=== PATIENT | male | born 1960 ===

== ENCOUNTER → 2019-10-09 09:35 | Outpatient (BNVA) | payer BC, SELFPAY | PROVIDERS: Visit Provider Specialist | DX: M19.012 Primary osteoarthritis, left shoulder (principal); M25.512 Pain in left shoulder | CPT/HCPCS: 73030 ==

== ENCOUNTER 2021-05-10 00:32 | Inpatient (IN) | payer BC, SELFPAY ==
[2021-05-10] VITALS (42 sets, daily range): BP systolic 124–179; BP diastolic 40–83; PULSE 66–88; RESP 14–24; TEMP 37.2; O2SAT 95–100; BMI 36.8
--- NOTE | 2021-05-10 00:51 | ED_ITS ---
HPI - Abdominal Pain General: Chief Complaint: ER Hold Stated Complaint: pancreatitis Time Seen by Provider: 05/10/21 00:51 History of Present Illness: HPI narrative: Mr. Quesada is a 61-year-old gentleman with significant past medical history of hypertension, hyperlipidemia, and diabetes who presents emerged department due to abdominal pain. He reports a history of pancreatitis and symptoms have been going on for few days. Symptom onset was gradual and he endorses gradually worsening now severe epigastric pain. He has associated nausea and vomiting. No changes in bowel movement or stool. No other infectious symptoms. He presented to outside hospital was offered admission or transfer to another facility versus trial at home and he elected to try at home however symptoms worsened. Reports chest x-ray and CT imaging at that time. EMS gave the patient 1 mg Dilaudid and 4 mg of Zofran which improved his symptoms. He has had similar episodes in the past. No other abdominal trauma, specific exacerbating, alleviating, or provoking factors id entified. He reports last alcohol consumption to 3 months ago and that previous episodes of pancreatitis were likely secondary to poor glucose control as opposed to alcohol abuse. Review of Systems General: Reports: 10 or more systems reviewed and unremarkable except in HPI and below Narrative: CONSTITUTIONAL: See HPI EYES - denies pain, denies loss of vision EARS - denies ear issues. NOSE - denies congestion or rhinorrhea. THROAT - denies sore throat or difficulty swallowing. CARDIOVASCULAR - denies chest pain and palpitations RESPIRATORY - denies shortness of breath and cough GASTROINTESTINAL -see HPI GENITOURINARY - denies dysuria or urinary frequency MUSCULOSKELETAL- denies deformity or pain SKIN - denies rashes or new changed skin lesions NEUROLOGIC - denies focal weakness or sensory changes HEMATOLOGIC/LYMPHATIC - denies easy bruising or lymphadenopathy. PENDING SALE TO [facility] ED PFSH: Medical History Diabetes type 2, controlled Hyperlipidemia Hypertension Osteoarthritis of left shoulder Social History Smoking and tobacco status: current some day smoker Alcohol intake: current Alcohol intake frequency: holidays/special occasions only Physical Exam Narrative: EXAM NARRATIVE: GENERAL/CONSTITUTIONAL -somewhat ill-appearing. Uncomfortable Eyes - PERRL, no conjunctival injection ENMT - Atraumatic external nose and ears. Moist mucous membranes NECK - supple. trachea midline CARDIOVASCULAR - regular rate and rhythm. Peripheral pulses 2+ and equal RESPIRATORY -clear to auscultation bilaterally. No retractions or accessory muscle use. ABDOMEN/GI -tenderness to palpation in the epigastric region. Nondistended. No tenderness to percussion or evidence of peritonitis MSK - Extremities without obvious deformity or tenderness to palpation SKIN - Warm, Dry NEURO - alert and appropriately oriented. strength and sensation intact. Moves all extremities equally. PSYCH - Appropriate mood and affect Course ED course: - Patient was seen and evaluated by me at bedside - Patient placed on cardiac monitors, IV access obtained - Initial evaluation notable for mildly ill-appearing, uncomfortable due to pain. Moderate marked tenderness in the epigastric region. -Symptom control ordered. - Labs notable for leukocytosis, elevated lipase. -Outside CT reviewed - Upon serial reexamination after treatment the patient was mildly improved - Based on patient history, evaluation, labs, and imaging as interpreted the most likely cause of the patient's condition is pancreatitis - The results of ED evaluation were discussed with the patient including plan for admission due to requirement for level of care not available if discharged to prevent significant worsening/deterioration. The patient failed trial of outpatient therapy. -Hospitalist service contacted and agreed to admit the patient. In discussion with hospitalist triglyceride level requested and came back elevated. After further discussion insulin and D5 containing solution ordered. - Patient was admitted without further deterioration or significant events. Vital Signs: Vital signs: Vital Signs Temperature 99.0 F 05/10/21 20:00 Pulse Rate 69 05/10/21 22:00 Respiratory Rate 22 H 05/10/21 20:35 Blood Pressure 153/71 05/10/21 20:40 Pulse Oximetry 96 05/10/21 20:35 MDM - Abdominal Pain Medical Records: Attestation: I reviewed the patient's medical records. Lab Data: Attestation: I reviewed the patient's lab results. Labs: Lab Results 05/10/21 05/10/21 05/10/21 Range/Units 01:20 01:20 01:20 WBC 15.5 H (4.0-10.0) 10^3/ uL RBC 3.96 L (4.1-5.3) 10^6/u L Hgb 12.2 (11.7-16.6) g/dL Hct 34.9 L (42.0-52.0) % MCV 88.1 (80-94) fl MCH 30.8 (28.0-34.0) pg MCHC 35.0 (30.0-36.0) g/dL RDW 13.3 (12.1-15.1) % Plt Count 173 (130-400) 10^3/c mm MPV 13.7 H (7.4-10.4) fL Neut % (Auto) 80.6 % Lymph % (Auto) 12.0 % Vigo % (Auto) 6.0 % Eos % (Auto) 0.7 % Baso % (Auto) 0.3 % Neut # (Auto) 12.51 H (1.8-7.7) 10^3/u L Lymph # (Auto) 1.9 (0.8-4.8) 10^3/u L Vigo # (Auto) 0.9 (0.2-0.9) 10^3/u L Eos # (Auto) 0.1 (0.0-0.8) 10^3/u L Baso # (Auto) 0.1 (0.0-0.1) 10^3/u L Nucleated RBC % (a uto) 0 % Nucleated RBCs # 0.0 /100WBC Sodium 129 L (136-145) mmol/L Potassium 4.3 (3.5-5.1) mmol/L Chloride 94 L (98-107) mmol/L Carbon Dioxide 22 (22-29) mmol/L Anion Gap 17.3 (5-19) BUN 13 (6-20) mg/dL Creatinine 0.6 L (0.7-1.2) mg/dL GFR Calculation 137.9 H (90-130) mL/min Glucose 278 H (65-115) mg/dL Calculated Osmolal ity 278 L (285-295) mOsm/k g Lactate 0.6 (0.5-2.2) mmol/L Calcium 8.0 L (8.5-10.5) mg/dL Total Bilirubin 0.5 (0.15-1.2) mg/dL AST 5 (0-40) U/L ALT < 5 (0-41) U/L Alkaline Phosphata se 61 (40-130) IU/L Troponin T Baselin e (0-15) ng/L Troponin T 120 Min [place] (0-15) ng/L Delta Troponin T (0-10) ABS# Total Protein 5.9 L (6.6-8.7) g/dL Albumin 3.5 (3.5-5.2) g/dL Globulin 2.4 (1.3-4.6) g/dL Triglycerides (0-150) mg/dL LDL Cholesterol Di rect (0-100) mg/dL Lipase 145 H (13-60) U/L TSH (0.27-4.20) uIU/ mL Urine Color (Yellow) Urine Appearance (CLEAR) Urine pH (5-7) Ur Specific Gravit y (1.005-1.030) Urine Protein (Negative) Urine Glucose (UA) (Normal) Urine Ketones (Negative) Urine Blood (Negative) Urine Nitrate (Negative) Urine Bilirubin (Negative) Urine Urobilinogen (Negative) mg/dL Ur Leukocyte Eli ase (Negative) Urine RBC (0-2) /hpf Urine WBC (0-5) /hpf Ur Squamous Epith Cells (0-5) /hpf Amorphous Sediment /hpf Urine Bacteria (NONE) /hpf Ethyl Alcohol (0-10) mg/dL 05/10/21 05/10/21 05/10/21 Range/Units 01:20 01:20 02:55 WBC (4.0-10.0) 10^3/ uL RBC (4.1-5.3) 10^6/u L Hgb (11.7-16.6) g/dL Hct (42.0-52.0) % MCV (80-94) fl MCH (28.0-34.0) pg MCHC (30.0-36.0) g/dL RDW (12.1-15.1) % Plt Count (130-400) 10^3/c mm MPV (7.4-10.4) fL Neut % (Auto) % Lymph % (Auto) % Vigo % (Auto) % Eos % (Auto) % Baso % (Auto) % Neut # (Auto) (1.8-7.7) 10^3/u L Lymph # (Auto) (0.8-4.8) 10^3/u L Vigo # (Auto) (0.2-0.9) 10^3/u L Eos # (Auto) (0.0-0.8) 10^3/u L Baso # (Auto) (0.0-0.1) 10^3/u L Nucleated RBC % (a uto) % Nucleated RBCs # /100WBC Sodium (136-145) mmol/L Potassium (3.5-5.1) mmol/L Chloride (98-107) mmol/L Carbon Dioxide (22-29) mmol/L Anion Gap (5-19) BUN (6-20) mg/dL Creatinine (0.7-1.2) mg/dL GFR Calculation (90-130) mL/min Glucose (65-115) mg/dL Calculated Osmolal ity (285-295) mOsm/k g Lactate (0.5-2.2) mmol/L Calcium (8.5-10.5) mg/dL Total Bilirubin (0.15-1.2) mg/dL AST (0-40) U/L ALT (0-41) U/L Alkaline Phosphata se (40-130) IU/L Troponin T Baselin e 32 H (0-15) ng/L Troponin T 120 Min [place] (0-15) ng/L Delta Troponin T (0-10) ABS# Total Protein (6.6-8.7) g/dL Albumin (3.5-5.2) g/dL Globulin (1.3-4.6) g/dL Triglycerides (0-150) mg/dL LDL Cholesterol Di rect (0-100) mg/dL Lipase (13-60) U/L TSH 1.43 (0.27-4.20) uIU/ mL Urine Color Yellow (Yellow) Urine Appearance Clear (CLEAR) Urine pH 5 (5-7) Ur Specific Gravit y 1.015 (1.005-1.030) Urine Protein 2+ H (Negative) Urine Glucose (UA) 4+ H (Normal) Urine Ketones 2+ H (Negative) Urine Blood 2+ H (Negative) Urine Nitrate Negative (Negative) Urine Bilirubin Neg (Negative) Urine Urobilinogen Norm (Negative) mg/dL Ur Leukocyte Eli ase Negative (Negative) Urine RBC 5-10 H (0-2) /hpf Urine WBC 0-4 H (0-5) /hpf Ur Squamous Epith Cells 0-4 H (0-5) /hpf Amorphous Sediment 1+ /hpf Urine Bacteria Trace (NONE) /hpf Ethyl Alcohol (0-10) mg/dL 05/10/21 05/10/21 Range/Units 04:30 04:30 WBC (4.0-10.0) 10^3/ uL RBC (4.1-5.3) 10^6/u L Hgb (11.7-16.6) g/dL Hct (42.0-52.0) % MCV (80-94) fl MCH (28.0-34.0) pg MCHC (30.0-36.0) g/dL RDW (12.1-15.1) % Plt Count (130-400) 10^3/c mm MPV (7.4-10.4) fL Neut % (Auto) % Lymph % (Auto) % Vigo % (Auto) % Eos % (Auto) % Baso % (Auto) % Neut # (Auto) (1.8-7.7) 10^3/u L Lymph # (Auto) (0.8-4.8) 10^3/u L Vigo # (Auto) (0.2-0.9) 10^3/u L Eos # (Auto) (0.0-0.8) 10^3/u L Baso # (Auto) (0.0-0.1) 10^3/u L Nucleated RBC % (a uto) % Nucleated RBCs # /100WBC Sodium (136-145) mmol/L Potassium (3.5-5.1) mmol/L Chloride (98-107) mmol/L Carbon Dioxide (22-29) mmol/L Anion Gap (5-19) BUN (6-20) mg/dL Creatinine (0.7-1.2) mg/dL GFR Calculation (90-130) mL/min Glucose (65-115) mg/dL Calculated Osmolal ity (285-295) mOsm/k g Lactate (0.5-2.2) mmol/L Calcium (8.5-10.5) mg/dL Total Bilirubin (0.15-1.2) mg/dL AST (0-40) U/L ALT (0-41) U/L Alkaline Phosphata se (40-130) IU/L Troponin T Baselin e (0-15) ng/L Troponin T 120 Min [place] 29.33 H (0-15) ng/L Delta Troponin T -2.67 L (0-10) ABS# Total Protein (6.6-8.7) g/dL Albumin (3.5-5.2) g/dL Globulin (1.3-4.6) g/dL Triglycerides 2354 H (0-150) mg/dL LDL Cholesterol Di rect 28 (0-100) mg/dL Lipase (13-60) U/L TSH (0.27-4.20) uIU/ mL Urine Color (Yellow) Urine Appearance (CLEAR) Urine pH (5-7) Ur Specific Gravit y (1.005-1.030) Urine Protein (Negative) Urine Glucose (UA) (Normal) Urine Ketones (Negative) Urine Blood (Negative) Urine Nitrate (Negative) Urine Bilirubin (Negative) Urine Urobilinogen (Negative) mg/dL Ur Leukocyte Eli ase (Negative) Urine RBC (0-2) /hpf Urine WBC (0-5) /hpf Ur Squamous Epith Cells (0-5) /hpf Amorphous Sediment /hpf Urine Bacteria (NONE) /hpf Ethyl Alcohol < 10 (0-10) mg/dL Discharge Plan Discharge Patient Disposition: Admitted As Inpatient Admit Provider: Gladis Casas Coding Level of Care Code ED Food Sampler for Carlos Alberto Bangura
[2021-05-10 01:28] LABS: Basophils # 0.1 10^3/uL (0.0-0.1); Basophils % 0.3 %; Eosinophils # 0.1 10^3/uL (0.0-0.8); Eosinophils % 0.7 %; Hematocrit 34.9 % (42.0-52.0); Hemoglobin 12.2 g/dL (11.7-16.6); Lymphocytes # 1.9 10^3/uL (0.8-4.8); Mean Corpuscular Hemoglobin 30.8 pg (28.0-34.0); Mean Corpuscular Volume 88.1 fl (80-94); Mean Platelet Volume 13.7 fL (7.4-10.4); Monocytes # 0.9 10^3/uL (0.2-0.9); Neutrophils # 12.51 10^3/uL (1.8-7.7); Neutrophils % 80.6 %; Nucleated Red Blood Cells % 0 %; Platelet Count 173 10^3/cmm (130-400); Red Blood Count 3.96 10^6/uL (4.1-5.3); Red Cell Distribution Width 13.3 % (12.1-15.1); White Blood Count 15.5 10^3/uL (4.0-10.0)
[2021-05-10 01:47] LABS: Albumin Level 3.5 g/dL (3.5-5.2); Alkaline Phosphatase 61 IU/L (40-130); Blood Urea Nitrogen 13 mg/dL (6-20); Carbon Dioxide 22 mmol/L (22-29); Chloride 94 mmol/L (98-107); Globulin 2.4 g/dL (1.3-4.6); Glomerular Filtration Rate 137.9 mL/min (90-130); Glucose 278 mg/dL (65-115); Lipase 145 U/L (13-60); Osmolality Calculated 278 mOsm/kg (285-295); Sodium 129 mmol/L (136-145); Total Bilirubin 0.5 mg/dL (0.15-1.2); Total Protein 5.9 g/dL (6.6-8.7)
[2021-05-10 01:48] LABS: Troponin(5th) Baseline 32 ng/L (0-15)
[2021-05-10 01:49] LABS: Lactate (Lactic Acid level) 0.6 mmol/L (0.5-2.2)
[2021-05-10 01:59] LABS: Alanine Aminotransferase < 5 U/L (0-41); Aspartate Amino Transferase 5 U/L (0-40)
[2021-05-10 03:14] LABS: Anion Gap 17.3 (5-19); Potassium 4.3 mmol/L (3.5-5.1)
[2021-05-10] MEDS: morphine 4 mg/mL SDV 1 mL IVP (03:58)
[2021-05-10 04:10] LABS: Urine Appearance Clear (CLEAR); Urine Color Yellow (Yellow)
[2021-05-10 04:11] LABS: Add Urine Microscopic? YES; Bilirubin Urine Neg (Negative); Blood Urine 2+ (Negative); Glucose Urine UA 4+ (Normal); Ketones Urine 2+ (Negative); Leukocyte Esterase Urine Negative (Negative); Nitrate Urine Negative (Negative); Protein Urine 2+ (Negative); Specific Gravity, Urine 1.015 (1.005-1.030); Urobilinogen Urine Norm (Negative); pH Urine 5 (5-7)
[2021-05-10 04:16] LABS: Add Urine Culture? No; Amorphous Sediment Urine 1+ /hpf; Bacteria Urine TRACE /hpf; Squamous Epithelial Cell Urine 0-4 /hpf (0-5); WBC Urine 0-4 /hpf (0-5)
[2021-05-10 05:07] LABS: Troponin 5 2HR 29.33 ng/L (0-15)
[2021-05-10 05:25] LABS: Alcohol Level < 10 mg/dL (0-10); Troponin 5 2HR Delta -2.67 ABS# (0-10)
[2021-05-10 05:29] LABS: Triglycerides 2354 mg/dL (0-150)
[2021-05-10 05:59] LABS: LDL Cholesterol Direct 28 mg/dL (0-100)
--- NOTE | 2021-05-10 06:21 | CTR_ITS ---
PROCEDURE INFORMATION: Exam: CT Abdomen With Contrast Exam date and time: 05/10/2021 6:21 AM Age: 61 years old Clinical indication: Abdominal pain; Additional info: Acute pancreatitis TECHNIQUE: Imaging protocol: Computed tomography images of the abdomen with intravenous contrast. Radiation optimization: All CT scans at this facility use at least one of these dose optimization techniques: automated exposure control; mA and/or kV adjustment per patient size (includes targeted exams where dose is matched to clinical indication); or iterative reconstruction. Contrast material: OMNI 300; Contrast volume: 95 ml; Contrast route: INTRAVENOUS (IV); COMPARISON: No relevant prior studies available. RADIATION DOSE METRICS: Total DLP (mGy-cm): 1432.8 FINDINGS: Heart: Normal heart size. Coronary atherosclerotic calcifications seen. No pericardial effusion. Liver: Normal. No mass. Gallbladder and bile ducts: Normal. No calcified stones. No ductal dilation. Pancreas: There is mild haziness of the fat surrounding the pancreatic neck. There is a nonspecific hypodense focus in the pancreatic neck/proximal body measuring 0.7 cm. The pancreas otherwise enhances homogeneously. No pancreatic ductal dilatation seen. No discrete peripancreatic fluid collection seen. Spleen: Normal. No splenomegaly. Adrenals: Normal. No mass. Kidneys and ureters: Symmetric enhancement of the kidneys. There is bilateral subcentimeter foci of decreased attenuation, which are too small to characterize. No hydronephrosis or nephrolithiasis. Stomach and bowel: Visualized stomach and bowel are unremarkable. No obstruction. No mucosal thickening. Intraperitoneal space: Unremarkable. No free air. No significant fluid collection. Lymph nodes: Unremarkable. No enlarged lymph nodes. Vasculature: Moderate diffuse atherosclerotic disease is present. Bones/joints: Degenerative changes of the spine seen. Soft tissues: Unremarkable. CT/CT abdomen w con* [id number] IMPRESSION: 1. Mild inflammatory changes of the pancreas, consistent with history of acute pancreatitis. 2. Subcentimeter focus of decreased attenuation in the pancreatic neck/proximal body. Further evaluation with contrast enhanced abdomen MRI/MRCP is recommended. Radiation Dose CTDIVOL = (mGy): DLP = 1432.8 (mGy-cm)
--- NOTE | 2021-05-10 06:29 | PC.NURSE ---
pt taken to CT
[2021-05-10] MEDS: iohexol 300 mg/mL 100 mL Btl IV (06:44)
--- NOTE | 2021-05-10 06:47 | P.HP_ITS ---
Providers/Chief Complaint Admitting Physician: Gladis Casas MD Chief Complaint: pancreatitis History of Present Illness Maurice Rizo is a 61 year old male with a past medical history of insulin- dependent diabetes mellitus, hyperlipidemia who is presenting today with 4 days of abdominal pain. Patient describes the pain as 10 out of 10 at its maximum, located in the epigastric region, described as a burning sensation starting in the epigastric region, radiating in a bandlike manner bilaterally and up into the left side of his chest. 4 days ago when the symptoms started he visited his local hospital where reportedly a CAT scan of the abdomen was performed and he was diagnosed with acute pancreatitis. He does not know his the results of his other blood work. He was given the option of transferring to [place] for admission versus returning home of which he opted for the latter. Came to the ER today with worsening abdominal pain. He has had nausea but no vomiting. He has had 1-2 episodes of diarrhea. T-max was noted to be 99.9. On arrival at the ER today he is noted to have leukocytosis, lipase at 145, elevated t riglycerides at 2300. He reports a past history of pancreatitis 4 years ago which she says was precipitated by a combination of his cholesterol and diabetes. He has not been using his insulin for the past week as he ran out. He has not only been taking Metformin and glipizide, blood sugar at home has been ranging up to 400. Review of Systems General: Reports: 10 or more systems reviewed and unremarkable except in HPI and below Const: Denies: fever(s), chills or body aches Eyes: Denies: change in vision, blurry vision or photophobia ENMT: Reports: hoarseness; Denies: throat pain, enlarged tonsils, odynophagia or nasal congestion Card: Denies: chest pain, palpitations, irregular heart rhythm, edema, swelling of feet/ankles, lightheadedness, pre-syncope, dyspnea on exertion or orthopnea Resp: Denies: dyspnea, productive cough, non-productive cough, wheezing, stridor, pain on inspiration, change in phlegm color, hemoptysis or chest congestion GI: Reports: abdominal pain and nausea; Denies: vomiting, hematemesis, coffee ground emesis, dysphagia, heartburn, diarrhea, constipation, GI cramping, change in stool character, hematochezia or melena : Denies: flank pain, dysuria, urinary frequency, urinary urgency, urinary hesitancy or hematuria Musc: Denies: neck pain, back pain, extremity pain, joint swelling, joint warmth or deformity Neuro: Denies: headache(s), numbness in extremities, weakness in extremities, sensory changes, difficulty walking, frequent falls, dizziness, vertigo, behavioral changes, Slurred speech present or seizure-like activity Psych: Denies: anxiety, depression, suicidal ideation or homicidal ideation Endo: Denies: polyuria, polydipsia, tired all the time, cold intolerance or hot flashes Tao/Lymph: Denies: easy bruising or easy bleeding Medications/Allergies Home Medications Medication Instructions Recorded Confirmed Last Taken Type aspirin 81 mg tablet,delayed 81 mg PO DAILY 10/09/19 10/09/19 Unknown History release atorvastatin 80 mg tablet 80 mg PO DAILY 10/09/19 10/09/19 Unknown History citalopram 40 mg tablet 40 mg PO DAILY 10/09/19 10/09/19 Unknown History gabapentin 600 mg tablet 600 mg PO DAILY 10/09/19 10/09/19 Unknown History glimepiride 4 mg tablet 4 mg PO BID tab 10/09/19 10/09/19 Unknown History hydrocodone 5 mg-acetaminophen 325 1 tab PO Q6H PRN 10/09/19 10/09/19 Unknown History mg tablet insulin glargine 100 unit/mL 100 unit SUBCUT DAILY 10/09/19 10/09/19 Unknown History subcutaneous solution lisinopril 10 mg tablet 10 mg PO DAILY 10/09/19 10/09/19 Unknown History metformin 500 mg tablet 1,000 mg PO BID tab 10/09/19 10/09/19 Unknown History multivitamin 1 tab PO DAILY 10/09/19 10/09/19 Unknown History tizanidine 4 mg capsule 4 mg PO TID PRN 10/09/19 10/09/19 Unknown History Allergies Allergy/AdvReac Type Severity Reaction Status Date / Time No Known Allergies Allergy Verified 10/09/19 09:57 PFSH Acute PFSH: Medical History Diabetes type 2, controlled Hyperlipidemia Hypertension Osteoarthritis of left shoulder Social History Smoking and tobacco status: current some day smoker Alcohol intake: current Alcohol intake frequency: holidays/special occasions only Vitals/I&O/Wt Last Vital Signs Temp 99.0 F 05/10/21 01:10 Pulse 84 05/10/21 04:00 Resp 19 H 05/10/21 04:00 BP 179/83 05/10/21 04:00 Pulse Ox 98 05/10/21 04:00 Weight last 48 hrs Weight 106.594 kg Physical Exam Narrative: EXAM NARRATIVE: General: Mild distress secondary to pain, dehydration+ HEENT: PERRLA, pupils bilaterally equal and reactive, pallors not present Chest: Normal vesicular breath sounds, no added sounds, equal good air entry bilaterally CVS: S1-S2 regular, no murmurs, no tachycardia, no gallops, no rubs Abdomen: Soft, nontender, no organomegaly, bowel sounds present Neuro: No focal deficits, no facial deformity, AO x3, power 5/5 in all limbs Extremities: No edema clubbing or cyanosis. Data : 05/10/21 01:20 05/10/21 01:20 A&P Assessment and plan (1) Acute pancreatitis: Status: Acute Qualifiers: Pancreatitis type: other Acute pancreatitis complication: unspecified Qualified Code(s): K85.80 - Other acute pancreatitis without necrosis or infection (2) Hyponatremia: Status: Acute (3) Leukocytosis: Status: Acute Qualifiers: Leukocytosis type: unspecified Qualified Code(s): D72.829 - Elevated white blood cell count, unspecified Additional A&P Information Patient presenting today with 4 days of abdominal pain, diagnosed with acute pancreatitis at an outside hospital 4 days ago, lipase today at 145, triglyceride noted to be elevated to 2300, overall clinical picture appears to be consistent with hypertriglyceridemia induced pancreatitis. #Acute pancreatitis N.p.o. except sips and chips for now. As needed morphine and Toradol alternating for pain control. IV fluids normal saline currently running at 150 cc an hour. Cause of pancreatitis appears to be hypertriglyceridemia, patient has not been using his insulin for the past week. Start insulin infusion, patient is on significant doses of insulin at home, will titrate the drip based on his blood sugar levels. Check triglyceride level twice daily. Check CMP twice daily. Target reduction of triglyceride level to around 500, will likely need additional fibrate therapy upon discharge. Continue atorvastatin. If blood glucose level is less than 250, change fluids to D5 normal saline. Keep potassium range between 3.5-5. Obtain CT of the abdomen to evaluate for any interim signs of necrotizing panc reatitis, developing abscess #Leukocytosis: Likely as a result of inflammatory response from pancreatitis. 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
--- NOTE | 2021-05-10 06:59 | PC.NURSE ---
pt back on unit from CT
[2021-05-10] MEDS: dextrose 5%-ns + KCl 40 40 MEQ/1,000 ML BAG 150 MEQ IV ×3 (07:10→21:11)
[2021-05-10 07:13] LABS: Thyroid Stimulating Hormone 1.43 uIU/mL (0.27-4.20)
--- NOTE | 2021-05-10 07:13 | ECG_ITS ---
[facility] Test Date: 2021-05-10 Pat Name: Maurice Rizo Department: Room: Gender: Male Hand Developer: : 1960 Requested By: Luis Alberto Ortiz Order Number: [id number] Rory MD: Yudy Zuluaga M.D. Measurements Intervals [place] Rate: 82 P: 42 WV: 185 QRS: -56 QRSD: 118 T: 28 QT: 360 QTc: 422 Interpretive Statements SINUS RHYTHM LEFT ANTERIOR FASCICULAR BLOCK [QRS AXIS <= -45, QR IN I, RS IN II] No previous ECG available for comparison Electronically Signed On 05-10-2021 19:21:40 CDT by Yudy Zuluaga M.D. [id number] f
[2021-05-10] MEDS: insulin regular-human 250 UNIT in sodium chloride 0.9% 250 ML 7.53 UNIT IV (07:26)
[2021-05-10 07:31] LABS: Glucose Point of Care 311 mg/dL (70-110)
[2021-05-10] MEDS: famotidine 20 mg/2 mL INJ IVP ×2 (07:36→19:50)
[2021-05-10] MEDS: enoxaparin 40 mg/0.4 mL Syringe SUBCUT (07:36)
[2021-05-10 08:35] LABS: Troponin 5 6HR 28.73 ng/L (0-15)
[2021-05-10] MEDS: morphine 4 mg/mL SDV 1 mL 2 MG IVP (08:36)
[2021-05-10 08:37] LABS: Triglycerides 2280 mg/dL (0-150); Troponin 5 6HR Delta -3.27 ng/L (0-12)
[2021-05-10 08:43] LABS: Glucose Point of Care 324 mg/dL (70-110)
[2021-05-10 09:40] LABS: LDL Cholesterol Direct 30 mg/dL (0-100)
[2021-05-10] MEDS: atorvastatin 40 mg Tablet 80 MG PO (09:43)
[2021-05-10] MEDS: aspirin 81 mg EC Tablet PO (09:43)
[2021-05-10] MEDS: gabapentin 300 mg Capsule 600 MG PO (09:43)
[2021-05-10] MEDS: citalopram 20 mg Tablet 40 MG PO (09:44)
[2021-05-10 09:53] LABS: Glucose Point of Care 262 mg/dL (70-110)
--- NOTE | 2021-05-10 10:13 | PC.PHAR ---
pt states he takes care of his own medications-pt brought in med bottles-pt didnt bring in metformin but states he takes nixa [facility] last filled on 02/17/21 30d/s for [id number] take 1000mg bid-pt didnt bring in lipitor but states he takes it [facility] last [facility] 40mg daily on 03/22/21 30d/s[facility] filled lantus solostar on 02/28/21 for 55 units bid pt states he only takes 50 units bid-notes are made in the pharmacy comments
[2021-05-10 11:28] LABS: Glucose Point of Care 230 mg/dL (70-110)
[2021-05-10 12:50] LABS: Glucose Point of Care 139 mg/dL (70-110)
[2021-05-10 13:58] LABS: Glucose Point of Care 92 mg/dL (70-110)
[2021-05-10 14:49] LABS: Glucose Point of Care 82 mg/dL (70-110)
[2021-05-10 15:34] LABS: Glucose Point of Care 82 mg/dL (70-110)
[2021-05-10 16:50] LABS: Glucose Point of Care 70 mg/dL (70-110)
[2021-05-10 17:03] LABS: Albumin Level 3.3 g/dL (3.5-5.2); Alkaline Phosphatase 55 IU/L (40-130); Anion Gap 11.6 (5-19); Blood Urea Nitrogen 10 mg/dL (6-20); Carbon Dioxide 25 mmol/L (22-29); Chloride 100 mmol/L (98-107); Globulin 2.5 g/dL (1.3-4.6); Glomerular Filtration Rate 170.2 mL/min (90-130); Glucose 62 mg/dL (65-115); Osmolality Calculated 273 mOsm/kg (285-295); Potassium 3.6 mmol/L (3.5-5.1); Sodium 133 mmol/L (136-145); Total Bilirubin 0.2 mg/dL (0.15-1.2); Total Protein 5.8 g/dL (6.6-8.7)
[2021-05-10 17:28] LABS: Alanine Aminotransferase < 5 U/L (0-41); Aspartate Amino Transferase 5 U/L (0-40)
[2021-05-10 17:37] LABS: Glucose Point of Care 83 mg/dL (70-110)
--- NOTE | 2021-05-10 17:39 | P.PN_ITS ---
Subjective Subjective: Interval history: Patient was seen in the ER, requested nurse to use 0.2 units per cake's and increase insulin dosage to 15 and titrate up to 20 with D5 check triglyceride level every 12 hours patient is not endorsing worsening abdominal pain resting comfortably we'll keep him on clear liquid for now Vitals/I&O/Wt Last Vital Signs Temp 99.0 F 05/10/21 01:10 Pulse 70 05/10/21 15:29 Resp 16 05/10/21 15:29 BP 129/70 05/10/21 15:29 Pulse Ox 95 05/10/21 15:29 05/10/21 05/10/21 05/10/21 06:59 14:59 22:59 Intake Total 1049.502 / 1049.502 Balance 1049.502 / 1049.502 Weight last 48 hrs Weight 106.594 kg Physical Exam Narrative: EXAM NARRATIVE: Patient was resting comfortably in right lateral position saturating well on room air midepigastric tenderness on deep palpation S1, S2 sinus tachycardia EOMI, PERRLA no neurological deficit none joint swelling or cellulitis Data : 05/10/21 01:20 05/10/21 14:19 A&P Assessment and plan (1) Hyponatremia: Status: Acute (2) Leukocytosis: Status: Acute Qualifiers: Leukocytosis type: unspecified Qualified Code(s): D72.829 - Elevated white blood cell count, unspecified (3) Acute pancreatitis: Status: Acute Qualifiers: Pancreatitis type: other Acute pancreatitis complication: unspecified Qualified Code(s): K85.80 - Other acute pancreatitis without necrosis or infection (4) Hypertriglyceridemia: Status: Acute Additional A&P Information Hypertriglyceridemia induced pancreatitis triglyceride level check every 12 hours insulin to be resumed until triglyceride level less than 500, D5 running with IV insulin IV insulin 0.2 units per kgs optimal dose 20 units clear liquid diet check hemoglobin A1c level check sugar every hour, will add atorvastatin once he is able to tolerate diet trend triglyceride and lipase level full code clear liquid diet DVT prophylaxis Lovenox Attestations Medical Necessity Statement*: Continue management Time Spent in Patient Care: less than 15 minutes Coding Level of Care Code 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
[2021-05-10 18:47] LABS: Glucose Point of Care 76 mg/dL (70-110)
--- NOTE | 2021-05-10 18:51 | PC.NURSE ---
Pt arrived at 1805, transferred to ICU bed and connected to monitor. VSS. AAOx4. makes all needs known. PIV to R ac and LFA. Insulin gtt at 15units and D5NS with 40MEQ K+ infusing per orders. Admission assessment completed. Denies any needs. C/O pain 11/04. Report given to Josette GALLEGOS.
--- NOTE | 2021-05-10 19:03 | PC.NURSE ---
Addendum entered by Juan Oliver RN 05/10/21 19:03: 5/325 Original Note: $27 in wallet, 5 hydrocodone 5/525 in omnicell with all other pt meds.
[2021-05-10 20:00] LABS: Glucose Point of Care 111 mg/dL (70-110)
--- NOTE | 2021-05-10 20:17 | PC.NURSE ---
Titrate Insulin Drip Titrated insulin drip up to 20 mls/hr per Dr. Hunter masters.
[2021-05-10 21:01] LABS: Glucose Point of Care 135 mg/dL (70-110)
[2021-05-10 21:05] LABS: Triglycerides 1546 mg/dL (0-150)
[2021-05-10 21:17] LABS: LDL Cholesterol Direct 38 mg/dL (0-100)
[2021-05-10 22:53] LABS: Glucose Point of Care 56 mg/dL (70-110)
[2021-05-10 23:50] LABS: Glucose Point of Care 94 mg/dL (70-110)
[2021-05-11] VITALS (83 sets, daily range): BP systolic 102–164; BP diastolic 43–98; PULSE 58–82; RESP 12–23; TEMP 36.7–36.9; O2SAT 88–100
[2021-05-11 00:36] LABS: Glucose Point of Care 88 mg/dL (70-110)
[2021-05-11] MEDS: insulin regular-human 250 UNIT in sodium chloride 0.9% 250 ML 20 UNIT IV ×2 (01:45→15:25)
[2021-05-11 01:54] LABS: Glucose Point of Care 71 mg/dL (70-110)
[2021-05-11] MEDS: dextrose 5%-ns + KCl 40 40 MEQ/1,000 ML BAG 150 MEQ IV ×4 (03:50→23:51)
[2021-05-11 04:53] LABS: Glucose Point of Care 61 mg/dL (70-110)
[2021-05-11 04:53] LABS: Glucose Point of Care 65 mg/dL (70-110)
[2021-05-11] MEDS: famotidine 20 mg/2 mL INJ IVP ×2 (05:42→17:46)
[2021-05-11 05:52] LABS: Glucose Point of Care 97 mg/dL (70-110)
--- NOTE | 2021-05-11 06:25 | PC.NURSE ---
Shift Note Frequent safety and comfort rounds continue. Orders and/or nursing care completed as indicated. Patient monitored for response to intervention and treatment(s). Education provided includes insulin drip. Patient verbalized understanding of teaching. Insulin drip infusing at 20 mls/hr and D5 with 40 KCL infusing at 150 mls/hr per Dr. Harrison orders. Patient alert and oriented x4, no wounds or skin issues noted. He remains on room air. Patient had 3 voids and 1 BM. No complaints of pain overnight. Will continue to monitor.
[2021-05-11 07:07] LABS: Glucose Point of Care 100 mg/dL (70-110)
[2021-05-11] MEDS: enoxaparin 40 mg/0.4 mL Syringe SUBCUT (07:55)
[2021-05-11] MEDS: atorvastatin 40 mg Tablet 80 MG PO (07:57)
[2021-05-11] MEDS: aspirin 81 mg EC Tablet PO (07:57)
[2021-05-11] MEDS: citalopram 20 mg Tablet 40 MG PO (07:57)
[2021-05-11] MEDS: gabapentin 300 mg Capsule 600 MG PO (07:57)
[2021-05-11 08:02] LABS: Glucose Point of Care 103 mg/dL (70-110)
[2021-05-11 09:11] LABS: Glucose Point of Care 178 mg/dL (70-110)
[2021-05-11 09:19] LABS: Basophils % 0.2 %; Eosinophils # 0.1 10^3/uL (0.0-0.8); Eosinophils % 1.3 %; Hematocrit 33.4 % (42.0-52.0); Hemoglobin 11.2 g/dL (11.7-16.6); Lymphocytes # 1.8 10^3/uL (0.8-4.8); Lymphocytes % 17.3 %; Mean Corpuscular HGB Conc 33.5 g/dL (30.0-36.0); Mean Corpuscular Hemoglobin 29.6 pg (28.0-34.0); Mean Corpuscular Volume 88.1 fl (80-94); Mean Platelet Volume 13.2 fL (7.4-10.4); Monocytes # 0.6 10^3/uL (0.2-0.9); Monocytes % 5.4 %; Neutrophils # 7.84 10^3/uL (1.8-7.7); Neutrophils % 75.5 %; Nucleated Red Blood Cells % 0 %; Platelet Count 151 10^3/cmm (130-400); Red Blood Count 3.79 10^6/uL (4.1-5.3); Red Cell Distribution Width 13.7 % (12.1-15.1); White Blood Count 10.4 10^3/uL (4.0-10.0)
[2021-05-11 09:44] LABS: Anion Gap 14.9 (5-19); Blood Urea Nitrogen 7 mg/dL (6-20); Calcium 7.7 mg/dL (8.5-10.5); Carbon Dioxide 20 mmol/L (22-29); Chloride 103 mmol/L (98-107); Glomerular Filtration Rate 115.4 mL/min (90-130); Glucose 151 mg/dL (65-115); Lipase 64 U/L (13-60); Osmolality Calculated 279 mOsm/kg (285-295); Potassium 3.9 mmol/L (3.5-5.1); Sodium 134 mmol/L (136-145)
[2021-05-11 09:59] LABS: Estmated Average Glucose 258; Hemoglobin A1C 10.6 % (4.0-6.0)
[2021-05-11 10:05] LABS: Triglycerides 1272 mg/dL (0-150)
[2021-05-11 10:20] LABS: LDL Cholesterol Direct 39 mg/dL (0-100)
[2021-05-11 10:48] LABS: Glucose Point of Care 96 mg/dL (70-110)
[2021-05-11 11:18] LABS: Glucose Point of Care 83 mg/dL (70-110)
[2021-05-11 11:58] LABS: Glucose Point of Care 56 mg/dL (70-110)
[2021-05-11 13:04] LABS: Glucose Point of Care 114 mg/dL (70-110)
--- NOTE | 2021-05-11 13:57 | PM.PN ---
Subjective Subjective: Interval history: Insulin running at 20 units triglycerides coming down gradually, patient asymptomatic, clear liquid diet atorvastatin added patient is requesting PCP set up Couple of low blood sugars noted overnight however this morning blood sugar above 100 on same insulin regimen, D5 running at 150 Vitals/I&O/Wt Last Vital Signs Temp 98.3 F 05/11/21 12:00 Pulse 65 05/11/21 13:40 Resp 15 05/11/21 12:00 BP 161/69 05/11/21 12:00 Pulse Ox 98 05/11/21 12:00 05/10/21 05/11/21 05/11/21 22:59 06:59 14:59 Intake Total 1115.5 / 2165.002 3684.998 / 5850.000 1697.5 / 1697.5 Output Total 500 / 500 Balance 1115.5 / 2165.002 3684.998 / 5850.000 1197.5 / 1197.5 Weight last 48 hrs Weight 106.594 kg Weight 106.594 kg Physical Exam Narrative: EXAM NARRATIVE: Patient lying comfortably in his bed No epigastric tenderness as yesterday Able to tolerate diet No neurological deficit S1, S2 EOMI, PERRLA No audible stridor or wheezing Saturating well on room air Data : 05/11/21 09:10 05/11/21 09:10 A&P Assessment and plan (1) Hypertriglyceridemia: Status: Acute (2) Hyponatremia: Status: Acute (3) Leukocytosis: Status: Acute Qualifiers: Leukocytosis type: unspecified Qualified Code(s): D72.829 - Elevated white blood cell count, unspecified (4) Acute pancreatitis: Status: Acute Qualifiers: Pancreatitis type: other Acute pancreatitis complication: unspecified Qualified Code(s): K85.80 - Other acute pancreatitis without necrosis or infection Additional A&P Information Hypertriglyceridemia induced pancreatitis Triglycerides trending down with insulin Turned off insulin once triglyceride less than 500 I would advance his diet once triglyceride less than 500 as his epigastric pain has subsided lipase trending down Triglyceride 1200 Blood sugar check every hour Hemoglobin A1c 10.6 Hyponatremia related to hyper triglyceridemia Sodium 134 today Leukocytosis likely related to stress response Improving Appreciate dietitians recommendation patient wants outpatient follow-up with dietitian as well Advance diet once triglyceride less than 500 Full code DVT prophylaxis Lovenox Attestations Medical Necessity Statement*: Continue ICU management Time Spent in Patient Care: 16 - 35 minutes Coding Level of Care Code Acute Lagging Machine Operator for Chg Fwd Diagnoses Hypertriglyceridemia E78.1 Hyponatremia E87.1 Leukocytosis D72.829 Leukocytosis type: unspecified Acute pancreatitis K85.80 Pancreatitis type: other Acute pancreatitis complication: unspecified
[2021-05-11 14:19] LABS: Glucose Point of Care 115 mg/dL (70-110)
[2021-05-11 15:10] LABS: Glucose Point of Care 71 mg/dL (70-110)
[2021-05-11 15:18] LABS: Coronavirus Test Green County Not Detected
[2021-05-11 16:15] LABS: Triglycerides 1065 mg/dL (0-150)
[2021-05-11 16:18] LABS: Glucose Point of Care 82 mg/dL (70-110)
[2021-05-11 16:37] LABS: LDL Cholesterol Direct 47 mg/dL (0-100)
[2021-05-11 17:03] LABS: Glucose Point of Care 66 mg/dL (70-110)
[2021-05-11 18:05] LABS: Glucose Point of Care 261 mg/dL (70-110)
[2021-05-11 19:11] LABS: Glucose Point of Care 151 mg/dL (70-110)
[2021-05-11 20:22] LABS: Glucose Point of Care 106 mg/dL (70-110)
[2021-05-11 21:08] LABS: Triglycerides 985 mg/dL (0-150)
[2021-05-11 21:20] LABS: LDL Cholesterol Direct 55 mg/dL (0-100)
[2021-05-11 23:48] LABS: Glucose Point of Care 50 mg/dL (70-110)
--- NOTE | 2021-05-11 23:50 | PC.NURSE ---
blood glucose 50, patient AO, given OJ and peanut butter
[2021-05-12] VITALS (30 sets, daily range): BP systolic 122–189; BP diastolic 51–94; PULSE 54–75; RESP 6–23; TEMP 36.7–37.3; O2SAT 95–100
[2021-05-12 00:03] LABS: Glucose Point of Care 61 mg/dL (70-110)
[2021-05-12 00:44] LABS: Glucose Point of Care 112 mg/dL (70-110)
--- NOTE | 2021-05-12 00:53 | PC.NURSE ---
glucose up to 112 at this time, peripheral IV infiltrated at this time
[2021-05-12 01:52] LABS: Glucose Point of Care 195 mg/dL (70-110)
[2021-05-12 02:51] LABS: Alanine Aminotransferase 7 U/L (0-41); Albumin Level 2.9 g/dL (3.5-5.2); Alkaline Phosphatase 49 IU/L (40-130); Blood Urea Nitrogen 4 mg/dL (6-20); Calcium 7.9 mg/dL (8.5-10.5); Carbon Dioxide 23 mmol/L (22-29); Chloride 100 mmol/L (98-107); Globulin 2.9 g/dL (1.3-4.6); Glomerular Filtration Rate 137.9 mL/min (90-130); Glucose 185 mg/dL (65-115); Osmolality Calculated 276 mOsm/kg (285-295); Sodium 132 mmol/L (136-145); Total Bilirubin 0.2 mg/dL (0.15-1.2); Total Protein 5.8 g/dL (6.6-8.7)
[2021-05-12 02:53] LABS: Aspartate Amino Transferase 14 U/L (0-40); Triglycerides 829 mg/dL (0-150)
[2021-05-12] MEDS: morphine 4 mg/mL SDV 1 mL 2 MG IVP (03:00)
[2021-05-12 03:05] LABS: LDL Cholesterol Direct 65 mg/dL (0-100)
[2021-05-12 03:27] LABS: Glucose Point of Care 248 mg/dL (70-110)
[2021-05-12 04:48] LABS: Glucose Point of Care 210 mg/dL (70-110)
[2021-05-12] MEDS: dextrose 5%-ns + KCl 40 40 MEQ/1,000 ML BAG 150 MEQ IV ×3 (05:34→18:14)
[2021-05-12] MEDS: famotidine 20 mg/2 mL INJ IVP ×2 (05:35→17:45)
[2021-05-12 06:43] LABS: Glucose Point of Care 163 mg/dL (70-110)
[2021-05-12] MEDS: enoxaparin 40 mg/0.4 mL Syringe SUBCUT (06:47)
[2021-05-12 07:05] LABS: Glucose Point of Care 144 mg/dL (70-110)
--- NOTE | 2021-05-12 07:53 | PC.NURSE ---
Shift Note Late entry 05/11/21 1800 Frequent safety and comfort rounds continue. Orders and/or nursing care completed as indicated. Patient monitored for response to intervention and treatment(s). Education provided includes treatment plan, medications and lab results. Pt verbalizes understanding. Denies any needs. Blood sugar checked q1h. Insulin at set rate of 20 units/hr. No s/s of pain or SOB. Will continue to monitor.
[2021-05-12] MEDS: atorvastatin 40 mg Tablet 80 MG PO (08:03)
[2021-05-12] MEDS: aspirin 81 mg EC Tablet PO (08:03)
[2021-05-12] MEDS: gabapentin 300 mg Capsule 600 MG PO (08:03)
[2021-05-12] MEDS: citalopram 20 mg Tablet 40 MG PO (08:03)
[2021-05-12 08:14] LABS: Glucose Point of Care 109 mg/dL (70-110)
[2021-05-12] MEDS: insulin regular-human 250 UNIT in sodium chloride 0.9% 250 ML 20 UNIT IV ×2 (08:39→21:38)
--- NOTE | 2021-05-12 09:07 | PC.CHAP ---
Pastoral Care Encounter/Spiritual Assessment Type of Contact [] Declined diamond sawer visit [] Patient/Family/Request visit [] Outpatient visit [] Follow-up visit [] Physician referral [] Code/Alert [x] Routine visit [] Staff referral [] Actively dying [] Patient sleeping [] Family support [] [] Out of room [] Palliative care [] [] Receiving care in room [] Pre-surgical visit [] Trauma [] Long length of stay [x] ICU visit [] Other: Relational/Emotional Strength [] Patient feels connected with others/family/visitors/staff [] Distress [] Loneliness/isolation [] Abandonment Spirituality of Patient [x] Person of Miriam [] Attends Buddhist of their Miriam [] Believes in Prayer [] Reads Bible or Church materials [] There are Spiritual issues to be addressed Manager Pricing Interventions [x] Prayer [x] Active listening [x] Non-anxious presence [x] Spiritual/emotional support [] Crisis/trauma care [] Spiritual counseling [] Bereavement support [] Provided bereavement packet [] Provided Bible/devotional materials [] Provided toy/stuffed animal, coloring book to patient or family member [] Provided Communion [] Anointing/[place] [] Salvation [x] Completed spiritual assessment [] Other: Impact on Illness or Injury [] Angry [] Fearful [] Anxious [] Often cries [] Exhaustion [] Unable to work [] Unable to attend orthodox [] Unable to walk/stand [] Unable to read [] Unable to drive [] Unable to eat/drink [] Unable to sleep [] Unable to be with family [] Patient intubated [] Other: Summary patient born in [place]. lives here with family and looking forward to getting home soon.... resting well, feeling stronger. Time spent with patient 10 min
[2021-05-12 10:04] LABS: Glucose Point of Care 79 mg/dL (70-110)
[2021-05-12 10:05] LABS: Glucose Point of Care 129 mg/dL (70-110)
[2021-05-12] MEDS: hydroCHLOROthiazide 25 mg Tablet PO (10:10)
[2021-05-12] MEDS: lisinopril 20 mg Tablet PO (10:10)
[2021-05-12] MEDS: amlodipine 5 mg Tablet PO (10:15)
[2021-05-12 11:21] LABS: Glucose Point of Care 50 mg/dL (70-110)
--- NOTE | 2021-05-12 11:38 | PC.NURSE ---
1100 BS 50, 4oz OJ given.
[2021-05-12 12:34] LABS: Triglycerides 976 mg/dL (0-150)
[2021-05-12 12:41] LABS: Glucose Point of Care 56 mg/dL (70-110)
[2021-05-12 12:48] LABS: LDL Cholesterol Direct 76 mg/dL (0-100)
--- NOTE | 2021-05-12 13:06 | PC.NURSE ---
Pt requested wallet to get info from it. Wallet removed from [employer], seal broken. Pt given wallet. done with wallet, money recounted $27. Placed back into bag and sealed. Placed in [employer].
[2021-05-12 13:17] LABS: Glucose Point of Care 103 mg/dL (70-110)
[2021-05-12 14:09] LABS: Glucose Point of Care 98 mg/dL (70-110)
[2021-05-12 15:14] LABS: Glucose Point of Care 84 mg/dL (70-110)
--- NOTE | 2021-05-12 15:49 | P.PN_ITS ---
Subjective Subjective: Interval history: Triglycerides around 900 continue insulin regimen Vitals/I&O/Wt Last Vital Signs Temp 98.0 F 05/12/21 12:00 Pulse 69 05/12/21 13:58 Resp 21 H 05/12/21 12:00 BP 153/64 05/12/21 12:00 Pulse Ox 96 05/12/21 12:00 05/12/21 05/12/21 05/12/21 06:59 14:59 22:59 Intake Total 2252.5 / 7669.0 1387.5 / 1387.5 Output Total 1200 / 3950 800 / 800 Balance 1052.5 / 3719.0 587.5 / 587.5 Weight last 48 hrs Weight 106.594 kg Physical Exam Narrative: EXAM NARRATIVE: Patient sitting comfortably S1, S2 Abdomen soft Hypertensive EOMI, PERRLA No audible stridor or wheezing Data : 05/11/21 09:10 05/12/21 01:49 A&P Assessment and plan (1) Hypertriglyceridemia: Status: Acute (2) Hyponatremia: Status: Acute (3) Acute pancreatitis: Status: Acute Qualifiers: Pancreatitis type: other Acute pancreatitis complication: unspecified Qualified Code(s): K85.80 - Other acute pancreatitis without necrosis or infection Additional A&P Information Triglyceride 900 continue insulin 20 units with every hour glucose check continue D5 drip with insulin planning to discharge him tomorrow Fenofibrate versus atorvastatin Attestations Medical Necessity Statement*: Planning discharge tomorrow Time Spent in Patient Care: less than 15 minutes Coding Level of Care Code Acute Pipelines Manager for [facility] Fwd Diagnoses Hypertriglyceridemia E78.1 Hyponatremia E87.1 Acute pancreatitis K85.80 Pancreatitis type: other Acute pancreatitis complication: unspecified
[2021-05-12 16:06] LABS: Glucose Point of Care 47 mg/dL (70-110)
--- NOTE | 2021-05-12 16:16 | PC.NURSE ---
BS 47, pt given orange juice, crackers and peanut butter
--- NOTE | 2021-05-12 16:57 | PC.NURSE ---
Shift Note Frequent safety and comfort rounds continue. Orders and/or nursing care completed as indicated. Patient monitored for response to intervention and treatment(s). Education provided includes treatment plan, medication regimen, lab results and nutrition. Pt verbalizes understanding. Pt up ambulating in hallways with IV pole and mask on. Denies any pain or SOB, just wants to go home. Will continue to monitor.
[2021-05-12 17:37] LABS: Glucose Point of Care 55 mg/dL (70-110)
[2021-05-12 18:09] LABS: Glucose Point of Care 103 mg/dL (70-110)
[2021-05-12] MEDS: hyDRALAzine 20 mg/mL INJ 1 mL 10 MG IVP (18:14)
[2021-05-12 18:46] LABS: Triglycerides 786 mg/dL (0-150)
[2021-05-12 19:28] LABS: Glucose Point of Care 132 mg/dL (70-110)
[2021-05-12 19:34] LABS: LDL Cholesterol Direct 66 mg/dL (0-100)
[2021-05-12 20:51] LABS: Glucose Point of Care 72 mg/dL (70-110)
[2021-05-12 23:49] LABS: Glucose Point of Care 75 mg/dL (70-110)
[2021-05-12 23:49] LABS: Glucose Point of Care 96 mg/dL (70-110)
[2021-05-13] VITALS (7 sets, daily range): BP systolic 144–165; BP diastolic 64–81; PULSE 58–96; RESP 16; TEMP 36.7; O2SAT 96–100
[2021-05-13] MEDS: dextrose 5%-ns + KCl 40 40 MEQ/1,000 ML BAG 150 MEQ IV ×2 (00:14→06:41)
[2021-05-13 00:20] LABS: Glucose Point of Care 65 mg/dL (70-110)
[2021-05-13 01:51] LABS: Glucose Point of Care 61 mg/dL (70-110)
[2021-05-13 03:17] LABS: Glucose Point of Care 92 mg/dL (70-110)
[2021-05-13 04:37] LABS: Triglycerides 905 mg/dL (0-150)
[2021-05-13 04:48] LABS: LDL Cholesterol Direct 74 mg/dL (0-100)
[2021-05-13 05:23] LABS: Glucose Point of Care 87 mg/dL (70-110)
[2021-05-13] MEDS: amlodipine 5 mg Tablet PO (05:42)
[2021-05-13] MEDS: famotidine 20 mg/2 mL INJ IVP (05:43)
[2021-05-13 06:34] LABS: Glucose Point of Care 65 mg/dL (70-110)
[2021-05-13] MEDS: enoxaparin 40 mg/0.4 mL Syringe SUBCUT (06:41)
[2021-05-13 08:10] LABS: Glucose Point of Care 52 mg/dL (70-110)
[2021-05-13] MEDS: aspirin 81 mg EC Tablet PO (08:22)
[2021-05-13] MEDS: citalopram 20 mg Tablet 40 MG PO (08:22)
[2021-05-13] MEDS: atorvastatin 40 mg Tablet 80 MG PO (08:22)
[2021-05-13] MEDS: hydroCHLOROthiazide 25 mg Tablet PO (08:22)
[2021-05-13] MEDS: gabapentin 300 mg Capsule 600 MG PO (08:22)
[2021-05-13] MEDS: lisinopril 20 mg Tablet PO (08:22)
[2021-05-13 10:13] LABS: Glucose Point of Care 192 mg/dL (70-110)
--- NOTE | 2021-05-13 10:56 | PM.DCS ---
Discharge Providers Date of Admission: 05/10/21 18:00 Date of Discharge: May 13, 2021 Attending Provider at Admission: Gladis Casas MD Attending Provider at Discharge: Miguel A Harrison MD Diagnoses at Discharge Discharge Diagnosis (1) Hypertriglyceridemia: Status: Acute (2) Hyponatremia: Status: Acute (3) Acute pancreatitis: Status: Acute Qualifiers: Pancreatitis type: other Acute pancreatitis complication: unspecified Qualified Code(s): K85.80 - Other acute pancreatitis without necrosis or infection Reason for Visit Reason for Visit: pancreatitis Hospital Course Hospital Course 05/10 patient was admitted for management of hypertriglyceridemia induced pancreatitis. He was started on insulin which was titrated according to his weight 0.2 units/kg grams. Insulin was running at 20 units which was keeping his blood sugar between 70-90, D5 was running at 125 mL/h along IV insulin and blood sugar was being checked every hour with triglyceride level check every 12. His triglycerides gradually improved and plateaued at 900 I am reluctant to go up on his insulin above 20 units with concerns of hypoglycemia he is already on D5 125 mL/h. Patient is eager to go home today and willing to follow-up with Dr. Dorado set up appointment with PCP He was instructed to take insulin along atorvastatin, use fat and sugar restricted diet, weight loss will definitely help along with aerobic exercises, avoidance of concentrated sugars and strict glycemic control is the best way to prevent recurrent pancreatitis due to insulin resistance Hemoglobin A1c 10.6 He will be discharged on atorvastatin 80 mg and insulin, he might benefit from GLP-1 analog, in case of any side effects from atorvastatin would recommend gemfibrozil twice a day regimen Increase his Lantus to 50 units bid, Physical Exam Narrative: EXAM NARRATIVE: Patient sitting comfortably S1, S2 Abdomen soft Hypertensive EOMI, PERRLA No audible stridor or wheezing Discharge Data Data Completed and Pending: Completed Studies During Hospitalization Category Date Time Status CT abdomen w con* [id number] Urgent Cat Scan 05/10/21 06:21 Completed Labs from last 24 hours 05/13/21 05/13/21 05/13/21 10:11 07:57 06:25 POC Glucose 192 H 52 L 65 L Triglycerides LDL Cholesterol Di rect 05/13/21 05/13/21 05/13/21 05:19 03:24 03:14 POC Glucose 87 92 Triglycerides 905 H LDL Cholesterol Di rect 74 05/13/21 05/13/21 05/12/21 01:48 00:18 23:46 POC Glucose 61 L 65 L 75 Triglycerides LDL Cholesterol Di rect 05/12/21 05/12/21 05/12/21 22:40 20:48 19:24 POC Glucose 96 72 132 H Triglycerides LDL Cholesterol Di rect 05/12/21 05/12/21 05/12/21 18:07 18:00 17:08 POC Glucose 103 55 L Triglycerides 786 H LDL Cholesterol Di rect 66 05/12/21 05/12/21 05/12/21 16:02 15:03 14:05 POC Glucose 47 L 84 98 Triglycerides LDL Cholesterol Di rect 05/12/21 05/12/21 05/12/21 13:14 12:28 11:11 POC Glucose 103 56 L 50 L Triglycerides LDL Cholesterol Di rect 05/12/21 11:04 POC Glucose Triglycerides 976 H LDL Cholesterol Di rect 76 Vitals: Last Vital Signs Temp 98.0 F 05/13/21 08:00 Pulse 66 05/13/21 08:00 Resp 16 05/13/21 08:00 BP 156/65 05/13/21 08:00 Pulse Ox 100 05/13/21 08:00 Discharge Plan Discharge Patient Disposition: Home Condition: Stable Prescriptions: New atorvastatin 40 mg Tablet 80 mg PO DAILY 60 Days Qty: 60 RF: 3 Continued glimepiride 4 mg tablet 4 mg PO BID RF: 0 multivitamin Tablet 1 tab PO DAILY RF: 0 aspirin [Adult Low Dose Aspirin] 81 mg tablet,delayed release (DR/EC) 81 mg PO QAM RF: 0 citalopram 40 mg tablet 40 mg PO QAM RF: 0 hydrocodone-acetaminophen 5-325 mg Tablet 1 tab PO Q6H PRN (Reason: Pain) RF: 0 Zofran 4 mg Tablet 4 mg PO Q6H PRN (Reason: Nausea And Vomiting) RF: 0 amlodipine 5 mg Tablet 5 mg PO QAM RF: 0 gabapentin 300 mg Capsule 300 mg PO BEDTIME RF: 0 lisinopril-hydrochlorothiazide 20-25 mg Tablet 1 tab PO QAM RF: 0 Gas Relief (simethicone) 125 mg Tablet,Chewable 125 mg PO PRN RF: 0 Dulcolax (bisacodyl) 5 mg Tablet,Delayed Release (Dr/Ec) 5 mg PO PRN RF: 0 Pain Relief PM 25-500 mg Tablet 2 tab PO BEDTIME RF: 0 metformin 500 mg Tablet Extended Release 24 Hr 1,000 mg PO BID RF: 0 Changed Lantus Solostar U-100 Insulin 100 unit/mL (3 mL) Insulin Pen 55 unit SUBCUT BID 60 Days Qty: 2 RF: 0 Discontinued atorvastatin 40 mg Tablet 40 mg PO DAILY RF: 0 Discharge Orders: Discharge Order (Routine); Ordered 05/13/21 Ordered By: Miguel A Harrison Other Ambulatory Orders: Triglycerides (Routine) Timeframe: 3 Days Facility: [facility] - Location: Lab - Main Lab Ordered By: Miguel A Harrison Referrals: Yoli Dorado MD [Physician] - 4-7 days (Triglyceridemia induced pancreatitis) Anna Blackwood MD [Physician] - (Please make new patient appointment) Discharge Diet: As Directed Discharge Activity: Increase activity as tolerated Patient Instructions: Opioid Safety Activity Restrictions/Additional Instructions: Please take insulin along atorvastatin, please use fat and sugar restricted diet weight loss will definitely help along with aerobic exercises avoidance of concentrated sugars and strict glycemic control is the best way to prevent recurrent pancreatitis Discharge Attestations Time Spent in Discharge Care*: less than 30 min Quality Metrics Clinical Quality Measures During this hospital stay, did patient experience: None Coding Level of Care Code Acute Chg [facility] note Diagnoses Hypertriglyceridemia E78.1 Hyponatremia E87.1 Acute pancreatitis K85.80 Pancreatitis type: other Acute pancreatitis complication: unspecified
--- NOTE | 2021-05-14 09:44 | PC.SOCIAL ---
discharge follow up call made. patient reports he is feeling good. patient is aware of change with atorvastatin and with lantus. patient is concerned with diet and how to manage. will set patient up to have an appointment with director of staff development. patient reports he is out of lantus and can't afford the medication until the end of the month. spoke with Dr. Harrison, verbal ok to call in lantus and give two refills. personal lines underwriter called lantus into [facility] pharmacy and they will bill patient for lantus. spoke with patients and let them know about the lantus. patient is aware of follow up appointments and that he needs lab work done prior to visit with pcp.
--- NOTE | 2021-05-14 10:14 | PC.SOCIAL ---
spoke with business team leader, at this time there isn't an outpatient order for outpatient diabetic teaching. business team leader told policy writer to place an order for inpatient consult and then put in the notes that this would be outpatient setting. these orders were placed and policy writer called patient with details.
--- NOTE | 2021-05-14 16:28 | PC.RESP ---
SMOKING CESSATION INFORMATION SENT TO PATIENT.
== END 2021-05-13 12:54 | disposition home or self-care (01) | DRG 439 ==
LOC: ER 04:45 → ICU 18:13
PROVIDERS: Admitting Provider Student in an Organized Health Care Education/Training Program; Emergency Provider Emergency Medicine; Visit Provider Internal Medicine
DX: K85.80 Other acute pancreatitis without necrosis or infection (principal); E87.1 Hypo-osmolality and hyponatremia; E11.9 Type 2 diabetes mellitus without complications; E78.5 Hyperlipidemia, unspecified; I10 Essential (primary) hypertension; M19.012 Primary osteoarthritis, left shoulder; F17.200 Nicotine dependence, unspecified, uncomplicated; D72.829 Elevated white blood cell count, unspecified; E78.1 Pure hyperglyceridemia; Z79.4 Long term (current) use of insulin; Z79.82 Long term (current) use of aspirin; Z20.822 Contact with and (suspected) exposure to COVID-19; Z82.49 Family history of ischemic heart disease and other diseases of the circulatory system
CPT/HCPCS: 36415; 36416; 74160; 80048; 80053; 80307; 81001; 82962; 83036; 83605; 83690; 83721; 84443; 84478; 84484; 85025; 87635; 93005; 96365; 96367; 96372; 96375; 99291; 99292; J0360; J1650; J1815; J2270; J3490; J7050; Q9967

== ENCOUNTER → 2021-05-17 08:04 | Outpatient (BNVA) | payer BC, SELFPAY | PROVIDERS: Visit Provider Internal Medicine | DX: E78.1 Pure hyperglyceridemia (principal) | CPT/HCPCS: 83721; 84478 ==

== ENCOUNTER → 2021-07-20 16:16 | Outpatient (BNVA) | payer BC, SELFPAY | PROVIDERS: Visit Provider Nurse Practitioner Family | DX: R10.9 Unspecified abdominal pain; K85.90 Acute pancreatitis without necrosis or infection, unspecified; R11.0 Nausea; E11.9 Type 2 diabetes mellitus without complications | CPT/HCPCS: 80053; 82150; 83036; 83690 ==

== ENCOUNTER → 2021-08-17 13:23 | Outpatient (BNVA) | payer BC, SELFPAY | PROVIDERS: Visit Provider Nurse Practitioner Family | DX: E78.1 Pure hyperglyceridemia (principal); I10 Essential (primary) hypertension; E11.65 Type 2 diabetes mellitus with hyperglycemia; E78.5 Hyperlipidemia, unspecified; R11.0 Nausea; K85.90 Acute pancreatitis without necrosis or infection, unspecified; R10.9 Unspecified abdominal pain | CPT/HCPCS: 80053; 80061; 82150; 83036; 83690 ==

== ENCOUNTER → 2021-09-24 09:15 | Outpatient (BNVA) | payer BC, SELFPAY | PROVIDERS: Visit Provider Internal Medicine | DX: E11.65 Type 2 diabetes mellitus with hyperglycemia (principal); E78.5 Hyperlipidemia, unspecified | CPT/HCPCS: 80048 ==

== ENCOUNTER → 2021-11-15 11:42 | Outpatient (BNVA) | payer BC, SELFPAY | PROVIDERS: Visit Provider Internal Medicine | DX: E11.9 Type 2 diabetes mellitus without complications (principal); E78.5 Hyperlipidemia, unspecified | CPT/HCPCS: 80053; 80061; 83036 ==

== ENCOUNTER → 2022-02-14 09:40 | Outpatient (BNVA) | payer BC, SELFPAY | PROVIDERS: PCP Nurse Practitioner Family; Visit Provider Internal Medicine | DX: E11.65 Type 2 diabetes mellitus with hyperglycemia (principal); E78.5 Hyperlipidemia, unspecified; E78.1 Pure hyperglyceridemia | CPT/HCPCS: 80048; 80061; 83036; 84439; 84443 ==

== ENCOUNTER → 2022-04-04 10:20 | Outpatient (BNVA) | payer BC, SELFPAY | PROVIDERS: PCP Nurse Practitioner Family; Visit Provider Specialist | DX: M19.012 Primary osteoarthritis, left shoulder (principal); M25.512 Pain in left shoulder; G89.29 Other chronic pain | CPT/HCPCS: 73030 ==

== ENCOUNTER 2022-05-09 17:52 | Outpatient (CLI) | payer BC, SELFPAY ==
--- NOTE | 2022-05-09 18:13 | XRR_ITS ---
PROCEDURE INFORMATION: Exam: XR Right Wrist Exam date and time: 05/09/2022 6:16 PM Age: 62 years old Clinical indication: Pain; Wrist; Bilateral; Additional info: Carpal tunnel, carpal tunnel views TECHNIQUE: Imaging protocol: Radiologic exam of the Right wrist. Views: 3 or more views. COMPARISON: No relevant prior studies available. FINDINGS: Bones/joints: Lateral calcifications are noted involving the carpal proximal row. This could be calcification of a tendon or ligament. This could also be calcification of the ulna artery. No fracture, dislocation or subluxation. Soft tissues: Normal. XR/XR wrist RT min 3V* [id number] IMPRESSION: Calcification laterally likely vascular.
--- NOTE | 2022-05-09 18:13 | XRR_ITS ---
PROCEDURE INFORMATION: Exam: XR Left Wrist Exam date and time: 05/09/2022 6:16 PM Age: 62 years old Clinical indication: Pain; Wrist; Bilateral; Additional info: Carpal tunnel, carpal tunnel views TECHNIQUE: Imaging protocol: Radiologic exam of the Left wrist. Views: 3 or more views. COMPARISON: No relevant prior studies available. FINDINGS: Bones/joints: There is calcifications laterally at the level of the scaphoid possibly calcification of 1 of the flexor tendons. No fracture, dislocation or subluxation. Soft tissues: See Bones/joints finding. XR/XR wrist LT min 3V* [id number] IMPRESSION: Questionable calcific tendinitis versus calcification of the tendon sheath laterally. Consider nonemergent MRI if clinically indicated for further evaluation.
--- NOTE | 2022-05-09 18:14 | XR_ITS ---
WS: [id number] XR lumbar spine f/e only [id number] REASON FOR EXAM: POSTLAMINECTOMY SYNDROME FINDINGS: Lateral flexion and extension views only. No significant focal vertebral body abnormality. Mild to moderate narrowing of the intervertebral disc spaces L1-L5 with a more significant narrowing of the L5-S1 disc space. Anterior osteophytes L1-S1. No significant listhesis is seen in flexion or extension. XR/XR lumbar spine f/e only [id number] IMPRESSION: Multilevel degenerative spondylosis with no significant vertebral body movement in flexion or extension.
[2022-05-09 20:09] LABS: Estmated Average Glucose 192; Hemoglobin A1C 8.3 % (4.0-6.0)
[2022-05-09 20:39] LABS: Chol HDL Ratio 3.25 mg/dL (1.0-5.00); Cholesterol 104 mg/dL (0-200); HDL Cholesterol 32 mg/dL (60-100); LDL Cholesterol Calculated 43 mg/dL (50-129); LDL HDL Ratio 1.34 RATIO (0.00-3.22); Testosterone Total 242.2 ng/dL (193-740); Triglycerides 143 mg/dL (0-150)
== END 2022-05-09 17:53 | disposition home or self-care (01) ==
LOC: LAB 17:55
PROVIDERS: Absent Provider Internal Medicine; PCP Family Medicine; Visit Provider Nurse Practitioner
DX: E11.65 Type 2 diabetes mellitus with hyperglycemia (principal); E11.9 Type 2 diabetes mellitus without complications; E78.1 Pure hyperglyceridemia; E78.5 Hyperlipidemia, unspecified; G56.03 Carpal tunnel syndrome, bilateral upper limbs; M96.1 Postlaminectomy syndrome, not elsewhere classified
CPT/HCPCS: 72120; 73110; 80061; 83036; 84403

== ENCOUNTER 2022-05-23 06:38 | Outpatient (CLI) | payer BC, SELFPAY ==
--- NOTE | 2022-05-23 07:15 | MR_ITS ---
WS: [id number] MRI LEFT SHOULDER NONCONTRAST TECHNIQUE: Sagittal T2, coronal T1, T2 and proton density imaging. Axial gradient PDE imaging. CLINICAL INFORMATION: Shoulder pain COMPARISON: None. FINDINGS: Moderate degenerative arthritis at the AC joint. Mild downsloping of the acromion. Moderate edema at the AC joint with a small amount of subacromial/subdeltoid fluid. Tendinopathy with small intrasubsta nce tear involving the distal supraspinatus. Normal infraspinatus. Normal teres minor. Normal subsca pularis. Normal biceps tendon in the bicipital groove. Normal intra-articular biceps tendon. Degenerative fra diann of the glenoid labrum. Normal biceps labral anchor. MR/MR shoulder LT wo con* [id number] IMPRESSION: 1. Moderate degenerative arthritis at the AC joint with edema at the AC joint. Subacromial/subdeltoid fluid. Mild downsloping acromion with impingement on th e distal supraspinatus. 2. Supraspinatus tendinopathy. Small intrasubstance tear distal supraspinatus. 3. Rotator cuff is otherwise normal. 4. Normal biceps tendon in the bicipital groove. Normal intra-articular biceps tendon. 5. No other acute findings.
== END 2022-05-23 06:39 | disposition home or self-care (01) ==
LOC: RAD 06:39
PROVIDERS: PCP Family Medicine; Visit Provider Specialist
DX: M19.012 Primary osteoarthritis, left shoulder (principal); M75.102 Unspecified rotator cuff tear or rupture of left shoulder, not specified as traumatic
CPT/HCPCS: 73221

== ENCOUNTER 2022-06-07 17:47 | Emergency (ER) | payer BC, SELFPAY ==
[2022-06-07 18:00] VITALS: BP 129/51; PULSE 82; RESP 16; TEMP 37.1; O2SAT 97; BMI 39.1
--- NOTE | 2022-06-07 19:28 | W.ED.ABDPA2 ---
HPI - Abdominal Pain General: Chief Complaint: Abdominal Pain Stated Complaint: ABDOMINAL PAIN Time Seen by Provider: 06/07/22 19:26 History of Present Illness: 62-year-old male patient comes in with right upper quadrant abdominal pain with nausea. Patient has a history of diabetes type 2, pancreatitis, hyperlipidemia, hypertension, BPH, and hypertriglyceridemia. Patient appears in mild to moderate pain. Patient reports no vomiting. Patient denies any pain radiating to the back or neck or shoulders. Associated Symptoms: Reports nausea; Denies dysuria and fever(s) Review of Systems Const: Denies: fever(s) Card: Denies: chest pain Resp: Denies: dyspnea GI: Reports: abdominal pain and nausea : Denies: flank pain, difficulty urinating or dysuria Musc: Denies: neck pain or back pain PFSH ED PFSH: Medical History Diabetes type 2, controlled Hyperlipidemia Hypertension Osteoarthritis of left shoulder Surgical History History of back surgery History of removal of cyst No significant past surgical history Family History Other Hypertension Social History Smoking and tobacco status: current every day smoker cigars Cigars smoked per week: 7 Years smoked cigars: 12 Cigar details: smokes 1 per day Second hand smoke exposure: No Alcohol intake: current Alcohol intake frequency: holidays/special occasions only Caregiver/support person: Yes Lives independently: Yes Household members: significant other Current occupational status: employed History of recent travel: No Current gender identity: Male Special lanre needs: No Physical Exam Const: COMMON NORMALS: alert HENMT: COMMON NORMALS: normocephalic HEAD & SCALP: normocephalic Neck/C-Spine: COMMON NORMALS: full ROM Resp: COMMON NORMALS: normal respiratory effort and clear to auscultation bilaterally AUSCULTATION: clear to auscultation bilaterally Cardio: COMMON NORMALS: regular rate and regular rhythm RATE: regular rate RHYTHM: regular rhythm GI: COMMON NORMALS: Soft to palpation AUSCULTATION: Yes normoactive bowel sounds PALPATION: Yes Soft to palpation and Yes Tenderness to palpation present (GI) Details: RUQ Extremity: COMMON NORMALS: full ROM Neuro: SENSORIUM/ORIENTATION: Yes alert Skin: COMMON NORMALS: turgor normal GENERAL SKIN EXAM: turgor normal Course Vital Signs: Vital signs: Vital Signs Temperature 98.7 F 06/07/22 18:00 Pulse Rate 78 06/07/22 22:11 Respiratory Rate 16 06/07/22 22:11 Blood Pressure 124/60 06/07/22 22:11 Pulse Oximetry 98 06/07/22 22:11 Oxygen Delivery Me thod 06/07/22 22:11 MDM - Abdominal Pain Medical Decision Making Patient comes in tonight with complaints of right upper quadrant abdominal pain. Patient appears no acute distress. Respirations are even lungs are clear to auscultation. Abdomen soft with some right upper quadrant abdominal pain. Differential diagnosis includes cholecystitis, constipation, pancreatitis, GERD, appendicitis. Laboratory values noted a white blood cell count 12,000, creatinine was 1.3 but stable, patient was mildly anemic with a hemoglobin 10.1. Muscle labs are stable with previous other results. CT of the abdomen and pelvis indicated constipation but no signs of an acute inflammatory process. Reviewed exam with patient with recommendations for treatment of constipation with MiraLAX and fluids. Patient was recommended to follow-up with primary care for further instruction. Patient was treated for pain in the ER with morphine with good result. Patient was also given 500 mL of fluids due to nausea and concern for dehydration. Lab Data : 06/07/22 19:40 06/07/22 19:40 Labs/Radiology: Radiology Impressions Abdomen/Pelvis CT 06/07/22 19:41 IMPRESSION: 1. Negative for acute inflammatory process in the abdomen or pelvis. 2. Bibasilar atelectasis. 3. Coronary artery atherosclerotic calcifications. 4. Right kidney cyst, negative for follow-up advised. 5. Perinephric edema bilaterally likely reflecting chronic renal insufficiency. 6. Constipation. COMMENTS: Consistent with the [employer]'s Incidental Findings Committee white paper (J Am Carissa Radiol 2018): Any incidental renal lesion less than 1 cm or classified as too small to characterize, or any incidental cystic renal lesion characterized as simple-appearing, is likely benign. No follow-up imaging is recommended for these lesions per consensus recommendations based on imaging criteria. Laboratory Results WBC 12.1 10^3/uL (4.0-10.0) H 06/07/22 19:40 RBC 3.39 10^6/uL (4.1-5.3) L 06/07/22 19:40 Hgb 10.1 g/dL (11.7-16.6) L 06/07/22 19:40 Hct 30.7 % (42.0-52.0) L 06/07/22 19:40 MCV 90.6 fl (80-94) 06/07/22 19:40 MCH 29.8 pg (28.0-34.0) 06/07/22 19:40 MCHC 32.9 g/dL (30.0-36.0) 06/07/22 19:40 RDW 13.4 % (12.1-15.1) 06/07/22 19:40 Plt Count 243 10^3/cmm (130-400) 06/07/22 19:40 MPV 11.8 fL (7.4-10.4) H 06/07/22 19:40 Neut % (Auto) 74.1 % 06/07/22 19:40 Lymph % (Auto) 18.4 % 06/07/22 19:40 [place] % (Auto) 7.0 % 06/07/22 19:40 Eos % (Auto) 0.2 % 06/07/22 19:40 Baso % (Auto) 0.1 % 06/07/22 19:40 Neut # (Auto) 8.93 10^3/uL (1.8-7.7) H 06/07/22 19:40 Lymph # (Auto) 2.2 10^3/uL (0.8-4.8) 06/07/22 19:40 [place] # (Auto) 0.8 10^3/uL (0.2-0.9) 06/07/22 19:40 Eos # (Auto) 0.0 10^3/uL (0.0-0.8) 06/07/22 19:40 Baso # (Auto) 0.0 10^3/uL (0.0-0.1) 06/07/22 19:40 Nucleated RBC % (auto) 0 % 06/07/22 19:40 Nucleated RBCs # 0.0 /100WBC 06/07/22 19:40 Sodium 136 mmol/L (136-145) 06/07/22 19:40 Potassium 4.3 mmol/L (3.5-5.1) 06/07/22 19:40 Chloride 104 mmol/L (98-107) 06/07/22 19:40 Carbon Dioxide 23 mmol/L (22-29) 06/07/22 19:40 Anion Gap 13.3 (5-19) 06/07/22 19:40 BUN 29 mg/dL (8-23) H 06/07/22 19:40 Creatinine 1.3 mg/dL (0.7-1.2) H 06/07/22 19:40 GFR Calculation 56.3 mL/min (90-130) L 06/07/22 19:40 Glucose 198 mg/dL (65-115) H 06/07/22 19:40 Calculated Osmolality 293 mOsm/kg (285-295) 06/07/22 19:40 Calcium 9.2 mg/dL (8.5-10.5) 06/07/22 19:40 Total Bilirubin 0.2 mg/dL (0.15-1.2) 06/07/22 19:40 AST 16 U/L (0-40) 06/07/22 19:40 ALT 14 U/L (0-41) 06/07/22 19:40 Alkaline Phosphatase 31 U/L (40-130) L 06/07/22 19:40 Total Protein 6.5 g/dL (6.6-8.7) L 06/07/22 19:40 Albumin 3.7 g/dL (3.5-5.2) 06/07/22 19:40 Globulin 2.8 g/dL (1.3-4.6) 06/07/22 19:40 Lipase 27 U/L (13-60) 06/07/22 19:40 Urine Color Yellow (Yellow) 06/07/22 19:41 Urine Appearance Clear (CLEAR) 06/07/22 19:41 Urine pH 5 (5-7) 06/07/22 19:41 Ur Specific [place] 1.015 (1.005-1.030) 06/07/22 19:41 Urine Protein Neg (Negative) 06/07/22 19:41 Urine Glucose (UA) Trace (Normal) H 06/07/22 19:41 Urine Ketones Negative (Negative) 06/07/22 19:41 Urine Blood Neg (Negative) 06/07/22 19:41 Urine Nitrate Negative (Negative) 06/07/22 19:41 Urine Bilirubin Neg (Negative) 06/07/22 19:41 Urine Urobilinogen Norm mg/dL (Negative) 06/07/22 19:41 Ur Leukocyte Esterase Negative (Negative) 06/07/22 19:41 Discharge Plan Discharge Patient Disposition: Home Clinical Impression: Abdominal pain Qualifiers: Abdominal location: right upper quadrant Qualified Code(s): R10.11 - Right upper quadrant pain Constipation Qualifiers: Constipation type: unspecified constipation type Qualified Code(s): K59.00 - Constipation, unspecified Condition: Stable Prescriptions: New Miralax 17 gram/dose powder 17 g PO BID Qty: 238 0RF No Action multivitamin Tablet 1 tab PO DAILY aspirin [Adult Low Dose Aspirin] 81 mg tablet,delayed release (DR/EC) 81 mg PO QAM doxepin 10 mg capsule 10 mg PO .HS Qty: 30 0RF (DME) Dexcom G6 [employer] Underwriter Misc See Rx Instructions .Route Qty: 1 0RF Rx Instructions: Check BS 4-6 times a day. (DME) Dexcom G6 Sensor Device See Rx Instructions .Route Qty: 3 3RF Rx Instructions: Change every 10 days. (DME) Dexcom G6 Transmitter Device See Rx Instructions .Route Qty: 1 3RF Rx Instructions: Change every 90 days. ketorolac 10 mg tablet 10 mg PO QID PRN (Reason: pain) 5 Days Qty: 20 0RF triamcinolone acetonide 0.5 % ointment 1 applic topical TID Qty: 15 1RF terbinafine HCl 250 mg tablet 250 mg PO DAILY Qty: 60 0RF gabapentin 100 mg capsule 100 mg PO TID 90 Days Qty: 270 0RF diclofenac sodium 1 % gel 2 g topical QID Qty: 100 0RF Rx Instructions: apply to single elbow, Lantus Solostar U-100 Insulin 100 unit/mL (3 mL) insulin pen 80 unit SUBCUT BID Qty: 45 0RF Rx Instructions: 340 b metformin 500 mg tablet extended release 24 hr 1,000 mg PO BID 90 Days Qty: 240 1RF glimepiride 4 mg tablet 4 mg PO BID 90 Days Qty: 180 0RF amlodipine 5 mg tablet 5 mg PO QAM Qty: 90 0RF tamsulosin [Flomax] 0.4 mg capsule 0.4 mg PO DAILY 90 Days Qty: 90 0RF lisinopril-hydrochlorothiazide 20-25 mg tablet 1 tab PO QAM 90 Days Qty: 90 1RF citalopram 40 mg tablet 40 mg PO QAM 90 Days Qty: 90 1RF atorvastatin 40 mg tablet 80 mg PO DAILY Qty: 60 2RF fenofibrate micronized 134 mg capsule 134 mg PO DAILY Qty: 90 0RF Rx Instructions: Take on capsule by mouth daily. Discharge Orders: Discharge ED (Routine); Ordered 06/07/22 Ordered By: Shon William Referrals: Anna Blackwood MD [Primary Care Provider] - Discharge Diet: Usual diet Discharge Activity: Increase activity as tolerated Patient Instructions: Abdominal Pain (ED) Activity Restrictions/Additional Instructions: Use MiraLAX for constipation. Make sure to drink plenty of water with medication. Follow-up with primary care in 1 week for recheck. Return to ER for high fever greater than 100.4, blood in vomit or stool, or new concerns. Coding Level of Care Code ED Programmer [employer] for Chg Fwd Exam Comprehensive
--- NOTE | 2022-06-07 19:41 | CTR_ITS ---
PROCEDURE INFORMATION: Exam: CT Abdomen And Pelvis With Contrast Exam date and time: 06/07/2022 10:01 PM Age: 62 years old Clinical indication: Abdominal tenderness and other: RT sided pain; Abdominal pain; Localized; Right upper quadrant (ruq); Additional info: Right upper quad abd pain, nausea, HX of pancreatitis TECHNIQUE: Imaging protocol: Computed tomography of the abdomen and pelvis with contrast. Radiation optimization: All CT scans at this facility use at least one of these dose optimization techniques: automated exposure control; mA and/or kV adjustment per patient size (includes targeted exams where dose is matched to clinical indication); or iterative reconstruction. Contrast material: OMNIPAQUE 350; Contrast volume: 95 ml; Contrast route: INTRA-ARTICULAR (ARTHROGRAM); COMPARISON: CT abdomen w con* [id number] 05/10/2021 6:30 AM RADIATION DOSE METRICS: Total DLP (mGy-cm): 1125.73 FINDINGS: Lungs: Bibasilar atelectasis. Heart: Coronary artery atherosclerotic calcifications. Liver: Normal. No mass. Gallbladder and bile ducts: Normal. No calcified stones. No ductal dilation. Pancreas: Normal. No ductal dilation. Spleen: Normal. No splenomegaly. Adrenal glands: Normal. No mass. Kidneys and ureters: Right kidney cyst, negative for follow-up advised. Perinephric edema bilaterally likely reflecting chronic renal insufficiency. Stomach and bowel: Constipation. Appendix: No evidence of appendicitis. Intraperitoneal space: Unremarkable. No free air. No significant fluid collection. Vasculature: Unremarkable. No abdominal aortic aneurysm. Lymph nodes: Unremarkable. No enlarged lymph nodes. Urinary bladder: Unremarkable as visualized. Reproductive: Unremarkable as visualized. Bones/joints: Unremarkable. No acute fracture. Soft tissues: Unremarkable. CT/CT abdomen pelvis w con* [id number] IMPRESSION: 1. Negative for acute inflammatory process in the abdomen or pelvis. 2. Bibasilar atelectasis. 3. Coronary artery atherosclerotic calcifications. 4. Right kidney cyst, negative for follow-up advised. 5. Perinephric edema bilaterally likely reflecting chronic renal insufficiency. 6. Constipation. COMMENTS: Consistent with the [employer]'s Incidental Findings Committee white paper (J Am Carissa Radiol 2018): Any incidental renal lesion less than 1 cm or classified as too small to characterize, or any incidental cystic renal lesion characterized as simple-appearing, is likely benign. No follow-up imaging is recommended for these lesions per consensus recommendations based on imaging criteria.
[2022-06-07 19:43] VITALS: RESP 18; O2SAT 98
[2022-06-07] MEDS: morphine 4 mg/mL SDV 1 mL IVP ×2 (19:43→21:58)
[2022-06-07] MEDS: ondansetron 2 mg/ML SDV 2 mL 4 MG IVP (19:44)
[2022-06-07] MEDS: sodium chloride 0.9% 500 ML 999 ML IV (19:44)
[2022-06-07 19:47] LABS: Basophils % 0.1 %; Eosinophils % 0.2 %; Hematocrit 30.7 % (42.0-52.0); Hemoglobin 10.1 g/dL (11.7-16.6); Lymphocytes # 2.2 10^3/uL (0.8-4.8); Lymphocytes % 18.4 %; Mean Corpuscular HGB Conc 32.9 g/dL (30.0-36.0); Mean Corpuscular Hemoglobin 29.8 pg (28.0-34.0); Mean Corpuscular Volume 90.6 fl (80-94); Mean Platelet Volume 11.8 fL (7.4-10.4); Monocytes # 0.8 10^3/uL (0.2-0.9); Neutrophils # 8.93 10^3/uL (1.8-7.7); Neutrophils % 74.1 %; Nucleated Red Blood Cells % 0 %; Platelet Count 243 10^3/cmm (130-400); Red Blood Count 3.39 10^6/uL (4.1-5.3); Red Cell Distribution Width 13.4 % (12.1-15.1); White Blood Count 12.1 10^3/uL (4.0-10.0)
[2022-06-07 19:49] LABS: Add Urine Microscopic? NO; Charge for UA Resulting for Rev
[2022-06-07 19:53] LABS: Bilirubin Urine Neg (Negative); Blood Urine Neg (Negative); Glucose Urine UA Trace (Normal); Ketones Urine Negative (Negative); Leukocyte Esterase Urine Negative (Negative); Nitrate Urine Negative (Negative); Protein Urine Neg (Negative); Specific Gravity, Urine 1.015 (1.005-1.030); Urine Appearance Clear (CLEAR); Urine Color Yellow (Yellow); Urobilinogen Urine Norm (Negative); pH Urine 5 (5-7)
[2022-06-07 20:11] LABS: Alanine Aminotransferase 14 U/L (0-41); Albumin Level 3.7 g/dL (3.5-5.2); Alkaline Phosphatase 31 U/L (40-130); Anion Gap 13.3 (5-19); Aspartate Amino Transferase 16 U/L (0-40); Blood Urea Nitrogen 29 mg/dL (8-23); Calcium 9.2 mg/dL (8.5-10.5); Carbon Dioxide 23 mmol/L (22-29); Chloride 104 mmol/L (98-107); Globulin 2.8 g/dL (1.3-4.6); Glomerular Filtration Rate 56.3 mL/min (90-130); Glucose 198 mg/dL (65-115); Lipase 27 U/L (13-60); Osmolality Calculated 293 mOsm/kg (285-295); Potassium 4.3 mmol/L (3.5-5.1); Sodium 136 mmol/L (136-145); Total Bilirubin 0.2 mg/dL (0.15-1.2); Total Protein 6.5 g/dL (6.6-8.7)
[2022-06-07 21:58] VITALS: RESP 18; O2SAT 98
[2022-06-07] MEDS: iohexol 350 mg/mL 100 mL Btl IV (22:05)
[2022-06-07 22:11] VITALS: BP 124/60; PULSE 78; RESP 16; O2SAT 98
[2022-06-07 23:15] VITALS: BP 122/60; PULSE 76; RESP 16; O2SAT 98
== END 2022-06-07 23:19 | disposition home or self-care (01) ==
PROVIDERS: Emergency Provider Nurse Practitioner Family; PCP Family Medicine
DX: K59.00 Constipation, unspecified (principal); Z79.84 Long term (current) use of oral hypoglycemic drugs; Z79.82 Long term (current) use of aspirin; Z79.4 Long term (current) use of insulin; E11.9 Type 2 diabetes mellitus without complications; E78.5 Hyperlipidemia, unspecified; I10 Essential (primary) hypertension; F17.210 Nicotine dependence, cigarettes, uncomplicated
CPT/HCPCS: 74177; 80053; 81003; 83690; 85025; 96361; 96374; 96375; 96376; 99285; J2270; J2405; J7040; Q9967

== ENCOUNTER 2022-06-13 06:00 | Outpatient (RCR) | payer BC, SELFPAY | END 2022-06-27 23:59 | disposition home or self-care (01) | LOC: TPT 06:00 | PROVIDERS: PCP Family Medicine; Visit Provider Specialist | DX: M75.02 Adhesive capsulitis of left shoulder (principal) | CPT/HCPCS: 97110; 97140; 97162 ==

== ENCOUNTER 2022-06-28 06:00 | Outpatient (RCR) | payer BC, SELFPAY | END 2022-07-25 23:59 | disposition home or self-care (01) | LOC: TPT 06:00 | PROVIDERS: PCP Family Medicine; Visit Provider Specialist | DX: M75.02 Adhesive capsulitis of left shoulder (principal) | CPT/HCPCS: 97110; 97140 ==

== ENCOUNTER 2022-08-02 16:06 | Outpatient (CLI) | payer BC, SELFPAY ==
--- NOTE | 2022-08-02 16:09 | US_ITS ---
WS: [id number] TESTICULAR ULTRASOUND HISTORY: History of vasectomy. Palpable area LEFT testicle for 10 years. COMPARISON: None available. TECHNIQUE: Real-time and color Doppler imaging or utilized to perform a testicular ultrasound. Right testicle: 3.9 cm x 2.6 cm x 1.7 cm. Normal size and echogenicity. No mass or torsion. Normal color Doppler is present throughout. Systolic and diastolic velocities are both present. No significant hydrocele. Right epididymis: Normal size epididymis. There are small epididymal head cyst/spermatoceles present. Prominent pampiniform plexus/varicocele. Left testicle: 2.9 cm x 2.4 cm x 1.8 cm. Normal sized testicle. There is a complex solid mass with minimal increased peripheral vascularity al eric the superior testicle. This mass is deforming the testicle and I suspect this is extratesticular and may be within the wall of the scrotum. This mass is predominantly solid with a few scattered cyst ic areas. Mass measures 2.1 x 1.6 x 2.8 cm. Due to its size there is compression of the adjacent soft tissues including the superior pole of the testicle and also the epididymis posteriorly. Normal color Doppler is present throughout. Systolic and diastolic velocities are both present. Small hydrocele. Left epididymis: Normal epididymis with no increased vascularity. US/US scrotum [id number] IMPRESSION: 1. Solid mass appears centered within the LEFT scrotal wall measuring 2.1 x 1. 6 x 2.8 cm with mild peripheral increased vascularity. Due to the size of this mass there is abutment and displacement of the superior LEFT testicle and also the epididymis. Cannot completely separate this mass from the superior pole of the LEFT testicle but due to the posterior displacement believe this is extrate sticular. This may be an infected sebaceous cyst, granular cell tumor or inclus ion cyst. Due to the solid component and increasing size removal should be cons idered to exclude malignancy. Consider evaluation by urology. 2. Bilateral varicoceles. 3. Small LEFT hydrocele.
== END 2022-08-02 16:07 | disposition home or self-care (01) ==
PROVIDERS: Visit Provider Nurse Practitioner Family
DX: N50.89 Other specified disorders of the male genital organs (principal); N50.82 Scrotal pain; I86.1 Scrotal varices; N43.3 Hydrocele, unspecified
CPT/HCPCS: 76870

== ENCOUNTER → 2022-08-24 11:40 | Outpatient (BNVA) | payer BC, SELFPAY | PROVIDERS: Visit Provider Urology | DX: N50.89 Other specified disorders of the male genital organs (principal) | CPT/HCPCS: 81003 ==

== ENCOUNTER 2022-08-28 06:00 | Outpatient (RCR) | payer BC, SELFPAY | END 2022-09-27 23:59 | disposition home or self-care (01) | LOC: TPT 06:00 | PROVIDERS: Visit Provider Family Medicine | DX: M54.50 Low back pain, unspecified (principal) | CPT/HCPCS: 97110; 97162 ==

== ENCOUNTER 2022-09-28 06:00 | Outpatient (RCR) | payer BC, SELFPAY | END 2022-10-25 23:59 | disposition home or self-care (01) | LOC: TPT 06:00 | PROVIDERS: PCP Family Medicine; Visit Provider Family Medicine | DX: M54.50 Low back pain, unspecified (principal) | CPT/HCPCS: 97110 ==

== ENCOUNTER 2022-10-26 06:00 | Outpatient (RCR) | payer BC, SELFPAY | END 2022-11-25 23:59 | disposition home or self-care (01) | LOC: TPT 06:00 | PROVIDERS: PCP Family Medicine; Visit Provider Family Medicine | DX: M54.50 Low back pain, unspecified (principal) | CPT/HCPCS: 97110 ==

== ENCOUNTER 2023-01-22 19:50 | Emergency (ER) | payer BC, SELFPAY ==
[2023-01-22 19:59] VITALS: BP 130/62; PULSE 82; RESP 14; TEMP 37.5; O2SAT 97; BMI 35.2
--- NOTE | 2023-01-22 20:13 | CTR_ITS ---
PROCEDURE INFORMATION: Exam: CT Abdomen And Pelvis With Contrast Exam date and time: 01/22/2023 9:38 PM Age: 62 years old Clinical indication: Abdominal pain; Localized; Right lower quadrant (rlq); Patient HX: Creat 1.4; Additional info: Rlq pain TECHNIQUE: Imaging protocol: Computed tomography of the abdomen and pelvis with contrast. Radiation optimization: All CT scans at this facility use at least one of these dose optimization techniques: automated exposure control; mA and/or kV adjustment per patient size (includes targeted exams where dose is matched to clinical indication); or iterative reconstruction. Contrast material: OMNI 350; Contrast volume: 75 ml; Contrast route: INTRAVENOUS (IV); REPORTING DATA: Count of CT and Cardiac NM exams in prior 12 months: This patient has received [address] and 0 known cardiac nuclear medicine studies in the 12 months prior to the current study. COMPARISON: CT abdomen pelvis w con* [id number] 06/07/2022 10:01 PM RADIATION DOSE METRICS: Total DLP (mGy-cm): 1055.76 FINDINGS: Lungs: Emphysematous changes. Coronary arteries: Coronary artery atherosclerotic calcifications. Liver: Hepatic steatosis. Gallbladder and bile ducts: Normal. No calcified stones. No ductal dilation. Pancreas: Normal. No ductal dilation. Spleen: Normal. No splenomegaly. Adrenal glands: Normal. No mass. Kidneys and ureters: Right kidney cyst, negative for follow up. Perinephric edema bilaterally likely reflecting renal insufficiency. Stomach and bowel: Prominent fluid in the small bowel without dilation suggestive of an enteritis. Appendix: No evidence of appendicitis. Intraperitoneal space: Unremarkable. No free air. No significant fluid collection. Vasculature: Unremarkable. No abdominal aortic aneurysm. Lymph nodes: Unremarkable. No enlarged lymph nodes. Urinary bladder: Prostate gland enlarged indenting the base of the urinary bladder. Reproductive: See Urinary bladder finding. Bones/joints: Unremarkable. No acute fracture. Soft tissues: Unremarkable. CT/CT abdomen pelvis w con* [id number] IMPRESSION: 1. Prominent fluid in the small bowel without dilation suggestive of an enteritis. 2. Emphysematous changes. 3. Coronary artery atherosclerotic calcifications. 4. Hepatic steatosis. 5. Right kidney cyst, negative for follow up. 6. Perinephric edema bilaterally likely reflecting renal insufficiency. 7. Prostate gland enlarged indenting the base of the urinary bladder. COMMENTS: Consistent with the [employer]'s Incidental Findings Committee white paper (J Am Carissa Radiol 2018): Any incidental renal lesion less than 1 cm or classified as too small to characterize, or any incidental cystic renal lesion characterized as simple-appearing, is likely benign. No follow-up imaging is recommended for these lesions per consensus recommendations based on imaging criteria.
[2023-01-22 20:25] LABS: Basophils # 0.1 10^3/uL (0.0-0.1); Basophils % 0.4 %; Eosinophils # 0.2 10^3/uL (0.0-0.8); Eosinophils % 1.6 %; Hematocrit 35.1 % (42.0-52.0); Hemoglobin 11.1 g/dL (11.7-16.6); Lymphocytes # 1.9 10^3/uL (0.8-4.8); Lymphocytes % 14.1 %; Mean Corpuscular HGB Conc 31.6 g/dL (30.0-36.0); Mean Corpuscular Hemoglobin 28.8 pg (28.0-34.0); Mean Corpuscular Volume 91.2 fl (80-94); Mean Platelet Volume 12.3 fL (7.4-10.4); Monocytes % 7.3 %; Neutrophils # 10.31 10^3/uL (1.8-7.7); Neutrophils % 76.4 %; Nucleated Red Blood Cells % 0 %; Platelet Count 212 10^3/cmm (130-400); Red Blood Count 3.85 10^6/uL (4.1-5.3); Red Cell Distribution Width 14.3 % (12.1-15.1); White Blood Count 13.5 10^3/uL (4.0-10.0)
--- NOTE | 2023-01-22 20:26 | W.ED.COVID ---
HPI - COVID General: Chief Complaint: COVID symptoms Stated Complaint: Cold\ABD Pain\Behind Left Knee Sore Time Seen by Provider: 01/22/23 20:11 Source: patient Mode of arrival: ambulatory Limitations: no limitations History of Present Illness: 62-year-old male states that he is not felt well throughout the day states he had a sore throat cough he had body aches and chills. He states has been around his son who has been sick as well. States that he has been having right lower quadrant abdominal pain to which is sharp pain rates the pain a 6 out of 10 has had some slight diarrhea. No vomiting. COVID 19 common symptoms: positive chills, non-productive cough and body aches; negative fever(s), dyspnea, headache(s), throat pain, nausea, vomiting or diarrhea COVID 19 other sytmptoms: negative chest pain COVID Results: SARS-CoV-2 Antigen (Rapid) negative (Negative) 01/22/23 20:18 Nasal/Oral Coronavirus 2019 PCR Not detected 05/10/21 07:58 Review of Systems Const: Reports: chills and body aches; Denies: fever(s) or change in appetite ENMT: Denies: throat pain or dental pain Card: Denies: chest pain Resp: Reports: non-productive cough; Denies: dyspnea GI: Reports: abdominal pain; Denies: nausea, vomiting or diarrhea : Denies: dysuria Musc: Denies: neck pain or back pain Skin/Breast: Denies: rash Neuro: Denies: headache(s) PFS ED PFSH: Medical History Diabetes type 2, controlled Hyperlipidemia Hypertension Osteoarthritis of left shoulder Surgical History History of back surgery History of esophagogastroduodenoscopy (EGD) History of removal of cyst Hx of colonoscopy with polypectomy 3 yrs ago No significant past surgical history Family History Other Hypertension Social History Smoking and tobacco status: current every day smoker cigars Cigars smoked per week: 7 Years smoked cigars: 12 Cigar details: smokes 1 per day Second hand smoke exposure: No Smoking risk assessment/counseling performed?: No Alcohol intake: current Alcohol intake frequency: holidays/special occasions only Desire information about alcohol rehabilitation?: No Counseling given: No Substance/Drug Use: unknown Desire information about substance/drug rehabilitation?: No Counseling given: No Adopted: No Caregiver/support person: No Lives independently: Yes Household members: significant other Housing: House Marital status: Life Partner Current occupational status: employed Do you think of yourself as: Straight/Heterosexual Current gender identity: Male Special lanre needs: No Physical Exam Const: COMMON NORMALS: no acute distress and patient oriented x3 HENMT: COMMON NORMALS: normocephalic and atraumatic HEAD & SCALP: normocephalic and atraumatic Eye: COMMON NORMALS: conjunctivae normal CONJUNCTIVA: Yes conjunctivae normal Neck/C-Spine: COMMON NORMALS: full ROM, supple and no meningeal signs Chest: COMMONS NORMALS: normal inspection of the chest and normal palpation of entire chest wall Resp: COMMON NORMALS: normal respiratory effort, No retractions, No use of accessory muscles and clear to auscultation bilaterally AUSCULTATION: clear to auscultation bilaterally Cardio: COMMON NORMALS: regular rate, regular rhythm and No murmurs present (Cardio) RATE: regular rate RHYTHM: regular rhythm GI: COMMON NORMALS: Normal to inspection, nondistended, normoactive bowel sounds present, Soft to palpation and no masses PALPATION: Yes Soft to palpation and Yes Tenderness to palpation present (GI) Details: RLQ Extremity: COMMON NORMALS: normal to inspection and full ROM Neuro: COMMON NORMALS: patient oriented x3, moves all extremities and no focal motor deficits MENINGEAL SIGNS: Yes no meningeal signs Psych: COMMON NORMALS: mental status grossly normal, Normal thought process present and cooperative THOUGHT PROCESS: Normal thought process present Skin: COMMON NORMALS: no rashes or lesions noted and no wounds GENERAL SKIN EXAM: no rashes or lesions noted Course Vital Signs: Vital signs: Vital Signs Temperature 99.5 F 01/22/23 19:59 Pulse Rate 82 01/22/23 19:59 Respiratory Rate 14 01/22/23 20:28 Blood Pressure 130/62 01/22/23 19:59 Pulse Oximetry 98 01/22/23 21:06 Oxygen Delivery Me thod Room Air 01/22/23 21:06 [facility] - COVID Medical Decision Making Patient presents here with viral-like symptoms along with abdominal pain CT showed no acute findings urinalysis was normal does have some signs of renal insufficiency he is to follow-up with his PCP we will place him on pain meds and nausea medicine he is return if worsening he understands agrees to plan. Medical Records I reviewed the patient's medical records. Lab Data I reviewed the patient's lab results. 01/22/23 20:18 01/22/23 20:18 Radiology Impressions Abdomen/Pelvis CT 01/22/23 20:13 IMPRESSION: 1. Prominent fluid in the small bowel without dilation suggestive of an enteritis. 2. Emphysematous changes. 3. Coronary artery atherosclerotic calcifications. 4. Hepatic steatosis. 5. Right kidney cyst, negative for follow up. 6. Perinephric edema bilaterally likely reflecting renal insufficiency. 7. Prostate gland enlarged indenting the base of the urinary bladder. COMMENTS: Consistent with the [employer]'s Incidental Findings Committee white paper (J Am Carissa Radiol 2018): Any incidental renal lesion less than 1 cm or classified as too small to characterize, or any incidental cystic renal lesion characterized as simple-appearing, is likely benign. No follow-up imaging is recommended for these lesions per consensus recommendations based on imaging criteria. Laboratory Results WBC 13.5 10^3/uL (4.0-10.0) H 01/22/23 20:18 RBC 3.85 10^6/uL (4.1-5.3) L 01/22/23 20:18 Hgb 11.1 g/dL (11.7-16.6) L 01/22/23 20:18 Hct 35.1 % (42.0-52.0) L 01/22/23 20:18 MCV 91.2 fl (80-94) 01/22/23 20:18 MCH 28.8 pg (28.0-34.0) 01/22/23 20:18 MCHC 31.6 g/dL (30.0-36.0) 01/22/23 20:18 RDW 14.3 % (12.1-15.1) 01/22/23 20:18 Plt Count 212 10^3/cmm (130-400) 01/22/23 20:18 MPV 12.3 fL (7.4-10.4) H 01/22/23 20:18 Neut % (Auto) 76.4 % 01/22/23 20:18 Lymph % (Auto) 14.1 % 01/22/23 20:18 [place] % (Auto) 7.3 % 01/22/23 20:18 Eos % (Auto) 1.6 % 01/22/23 20:18 Baso % (Auto) 0.4 % 01/22/23 20:18 Neut # (Auto) 10.31 10^3/uL (1.8-7.7) H 01/22/23 20:18 Lymph # (Auto) 1.9 10^3/uL (0.8-4.8) 01/22/23 20:18 [place] # (Auto) 1.0 10^3/uL (0.2-0.9) H 01/22/23 20:18 Eos # (Auto) 0.2 10^3/uL (0.0-0.8) 01/22/23 20:18 Baso # (Auto) 0.1 10^3/uL (0.0-0.1) 01/22/23 20:18 Nucleated RBC % (auto) 0 % 01/22/23 20:18 Nucleated RBCs # 0.0 /100WBC 01/22/23 20:18 Sodium 131 mmol/L (136-145) L 01/22/23 20:18 Potassium 4.6 mmol/L (3.5-5.1) 01/22/23 20:18 Chloride 102 mmol/L (98-107) 01/22/23 20:18 Carbon Dioxide 19 mmol/L (22-29) L 01/22/23 20:18 Anion Gap 14.6 (5-19) 01/22/23 20:18 BUN 37 mg/dL (8-23) H 01/22/23 20:18 Creatinine 1.4 mg/dL (0.7-1.2) H 01/22/23 20:18 GFR Calculation 51.7 mL/min (90-130) L 01/22/23 20:18 Glucose 152 mg/dL (65-115) H 01/22/23 20:18 Calculated Osmolality 284 mOsm/kg (285-295) L 01/22/23 20:18 Calcium 8.7 mg/dL (8.5-10.5) 01/22/23 20:18 Total Bilirubin 0.2 mg/dL (0.15-1.2) 01/22/23 20:18 AST 16 U/L (0-40) 01/22/23 20:18 ALT 14 U/L (0-41) 01/22/23 20:18 Alkaline Phosphatase 28 U/L (40-130) L 01/22/23 20:18 Total Protein 6.7 g/dL (6.6-8.7) 01/22/23 20:18 Albumin 3.7 g/dL (3.5-5.2) 01/22/23 20:18 Globulin 3.0 g/dL (1.3-4.6) 01/22/23 20:18 Lipase 32 U/L (13-60) 01/22/23 20:18 Urine Color Colorless (Yellow) 01/22/23 20:18 Urine Appearance Clear (CLEAR) 01/22/23 20:18 Urine pH 6 (5-7) 01/22/23 20:18 Ur Specific [place] 1.005 (1.005-1.030) 01/22/23 20:18 Urine Protein Neg (Negative) 01/22/23 20:18 Urine Glucose (UA) 4+ (Normal) H 01/22/23 20:18 Urine Ketones Negative (Negative) 01/22/23 20:18 Urine Blood Neg (Negative) 01/22/23 20:18 Urine Nitrate Negative (Negative) 01/22/23 20:18 Urine Bilirubin Neg (Negative) 01/22/23 20:18 Urine Urobilinogen Norm mg/dL (Negative) 01/22/23 20:18 Ur Leukocyte Esterase Negative (Negative) 01/22/23 20:18 SARS-CoV-2 Ag (Rapid) negative (Negative) 01/22/23 20:18 Group A Strep Rapid Negative (Negative) 01/22/23 20:18 SARS-CoV-2 Antigen (Rapid) negative (Negative) 01/22/23 20:18 Nasal/Oral Coronavirus 2019 PCR Not detected 05/10/21 07:58 Discharge Plan Discharge Patient Disposition: Home Clinical Impression: Upper respiratory infection, Abdominal pain Condition: Stable Prescriptions: New ondansetron 4 mg tablet,disintegrating 4 mg PO Q6H PRN (Reason: nausea and vomiting) Qty: 14 0RF hydrocodone-acetaminophen 5-325 mg tablet 1 tab PO Q6H PRN (Reason: pain) Qty: 14 0RF No Action multivitamin Tablet 1 tab PO DAILY aspirin [Adult Low Dose Aspirin] 81 mg tablet,delayed release (DR/EC) 81 mg PO QAM terbinafine HCl 250 mg tablet 250 mg PO DAILY Qty: 60 0RF triamcinolone acetonide 0.1 % cream 1 applic topical BID Qty: 30 2RF pregabalin 75 mg capsule 75 mg PO TID Qty: 90 0RF lisinopril-hydrochlorothiazide 20-25 mg tablet 1 tab PO QAM 90 Days Qty: 90 1RF fenofibrate micronized 134 mg capsule 134 mg PO DAILY Qty: 90 0RF Rx Instructions: Take on capsule by mouth daily. metformin 500 mg tablet extended release 24 hr 1,000 mg PO BID 90 Days Qty: 240 1RF Lantus Solostar U-100 Insulin 100 unit/mL (3 mL) insulin pen 80 unit SUBCUT BID Qty: 45 0RF Rx Instructions: 340 b atorvastatin 40 mg tablet 80 mg PO DAILY Qty: 60 3RF tamsulosin 0.4 mg capsule See Rx Instructions .ROUTE .COMPLEX Qty: 30 3RF Dose Instruction: TAKE ONE CAPSULE BY MOUTH DAILY Rx Instructions: TAKE ONE CAPSULE BY MOUTH DAILY Farxiga 10 mg tablet See Rx Instructions .ROUTE .COMPLEX Qty: 30 0RF Dose Instruction: TAKE ONE TABLET BY MOUTH DAILY Rx Instructions: TAKE ONE TABLET BY MOUTH DAILY citalopram 40 mg tablet See Rx Instructions .ROUTE .COMPLEX Qty: 90 1RF Dose Instruction: TAKE ONE TABLET BY MOUTH EVERY MORNING Rx Instructions: TAKE ONE TABLET BY MOUTH EVERY MORNING Discharge Orders: Discharge ED (Routine); Ordered 01/22/23 Ordered By: Paco Ryan Referrals: Anna Blackwood MD [Primary Care Provider] - Discharge Diet: Advance as tolerated Discharge Activity: Resume usual activity Patient Instructions: Upper Respiratory Infection (ED), Abdominal Pain (ED) Coding Level of Care Code ED Solder Deposit Operator for Carlos Alberto Bangura
[2023-01-22 20:28] VITALS: RESP 14
[2023-01-22] MEDS: morphine 4 mg/mL SDV 1 mL IVP (20:28)
[2023-01-22] MEDS: ondansetron 2 mg/ML SDV 2 mL 4 MG IVP (20:28)
[2023-01-22] MEDS: sodium chloride 0.9% 1,000 ML 999 ML IV (20:29)
[2023-01-22 20:34] LABS: Rapid Strep A Test Negative (Negative)
[2023-01-22 20:42] LABS: SARS Covid-2 Antigen negative (Negative)
[2023-01-22 20:48] LABS: Alanine Aminotransferase 14 U/L (0-41); Albumin Level 3.7 g/dL (3.5-5.2); Alkaline Phosphatase 28 U/L (40-130); Anion Gap 14.6 (5-19); Aspartate Amino Transferase 16 U/L (0-40); Blood Urea Nitrogen 37 mg/dL (8-23); Calcium 8.7 mg/dL (8.5-10.5); Carbon Dioxide 19 mmol/L (22-29); Chloride 102 mmol/L (98-107); Glomerular Filtration Rate 51.7 mL/min (90-130); Glucose 152 mg/dL (65-115); Lipase 32 U/L (13-60); Osmolality Calculated 284 mOsm/kg (285-295); Potassium 4.6 mmol/L (3.5-5.1); Sodium 131 mmol/L (136-145); Total Bilirubin 0.2 mg/dL (0.15-1.2); Total Protein 6.7 g/dL (6.6-8.7)
[2023-01-22 21:06] VITALS: O2SAT 98
[2023-01-22 21:17] LABS: Add Urine Microscopic? NO; Charge for UA Resulting for Rev
[2023-01-22 21:30] LABS: Bilirubin Urine Neg (Negative); Blood Urine Neg (Negative); Glucose Urine UA 4+ (Normal); Ketones Urine Negative (Negative); Leukocyte Esterase Urine Negative (Negative); Nitrate Urine Negative (Negative); Protein Urine Neg (Negative); Specific Gravity, Urine 1.005 (1.005-1.030); Urine Appearance Clear (CLEAR); Urine Color Colorless (Yellow); Urobilinogen Urine Norm (Negative); pH Urine 6 (5-7)
[2023-01-22] MEDS: iohexol 350 mg/mL 500 mL Btl (per mL) IV (21:49)
[2023-01-22] MEDS: HYDROcodone-acetaminophen 7.5-325 mg Tablet 1 TAB PO (22:33)
[2023-01-22 22:36] VITALS: BP 133/64; PULSE 73; RESP 18; O2SAT 97
== END 2023-01-22 22:37 | disposition home or self-care (01) ==
PROVIDERS: Emergency Provider Emergency Medicine; PCP Family Medicine
DX: J06.9 Acute upper respiratory infection, unspecified (principal); R10.9 Unspecified abdominal pain
CPT/HCPCS: 74177; 80053; 81003; 83690; 85025; 87081; 87426; 87880; 96361; 96374; 96375; 99285; J2270; J2405; J7030; Q9967

== ENCOUNTER 2023-01-26 14:17 | Outpatient (RCR) | payer BC, SELFPAY | END 2023-02-24 23:59 | disposition home or self-care (01) | LOC: TPT 14:17 | PROVIDERS: PCP Family Medicine; Visit Provider Family Medicine | DX: M54.50 Low back pain, unspecified (principal) | CPT/HCPCS: 97110 ==

== ENCOUNTER → 2023-02-07 12:43 | Outpatient (BNVA) | payer BC, SELFPAY | PROVIDERS: PCP Family Medicine; Visit Provider Family Medicine | DX: E78.5 Hyperlipidemia, unspecified (principal); I10 Essential (primary) hypertension; G89.29 Other chronic pain; M54.9 Dorsalgia, unspecified | CPT/HCPCS: 80053; 80061; 83036; 84443 ==

== ENCOUNTER 2023-02-13 06:21 | Day surgery (SDC) | payer BC, SELFPAY ==
[2023-02-10 10:44] VITALS: BMI 35.2
[2023-02-13] VITALS (10 sets, daily range): BP systolic 133–148; BP diastolic 55–75; PULSE 72–80; RESP 12–18; TEMP 36.1–36.4; O2SAT 95–100
[2023-02-13 06:49] LABS: Glucose Point of Care 253 mg/dL (70-110)
[2023-02-13] MEDS: sodium chloride 0.9% 1,000 ML 30 ML IV (06:50)
--- NOTE | 2023-02-13 07:06 | W.PM.OPSUD ---
Surgery/Procedure H&P Update DATE OF PROCEDURE: February 13, 2023 DATE H&P PERFORMED: 01/17/23 H&P UPDATE INFORMATION: I have reviewed H&P completed within last 30 days, I have examined patient prior to procedure and No changes to prior documentation PLANNED PROCEDURE: Operation Date: 02/13/23 08:10 Proposed Procedures p 80809 excision subcutaneous mass left breast, R22.9(Left) - Abdoul Rose DO
[2023-02-13] MEDS: ceFAZolin 2,000 MG in sodium chloride 0.9% (plus) 50 ML 100 MG IV (07:40)
[2023-02-13] MEDS: lidocaine-epi 2% 20 mL INJ 8 ML INJECTION (08:24)
--- NOTE | 2023-02-13 08:28 | P.ANESASSM_ITS ---
Pre-Anesthetic Assessment Height/Weight: Height 1.7 m Weight 102.058 kg Temp Pulse Resp BP Pulse Ox O2 Del Method 97.6 F 72 16 139/75 96 Room Air 02/13/23 06:44 02/13/23 06:44 02/13/23 06:44 02/13/23 06:44 02/13/23 06:44 02/13/23 06:44 Operation Date: 02/13/23 08:10 Proposed Procedures p 31978 excision subcutaneous mass left breast, R22.9(Left) - Abdoul Rose DO Familial anesthetic complications: none Was Beta Ben taken within 24 hours: N/A Was Clonidine taken within 24 hours: N/A Last intake: Intake Last Liquid Date 02/12/23 Last Liquid Time 23:45 Last Solid Date 02/12/23 Last Solid Time 18:30 Social No alcohol and No tobacco Exam alert, oriented x 3, clear to auscultation bilaterally and regular rate & rhythm Airway Submandibular: within normal limits Cervical ROM: within normal limits Mallampati: Class II Dentition: chipped CV/HEM Hypertension Metabolic Diabetes Mellitus, Hyperlipidemia and Morbid Obesity Musc/el Lower Back Pain and Osteoarthritis/DJD Neuropsych Anxiety, Depression and Neuropathy Anesthetic Plan ASA status: 3 Anesthesia: Choice Medications/Allergies Home Medications Medication Instructions Recorded Confirmed Last Taken Type aspirin 81 mg tablet,delayed 81 mg PO QAM 10/09/19 02/13/23 02/12/23 History release (Adult Low Dose Aspirin) multivitamin 1 tab PO DAILY 10/09/19 02/13/23 02/12/23 History terbinafine HCl 250 mg tablet 250 mg PO DAILY #60 tabs 04/15/22 02/13/23 02/12/23 Rx fenofibrate micronized 134 mg 134 mg PO DAILY #90 caps 04/25/22 02/13/23 02/12/23 Rx capsule triamcinolone acetonide 0.1 % 1 applic topical BID #30 grams 11/10/22 02/13/23 Unknown Rx topical cream hydrocodone 5 mg-acetaminophen 325 1 tab PO Q6H PRN pain #14 tabs 01/22/23 02/13/23 Unknown Rx mg tablet ondansetron 4 mg disintegrating 4 mg PO Q6H PRN nausea and 01/22/23 02/13/23 Unknown Rx tablet vomiting #14 tabs atorvastatin 40 mg tablet 80 mg PO DAILY #30 tabs 02/01/23 02/13/23 02/12/23 Rx insulin glargine 100 unit/mL (3 80 unit (0.8 mL) SUBCUT BID 0 days 02/07/23 02/13/23 02/12/23 Rx mL) subcutaneous pen (Lantus #45 device Solostar U-100 Insulin) lisinopril 20 1 tab PO QAM 90 days #90 tabs 02/07/23 02/13/23 02/12/23 Rx mg-hydrochlorothiazide 25 mg tablet pregabalin 100 mg capsule 100 mg PO TID #90 caps 02/07/23 02/13/23 02/12/23 Rx citalopram 40 mg tablet 40 mg PO DAILY 02/10/23 02/13/23 02/12/23 History dapagliflozin 10 mg tablet 10 mg PO DAILY 02/10/23 02/13/23 02/12/23 History ([facility]) metformin 500 mg tablet,extended 500 mg PO DAILY 02/10/23 02/13/23 02/12/23 History release 24 hr tamsulosin 0.4 mg capsule 0.4 mg PO DAILY 02/10/23 02/13/23 02/12/23 History Allergies Allergy/AdvReac Type Severity Reaction Status Date / Time No Known Allergies Allergy Verified 02/13/23 06:29 Current Medications Generic Name Dose Route Start Last Admin Trade Name Freq PRN Reason Stop Dose Admin Sodium Chloride 1,000 mls @ 30 mls/hr 02/13/23 06:30 02/13/23 06:50 Sodium Chloride 0.9% IV 02/14/23 06:29 30 mls/hr .Q24H KALEB Administration PFSH Anesthesia Medical History Diabetes type 2, controlled Hyperlipidemia Hypertension Osteoarthritis of left shoulder Surgical History History of back surgery History of esophagogastroduodenoscopy (EGD) History of removal of cyst Hx of colonoscopy with polypectomy 3 yrs ago No significant past surgical history Family History Other Hypertension Social History (Reviewed 02/01/23 @ 14:06 by EDYTA Neely Smoking and tobacco status: current every day smoker cigars Cigars smoked per week: 7 Years smoked cigars: 12 Cigar details: smokes 1 per day Second hand smoke exposure: No Smoking risk assessment/counseling performed?: No Alcohol intake: current Alcohol intake frequency: holidays/special occasions only Desire information about alcohol rehabilitation?: No Counseling given: No Substance/Drug Use: unknown Desire information about substance/drug rehabilitation?: No Counseling given: No Adopted: No Caregiver/support person: No Lives independently: Yes Household members: significant other Housing: House Marital status: Life Partner Current occupational status: employed Do you think of yourself as: Straight/Heterosexual Current gender identity: Male Special lanre needs: No Data Anesthesia Cardiac Studies: No Data to Display
--- NOTE | 2023-02-13 08:39 | PM.OP ---
Operative Report Date of procedure: February 13, 2023 Pre-op diagnosis: Subcutaneous mass left breast Post-op diagnosis: same Procedure done: Left breast lumpectomy Implants: None Specimens removed/disposition: Left breast lumpectomy Surgeon: Dr. Abdoul Rose DO Anesthesia: General Estimated blood loss (mL): 5 Complications: None apparent Brief History: This is a very pleasant 62-year-old gentleman who presents to my office with a mass under his left areola. It would drain white purulence at times. Excision was indicated. The risk and benefits were explained and documented. Procedure: The left breast was inspected prepped and draped in usual sterile fashion. General endotracheal intubation was achieved by the department of anesthesia. A timeout was performed. All present were in agreement. 2% lidocaine with epinephrine was used to anesthetize the skin around the left nipple. A 15 blade scalpel was then used to make a circumareolar incision on the medial and superior aspects of the areola. Dissection was carried down with electrocautery to a cystic mass. This was intimately associated with the areola and went deep into the breast. The mass was removed entirely. Bleeding was controlled with electrocautery. Dermis was approximated with 3-0 Vicryl in a subcuticular interrupted fashion. Skin was closed with 4-0 Monocryl in a running subcuticular fashion. Skin was washed and dried. Dermabond was applied. Patient tolerated the procedure well.
[2023-02-13] MEDS: HYDROcodone-acetaminophen 10-325 mg Tablet 1 TAB PO (09:50)
--- NOTE | 2023-02-13 14:33 | ANE.PACU2 ---
Inpatient post-anesthesia follow up: Airway intact: Yes Vital signs: Temperature 97.4 F Pulse Rate 76 Respiratory Rate 18 Blood Pressure 142/64 Pulse Oximetry 99 Oxygen Delivery Me thod Room Air Oxygen Flow Rate 6 Fraction of Inspir ed Oxygen Hydration adequate: Yes Nausea and vomiting: No Pain level: 2 Mental status: Baseline
== END 2023-02-13 09:30 | disposition home or self-care (01) ==
PROVIDERS: PCP Family Medicine; Visit Provider Surgery
PROC: (CPT 19120; principal; 2023-02-13 08:10)
DX: N60.22 Fibroadenosis of left breast (principal); E11.40 Type 2 diabetes mellitus with diabetic neuropathy, unspecified; I10 Essential (primary) hypertension; E78.5 Hyperlipidemia, unspecified; E66.01 Morbid (severe) obesity due to excess calories; Z68.35 Body mass index [BMI] 35.0-35.9, adult; F17.290 Nicotine dependence, other tobacco product, uncomplicated; Z79.4 Long term (current) use of insulin; Z79.84 Long term (current) use of oral hypoglycemic drugs; Z79.82 Long term (current) use of aspirin
CPT/HCPCS: 19120; 36416; 82962; 88307; J0690; J2704; J3010; J7030

== ENCOUNTER 2023-02-25 06:00 | Outpatient (RCR) | payer BC, SELFPAY | END 2023-03-27 23:59 | disposition home or self-care (01) | LOC: TPT 06:00 | PROVIDERS: PCP Family Medicine; Visit Provider Family Medicine | DX: M54.50 Low back pain, unspecified (principal) | CPT/HCPCS: 97110 ==

== ENCOUNTER 2023-03-28 06:00 | Outpatient (RCR) | payer BC, SELFPAY | END 2023-03-30 23:59 | disposition home or self-care (01) | LOC: TPT 06:00 | PROVIDERS: PCP Family Medicine; Visit Provider Family Medicine | DX: M54.50 Low back pain, unspecified (principal) | CPT/HCPCS: 97110 ==

== ENCOUNTER 2023-04-24 11:34 | Outpatient (CLI) | payer BC, SELFPAY | END 2023-04-24 11:35 | disposition home or self-care (01) | LOC: LAB 11:36 | PROVIDERS: PCP Family Medicine; Visit Provider Surgery | DX: L72.0 Epidermal cyst (principal); R22.9 Localized swelling, mass and lump, unspecified | CPT/HCPCS: 88307 ==

== ENCOUNTER 2023-05-03 15:37 | Emergency (ER) | payer BC, SELFPAY ==
[2023-05-03 15:58] VITALS: BP 130/64; PULSE 74; RESP 15; TEMP 36.9; O2SAT 97
--- NOTE | 2023-05-03 16:12 | ED_ITS ---
HPI - Back Pain/Injury General: Chief Complaint: Back Pain/Injury Stated Complaint: right leg pain Time Seen by Provider: 05/03/23 15:57 PFSH ED PFSH: Medical History Diabetes type 2, controlled Hyperlipidemia Hypertension Osteoarthritis of left shoulder Surgical History History of back surgery History of esophagogastroduodenoscopy (EGD) History of lumpectomy of left breast 02/13/23 subcutaneous mass left breast and lumpectomy- Dr. Rose History of removal of cyst Hx of colonoscopy with polypectomy 3 yrs ago No significant past surgical history Family History Other Hypertension Social History Smoking and tobacco status: current every day smoker cigars Cigars smoked per week: 7 Years smoked cigars: 12 Cigar details: smokes 1 per day Second hand smoke exposure: No Smoking risk assessment/counseling performed?: No Alcohol intake: current Alcohol intake frequency: holidays/special occasions only Desire information about alcohol rehabilitation?: No Counseling given: No Substance/Drug Use: unknown Desire information about substance/drug rehabilitation?: No Counseling given: No Adopted: No Caregiver/support person: No Lives independently: Yes Household members: significant other Housing: House Marital status: Life Partner Current occupational status: employed Do you think of yourself as: Straight/Heterosexual Current gender identity: Male Special lanre needs: No Course Vital Signs: Vital signs: Vital Signs Temperature 98.5 F 05/03/23 15:58 Pulse Rate 74 05/03/23 15:58 Respiratory Rate 15 05/03/23 15:58 Blood Pressure 130/64 05/03/23 15:58 Pulse Oximetry 97 05/03/23 15:58 Oxygen Delivery Me thod Room Air 05/03/23 15:58 Discharge Plan Discharge Condition: Stable Prescriptions: No Action multivitamin Tablet 1 tab PO DAILY aspirin [Adult Low Dose Aspirin] 81 mg tablet,delayed release (DR/EC) 81 mg PO QAM terbinafine HCl 250 mg tablet 250 mg PO DAILY Qty: 60 0RF pregabalin 100 mg capsule 100 mg PO TID Qty: 90 2RF lisinopril 20 mg tablet 20 mg PO DAILY Qty: 30 2RF Lantus Solostar U-100 Insulin 100 unit/mL (3 mL) insulin pen 40 unit SUBCUT BID Qty: 45 0RF Rx Instructions: 340 b methylprednisolone [Medrol (Kaveh)] 4 mg tablets,dose pack See Rx Instructions PO PER PKG DIR Qty: 21 0RF Rx Instructions: PO PER PKG DIR fenofibrate micronized 134 mg capsule 134 mg PO DAILY Qty: 90 0RF Rx Instructions: Take on capsule by mouth daily. triamcinolone acetonide 0.1 % cream See Rx Instructions .ROUTE .COMPLEX Qty: 30 2RF Dose Instruction: APPLY TO THE AFFECTED AREA(S) TOPICALLY TWICE DAILY Rx Instructions: APPLY TO THE AFFECTED AREA(S) TOPICALLY TWICE DAILY Farxiga 10 mg tablet See Rx Instructions .ROUTE .COMPLEX Qty: 30 2RF Dose Instruction: TAKE ONE TABLET BY MOUTH DAILY Rx Instructions: TAKE ONE TABLET BY MOUTH DAILY metformin 500 mg tablet extended release 24 hr See Rx Instructions .ROUTE .COMPLEX Qty: 240 0RF Dose Instruction: TAKE TWO TABLETS BY MOUTH TWICE DAILY Rx Instructions: TAKE TWO TABLETS BY MOUTH TWICE DAILY hydrocodone-acetaminophen 10-325 mg tablet 1 tab PO Q8H PRN (Reason: pain) 7 Days Qty: 20 0RF atorvastatin 80 mg tablet See Rx Instructions .ROUTE .COMPLEX Qty: 30 2RF Dose Instruction: TAKE ONE TABLET BY MOUTH DAILY Rx Instructions: TAKE ONE TABLET BY MOUTH DAILY tamsulosin 0.4 mg capsule See Rx Instructions .ROUTE .COMPLEX Qty: 30 2RF Dose Instruction: TAKE ONE CAPSULE BY MOUTH DAILY Rx Instructions: TAKE ONE CAPSULE BY MOUTH DAILY citalopram 40 mg tablet 40 mg PO DAILY Rx Instructions: TAKE ONE TABLET BY MOUTH EVERY MORNING Colace 100 mg capsule 100 mg PO BID Qty: 14 0RF ondansetron 4 mg tablet,disintegrating 4 mg PO Q6H PRN (Reason: nausea and vomiting) Qty: 14 0RF Referrals: Anna Blackwood MD [Primary Care Provider] - Coding Level of Care Code ED Save All Operator for Carlos Alberto Bangura
--- NOTE | 2023-05-03 16:33 | USR_ITS ---
PROCEDURE INFORMATION: Exam: US Duplex Right Lower Extremity Arteries Or Arterial Bypass Grafts Exam date and time: 05/03/2023 4:50 PM Age: 63 years old Clinical indication: Other: Pulselessness/pain; Additional info: Pain, cannot palpate pulses TECHNIQUE: Imaging protocol: Right Real-time duplex scan of the arteries or arterial bypass grafts of the right lower extremity with 2-D millan scale, color Doppler flow and spectral waveform analysis. Images documented and saved. COMPARISON: US scrotum [id number] 08/02/2022 4:22 PM FINDINGS: Right common femoral artery: No occlusion or significant stenosis. Normal waveform. No pseudoaneurysm in the inguinal region. Right superficial femoral artery: No occlusion or significant stenosis. Normal waveform. Right popliteal artery: No occlusion or significant stenosis. Normal waveform. Right calf/foot arteries: No occlusion or significant stenosis in the visualized arteries. Normal waveforms. Dorsalis pedis artery is patent. Soft tissues: No hematoma or collection. Other findings: Right ankle-brachial index is 0.67. US/[place] [id number] IMPRESSION: No evidence of hemodynamically significant arterial stenosis or arterial occlusion in the right lower extremity.
--- NOTE | 2023-05-03 16:34 | ED_ITS ---
Documented by User: ELIAS Luna 05/08/23 07:10 HPI - Extremity Problem General: Chief complaint: Back Pain/Injury Stated complaint: right leg pain Time Seen by Provider: 05/03/23 15:57 Source: patient and family Mode of arrival: ambulatory Limitations: no limitations History of Present Illness: Patient is a very nice 63-year-old male who presents to ED today with a c omplaint of right lower extremity discomfort. He states pain seemingly originates from the right side of his back and radiates down into his buttocks, right thigh, and knee. Patient states that walking seems to greatly exacerbate his discomfort and that symptoms are much alleviated with rest. He states he has not noticed any swelling, color, or temperature changes to the lower extremity. He has not noticed any calf pain. No known history of peripheral vascular disease. No history of DVT. Patient states he has seen his primary care provider for this and was placed on steroids with no relief. He states symptoms have been present since November and seem to progressively be worsening. MD Complaint: extremity pain Onset (ago): month(s) Pain Consistency: intermittent Location: right and lower extremity Quality: aching and sharp Radiation: none Relieving factors: rest Exacerbating factors: walking Associated symptoms: Reports no associated symptoms; Deny chest pain, fever(s) or rash Review of Systems Const: Denies: fever(s), chills, body aches, fatigue or malaise Card: Denies: chest pain Resp: Denies: dyspnea GI: Denies: abdominal pain, nausea, vomiting or diarrhea : Denies: flank pain, difficulty urinating, dysuria, urinary frequency, urinary urgency or urinary hesitancy Musc: Reports: back pain, extremity pain and muscle cramps; Denies: neck pain, extremity swelling, joint pain, joint swelling, joint redness, joint warmth or limited range of motion Skin/Breast: Denies: rash Neuro: Denies: headache(s), numbness in extremities, weakness in extremities or sensory changes [facility] ED PFSH: Medical History Diabetes type 2, controlled Hyperlipidemia Hypertension Osteoarthritis of left shoulder Surgical History History of back surgery History of esophagogastroduodenoscopy (EGD) History of lumpectomy of left breast 02/13/23 subcutaneous mass left breast and lumpectomy- Dr. Rose History of removal of cyst Hx of colonoscopy with polypectomy 3 yrs ago No significant past surgical history Family History Other Hypertension Social History Smoking and tobacco status: current every day smoker cigars Cigars smoked per week: 7 Years smoked cigars: 12 Cigar details: smokes 1 per day Second hand smoke exposure: No Smoking risk assessment/counseling performed?: No Alcohol intake: current Alcohol intake frequency: holidays/special occasions only Desire information about alcohol rehabilitation?: No Counseling given: No Substance/Drug Use: unknown Desire information about substance/drug rehabilitation?: No Counseling given: No Adopted: No Caregiver/support person: No Lives independently: Yes Household members: significant other Housing: House Marital status: Life Partner Current occupational status: employed Do you think of yourself as: Straight/Heterosexual Current gender identity: Male Special lanre needs: No Physical Exam Const: COMMON NORMALS: no acute distress, patient oriented x3, no limitations, alert and well nourished GENERAL APPEARANCE: cooperative NUTRITIONAL APPEARANCE: overweight ORIENTATION/CONSCIOUSNESS: Yes awake, Yes oriented to person, Yes oriented to place and Yes oriented to time Resp: COMMON NORMALS: normal respiratory effort and clear to auscultation bilaterally AUSCULTATION: clear to auscultation bilaterally Cardio: COMMON NORMALS: regular rate and regular rhythm RATE: regular rate RHYTHM: regular rhythm GI: COMMON NORMALS: Normal to inspection, nondistended, normoactive bowel sounds present, Soft to palpation, non-tender, No hepatosplenomegaly present and no masses PALPATION: Yes Soft to palpation and Yes No hepatosplenomegaly present Back/Pelvis: COMMON NORMALS: thoracic and lumbar spine normal to inspection, no thoracic nor lumbar tenderness and thoraco-lumbar ROM normal LUMBAR SPINE/LOWER BACK: No lumbar spinal tenderness and Yes straight leg raise negative bilaterally PELVIS: No sciatic notch tenderness SACROILIAC JOINTS: Yes SI joints normal SACRUM: no tenderness COCCYX: no tenderness Extremity: COMMON NORMALS: normal to inspection and full ROM; negative for no joint enlargement, negative for no calf tenderness and negative for no pedal edema NARRATIVE EXTREMITY EXAM: cannot palpate DP/PT pulses on R LE; can find them easily on left; extremity is not cool to the touch GENERAL: Yes normal exam except as noted Neuro: COMMON NORMALS: patient oriented x3, moves all extremities, no focal motor deficits and no sensory deficits noted SENSORIUM/ORIENTATION: Yes alert, Yes oriented to person, Yes oriented to place and Yes oriented to time MOTOR EXAM: 5/5 motor strength present throughout Course ED course: Care transferred to Genna Haas PA-C at shift change. I was not able to palpate DP/PT pulses on the right lower extremity and also could not find them with doppler. I will start evaluation with an arterial US at this time. If arterial occulsion noted he most likely will require CTA/transfer. If negative then we can proceed with any further evaluation indicated. ES Vital Signs: Vital signs: Vital Signs Temperature 98.5 F 05/03/23 15:58 Pulse Rate 70 05/03/23 18:00 Respiratory Rate 15 05/03/23 15:58 Blood Pressure 138/56 05/03/23 18:00 Pulse Oximetry 98 05/03/23 18:00 Oxygen Delivery Me thod Room Air 05/03/23 18:00 MDM - Extremity (Nontraumatic) Lab Data Radiology Impressions Duplex Scan Lower Extremity Artery 05/03/23 16:33 IMPRESSION: No evidence of hemodynamically significant arterial stenosis or arterial occlusion in the right lower extremity. Lumbar Spine CT 05/03/23 18:06 IMPRESSION: 1. Degenerative lumbar spine changes are noted. 2. No acute abnormality of the lumbar spine demonstrated. Thoracic Spine CT 05/03/23 18:06 IMPRESSION: 1. Mild degenerative thoracic spine changes are noted. 2. No acute abnormality of the thoracic spine demonstrated. Discharge Plan Discharge Patient Disposition: Home Clinical Impression: Lumbar radiculopathy, Back pain, Leg pain, right Condition: Stable Prescriptions: New dexamethasone 1.5 mg (21 tabs) tablets,dose pack See Rx Instructions .ROUTE .COMPLEX Qty: 21 0RF Rx Instructions: orally per package directions tizanidine 4 mg tablet 4 mg PO Q8H PRN (Reason: muscle spasticity) Qty: 21 0RF No Action multivitamin Tablet 1 tab PO DAILY aspirin [Adult Low Dose Aspirin] 81 mg tablet,delayed release (DR/EC) 81 mg PO QAM terbinafine HCl 250 mg tablet 250 mg PO DAILY Qty: 60 0RF pregabalin 100 mg capsule 100 mg PO TID Qty: 90 2RF lisinopril 20 mg tablet 20 mg PO DAILY Qty: 30 2RF Lantus Solostar U-100 Insulin 100 unit/mL (3 mL) insulin pen 40 unit SUBCUT BID Qty: 45 0RF Rx Instructions: 340 b fenofibrate micronized 134 mg capsule 134 mg PO DAILY Qty: 90 0RF Rx Instructions: Take on capsule by mouth daily. triamcinolone acetonide 0.1 % cream See Rx Instructions .ROUTE .COMPLEX Qty: 30 2RF Dose Instruction: APPLY TO THE AFFECTED AREA(S) TOPICALLY TWICE DAILY Rx Instructions: APPLY TO THE AFFECTED AREA(S) TOPICALLY TWICE DAILY Farxiga 10 mg tablet See Rx Instructions .ROUTE .COMPLEX Qty: 30 2RF Dose Instruction: TAKE ONE TABLET BY MOUTH DAILY Rx Instructions: TAKE ONE TABLET BY MOUTH DAILY metformin 500 mg tablet extended release 24 hr See Rx Instructions .ROUTE .COMPLEX Qty: 240 0RF Dose Instruction: TAKE TWO TABLETS BY MOUTH TWICE DAILY Rx Instructions: TAKE TWO TABLETS BY MOUTH TWICE DAILY hydrocodone-acetaminophen 10-325 mg tablet 1 tab PO Q8H PRN (Reason: pain) 7 Days Qty: 20 0RF atorvastatin 80 mg tablet See Rx Instructions .ROUTE .COMPLEX Qty: 30 2RF Dose Instruction: TAKE ONE TABLET BY MOUTH DAILY Rx Instructions: TAKE ONE TABLET BY MOUTH DAILY tamsulosin 0.4 mg capsule See Rx Instructions .ROUTE .COMPLEX Qty: 30 2RF Dose Instruction: TAKE ONE CAPSULE BY MOUTH DAILY Rx Instructions: TAKE ONE CAPSULE BY MOUTH DAILY citalopram 40 mg tablet 40 mg PO DAILY Rx Instructions: TAKE ONE TABLET BY MOUTH EVERY MORNING Colace 100 mg capsule 100 mg PO BID Qty: 14 0RF ondansetron 4 mg tablet,disintegrating 4 mg PO Q6H PRN (Reason: nausea and vomiting) Qty: 14 0RF Discharge Orders: Discharge ED (Routine); Ordered 05/03/23 Ordered By: Genna Haas Referrals: Anna Blackwood MD [Primary Care Provider] - Discharge Diet: Usual diet Discharge Activity: Limit activity as instructed Patient Instructions: Osteoarthritis (ED), Lumbar Radiculopathy (ED) Activity Restrictions/Additional Instructions: Ultrasound of your leg revealed no signs of any arterial occlusion but, there is some calcification developing on the coles of your arteries. Pulses were found and patency of the artery was found all the way down to the foot. After discussion, we did CT your back which revealed significant osteoarthritic and degenerative changes throughout the levels of your spine with noticeable worsening in the low back region. I do believe it is making radiculopathy worse than you have had to deal with in the past. I was able to view your aorta which also is starting to stenosis or calcified along the coles but, is still quite patent and shows no signs of any significant enlargement concerning for an active or pending rupture aneurysm. I have placed a referral to orthopedics/spine for follow-up on these findings. And I encourage you to keep the appoint with your primary care doctor in 48 hours to discuss if the medication provided is helping you with your discomfort. If for any reason you lose control of bowel or bladder function, have inability to feel the lower extremities or, develop paleness or lower extremity that is cool to touch need to be seen in the ER. Dr [facility] [address] [place] [address],?[place]?[id number] Main:?[phone] Fax:?[phone] Sign Out Sign Out Data: Patient Sign Out occurred on 05/03/23 at 17:08. Patient's care was discussed, and care was transferred from to ELIAS Enamorado. Coding Level of Care Code ED Imaging Aide for Chg Fwd Documented by User: ELIAS Enamorado 05/03/23 21:18 HPI - Extremity Problem General: Chief complaint: Back Pain/Injury Stated complaint: right leg pain Time Seen by Provider: 05/03/23 15:57 PFSH ED PFSH: Medical History Diabetes type 2, controlled Hyperlipidemia Hypertension Osteoarthritis of left shoulder Surgical History History of back surgery History of esophagogastroduodenoscopy (EGD) History of lumpectomy of left breast 02/13/23 subcutaneous mass left breast and lumpectomy- Dr. Rose History of removal of cyst Hx of colonoscopy with polypectomy 3 yrs ago No significant past surgical history Family History Other Hypertension Social History Smoking and tobacco status: current every day smoker cigars Cigars smoked per week: 7 Years smoked cigars: 12 Cigar details: smokes 1 per day Second hand smoke exposure: No Smoking risk assessment/counseling performed?: No Alcohol intake: current Alcohol intake frequency: holidays/special occasions only Desire information about alcohol rehabilitation?: No Counseling given: No Substance/Drug Use: unknown Desire information about substance/drug rehabilitation?: No Counseling given: No Adopted: No Caregiver/support person: No Lives independently: Yes Household members: significant other Housing: House Marital status: Life Partner Current occupational status: employed Do you think of yourself as: Straight/Heterosexual Current gender identity: Male Special lanre needs: No Course Vital Signs: Vital signs: Vital Signs Temperature 98.5 F 05/03/23 15:58 Pulse Rate 70 05/03/23 18:00 Respiratory Rate 15 05/03/23 15:58 Blood Pressure 138/56 05/03/23 18:00 Pulse Oximetry 98 05/03/23 18:00 Oxygen Delivery Me thod Room Air 05/03/23 18:00 MDM - Extremity (Nontraumatic) Medical Decision Making Genna Haas PA-C: Transfer of care from Xin Benson PA-C at 1700. Patient has ultrasound ordered of the right lower extremity. At this time, waiting for ultrasound results. Ultrasound result indicate no signs of arterial occlusion. Blood flow detected the length of the right lower extremity. Patient did have some hardening of the arterial coles. After discussing these results, it was indicated that they had discussed CT of the back. I ordered CT thoracic and lumbar given the region of the patient's pain. CT shows noted degenerative spinal changes in both the thoracic and lumbar regions without any acute abnormality noted. Patient has quite a bit of osteophyte formation and, of note, has findings of hardening of the aorta. I did discuss this with patient and significant other. Significant other was extremely concerned about an aortic aneurysm but, explained to her I did not see anything obvious on the CT at this time. They have an upcoming appointment primary care in 48 hours and encouraged him to continue discussing vascular concerns should they have any. Otherwise, I did refer them on to orthopedic/spine to discuss continued degenerative changes in the patient's back which I do believe is causing worsening of his radicular pain. Patient was given some medication to help with this pain as he is somewhat hesitant about taking medications. He has [place] at home per his report. Patient may wish to take the muscle relaxer just before bed. Encouraged him to try and take it easy. 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 Went over strict return precautions for neurological changes. Patient verbalized understanding and agreement to treatment plan. Differential Diagnosis Unlikely gout, cellulitis, lower extremity edema or deep vein thrombosis of lower extremity (Likely lumbar radicular pain, lumbar osteoarthritis, thoracic osteoarthritis, DDD) Lab Data Radiology Impressions Duplex Scan Lower Extremity Artery 05/03/23 16:33 IMPRESSION: No evidence of hemodynamically significant arterial stenosis or arterial occlusion in the right lower extremity. Lumbar Spine CT 05/03/23 18:06 IMPRESSION: 1. Degenerative lumbar spine changes are noted. 2. No acute abnormality of the lumbar spine demonstrated. Thoracic Spine CT 05/03/23 18:06 IMPRESSION: 1. Mild degenerative thoracic spine changes are noted. 2. No acute abnormality of the thoracic spine demonstrated. Discharge Plan Discharge Patient Disposition: Home Clinical Impression: Lumbar radiculopathy, Back pain, Leg pain, right Condition: Stable Prescriptions: New dexamethasone 1.5 mg (21 tabs) tablets,dose pack See Rx Instructions .ROUTE .COMPLEX Qty: 21 0RF Rx Instructions: orally per package directions tizanidine 4 mg tablet 4 mg PO Q8H PRN (Reason: muscle spasticity) Qty: 21 0RF No Action multivitamin Tablet 1 tab PO DAILY aspirin [Adult Low Dose Aspirin] 81 mg tablet,delayed release (DR/EC) 81 mg PO QAM terbinafine HCl 250 mg tablet 250 mg PO DAILY Qty: 60 0RF pregabalin 100 mg capsule 100 mg PO TID Qty: 90 2RF lisinopril 20 mg tablet 20 mg PO DAILY Qty: 30 2RF Lantus Solostar U-100 Insulin 100 unit/mL (3 mL) insulin pen 40 unit SUBCUT BID Qty: 45 0RF Rx Instructions: 340 b fenofibrate micronized 134 mg capsule 134 mg PO DAILY Qty: 90 0RF Rx Instructions: Take on capsule by mouth daily. triamcinolone acetonide 0.1 % cream See Rx Instructions .ROUTE .COMPLEX Qty: 30 2RF Dose Instruction: APPLY TO THE AFFECTED AREA(S) TOPICALLY TWICE DAILY Rx Instructions: APPLY TO THE AFFECTED AREA(S) TOPICALLY TWICE DAILY Farxiga 10 mg tablet See Rx Instructions .ROUTE .COMPLEX Qty: 30 2RF Dose Instruction: TAKE ONE TABLET BY MOUTH DAILY Rx Instructions: TAKE ONE TABLET BY MOUTH DAILY metformin 500 mg tablet extended release 24 hr See Rx Instructions .ROUTE .COMPLEX Qty: 240 0RF Dose Instruction: TAKE TWO TABLETS BY MOUTH TWICE DAILY Rx Instructions: TAKE TWO TABLETS BY MOUTH TWICE DAILY hydrocodone-acetaminophen 10-325 mg tablet 1 tab PO Q8H PRN (Reason: pain) 7 Days Qty: 20 0RF atorvastatin 80 mg tablet See Rx Instructions .ROUTE .COMPLEX Qty: 30 2RF Dose Instruction: TAKE ONE TABLET BY MOUTH DAILY Rx Instructions: TAKE ONE TABLET BY MOUTH DAILY tamsulosin 0.4 mg capsule See Rx Instructions .ROUTE .COMPLEX Qty: 30 2RF Dose Instruction: TAKE ONE CAPSULE BY MOUTH DAILY Rx Instructions: TAKE ONE CAPSULE BY MOUTH DAILY citalopram 40 mg tablet 40 mg PO DAILY Rx Instructions: TAKE ONE TABLET BY MOUTH EVERY MORNING Colace 100 mg capsule 100 mg PO BID Qty: 14 0RF ondansetron 4 mg tablet,disintegrating 4 mg PO Q6H PRN (Reason: nausea and vomiting) Qty: 14 0RF Discharge Orders: Discharge ED (Routine); Ordered 05/03/23 Ordered By: Genna Haas Referrals: Anna Blackwood MD [Primary Care Provider] - Discharge Diet: Usual diet Discharge Activity: Limit activity as instructed Patient Instructions: Osteoarthritis (ED), Lumbar Radiculopathy (ED) Activity Restrictions/Additional Instructions: Ultrasound of your leg revealed no signs of any arterial occlusion but, there is some calcification developing on the coles of your arteries. Pulses were found and patency of the artery was found all the way down to the foot. After discussion, we did CT your back which revealed significant osteoarthritic and degenerative changes throughout the levels of your spine with noticeable worsening in the low back region. I do believe it is making radiculopathy worse than you have had to deal with in the past. I was able to view your aorta which also is starting to stenosis or calcified along the coles but, is still quite patent and shows no signs of any significant enlargement concerning for an active or pending rupture aneurysm. I have placed a referral to orthopedics/spine for follow-up on these findings. And I encourage you to keep the appoint with your primary care doctor in 48 hours to discuss if the medication provided is helping you with your discomfort. If for any reason you lose control of bowel or bladder function, have inability to feel the lower extremities or, develop paleness or lower extremity that is cool to touch need to be seen in the ER. Dr Sheffield [facility] [address] [place] [address],?[place]?[id number] Main:?[phone] Fax:?[phone] Sign Out Sign Out Data: Patient Sign Out occurred on 05/03/23 at 17:08. Patient's care was discussed, and care was transferred from to ELIAS Enamorado. Coding Level of Care Code ED Imaging Aide for Carlos Alberto Bangura
[2023-05-03 18:00] VITALS: BP 138/56; PULSE 70; O2SAT 98
--- NOTE | 2023-05-03 18:06 | CTR_ITS ---
PROCEDURE INFORMATION: Exam: CT Thoracic Spine Without Contrast Exam date and time: 05/03/2023 6:43 PM Age: 63 years old Clinical indication: Pain in thoracic spine; With radiculopathy; Right; Prior surgery; Surgery date: 6+ months; Surgery type: PT unclear on surgery but states it was 10 years ago; Additional info: Back pain, HX surgery, new pains down back into R leg. US wnl TECHNIQUE: Imaging protocol: Computed tomography of the thoracic spine without contrast. Radiation optimization: All CT scans at this facility use at least one of these dose optimization techniques: automated exposure control; mA and/or kV adjustment per patient size (includes targeted exams where dose is matched to clinical indication); or iterative reconstruction. REPORTING DATA: Count of CT and Cardiac NM exams in prior 12 months: This patient has received 2 known CTs and 0 known cardiac nuclear medicine studies in the 12 months prior to the current study. COMPARISON: CT lumbar spine wo con* [id number] 05/03/2023 6:41 PM RADIATION DOSE METRICS: Total DLP (mGy-cm): 1420 FINDINGS: Bones/joints: Vertebral body heights are preserved. No compression fractures are noted. Vertebral alignment is physiologic. Coarse anterior enthesophytes are noted throughout the thoracic spine. Intervertebral disc space heights are relatively well preserved throughout the thoracic spine. No large disc protrusions are demonstrated. No spinal canal stenosis is noted. Soft tissues: The paraspinous soft tissues are unremarkable. CT/CT thoracic spin wo con* [id number] IMPRESSION: 1. Mild degenerative thoracic spine changes are noted. 2. No acute abnormality of the thoracic spine demonstrated.
--- NOTE | 2023-05-03 18:06 | CTR_ITS ---
PROCEDURE INFORMATION: Exam: CT Lumbar Spine Without Contrast Exam date and time: 05/03/2023 6:41 PM Age: 63 years old Clinical indication: Low back pain; Prior surgery; Surgery date: 6+ months; Surgery type: PT unclear about surgery but it was 10 years ago; Additional info: Pain, HX of surgery, new pains radiating to R leg. US wnl TECHNIQUE: Imaging protocol: Computed tomography of the lumbar spine without contrast. Radiation optimization: All CT scans at this facility use at least one of these dose optimization techniques: automated exposure control; mA and/or kV adjustment per patient size (includes targeted exams where dose is matched to clinical indication); or iterative reconstruction. REPORTING DATA: Count of CT and Cardiac NM exams in prior 12 months: This patient has received 2 known CTs and 0 known cardiac nuclear medicine studies in the 12 months prior to the current study. COMPARISON: CR XR lumbar spine f/e only [id number] 05/09/2022 6:16 PM RADIATION DOSE METRICS: Total DLP (mGy-cm): 985 FINDINGS: Bones/joints: Vertebral body heights are preserved. No compression fractures are noted. Vertebral alignment is physiologic. Degenerative disc narrowing and vacuum disc phenomenon at L5-S1. Intervertebral discs are otherwise normal in height. No large disc protrusions are demonstrated. No severe spinal canal stenosis is noted. Soft tissues: The paraspinous soft tissues are unremarkable. CT/CT lumbar spine wo con* [id number] IMPRESSION: 1. Degenerative lumbar spine changes are noted. 2. No acute abnormality of the lumbar spine demonstrated.
--- NOTE | 2023-05-04 08:10 | DCPLANNER ---
Addendum entered by Crystal Tao 05/04/23 10:50: Patient has a follow up appointment scheduled for April at 8:00 with Adam Novak at ortho. Original Note: telemarketing manager had message to schedule a follow up appointment for patient with ortho. telemarketing manager sent patients information to the front office staff at ortho. Patients information will be printed and reviewed. Clinic will call patient with appointment information.
== END 2023-05-03 20:07 | disposition home or self-care (01) ==
PROVIDERS: Emergency Provider Physician Assistant; PCP Family Medicine
DX: M54.16 Radiculopathy, lumbar region (principal); M79.604 Pain in right leg; Z79.82 Long term (current) use of aspirin; Z79.4 Long term (current) use of insulin; Z79.84 Long term (current) use of oral hypoglycemic drugs; E11.9 Type 2 diabetes mellitus without complications; E78.5 Hyperlipidemia, unspecified; I10 Essential (primary) hypertension; F17.210 Nicotine dependence, cigarettes, uncomplicated
CPT/HCPCS: 72128; 72131; 93926; 99284

== ENCOUNTER 2023-05-05 11:30 | Outpatient (CLI) | payer BC, SELFPAY ==
--- NOTE | 2023-05-05 11:37 | XR_ITS ---
WS: [id number] Right hip, AP and frog-leg views, 05/05/2023 Clinical Data: M25.551 - Pain in right hip Comparison: None. Findings: No fractures or dislocations are seen. The right hip shows no narrowing, erosion, sclerosis or loss o f normal spherical shape of the femoral head. There is a right acetabular lip. The soft tissues are n ot remarkable. The adjacent pelvis is normal. There are vascular calcifications. Impression: Mild osteoarthritis of the right hip Tonnis classification: grade 1: sclerosis of femoral head and acetabulum or slight joint space narrow ing or slight lipping at joint margins
== END 2023-05-05 11:31 | disposition home or self-care (01) ==
PROVIDERS: PCP Family Medicine; Visit Provider Family Medicine
DX: M16.11 Unilateral primary osteoarthritis, right hip (principal)
CPT/HCPCS: 73502

== ENCOUNTER → 2023-05-11 08:06 | Outpatient (BNVA) | payer BC, SELFPAY | PROVIDERS: PCP Family Medicine; Referring Provider Physician Assistant; Visit Provider Physician Assistant | DX: M47.816 Spondylosis without myelopathy or radiculopathy, lumbar region (principal); M51.37 Other intervertebral disc degeneration, lumbosacral region | CPT/HCPCS: 72110 ==

== ENCOUNTER 2023-06-01 07:58 | Outpatient (CLI) | payer BC, SELFPAY ==
--- NOTE | 2023-06-01 | MR_ITS ---
WS: [id number] MRI LUMBAR SPINE NONCONTRAST HISTORY: lumbar pain COMPARISON: None available. TECHNIQUE: Sagittal and axial multisequence imaging is submitted. Mild cervical spine stenosis. There does appear to be a disc or osteophyte at C6-7 encroaching upon t he ventral thecal sac. Straightening of the normal lumbar lordosis. Mild disc narrowing and desiccation. Conus terminates normally at L1-2 disc level. L1-L2: Mild facet arthritis. L2-L3: Mild bilateral facet arthritis. No stenosis. L3-L4: Mild annular disc bulging with moderate ligamentum flavum and facet arthritis. LEFT foraminal disc protrusion. Small amount of fluid in the facet joints. Disc encroachment upon the central canal and subarticular recesses. Mild central and bilateral subarticular recess encroachment. Mild encroach ment upon the traversing L4 nerve roots L4-L5: Diffuse annular disc bulging with moderate ligamentum flavum and facet arthritis. Disc contact s and narrows the subarticular recesses and the traversing L5 nerve roots. Moderate central, bilatera l subarticular recess and LEFT foraminal stenosis. Mild RIGHT foraminal stenosis. L5-S1: Mild annular disc bulging with ligamentum flavum and facet arthritis. Facet joint arthritis en croaches upon the subarticular recesses and the foramina. There is increased soft tissue in the RIGHT foramen. There is probably a disc protrusion present. There is contact by the disc on the RIGHT L5 a nd S1 nerve roots. Moderate bilateral foraminal stenosis. Paravertebral soft tissues are normal. IMPRESSION: 1. L4-5: Moderate central, bilateral subarticular recess and LEFT foraminal stenosis. Mild RIGHT fora rosa stenosis. Stenosis from a combination of disc, facet and ligamentum flavum disease. 2. L5-S1: Moderate bilateral foraminal stenosis. Slightly greater stenosis and contact on the RIGHT L 5 and S1 nerve roots. 3. L3-4: Mild central and bilateral subarticular recess stenosis. LEFT foraminal disc protrusion is c ontributing to the nerve root encroachment.
--- NOTE | 2023-06-01 08:02 | MM_ITS ---
WS: [id number] BILATERAL 3D TOMOSYNTHESIS DIGITAL DIAGNOSTIC MAMMOGRAPHY WITH CAD CLINICAL INFORMATION: LT BR LUMP HISTORY: Male breast. LEFT breast lumps with prior incision and drainage. Now recurrent drainage. COMPARISON: None available TECHNIQUE: Bilateral CC, MLO, and ML views. FINDINGS: Scattered fibroglandular densities bilaterally. Palpable marker overlying the LEFT areola at the 6 o' clock position. Dense increased parenchymal tissue in the retroareolar soft tissues asymmetric compar ed to the RIGHT. Associated skin and nipple thickening. Slight nipple retraction. Ultrasound is pendi ng. RIGHT breast appears unremarkable. ULTRASOUND BREAST LEFT TECHNIQUE: Ultrasound left breast focused area of concern. CLINICAL INFORMATION: LT BR LUMP FINDINGS: Ultrasound LEFT breast at the 6 o'clock position area of concern. Hypoechoic collection in the area o f concern and drainage suspicious for abscess measuring approximately 2.6 x 1.8 cm. This extends to t he areola. Some of this may represent scar tissue from prior procedures. Recommend breast surgery con sultation for drainage/resection and biopsy. Recommend follow-up to resolution. Malignancy not entire ly excluded considering recurrence and skin thickening. IMPRESSION: Recommend breast surgery consultation in further evaluation. MM/[place] [id number] BI-RADS: 4-Suspicious Finding-Biopsy Should Be Considered FOLLOW UP: Surgical Biopsy Recommended
== END 2023-06-01 07:59 | disposition home or self-care (01) ==
PROVIDERS: PCP Family Medicine; Visit Provider Surgery
DX: N63.25 Unspecified lump in the left breast, overlapping quadrants (principal); M48.07 Spinal stenosis, lumbosacral region; M47.817 Spondylosis without myelopathy or radiculopathy, lumbosacral region
CPT/HCPCS: 72148; 76642; 77062; G0279

== ENCOUNTER 2023-06-20 05:41 | Day surgery (SDC) | payer BC, SELFPAY ==
[2023-06-20] VITALS (10 sets, daily range): BP systolic 119–141; BP diastolic 47–63; PULSE 78–84; RESP 12–18; TEMP 36.3–36.5; O2SAT 94–98; BMI 35.2
--- NOTE | 2023-06-20 06:30 | W.PM.OPSUD ---
Surgery/Procedure H&P Update DATE OF PROCEDURE: June 20, 2023 DATE H&P PERFORMED: 06/14/23 H&P UPDATE INFORMATION: I have reviewed H&P completed within last 30 days, I have examined patient prior to procedure and No changes to prior documentation PLANNED PROCEDURE: Operation Date: 06/20/23 07:00 [place] [id number] left breast lumpectomyno bx or needle insertion of radiological correlation L72.3(Left) - Abdoul Rose DO
[2023-06-20 06:33] LABS: Glucose Point of Care 188 mg/dL (70-110)
[2023-06-20] MEDS: ceFAZolin 2,000 MG in sodium chloride 0.9% (plus) 50 ML 100 MG IV (06:55)
[2023-06-20 07:20] LABS: Blood Urea Nitrogen 23 mg/dL (8-23); Calcium 9.5 mg/dL (8.5-10.5); Carbon Dioxide 24 mmol/L (22-29); Chloride 103 mmol/L (98-107); Glomerular Filtration Rate 61.6 mL/min (90-130); Glucose 200 mg/dL (65-115); Osmolality Calculated 293 mOsm/kg (285-295); Sodium 137 mmol/L (136-145)
[2023-06-20] MEDS: lidocaine-epi 2% 20 mL INJ INJECTION (07:20)
--- NOTE | 2023-06-20 07:36 | PM.OP ---
Operative Report Date of procedure: June 20, 2023 Pre-op diagnosis: Left breast mass Post-op diagnosis: same Procedure done: Left stump ectomy Implants: Surgicel Specimens removed/disposition: Left breast lumpectomy-Short stitch kimbrough superior, long lateral, double anterior Surgeon: Abdoul Rose DO Anesthesia: General Estimated blood loss (mL): 5 Complications: None apparent Brief History: This very pleasant 63-year-old gentleman who presented to my office originally with a palpable breast mass and bloody and white nipple discharge. A recent mammogram showed a retroareolar mass. Left breast Lumpectomy was indicated. The risk benefits were explained and documented. Procedure: Patient was wheeled in operative room placed on the OR table in supine position. The left breast was inspected prepped and draped in usual sterile fashion. A timeout was performed. All present were in agreement. General tracheal intubation was achieved by department anesthesia. 2% lidocaine with epinephrine was used to anesthetize the skin around the left areola. The previous incision was then opened with a 15 blade scalpel along the circumference of the areola on the medial side. Electrocautery was used to dissect down through the fascia and carve out a lumpectomy specimen. Dissection was carried down to the pectoralis major muscle. A lumpectomy specimen was removed. A short stitch kimbrough superior. A long stitch marked lateral, and a double stitch marked anterior. Specimen was passed off for permanents. Hemostasis was controlled with electrocautery and a piece of Surgicel. Dermis was closed with 3-0 Vicryl in a subcuticular interrupted fashion. Skin was closed with 4-0 Monocryl. Skin was closed and dried. Dermabond was applied. Patient tolerated procedure well.
--- NOTE | 2023-06-20 07:37 | ANES.PREANE2 ---
Pre-Anesthetic Assessment Height/Weight: Height 1.7 m Weight 102.058 kg Temp Pulse Resp BP Pulse Ox O2 Del Method 97.5 F L 78 18 133/63 98 Room Air 06/20/23 06:07 06/20/23 06:07 06/20/23 06:07 06/20/23 06:07 06/20/23 06:07 06/20/23 06:08 Operation Date: 06/20/23 07:00 [place] p [id number] left breast lumpectomyno bx or needle insertion of radiological correlation L72.3(Left) - Abdoul Rose DO Familial anesthetic complications: none Was Beta Ben taken within 24 hours: N/A Was Clonidine taken within 24 hours: N/A Last intake: Intake Last Liquid Date 06/19/23 Last Liquid Time 21:00 Last Solid Date 06/19/23 Last Solid Time 21:00 Social No alcohol and No tobacco Exam alert, oriented x 3, clear to auscultation bilaterally and regular rate & rhythm Airway Submandibular: within normal limits Cervical ROM: within normal limits Mallampati: Class II Dentition: chipped CV/HEM Hypertension Metabolic Diabetes Mellitus, Hyperlipidemia and Morbid Obesity [facility] [place] Lower Back Pain and Osteoarthritis/DJD Neuropsych Neuropathy Anesthetic Plan ASA status: 3 Anesthesia: Choice Medications/Allergies Home Medications Medication Instructions Recorded Confirmed Last Taken Type aspirin 81 mg tablet,delayed 81 mg PO QAM 10/09/19 06/19/23 06/19/23 History release (Adult Low Dose Aspirin) multivitamin 1 tab PO DAILY 10/09/19 06/19/23 06/19/23 History terbinafine HCl 250 mg tablet 250 mg PO DAILY #60 tabs 04/15/22 06/19/23 06/19/23 Rx fenofibrate micronized 134 mg 134 mg PO DAILY #90 caps 04/25/22 06/19/23 06/19/23 Rx capsule ondansetron 4 mg disintegrating 4 mg PO Q6H PRN nausea and 01/22/23 06/19/23 06/19/23 Rx tablet vomiting #14 tabs pregabalin 100 mg capsule 100 mg PO TID #90 caps 02/07/23 06/19/23 06/19/23 Rx citalopram 40 mg tablet 40 mg PO DAILY 02/10/23 06/19/23 06/19/23 History docusate sodium 100 mg capsule 100 mg PO BID #14 caps 02/13/23 06/19/23 06/19/23 Rx (Colace) insulin glargine 100 unit/mL (3 40 unit (0.4 mL) SUBCUT BID 0 days 02/17/23 06/19/23 06/19/23 Rx mL) subcutaneous pen (Lantus #45 device Solostar U-100 Insulin) triamcinolone acetonide 0.1 % See Rx Instructions .Route 04/03/23 06/19/23 06/19/23 Rx topical cream .COMPLEX #30 grams tizanidine 4 mg tablet 4 mg PO Q8H PRN muscle spasticity 05/03/23 06/19/23 06/19/23 Rx #21 tabs ketotifen fumarate 0.025 % (0.035 1 drp ophthalmic (eye) BID PRN 06/02/23 06/19/23 06/19/23 Rx %) eye drops (Zaditor) allergy symptoms #5 mL tramadol 50 mg tablet 50 mg PO Q8H PRN pain #60 tabs 06/02/23 06/19/23 06/19/23 Rx lisinopril 20 mg tablet 20 mg PO DAILY #30 tabs 06/08/23 06/19/23 06/19/23 Rx atorvastatin 80 mg tablet 80 mg PO DAILY 06/19/23 06/19/23 06/19/23 History dapagliflozin propanediol 10 mg 10 mg PO DAILY 06/19/23 06/19/23 06/19/23 History tablet (Farxiga) metformin 500 mg tablet,extended 500 mg PO DAILY 06/19/23 06/19/23 06/19/23 History release 24 hr tamsulosin 0.4 mg capsule 0.4 mg PO DAILY 06/19/23 06/19/23 06/19/23 History Allergies Allergy/AdvReac Type Severity Reaction Status Date / Time No Known Allergies Allergy Verified 06/14/23 13:23 PENDING SALE TO [facility] Anesthesia Medical History Diabetes type 2, controlled Hyperlipidemia Hypertension Osteoarthritis of left shoulder Surgical History History of back surgery History of esophagogastroduodenoscopy (EGD) History of lumpectomy of left breast 02/13/23 subcutaneous mass left breast and lumpectomy- Dr. Rose History of removal of cyst Hx of colonoscopy with polypectomy 3 yrs ago No significant past surgical history Family History Other Hypertension Social History Smoking and tobacco/nicotine status: current every day tobacco/nicotine user cigars Cigars smoked per week: 7 Years smoked cigars: 12 Cigar details: smokes 1 per day Second hand smoke exposure: No Alcohol intake: current Alcohol intake frequency: holidays/special occasions only Substance/Drug Use: unknown Adopted: No Caregiver/support person: No Lives independently: Yes Household members: significant other Housing: House Marital status: Life Partner Current occupational status: employed Do you think of yourself as: Straight/Heterosexual Current gender identity: Male Special lanre needs: No Data Anesthesia 06/20/23 06:30 BMP 06/20/23 06:30 Sodium 137 Potassium 4.0 Chloride 103 Carbon Dioxide 24 BUN 23 Creatinine 1.2 Glucose 200 H Calcium 9.5 Cardiac Studies: No Data to Display
[2023-06-20] MEDS: sodium chloride 0.9% 1,000 ML 100 ML IV (08:42)
[2023-06-20] MEDS: HYDROcodone-acetaminophen 10-325 mg Tablet 1 TAB PO (08:52)
--- NOTE | 2023-06-20 13:38 | ANE.PACU2 ---
Inpatient post-anesthesia follow up: Airway intact: Yes Vital signs: Temperature 97.5 F Pulse Rate 80 Respiratory Rate 17 Blood Pressure 137/60 Pulse Oximetry 96 Oxygen Delivery Me thod Room Air Oxygen Flow Rate Fraction of Inspir ed Oxygen Hydration adequate: Yes Nausea and vomiting: No Pain level: 2 Mental status: Baseline
== END 2023-06-20 09:10 | disposition home or self-care (01) ==
PROVIDERS: PCP Family Medicine; Visit Provider Surgery
PROC: (CPT 19120; principal; 2023-06-20 07:00)
DX: N63.42 Unspecified lump in left breast, subareolar (principal); I10 Essential (primary) hypertension; E78.5 Hyperlipidemia, unspecified; E66.01 Morbid (severe) obesity due to excess calories; Z68.35 Body mass index [BMI] 35.0-35.9, adult; E11.40 Type 2 diabetes mellitus with diabetic neuropathy, unspecified; Z79.82 Long term (current) use of aspirin; Z79.4 Long term (current) use of insulin; M19.012 Primary osteoarthritis, left shoulder; F17.290 Nicotine dependence, other tobacco product, uncomplicated
CPT/HCPCS: 19301; 36415; 36416; 80048; 82962; 88307; J0690; J1100; J2405; J2704; J3010; J3490; J7030

== ENCOUNTER 2023-06-25 10:47 | Emergency (ER) | payer BC, SELFPAY ==
[2023-06-25 10:59] VITALS: BP 174/79; PULSE 67; RESP 17; TEMP 36.8; O2SAT 98; BMI 35.2
--- NOTE | 2023-06-25 11:40 | ED_ITS ---
HPI - Wound/Laceration General: Chief Complaint: Wound/Laceration Stated Complaint: previous laceration coming unglued Time Seen by Provider: 06/25/23 11:40 History of Present Illness: 63-year-old male presents emergency department with statements that he had a lump removed from his left breast on 06/20/2023. He states that the surgical adhesive that the physician used came off of the incision site. He states he feels like the incision has been draining some fluid and he wanted the area where the incision occurred to be evaluated for infection. He denies fevers chills or night sweats, numbness or tingling. There does not appear to be any obvious drainage at present. Review of Systems General: Reports: 10 or more systems reviewed and unremarkable except in HPI and below Skin/Breast: Reports: surgical incision (Left breast) PFS ED PFSH: Medical History Diabetes type 2, controlled Hyperlipidemia Hypertension Osteoarthritis of left shoulder Surgical History History of back surgery History of esophagogastroduodenoscopy (EGD) History of lumpectomy of left breast 02/13/23 subcutaneous mass left breast and lumpectomy- Dr. Rose History of removal of cyst Hx of colonoscopy with polypectomy 3 yrs ago No significant past surgical history Family History Other Hypertension Social History Smoking and tobacco/nicotine status: current every day tobacco/nicotine user cigars Cigars smoked per week: 7 Years smoked cigars: 12 Cigar details: smokes 1 per day Second hand smoke exposure: No Alcohol intake: current Alcohol intake frequency: holidays/special occasions only Substance/Drug Use: unknown Adopted: No Caregiver/support person: No Lives independently: Yes Household members: significant other Housing: House Marital status: Life Partner Current occupational status: employed Do you think of yourself as: Straight/Heterosexual Current gender identity: Male Special lanre needs: No Physical Exam Narrative: EXAM NARRATIVE: The patient appeared well nourished and normally developed. Vital signs as documented. Head exam is unremarkable. No scleral icterus or corneal arcus noted. Neck is without jugular venous distension, thyromegaly, or carotid bruits. Carotid upstrokes are brisk bilaterally. Lungs are clear to auscultation and percussion. Cardiac exam reveals the PMI to be normally sized and situated. Rhythm is regular. First and second heart sounds normal. No murmurs, rubs or gallops. Abdominal exam reveals normal bowel sounds, no masses, no organomegaly and no aortic enlargement. Extremities are non-edematous. There is a well approximated postsurgical scar to the left breast around the areola. There is no obvious drainage, erythema or signs of infection at present. Course Vital Signs: Vital signs: Vital Signs Temperature 98.3 F 06/25/23 10:59 Pulse Rate 67 06/25/23 10:59 Respiratory Rate 17 06/25/23 10:59 Blood Pressure 174/79 06/25/23 10:59 Pulse Oximetry 98 06/25/23 10:59 Oxygen Delivery Me thod Room Air 06/25/23 10:59 MDM - Wound/Laceration Medical Decision Making Physical exam completed and documented, I do not see any obvious abnormalities noted. I will advised the patient to follow-up with his primary care provider or general surgeon as previously scheduled. Medical Records I reviewed the patient's medical records. No radiology studies performed this visit Discharge Plan Discharge Patient Disposition: Home Clinical Impression: Post-operative complication Condition: Stable Prescriptions: No Action multivitamin Tablet 1 tab PO DAILY aspirin [Adult Low Dose Aspirin] 81 mg tablet,delayed release (DR/EC) 81 mg PO QAM terbinafine HCl 250 mg tablet 250 mg PO DAILY Qty: 60 0RF pregabalin 100 mg capsule 100 mg PO TID Qty: 90 2RF lidocaine (PF) 10 mg/mL (1 %) solution 10 mg SUBCUT ONCE Qty: 1 0RF tramadol 50 mg tablet 50 mg PO Q8H PRN (Reason: pain) Qty: 60 0RF ketotifen fumarate [Zaditor] 0.025 % (0.035 %) drops 1 drp ophthalmic (eye) BID PRN (Reason: allergy symptoms) Qty: 5 0RF Rx Instructions: administer at least 8 hours apart fenofibrate micronized 134 mg capsule 134 mg PO DAILY Qty: 90 0RF Rx Instructions: Take on capsule by mouth daily. triamcinolone acetonide 0.1 % cream See Rx Instructions .ROUTE .COMPLEX Qty: 30 2RF Dose Instruction: APPLY TO THE AFFECTED AREA(S) TOPICALLY TWICE DAILY Rx Instructions: APPLY TO THE AFFECTED AREA(S) TOPICALLY TWICE DAILY lisinopril 20 mg tablet 20 mg PO DAILY Qty: 30 2RF Lantus Solostar U-100 Insulin 100 unit/mL (3 mL) insulin pen See Rx Instructions .ROUTE .COMPLEX Qty: 45 1RF Dose Instruction: INJECT 80 UNITS SUBCUTANEOUSLY TWICE DAILY Rx Instructions: INJECT 80 UNITS SUBCUTANEOUSLY TWICE DAILY metformin 500 mg tablet extended release 24 hr See Rx Instructions .ROUTE .COMPLEX Qty: 240 1RF Dose Instruction: TAKE TWO TABLETS BY MOUTH TWICE DAILY Rx Instructions: TAKE TWO TABLETS BY MOUTH TWICE DAILY citalopram 40 mg tablet 40 mg PO DAILY Rx Instructions: TAKE ONE TABLET BY MOUTH EVERY MORNING docusate sodium [Colace] 100 mg capsule 100 mg PO BID Qty: 14 0RF ondansetron 4 mg tablet,disintegrating 4 mg PO Q6H PRN (Reason: nausea and vomiting) Qty: 14 0RF tizanidine 4 mg tablet 4 mg PO Q8H PRN (Reason: muscle spasticity) Qty: 21 0RF atorvastatin 80 mg tablet 80 mg PO DAILY Rx Instructions: TAKE ONE TABLET BY MOUTH DAILY Farxiga 10 mg tablet 10 mg PO DAILY Rx Instructions: TAKE ONE TABLET BY MOUTH DAILY tamsulosin 0.4 mg capsule 0.4 mg PO DAILY Rx Instructions: TAKE ONE CAPSULE BY MOUTH DAILY hydrocodone-acetaminophen 10-325 mg tablet 1 tab PO Q6H PRN (Reason: pain) Qty: 20 0RF Rx Instructions: May take half of a tab at a time Colace 100 mg capsule 100 mg PO BID Qty: 14 0RF Discharge Orders: Discharge ED (Routine); Ordered 06/25/23 Ordered By: David Tong Referrals: Anna Blackwood MD [Primary Care Provider] - Discharge Diet: Advance as tolerated Discharge Activity: Resume usual activity Coding Level of Care Code ED Cable Installation Technician for Carlos Alberto Bangura
[2023-06-25] MEDS: neomycin-poly-bacitracin oint 28 gm 1 APPLIC TOPICAL (12:00)
== END 2023-06-25 12:07 | disposition home or self-care (01) ==
PROVIDERS: Emergency Provider Internal Medicine; PCP Family Medicine
DX: Z03.89 Encounter for observation for other suspected diseases and conditions ruled out (principal); Z98.890 Other specified postprocedural states; Z79.82 Long term (current) use of aspirin; Z79.4 Long term (current) use of insulin; Z79.84 Long term (current) use of oral hypoglycemic drugs; E11.9 Type 2 diabetes mellitus without complications; E78.5 Hyperlipidemia, unspecified; I10 Essential (primary) hypertension; F17.290 Nicotine dependence, other tobacco product, uncomplicated
CPT/HCPCS: 99281

== ENCOUNTER 2023-08-09 00:56 | Emergency (ER) | payer BC, SELFPAY ==
[2023-08-09] VITALS (7 sets, daily range): BP systolic 100–172; BP diastolic 57–84; PULSE 70–84; RESP 16–18; TEMP 36.7; O2SAT 94–98; BMI 35.2
--- NOTE | 2023-08-09 01:03 | W.ED.ABDPA2 ---
HPI - Abdominal Pain General: Chief Complaint: Abdominal Pain Stated Complaint: ABD PAIN Time Seen by Provider: 08/09/23 01:02 History of Present Illness: 63-year-old male presents emerged part with complaints of epigastric/abdominal pain. He states he has a longstanding history of chronic pancreatitis and tonight had a pancreatitis flareup. He states his pain initially was a 4 out of 10 with associated nausea he did receive antiemetic medication in the EMS transport states he feels much better. He denies numbness or tingling. He states he has not had fevers chills or night sweats. He states he did does have an appointment with his primary care provider for a reevaluation of a postsurgical incision to his left breast area. Associated Symptoms: Reports nausea Review of Systems General: Reports: 10 or more systems reviewed and unremarkable except in HPI and below GI: Reports: abdominal pain and nausea [facility] ED PFSH: Medical History Hypertension Hyperlipidemia Diabetes type 2, controlled Osteoarthritis of left shoulder Surgical History History of lumpectomy of left breast 02/13/23 subcutaneous mass left breast and lumpectomy- Dr. Rose Hx of colonoscopy with polypectomy 3 yrs ago History of esophagogastroduodenoscopy (EGD) History of back surgery History of removal of cyst No significant past surgical history Family History Other Hypertension Social History Smoking and tobacco/nicotine status: current every day tobacco/nicotine user cigars Cigars smoked per week: 7 Years smoked cigars: 12 Cigar details: smokes 1 per day Second hand smoke exposure: No Alcohol intake: current Alcohol intake frequency: holidays/special occasions only Substance/Drug Use: unknown Adopted: No Caregiver/support person: No Lives independently: Yes Household members: significant other Housing: House Marital status: Life Partner Current occupational status: employed Do you think of yourself as: Straight/Heterosexual Current gender identity: Male Special lanre needs: No Physical Exam Narrative: EXAM NARRATIVE: Constitutional: the patient appears well nourished and with normal development. Vital signs reviewed as documented. HENMT: Normocephalic, atraumatic. Extermal ears with normal appearance without drainage. Nose without drainage, normal appearance. Mucus membranes moist. Neck is supple, No jugular venous distension, trachea is midline, no appreciable carotid bruits. No lymphadenopathy. No meningeal signs. Flexion, extension and lateral rotation is without pain. Eyes: Pupils are equal, round, reactive to light and accommodation. No scleral icterus. Extra-ocular movement are intact. Thorax is symmetrical and with equal rise and fall with respirations. Resp: Lungs are clear to auscultation. No wheezes, rales, crackles or ronchi at present. Cardio: Regular rate and rhythm. Positive S1, S2. No appreciable murmurs, rubs or gallops. GI: Abdominal exam reveals normal bowel sounds to all quadrants. No organomegaly. No obvious palpable masses noted. No hepatomegally appreciated. Soft, nontender to palpation. Extremity: Extremities are non-edematous and both femoral and pedal pulses are 2+ and equal bilaterally. Moves all extremities well, sensation in all extremities. Neuro: Alert and oriented x4, person, place, time and situation. Cranial nerves II through XII are grossly intact, there is no focal neurological deficits that I can appreciate at present. Motor strength in the upper and lower extremities are equal and bilateral 5/5. Psych: Cooperative, calm, normal thought process, appropriate judgment. Skin: No lesions, rashes. No gross abnormalities noted. Back: Symmetrical, no obvious deformity, No CVA tenderness Course Vital Signs: Vital signs: Vital Signs Temperature 98.0 F 08/09/23 00:56 Pulse Rate 70 08/09/23 05:14 Respiratory Rate 16 08/09/23 05:14 Blood Pressure 100/75 08/09/23 05:14 Pulse Oximetry 97 08/09/23 05:14 Oxygen Delivery Me thod Room Air 08/09/23 01:24 MDM - Abdominal Pain Medical Decision Making Physical exam completed and documented, I will obtain a CBC, CMP, lipase and provide the patient antinausea medicine as needed. Medical Records I reviewed the patient's medical records. Lab Data 08/09/23 01:00 08/09/23 01:00 Labs/Radiology: Radiology Impressions Abdomen/Pelvis CT 08/09/23 01:48 IMPRESSION: Chronic pancreatitis. Rectal fecal impaction. Granulomatous disease. Laboratory Results WBC 13.37 10^3/uL (3.29-11.43) H 08/09/23 01:00 RBC 4.12 10^6/uL (3.85-5.65) 08/09/23 01:00 Hgb 12.00 g/dL (11.27-16.99) 08/09/23 01:00 Hct 37.2 % (37-53) 08/09/23 01:00 MCV 90.3 fl (82-101) 08/09/23 01:00 MCH 29.1 pg (27-33) 08/09/23 01:00 MCHC 32.3 g/dL (30-55) 08/09/23 01:00 RDW 13.5 % (12.1-15.1) 08/09/23 01:00 Plt Count 237 10^3/cmm (157-399) 08/09/23 01:00 MPV 11.9 fL (7.4-10.4) H 08/09/23 01:00 Neut % (Auto) 71.0 % 08/09/23 01:00 Lymph % (Auto) 16.5 % 08/09/23 01:00 Hyde % (Auto) 9.9 % 08/09/23 01:00 Eos % (Auto) 1.8 % 08/09/23 01:00 Baso % (Auto) 0.5 % 08/09/23 01:00 Neut # (Auto) 9.48 10^3/uL (1.8-7.7) H 08/09/23 01:00 Lymph # (Auto) 2.2 10^3/uL (0.8-4.8) 08/09/23 01:00 Hyde # (Auto) 1.3 10^3/uL (0.2-0.9) H 08/09/23 01:00 Eos # (Auto) 0.2 10^3/uL (0.0-0.8) 08/09/23 01:00 Baso # (Auto) 0.1 10^3/uL (0.0-0.1) 08/09/23 01:00 Nucleated RBC % (auto) 0 % 08/09/23 01:00 Nucleated RBCs # 0.0 /100WBC 08/09/23 01:00 Sodium 137 mmol/L (136-145) 08/09/23 01:00 Potassium 4.4 mmol/L (3.5-5.1) 08/09/23 01:00 Chloride 103 mmol/L (98-107) 08/09/23 01:00 Carbon Dioxide 21 mmol/L (22-29) L 08/09/23 01:00 Anion Gap 17.4 (5-19) 08/09/23 01:00 BUN 29 mg/dL (8-23) H 08/09/23 01:00 Creatinine 1.1 mg/dL (0.7-1.2) 08/09/23 01:00 GFR Calculation 68.1 mL/min (90-130) L 08/09/23 01:00 Glucose 223 mg/dL (65-115) H 08/09/23 01:00 POC Glucose 224 mg/dL (70-110) H 08/09/23 01:13 Calculated Osmolality 297 mOsm/kg (285-295) H 08/09/23 01:00 Calcium 9.2 mg/dL (8.5-10.5) 08/09/23 01:00 Total Bilirubin 0.2 mg/dL (0.15-1.2) 08/09/23 01:00 AST 14 U/L (0-40) 08/09/23 01:00 ALT 13 U/L (0-41) 08/09/23 01:00 Alkaline Phosphatase 50 U/L (40-130) 08/09/23 01:00 Total Protein 7.0 g/dL (6.6-8.7) 08/09/23 01:00 Albumin 4.0 g/dL (3.5-5.2) 08/09/23 01:00 Globulin 3.0 g/dL (1.3-4.6) 08/09/23 01:00 Lipase 205 U/L (13-60) H 08/09/23 01:00 All radiology interpretation(s) finalized by discharge Discharge Plan Discharge Patient Disposition: Home Clinical Impression: Chronic pancreatitis Qualifiers: Pancreatitis type: unspecified pancreatitis type Qualified Code(s): K86.1 - Other chronic pancreatitis Condition: Stable Prescriptions: New ondansetron HCl 4 mg tablet 4 mg PO Q12H 5 Days Qty: 10 0RF No Action multivitamin Tablet 1 tab PO DAILY aspirin [Adult Low Dose Aspirin] 81 mg tablet,delayed release (DR/EC) 81 mg PO QAM terbinafine HCl 250 mg tablet 250 mg PO DAILY Qty: 60 0RF pregabalin 100 mg capsule 100 mg PO TID Qty: 90 2RF lidocaine (PF) 10 mg/mL (1 %) solution 10 mg SUBCUT ONCE Qty: 1 0RF tramadol 50 mg tablet 50 mg PO Q8H PRN (Reason: pain) Qty: 60 0RF ketotifen fumarate [Zaditor] 0.025 % (0.035 %) drops 1 drp ophthalmic (eye) BID PRN (Reason: allergy symptoms) Qty: 5 0RF Rx Instructions: administer at least 8 hours apart amoxicillin-pot clavulanate 875-125 mg tablet 1 tab PO BID Qty: 20 0RF sulfamethoxazole-trimethoprim [Bactrim DS] 800-160 mg tablet 1 tab PO BID 7 Days Qty: 14 0RF fenofibrate micronized 134 mg capsule 134 mg PO DAILY Qty: 90 0RF Rx Instructions: Take on capsule by mouth daily. triamcinolone acetonide 0.1 % cream See Rx Instructions .ROUTE .COMPLEX Qty: 30 2RF Dose Instruction: APPLY TO THE AFFECTED AREA(S) TOPICALLY TWICE DAILY Rx Instructions: APPLY TO THE AFFECTED AREA(S) TOPICALLY TWICE DAILY lisinopril 20 mg tablet 20 mg PO DAILY Qty: 30 2RF Lantus Solostar U-100 Insulin 100 unit/mL (3 mL) insulin pen See Rx Instructions .ROUTE .COMPLEX Qty: 45 1RF Dose Instruction: INJECT 80 UNITS SUBCUTANEOUSLY TWICE DAILY Rx Instructions: INJECT 80 UNITS SUBCUTANEOUSLY TWICE DAILY metformin 500 mg tablet extended release 24 hr See Rx Instructions .ROUTE .COMPLEX Qty: 240 1RF Dose Instruction: TAKE TWO TABLETS BY MOUTH TWICE DAILY Rx Instructions: TAKE TWO TABLETS BY MOUTH TWICE DAILY Farxiga 10 mg tablet 10 mg PO DAILY Qty: 30 2RF Rx Instructions: TAKE ONE TABLET BY MOUTH DAILY citalopram 40 mg tablet 40 mg PO DAILY Rx Instructions: TAKE ONE TABLET BY MOUTH EVERY MORNING ondansetron 4 mg tablet,disintegrating 4 mg PO Q6H PRN (Reason: nausea and vomiting) Qty: 14 0RF tizanidine 4 mg tablet 4 mg PO Q8H PRN (Reason: muscle spasticity) Qty: 21 0RF atorvastatin 80 mg tablet 80 mg PO DAILY Rx Instructions: TAKE ONE TABLET BY MOUTH DAILY tamsulosin 0.4 mg capsule 0.4 mg PO DAILY Rx Instructions: TAKE ONE CAPSULE BY MOUTH DAILY hydrocodone-acetaminophen 10-325 mg tablet 1 tab PO Q6H PRN (Reason: pain) Qty: 20 0RF Rx Instructions: May take half of a tab at a time Colace 100 mg capsule 100 mg PO BID Qty: 14 0RF Discharge Orders: Discharge ED (Routine); Ordered 08/09/23 Ordered By: David Tong Referrals: Anna Blackwood MD [Primary Care Provider] - Discharge Diet: Advance as tolerated Discharge Activity: Resume usual activity Patient Instructions: Opioid Safety, Pain Management Activity Restrictions/Additional Instructions: Activity Restrictions/Additional Instructions: Thank you for choosing [facility] for your healthcare needs today. Please realize that you were seen in the Emergency Department and that we are providing you with an emergency medical screening exam and this may not be a complete and all inclusive of all the testing and or medical work-up that you may need to determine your ailment or severity of your illness. It is very important that you follow-up as instructed with your Primary care provider or Specialist for additional evaluation and to discuss your medical treatment plan. You may return to the Emergency Department should you have concerns or if your condition changes or worsens in any way. Coding Level of Care Code ED Quality And Reliability Engineer for Carlos Alberto Bangura
[2023-08-09 01:10] LABS: Basophils # 0.1 10^3/uL (0.0-0.1); Basophils % 0.5 %; Eosinophils # 0.2 10^3/uL (0.0-0.8); Eosinophils % 1.8 %; Hematocrit 37.2 % (37-53); Lymphocytes # 2.2 10^3/uL (0.8-4.8); Lymphocytes % 16.5 %; Mean Corpuscular HGB Conc 32.3 g/dL (30-55); Mean Corpuscular Hemoglobin 29.1 pg (27-33); Mean Corpuscular Volume 90.3 fl (82-101); Mean Platelet Volume 11.9 fL (7.4-10.4); Monocytes # 1.3 10^3/uL (0.2-0.9); Monocytes % 9.9 %; Neutrophils # 9.48 10^3/uL (1.8-7.7); Nucleated Red Blood Cells % 0 %; Platelet Count 237 10^3/cmm (157-399); Red Blood Count 4.12 10^6/uL (3.85-5.65); Red Cell Distribution Width 13.5 % (12.1-15.1); White Blood Count 13.37 10^3/uL (3.29-11.43)
[2023-08-09 01:16] LABS: Glucose Point of Care 224 mg/dL (70-110)
[2023-08-09 01:26] LABS: Alanine Aminotransferase 13 U/L (0-41); Alkaline Phosphatase 50 U/L (40-130); Anion Gap 17.4 (5-19); Aspartate Amino Transferase 14 U/L (0-40); Blood Urea Nitrogen 29 mg/dL (8-23); Calcium 9.2 mg/dL (8.5-10.5); Carbon Dioxide 21 mmol/L (22-29); Chloride 103 mmol/L (98-107); Glomerular Filtration Rate 68.1 mL/min (90-130); Glucose 223 mg/dL (65-115); Lipase 205 U/L (13-60); Osmolality Calculated 297 mOsm/kg (285-295); Potassium 4.4 mmol/L (3.5-5.1); Sodium 137 mmol/L (136-145); Total Bilirubin 0.2 mg/dL (0.15-1.2)
--- NOTE | 2023-08-09 01:48 | CTR_ITS ---
PROCEDURE INFORMATION: Exam: CT Abdomen And Pelvis With Contrast Exam date and time: 08/09/2023 2:12 AM Age: 63 years old Clinical indication: Abdominal pain; Localized; Patient HX: Upper and ruq pain; Additional info: Epigastric pain rule out pancreatitis TECHNIQUE: Imaging protocol: Computed tomography of the abdomen and pelvis with contrast. Radiation optimization: All CT scans at this facility use at least one of these dose optimization techniques: automated exposure control; mA and/or kV adjustment per patient size (includes targeted exams where dose is matched to clinical indication); or iterative reconstruction. Contrast material: OMNI 350; Contrast volume: 100 ml; Contrast route: INTRAVENOUS (IV); REPORTING DATA: Count of CT and Cardiac NM exams in prior 12 months: This patient has received 3 known CTs and 0 known cardiac nuclear medicine studies in the 12 months prior to the current study. COMPARISON: CT abdomen pelvis w con* [id number] 01/22/2023 9:38 PM RADIATION DOSE METRICS: Total DLP (mGy-cm): 1139.41 FINDINGS: Lungs: A 4 mm calcified subpleural granuloma is noted in the posterior aspect of the left lower lobe. Liver: Normal. No mass. Gallbladder and bile ducts: The gallbladder is relatively contracted. Pancreas: Coarse calcification is noted in the pancreatic neck suggesting prior episodes of pancreatitis. Spleen: Normal. No splenomegaly. Adrenal glands: Normal. No mass. Kidneys and ureters: The kidneys enhance symmetrically and there is no hydronephrosis. There is mild perinephric stranding and fluid. At its upper pole there is an 11 x 7 x 9 mm cyst which no further imaging follow-up is necessary. Left renal hilar calcification is felt to be most likely vascular. Stomach and bowel: There is [id number] stool burden in the colon and a moderate sized rectal stool ball present. Appendix: No evidence of appendicitis. Intraperitoneal space: Unremarkable. No free air. No significant fluid collection. Vasculature: The abdominal aorta is heavily calcified but normal in course and caliber. Lymph nodes: Unremarkable. No enlarged lymph nodes. Urinary bladder: The urinary bladder is contracted. There is a 12 x 14 x 10 mm calcification adjacent to the dome of the urinary bladder. Reproductive: Unremarkable as visualized. Bones/joints: Degenerative changes are noted in the bones. Soft tissues: Unremarkable. CT/CT abdomen pelvis w con* [id number] IMPRESSION: Chronic pancreatitis. Rectal fecal impaction. Granulomatous disease.
[2023-08-09] MEDS: iohexol 350 mg/mL 500 mL Btl (per mL) IV (02:16)
[2023-08-09] MEDS: morphine 4 mg/mL SDV 1 mL 2 MG IVP (05:08)
== END 2023-08-09 05:36 | disposition home or self-care (01) ==
PROVIDERS: Emergency Provider Internal Medicine; PCP Family Medicine
DX: K86.1 Other chronic pancreatitis (principal); K56.41 Fecal impaction; Z79.82 Long term (current) use of aspirin; Z79.84 Long term (current) use of oral hypoglycemic drugs; Z79.4 Long term (current) use of insulin; F17.210 Nicotine dependence, cigarettes, uncomplicated; I10 Essential (primary) hypertension; E78.5 Hyperlipidemia, unspecified; E11.9 Type 2 diabetes mellitus without complications
CPT/HCPCS: 36416; 74177; 80053; 82962; 83690; 85025; 96374; 99285; J2270; Q9967

== ENCOUNTER → 2023-08-31 12:06 | Outpatient (BNVA) | payer BC, SELFPAY | PROVIDERS: PCP Family Medicine; Visit Provider Nurse Practitioner Family | DX: I10 Essential (primary) hypertension (principal); E78.5 Hyperlipidemia, unspecified; E11.65 Type 2 diabetes mellitus with hyperglycemia; E78.1 Pure hyperglyceridemia | CPT/HCPCS: 80053; 80061; 83036; 83721 ==

== ENCOUNTER → 2023-11-16 16:58 | Outpatient (BNVA) | payer BC, SELFPAY | PROVIDERS: PCP Family Medicine; Visit Provider Family Medicine | DX: R53.83 Other fatigue (principal); I10 Essential (primary) hypertension; Z79.899 Other long term (current) drug therapy | CPT/HCPCS: 82607; 83540; 84403; 84443; 85025 ==

== ENCOUNTER 2023-11-21 23:23 | Emergency (ER) | payer BC, SELFPAY ==
[2023-11-21 23:24] VITALS: BP 156/56; PULSE 79; RESP 18; TEMP 36.9; O2SAT 97; BMI 35.2
--- NOTE | 2023-11-21 23:42 | XRR_ITS ---
PROCEDURE INFORMATION: Exam: XR Right Hip Exam date and time: 11/21/2023 11:53 PM Age: 63 years old Clinical indication: Hip pain; Right hip; Additional info: Hip pain, w/ pelvis TECHNIQUE: Imaging protocol: Radiologic exam of the right hip. Views: 1 view hip with pelvis when performed. COMPARISON: CT abdomen pelvis w con* [id number] 08/09/2023 2:12 AM FINDINGS: Bones/joints: No acute fracture. Soft tissues: Unremarkable. Vasculature: Atherosclerotic disease. XR/XR hip RT 2-3V wo/w pel* [id number] IMPRESSION: No acute fracture.
[2023-11-21 23:47] VITALS: BP 121/56; PULSE 77; RESP 16; O2SAT 95
--- NOTE | 2023-11-22 00:42 | ED_ITS ---
Documented by User: ELIAS Smith 11/22/23 00:59 HPI - Extremity Problem General: Chief complaint: Extremity Problem,Nontraumatic Stated complaint: right hip pain Time Seen by Provider: 11/21/23 23:35 Source: patient Mode of arrival: EMS Limitations: no limitations History of Present Illness: Patient is a 63-year-old male presents the emergency department via EMS due to right hip pain onset today. Patient states he was feeding his chickens outside when he notes sudden onset of nontraumatic right hip pain. He denies any prior surgeries or injuries to the hip, and states he continued to walk around on it. He notes laying in bed that he was playing on his phone when the pain suddenly got severely worse, and he was unable to put any weight on it due to the pain. Subsequently EMS was called and patient was given IV Toradol and fentanyl and route. He notes his pain has improved, however he can still feel it and has any pain with range of motion of the right lower extremity at the hip. He does state that he has been diagnosed with some osteoarthritis of the hip. He denies any knee pain or low back pain. No other symptoms to report at this time. He does rate his pain as a 5/10 while sitting in the ED bed, but states it was a 10/10 at its worst. MD Complaint: joint pain (Right hip) Onset (ago): hour(s) Pain Consistency: constant Location: right Radiation: none Associated symptoms: Reports no associated symptoms; Deny chest pain, fever(s) or rash Review of Systems General: Reports: 10 or more systems reviewed and unremarkable except in HPI and below Const: Denies: fever(s), chills or fatigue Eyes: Denies: change in vision ENMT: Denies: throat pain, ear or mastoid pain or nasal discharge Card: Denies: chest pain, palpitations, swelling of feet/ankles or lightheadedness Resp: Denies: dyspnea, productive cough or wheezing GI: Denies: abdominal pain, nausea, vomiting, diarrhea or constipation : Denies: flank pain, difficulty urinating, dysuria or urinary frequency Musc: Reports: joint pain (Right hip); Denies: neck pain or back pain Skin/Breast: Denies: rash Neuro: Denies: headache(s), numbness in extremities or weakness in extremities PFSH ED PFSH: Medical History Hypertension Hyperlipidemia Diabetes type 2, controlled Osteoarthritis of left shoulder Surgical History History of lumpectomy of left breast 02/13/23 subcutaneous mass left breast and lumpectomy- Dr. Rose Hx of colonoscopy with polypectomy 3 yrs ago History of esophagogastroduodenoscopy (EGD) History of back surgery History of removal of cyst No significant past surgical history Family History Other Hypertension Social History Smoking and tobacco/nicotine status: current every day tobacco/nicotine user cigars Cigars smoked per week: 7 Years smoked cigars: 12 Cigar details: smokes 1 per day Second hand smoke exposure: No Alcohol intake: current Alcohol intake frequency: holidays/special occasions only Substance/Drug Use: unknown Adopted: No Caregiver/support person: No Lives independently: Yes Household members: significant other Housing: House Marital status: Life Partner Current occupational status: employed Do you think of yourself as: Straight/Heterosexual Current gender identity: Male Special lanre needs: No Physical Exam Const: COMMON NORMALS: no acute distress, patient oriented x3 and no limitations GENERAL APPEARANCE: cooperative, comfortable and well developed ORIENTATION/CONSCIOUSNESS: Yes awake, Yes oriented to person, Yes oriented to place and Yes oriented to time HENMT: COMMON NORMALS: normocephalic, atraumatic and hearing grossly normal bilaterally HEAD & SCALP: normocephalic and atraumatic Eye: COMMON NORMALS: Equal, round and reactive pupils present, EOMs intact bilaterally and conjunctivae normal CONJUNCTIVA: Yes conjunctivae normal PUPIL: Yes Equal, round and reactive pupils present Neck/C-Spine: COMMON NORMALS: full ROM, supple and no JVD Resp: COMMON NORMALS: normal respiratory effort, No retractions, No use of accessory muscles and clear to auscultation bilaterally AUSCULTATION: clear to auscultation bilaterally Cardio: COMMON NORMALS: no JVD, regular rate, regular rhythm, No clicks present (Cardio), No murmurs present (Cardio) and No rub (Cardio) RATE: regular rate RHYTHM: regular rhythm GI: COMMON NORMALS: Normal to inspection, nondistended, normoactive bowel sounds present, Soft to palpation and non-tender AUSCULTATION: Yes normoactive bowel sounds PALPATION: Yes Soft to palpation RECTAL EXAM: Yes deferred Back/Pelvis: COMMON NORMALS: thoracic and lumbar spine normal to inspection, no thoracic nor lumbar tenderness and thoraco-lumbar ROM normal Extremity: COMMON NORMALS: normal to inspection, full ROM and capillary refill normal RIGHT LOWER EXTREMITY: Yes hip joint Right hip: Yes inspection (Normal to inspection with no bruising or deformity), Yes palpation (Reproducible TTP of lateral and posterolateral hip), Yes ROM (Severely limited due to pain in all peres), Yes neurovascular exam (Intact) and Yes other (Negative logroll) Neuro: COMMON NORMALS: patient oriented x3, moves all extremities, no focal motor deficits and no sensory deficits noted SENSORIUM/ORIENTATION: Yes oriented to person, Yes oriented to place and Yes oriented to time Psych: COMMON NORMALS: mental status grossly normal and Normal thought process present THOUGHT PROCESS: Normal thought process present Skin: COMMON NORMALS: no rashes or lesions noted GENERAL SKIN EXAM: no rashes or lesions noted Course Vital Signs: Vital signs: Vital Signs Temperature 98.5 F 11/21/23 23:24 Pulse Rate 69 11/22/23 00:48 Respiratory Rate 16 11/22/23 00:48 Blood Pressure 138/62 11/22/23 00:48 Pulse Oximetry 97 11/22/23 00:48 Oxygen Delivery Me thod Room Air 11/21/23 23:24 MDM - Extremity (Nontraumatic) Medical Decision Making This patient was seen and evaluated for right hip pain. Incident was nontraumatic. On arrival patient had received 60 mg of IV Toradol as well as fentanyl and reported improvement of his pain. On exam he has some reproducible tenderness palpation at the right lateral hip and did not have much movement due to the pain. X-ray of the right hip did not demonstrate any fractures or dislocations. Recheck of patient stated he was still having some pain, however he was road tested and was able to ambulate without incident. He has prescribed hydrocodone at home which she will take as needed for the pain. Also instructed him on RICE therapy and return precautions were given. Lab Data Radiology Impressions Hip/Pelvis X-Ray 11/21/23 23:42 IMPRESSION: No acute fracture. All radiology interpretation(s) finalized by discharge Discharge Plan Discharge Patient Disposition: Home Clinical Impression: Sprain of right hip Qualifiers: Encounter type: initial encounter Qualified Code(s): S73.101A - Unspecified sprain of right hip, initial encounter Condition: Stable Prescriptions: No Action multivitamin Tablet 1 tab PO DAILY aspirin [Adult Low Dose Aspirin] 81 mg tablet,delayed release (DR/EC) 81 mg PO QAM terbinafine HCl 250 mg tablet 250 mg PO DAILY Qty: 60 0RF pregabalin 100 mg capsule 100 mg PO TID Qty: 90 2RF lidocaine (PF) 10 mg/mL (1 %) solution 10 mg SUBCUT ONCE Qty: 1 0RF tramadol 50 mg tablet 50 mg PO Q8H PRN (Reason: pain) Qty: 60 0RF ketotifen fumarate [Zaditor] 0.025 % (0.035 %) drops 1 drp ophthalmic (eye) BID PRN (Reason: allergy symptoms) Qty: 5 0RF Rx Instructions: administer at least 8 hours apart hydrocodone-acetaminophen 7.5-325 mg tablet 1 tab PO Q8H PRN (Reason: pain) 20 Days Qty: 60 0RF methylprednisolone [Medrol (Kaveh)] 4 mg tablets,dose pack See Rx Instructions PO PER PKG DIR Qty: 21 0RF Rx Instructions: PO PER PKG DIR doxycycline hyclate 100 mg tablet 100 mg PO BID 10 Days Qty: 20 0RF fenofibrate micronized 134 mg capsule 134 mg PO DAILY Qty: 90 0RF Rx Instructions: Take on capsule by mouth daily. triamcinolone acetonide 0.1 % cream See Rx Instructions .ROUTE .COMPLEX Qty: 30 2RF Dose Instruction: APPLY TO THE AFFECTED AREA(S) TOPICALLY TWICE DAILY Rx Instructions: APPLY TO THE AFFECTED AREA(S) TOPICALLY TWICE DAILY Farxiga 10 mg tablet 10 mg PO DAILY Qty: 30 2RF Rx Instructions: TAKE ONE TABLET BY MOUTH DAILY tamsulosin 0.4 mg capsule See Rx Instructions .ROUTE .COMPLEX Qty: 30 2RF Dose Instruction: TAKE ONE CAPSULE BY MOUTH DAILY Rx Instructions: TAKE ONE CAPSULE BY MOUTH DAILY lisinopril 20 mg tablet 20 mg PO DAILY Qty: 30 2RF Lantus Solostar U-100 Insulin 100 unit/mL (3 mL) insulin pen See Rx Instructions .ROUTE .COMPLEX Qty: 45 1RF Dose Instruction: INJECT 80 UNITS SUBCUTANEOUSLY TWICE DAILY Rx Instructions: INJECT 80 UNITS SUBCUTANEOUSLY TWICE DAILY atorvastatin 80 mg tablet See Rx Instructions .ROUTE .COMPLEX Qty: 30 0RF Dose Instruction: TAKE ONE TABLET BY MOUTH DAILY Rx Instructions: TAKE ONE TABLET BY MOUTH DAILY metformin 500 mg tablet extended release 24 hr See Rx Instructions .ROUTE .COMPLEX Qty: 240 1RF Dose Instruction: TAKE TWO TABLETS BY MOUTH TWICE DAILY Rx Instructions: TAKE TWO TABLETS BY MOUTH TWICE DAILY testosterone cypionate [Depo-Testosterone] 200 mg/mL oil 200 mg SUBCUT .every other week Qty: 1 3RF citalopram 40 mg tablet 40 mg PO DAILY Rx Instructions: TAKE ONE TABLET BY MOUTH EVERY MORNING ondansetron 4 mg tablet,disintegrating 4 mg PO Q6H PRN (Reason: nausea and vomiting) Qty: 14 0RF tizanidine 4 mg tablet 4 mg PO Q8H PRN (Reason: muscle spasticity) Qty: 21 0RF Colace 100 mg capsule 100 mg PO BID Qty: 14 0RF Discharge Orders: Discharge ED (Routine); Ordered 11/22/23 Ordered By: Ted Lacy Referrals: Anna Blackwood MD [Primary Care Provider] - Discharge Diet: Usual diet Discharge Activity: Increase activity as tolerated Patient Instructions: Hip Pain (ED) Activity Restrictions/Additional Instructions: Take your prescribed pain medications as needed. Gentle range of motion exercises as tolerated. Ice for added relief. Rest and elevation. Follow-up with your primary care provider. Return with any new or concerning symptoms. Coding Level of Care Code ED Coordinator Cardiopulmonary Services for [facility] Documented by User: Deo Tavarez DO 11/22/23 06:43 HPI - Extremity Problem General: Chief complaint: Extremity Problem,Nontraumatic Stated complaint: right hip pain Time Seen by Provider: 11/21/23 23:35 PFSH ED PFSH: Medical History Hypertension Hyperlipidemia Diabetes type 2, controlled Osteoarthritis of left shoulder Surgical History History of lumpectomy of left breast 02/13/23 subcutaneous mass left breast and lumpectomy- Dr. Rose Hx of colonoscopy with polypectomy 3 yrs ago History of esophagogastroduodenoscopy (EGD) History of back surgery History of removal of cyst No significant past surgical history Family History Other Hypertension Social History Smoking and tobacco/nicotine status: current every day tobacco/nicotine user cigars Cigars smoked per week: 7 Years smoked cigars: 12 Cigar details: smokes 1 per day Second hand smoke exposure: No Alcohol intake: current Alcohol intake frequency: holidays/special occasions only Substance/Drug Use: unknown Adopted: No Caregiver/support person: No Lives independently: Yes Household members: significant other Housing: House Marital status: Life Partner Current occupational status: employed Do you think of yourself as: Straight/Heterosexual Current gender identity: Male Special lanre needs: No Course Vital Signs: Vital signs: Vital Signs Temperature 98.5 F 11/21/23 23:24 Pulse Rate 69 11/22/23 00:48 Respiratory Rate 16 11/22/23 00:48 Blood Pressure 138/62 11/22/23 00:48 Pulse Oximetry 97 11/22/23 00:48 Oxygen Delivery Me thod Room Air 11/21/23 23:24 MDM - Extremity (Nontraumatic) Medical Decision Making This patient was seen and evaluated for right hip pain. Incident was nontrau matic. On arrival patient had received 60 mg of IV Toradol as well as fentanyl and reported improvement of his pain. On exam he has some reproducible tenderness palpation at the right lateral hip and did not have much movement due to the pain. X-ray of the right hip did not demonstrate any fractures or dislocations. Recheck of patient stated he was still having some pain, however he was road tested and was able to ambulate without incident. He has prescribed hydrocodone at home which she will take as needed for the pain. Also instructed him on RICE therapy and return precautions were given. Chart reviewed Lab Data Radiology Impressions Hip/Pelvis X-Ray 11/21/23 23:42 IMPRESSION: No acute fracture. Discharge Plan Discharge Patient Disposition: Home Clinical Impression: Sprain of right hip Qualifiers: Encounter type: initial encounter Qualified Code(s): S73.101A - Unspecified sprain of right hip, initial encounter Condition: Stable Prescriptions: No Action multivitamin Tablet 1 tab PO DAILY aspirin [Adult Low Dose Aspirin] 81 mg tablet,delayed release (DR/EC) 81 mg PO QAM terbinafine HCl 250 mg tablet 250 mg PO DAILY Qty: 60 0RF pregabalin 100 mg capsule 100 mg PO TID Qty: 90 2RF lidocaine (PF) 10 mg/mL (1 %) solution 10 mg SUBCUT ONCE Qty: 1 0RF tramadol 50 mg tablet 50 mg PO Q8H PRN (Reason: pain) Qty: 60 0RF ketotifen fumarate [Zaditor] 0.025 % (0.035 %) drops 1 drp ophthalmic (eye) BID PRN (Reason: allergy symptoms) Qty: 5 0RF Rx Instructions: administer at least 8 hours apart hydrocodone-acetaminophen 7.5-325 mg tablet 1 tab PO Q8H PRN (Reason: pain) 20 Days Qty: 60 0RF methylprednisolone [Medrol (Kaveh)] 4 mg tablets,dose pack See Rx Instructions PO PER PKG DIR Qty: 21 0RF Rx Instructions: PO PER PKG DIR doxycycline hyclate 100 mg tablet 100 mg PO BID 10 Days Qty: 20 0RF fenofibrate micronized 134 mg capsule 134 mg PO DAILY Qty: 90 0RF Rx Instructions: Take on capsule by mouth daily. triamcinolone acetonide 0.1 % cream See Rx Instructions .ROUTE .COMPLEX Qty: 30 2RF Dose Instruction: APPLY TO THE AFFECTED AREA(S) TOPICALLY TWICE DAILY Rx Instructions: APPLY TO THE AFFECTED AREA(S) TOPICALLY TWICE DAILY Farxiga 10 mg tablet 10 mg PO DAILY Qty: 30 2RF Rx Instructions: TAKE ONE TABLET BY MOUTH DAILY tamsulosin 0.4 mg capsule See Rx Instructions .ROUTE .COMPLEX Qty: 30 2RF Dose Instruction: TAKE ONE CAPSULE BY MOUTH DAILY Rx Instructions: TAKE ONE CAPSULE BY MOUTH DAILY lisinopril 20 mg tablet 20 mg PO DAILY Qty: 30 2RF Lantus Solostar U-100 Insulin 100 unit/mL (3 mL) insulin pen See Rx Instructions .ROUTE .COMPLEX Qty: 45 1RF Dose Instruction: INJECT 80 UNITS SUBCUTANEOUSLY TWICE DAILY Rx Instructions: INJECT 80 UNITS SUBCUTANEOUSLY TWICE DAILY atorvastatin 80 mg tablet See Rx Instructions .ROUTE .COMPLEX Qty: 30 0RF Dose Instruction: TAKE ONE TABLET BY MOUTH DAILY Rx Instructions: TAKE ONE TABLET BY MOUTH DAILY metformin 500 mg tablet extended release 24 hr See Rx Instructions .ROUTE .COMPLEX Qty: 240 1RF Dose Instruction: TAKE TWO TABLETS BY MOUTH TWICE DAILY Rx Instructions: TAKE TWO TABLETS BY MOUTH TWICE DAILY testosterone cypionate [Depo-Testosterone] 200 mg/mL oil 200 mg SUBCUT .every other week Qty: 1 3RF citalopram 40 mg tablet 40 mg PO DAILY Rx Instructions: TAKE ONE TABLET BY MOUTH EVERY MORNING ondansetron 4 mg tablet,disintegrating 4 mg PO Q6H PRN (Reason: nausea and vomiting) Qty: 14 0RF tizanidine 4 mg tablet 4 mg PO Q8H PRN (Reason: muscle spasticity) Qty: 21 0RF Colace 100 mg capsule 100 mg PO BID Qty: 14 0RF Discharge Orders: Discharge ED (Routine); Ordered 11/22/23 Ordered By: Ted Lacy Referrals: Anna Blackwood MD [Primary Care Provider] - Discharge Diet: Usual diet Discharge Activity: Increase activity as tolerated Patient Instructions: Hip Pain (ED) Activity Restrictions/Additional Instructions: Take your prescribed pain medications as needed. Gentle range of motion exercises as tolerated. Ice for added relief. Rest and elevation. Follow-up with your primary care provider. Return with any new or concerning symptoms. Coding Level of Care Code ED Coordinator Cardiopulmonary Services for [facility]
[2023-11-22 00:48] VITALS: BP 138/62; PULSE 69; RESP 16; O2SAT 97
--- NOTE | 2023-11-22 00:59 | PC.NURSE ---
pt was ambulated at this time
== END 2023-11-22 01:18 | disposition home or self-care (01) ==
PROVIDERS: Emergency Provider Physician Assistant; PCP Family Medicine
DX: S73.101A Unspecified sprain of right hip, initial encounter (principal); Z79.82 Long term (current) use of aspirin; Z79.4 Long term (current) use of insulin; Z79.84 Long term (current) use of oral hypoglycemic drugs; I10 Essential (primary) hypertension; E78.5 Hyperlipidemia, unspecified; E11.9 Type 2 diabetes mellitus without complications; F17.210 Nicotine dependence, cigarettes, uncomplicated; X58.XXXA Exposure to other specified factors, initial encounter
CPT/HCPCS: 73502; 99283

== ENCOUNTER → 2023-12-05 17:05 | Outpatient (BNVA) | payer BC, SELFPAY | PROVIDERS: PCP Family Medicine; Visit Provider Family Medicine | DX: R79.89 Other specified abnormal findings of blood chemistry (principal) | CPT/HCPCS: 84403 ==

== ENCOUNTER → 2024-01-09 16:28 | Outpatient (BNVA) | payer BC, SELFPAY | PROVIDERS: PCP Family Medicine; Visit Provider Family Medicine | DX: R25.2 Cramp and spasm (principal); R79.89 Other specified abnormal findings of blood chemistry | CPT/HCPCS: 80048; 83735; 84403 ==

== ENCOUNTER → 2024-02-21 16:43 | Outpatient (BNVA) | payer BC, SELFPAY | PROVIDERS: PCP Family Medicine; Visit Provider Nurse Practitioner Family | DX: E78.2 Mixed hyperlipidemia (principal); F32.4 Major depressive disorder, single episode, in partial remission; I10 Essential (primary) hypertension; E11.9 Type 2 diabetes mellitus without complications; R79.89 Other specified abnormal findings of blood chemistry | CPT/HCPCS: 80053; 80061; 83036; 84402; 84403; 84443; 85007; 85027 ==

== ENCOUNTER 2024-03-29 12:20 | Emergency (ER) | payer BC, SELFPAY ==
--- NOTE | 2024-03-29 12:21 | ECG_ITS ---
[facility] Test Date: 2024-03-29 Pat Name: Maurice Rizo Department: Room: Gender: Male [employer]: : [id number] Requested By: Deo Raygoza Order Number: [id number] Rory MD: Damon Finney M.D. Measurements Intervals [place] Rate: 75 P: 180 AR: 353 QRS: -54 QRSD: 103 T: 52 QT: 370 QTc: 414 Interpretive Statements ELECTRONIC ATRIAL PACEMAKER PATTERN CONSISTENT WITH PULMONARY DISEASE LEFT ANTERIOR FASCICULAR BLOCK [QRS AXIS <= -45, QR IN I, RS IN II] Compared to ECG 05/10/2021 07:59:04 Sinus rhythm no longer present Electronically Signed On 03-29-2024 17:34:02 CDT by Damon Finney M.D. [email or web address]
[2024-03-29 12:28] VITALS: BP 190/79; PULSE 76; RESP 16; TEMP 36.8; O2SAT 96
--- NOTE | 2024-03-29 12:49 | ED_ITS ---
HPI - Dizziness 2 General: Chief Complaint: Dizziness Stated Complaint: leg swelling, dizziness, loss of vision Time Seen by Provider: 03/29/24 12:27 History of Present Illness: HPI Narrative: 63-year-old male presents emergency room complaining of intermittent vision changes and headaches along with neck pain. This been going on for the last several months. His biggest complaint is the headaches and the vision issues. He seen his primary care doctor for this several times so they scheduled him for an MRI of his head. Denies any chest pain. He has noticed some swelling in his legs intermittently. No previous history of strokes has a history of high blood pressure no history of coronary artery disease Associated symptoms: Reports headache(s); Denies chest pain or chills Review of Systems 2 Const: Denies: fever(s) or chills Card: Denies: chest pain Resp: Denies: dyspnea GI: Denies: abdominal pain : Denies: dysuria, urinary frequency or urinary urgency Musc: Denies: neck pain or back pain Skin/Breast: Denies: rash Neuro: Reports: headache(s) [facility] ED 2 PFSH: Medical History Hypertension Hyperlipidemia Diabetes type 2, controlled Osteoarthritis of left shoulder Surgical History History of lumpectomy of left breast 02/13/23 subcutaneous mass left breast and lumpectomy- Dr. Rose Hx of colonoscopy with polypectomy 3 yrs ago History of esophagogastroduodenoscopy (EGD) History of back surgery History of removal of cyst No significant past surgical history Family History Other Hypertension Social History Smoking and tobacco/nicotine status: never used tobacco/nicotine Second hand smoke exposure: No Alcohol intake: current Alcohol intake frequency: holidays/special occasions only Substance/Drug Use: unknown Adopted: No Caregiver/support person: No Lives independently: Yes Household members: significant other Housing: House Marital status: Life Partner Current occupational status: employed Do you think of yourself as: Straight/Heterosexual Current gender identity: Male Special lanre needs: No Physical Exam 2 Const: COMMON NORMALS: no acute distress GENERAL APPEARANCE: cooperative and comfortable ORIENTATION/CONSCIOUSNESS: Yes awake, Yes oriented to person, Yes oriented to place and Yes oriented to time HENMT: COMMON NORMALS: normocephalic, atraumatic and hearing grossly normal bilaterally HEAD & SCALP: normocephalic and atraumatic Eye: OTHER: Visual acuity equal in both eyes extraocular moods intact Resp: COMMON NORMALS: normal respiratory effort, No retractions, No use of accessory muscles and clear to auscultation bilaterally AUSCULTATION: clear to auscultation bilaterally Cardio: COMMON NORMALS: regular rate, regular rhythm and No murmurs present (Cardio) RATE: regular rate RHYTHM: regular rhythm GI: COMMON NORMALS: Soft to palpation and No hepatosplenomegaly present A USCULTATION: Yes normoactive bowel sounds PALPATION: Yes Soft to palpation, No Tenderness to palpation present (GI), No Guarding due to palpation present (GI) and Yes No hepatosplenomegaly present Extremity: COMMON NORMALS: normal to inspection, capillary refill normal, no clubbing, cyanosis or edema, no calf tenderness and no pedal edema Neuro: SENSORIUM/ORIENTATION: Yes oriented to person, Yes oriented to place and Yes oriented to time OTHER: No focal or lateralizing deficits. Skin: COMMON NORMALS: no rashes or lesions noted GENERAL SKIN EXAM: no rashes or lesions noted Course 2 Vital Signs: Vital signs: Vital Signs Temperature 98.3 F 03/29/24 15:39 Pulse Rate 80 03/29/24 15:39 Respiratory Rate 16 03/29/24 15:39 Blood Pressure 184/109 03/29/24 15:39 Pulse Oximetry 97 03/29/24 15:39 Oxygen Delivery Me thod Room Air 03/29/24 15:00 MDM - Dizziness Medical Decision Making No focal neurologic deficits are noted. Blood pressure is improved we will discharge him home add amlodipine. Encouraged him to follow-up with his primary care doctor in the next week to reevaluate blood pressure. No current visual deficits at this time no focal neurologic deficits are noted initial exam or repeat exam at time of discharge Lab Data 03/29/24 13:52 03/29/24 13:52 Radiology Impressions Chest X-Ray 03/29/24 13:09 Impression: Negative chest. Head CT 03/29/24 13:09 IMPRESSION: 1. No evidence of intracranial hemorrhage or mass effect. 2. Mild small vessel changes. Mild parenchymal volume loss. 3. Vascular calcification. 4. No acute intracranial findings. Laboratory Results WBC 7.74 10^3/uL (3.29-11.43) 03/29/24 13:52 RBC 3.58 10^6/uL (3.85-5.65) L 03/29/24 13:52 Hgb 10.40 g/dL (11.27-16.99) L 03/29/24 13:52 Hct 32.0 % (37-53) L 03/29/24 13:52 MCV 89.4 fl (82-101) 03/29/24 13:52 MCH 29.1 pg (27-33) 03/29/24 13:52 MCHC 32.5 g/dL (30-55) 03/29/24 13:52 RDW 13.7 % (12.1-15.1) 03/29/24 13:52 Plt Count 216 10^3/cmm (157-399) 03/29/24 13:52 MPV 11.4 fL (7.4-10.4) H 03/29/24 13:52 Neut % (Auto) 61.1 % 03/29/24 13:52 Lymph % (Auto) 26.5 % 03/29/24 13:52 [place] % (Auto) 9.9 % 03/29/24 13:52 Eos % (Auto) 1.6 % 03/29/24 13:52 Baso % (Auto) 0.6 % 03/29/24 13:52 Neut # (Auto) 4.73 10^3/uL (1.8-7.7) 03/29/24 13:52 Lymph # (Auto) 2.1 10^3/uL (0.8-4.8) 03/29/24 13:52 [place] # (Auto) 0.8 10^3/uL (0.2-0.9) 03/29/24 13:52 Eos # (Auto) 0.1 10^3/uL (0.0-0.8) 03/29/24 13:52 Baso # (Auto) 0.1 10^3/uL (0.0-0.1) 03/29/24 13:52 Nucleated RBC % (auto) 0 % 03/29/24 13:52 Nucleated RBCs # 0.0 /100WBC 03/29/24 13:52 Sodium 144 mmol/L (136-145) 03/29/24 13:52 Potassium 4.7 mmol/L (3.5-5.1) 03/29/24 13:52 Chloride 110 mmol/L (98-107) H 03/29/24 13:52 Carbon Dioxide 25 mmol/L (22-29) 03/29/24 13:52 Anion Gap 13.7 (5-19) 03/29/24 13:52 BUN 28 mg/dL (8-23) H 03/29/24 13:52 Creatinine 1.4 mg/dL (0.7-1.2) H 03/29/24 13:52 GFR Calculation 51.5 mL/min (90-130) L 03/29/24 13:52 Glucose 77 mg/dL (65-115) 03/29/24 13:52 Calculated Osmolality 302 mOsm/kg (285-295) H 03/29/24 13:52 Calcium 9.1 mg/dL (8.5-10.5) 03/29/24 13:52 Total Bilirubin 0.4 mg/dL (0.15-1.2) 03/29/24 13:52 AST 11 U/L (0-40) 03/29/24 13:52 ALT 10 U/L (0-41) 03/29/24 13:52 Alkaline Phosphatase 48 U/L (40-130) 03/29/24 13:52 Total Protein 6.1 g/dL (6.6-8.7) L 03/29/24 13:52 Albumin 3.1 g/dL (3.5-5.2) L 03/29/24 13:52 Globulin 3.0 g/dL (1.3-4.6) 03/29/24 13:52 All radiology interpretation(s) finalized by discharge Discharge Plan Discharge Patient Disposition: Home Clinical Impression: HTN (hypertension), benign, Headache Condition: Stable Prescriptions: New amlodipine 5 mg tablet 5 mg PO DAILY Qty: 30 0RF No Action multivitamin Tablet 1 tab PO DAILY aspirin [Adult Low Dose Aspirin] 81 mg tablet,delayed release (DR/EC) 81 mg PO QAM ketotifen fumarate [Zaditor] 0.025 % (0.035 %) drops 1 drp ophthalmic (eye) BID PRN (Reason: allergy symptoms) Qty: 5 0RF Rx Instructions: administer at least 8 hours apart benzonatate 100 mg capsule 100 mg PO TID PRN (Reason: cough) Qty: 90 0RF fexofenadine-pseudoephedrine [Erma-D 12 Hour] 60-120 mg tablet extended release 12 hr 1 tab PO Q12H PRN (Reason: nasal congestion) Qty: 20 0RF Farxiga 10 mg tablet 10 mg PO DAILY Qty: 30 2RF lisinopril 20 mg tablet 20 mg PO DAILY Qty: 30 2RF testosterone cypionate [Depo-Testosterone] 200 mg/mL oil 200 mg SUBCUT .every other week Qty: 1 3RF ferrous gluconate 324 mg (37.5 mg iron) tablet 324 mg PO BID Qty: 60 3RF tizanidine 4 mg tablet 4 mg PO Q8H PRN (Reason: muscle spasticity) Qty: 60 0RF atorvastatin 80 mg tablet 80 mg PO QPM citalopram 40 mg tablet 40 mg PO QAM olanzapine 5 mg tablet 5 mg PO QPM tamsulosin 0.4 mg capsule 0.4 mg PO DAILY ropinirole 0.5 mg tablet 0.5 mg PO QPM Colace 100 mg capsule 100 mg PO BID PRN (Reason: Constipation) metformin 500 mg tablet extended release 24 hr 1,000 mg PO BID Lantus Solostar U-100 Insulin 100 unit/mL (3 mL) insulin pen 80 unit SUBCUT BID Discharge Orders: Discharge ED (Routine); Ordered 03/29/24 Ordered By: Deo Tavarez Referrals: Anna Blackwood MD [Primary Care Provider] - Discharge Diet: Usual diet Discharge Activity: Increase activity as tolerated Patient Instructions: Opioid Safety, Pain Management Activity Restrictions/Additional Instructions: Thank you for choosing [facility] for your healthcare needs today. It is very important that you follow up as instructed or that you return to the Emergency Department should you have concerns or if your condition changes or worsens in any way. You were seen today with headache and high blood pressure. CT of your head is negative do have some mild anemia but the rest of your labs are unremarkable. Recommend you start on amlodipine 5 mg daily continue your other medications and follow-up with your doctor as soon as you are able. Coding Level of Care Code ED Pipe Connector for Carlos Alberto Bangura
--- NOTE | 2024-03-29 13:09 | CT_ITS ---
WS: [id number] CT HEAD TECHNIQUE: Noncontrast CT of the head obtained from the skullbase to the vertex. CLINICAL INFORMATION: headache/vision changes COMPARISON: None. DLP: 1207.[address] scans at [facility] use at least one of these dose optimization techniques: automated e xposure control; mA and/or kV adjustment per patient size (includes targeted exams where dose is matc hed to clinical indication); or iterative reconstruction. FINDINGS: No evidence of intracranial hemorrhage or mass effect. Ventricular system and basal cisterns are reyes nt. Mild small vessel changes with mild parenchymal volume loss. No extra-axial fluid collections. No evidence of mass or mass effect. Vascular calcification. Mild mucosal thickening RIGHT maxillary sinus. Mild mucosal thickening in the mastoid air cells bilat erally. Normal posterior nasopharynx. CT/CT head wo con* [id number] IMPRESSION: 1. No evidence of intracranial hemorrhage or mass effect. 2. Mild small vessel changes. Mild parenchymal volume loss. 3. Vascular calcification. 4. No acute intracranial findings.
--- NOTE | 2024-03-29 13:09 | XR_ITS ---
WS: [id number] Portable AP upright chest, 03/29/2024 Clinical Data: dyspnea/cough Comparison: None. Findings: No nodules, masses or effusions are seen. The heart is normal. The pulmonary vascularity is not increased. No pneumonia or pneumothorax is seen. Monitor leads are on the chest wall. XR/XR chest 1V portable [id number] Impression: Negative chest.
[2024-03-29 13:25] VITALS: BP 177/77; PULSE 77; RESP 16; O2SAT 96
[2024-03-29 14:00] VITALS: BP 182/87; PULSE 72; RESP 16; O2SAT 97
[2024-03-29 14:06] LABS: Basophils # 0.1 10^3/uL (0.0-0.1); Basophils % 0.6 %; Eosinophils # 0.1 10^3/uL (0.0-0.8); Eosinophils % 1.6 %; Lymphocytes # 2.1 10^3/uL (0.8-4.8); Lymphocytes % 26.5 %; Mean Corpuscular HGB Conc 32.5 g/dL (30-55); Mean Corpuscular Hemoglobin 29.1 pg (27-33); Mean Corpuscular Volume 89.4 fl (82-101); Mean Platelet Volume 11.4 fL (7.4-10.4); Monocytes # 0.8 10^3/uL (0.2-0.9); Monocytes % 9.9 %; Neutrophils # 4.73 10^3/uL (1.8-7.7); Neutrophils % 61.1 %; Nucleated Red Blood Cells % 0 %; Platelet Count 216 10^3/cmm (157-399); Red Blood Count 3.58 10^6/uL (3.85-5.65); Red Cell Distribution Width 13.7 % (12.1-15.1); White Blood Count 7.74 10^3/uL (3.29-11.43)
[2024-03-29 14:23] LABS: Alanine Aminotransferase 10 U/L (0-41); Albumin Level 3.1 g/dL (3.5-5.2); Alkaline Phosphatase 48 U/L (40-130); Anion Gap 13.7 (5-19); Aspartate Amino Transferase 11 U/L (0-40); Blood Urea Nitrogen 28 mg/dL (8-23); Calcium 9.1 mg/dL (8.5-10.5); Carbon Dioxide 25 mmol/L (22-29); Chloride 110 mmol/L (98-107); Creatinine Clr Calc Pharmacy 63.7881; Glomerular Filtration Rate 51.5 mL/min (90-130); Glucose 77 mg/dL (65-115); Osmolality Calculated 302 mOsm/kg (285-295); Potassium 4.7 mmol/L (3.5-5.1); Sodium 144 mmol/L (136-145); Total Bilirubin 0.4 mg/dL (0.15-1.2); Total Protein 6.1 g/dL (6.6-8.7)
[2024-03-29 15:00] VITALS: BP 174/88; PULSE 75; RESP 16; O2SAT 95
[2024-03-29 15:39] VITALS: BP 184/109; PULSE 80; RESP 16; TEMP 36.8; O2SAT 97
== END 2024-03-29 15:34 | disposition home or self-care (01) ==
PROVIDERS: Emergency Provider Family Medicine; PCP Family Medicine
DX: R51.9 Headache, unspecified (principal); I10 Essential (primary) hypertension; Z79.82 Long term (current) use of aspirin; Z79.4 Long term (current) use of insulin; Z79.84 Long term (current) use of oral hypoglycemic drugs; E78.5 Hyperlipidemia, unspecified; E11.9 Type 2 diabetes mellitus without complications
CPT/HCPCS: 36415; 70450; 71045; 80053; 85025; 93005; 99285

== ENCOUNTER 2024-04-10 07:26 | Outpatient (CLI) | payer BC, SELFPAY ==
--- NOTE | 2024-04-10 07:30 | USCV_ITS ---
Maurice Rizo Age: 63 Gender: M : 1960 Exam Date: 04/10/2024 07:36 Ordering Phys: Pepper Coon NP Technologist: LAURA [place] [facility] [place]: Dizziness Risk Factors: Previous Vascular Surgery: Right Brachial BP: / Left Brachial BP: / Right Left Velocity (cm/s) Spectral Plaque Velocity (cm/s) Spectral Plaque Syst/Diast Broadening Syst/Diast Broadening 73.70/ 11.50 Prox CCA 70.60 / 8.90 73.70/ 14.10 Mid CCA 79.90 / 9.90 69.40/ 13.80 Distal CCA 69.70 / 14.60 64.50/ 10.80 Prox ICA 79.60 / 12.70 55.20/ 15.30 Mid ICA 64.20 / 12.70 71.70/ 16.10 Distal ICA 49.70 / 13.90 140.00 ECA 88.80 1.00 ICA/CCA 1.10 Antegrade Vertebral Antegrade 58.20/ 12.10 cm/s 43.90/ 9.50 cm/s Tri Subclavian Tri 100.2 88.90 0 CONCLUSIONS Right ICA stenosis <50%. Moderate calcified atheromatous plaque right carotid bulb/ICA. Left ICA stenosis <50%. Moderate calcified atheromatous plaque left carotid bulb/ICA. Intimal thickening in the common carotid arteries and internal carotid arteries bilaterally. Normal antegrade Doppler flow noted in the right vertebral artery. Normal antegrade Doppler flow noted in the left vertebral artery. Jovany Steel MD (Electronically Signed) Final Date: 10 April 2024 09:31 S
== END 2024-04-10 07:27 | disposition home or self-care (01) ==
LOC: RAD 07:26
PROVIDERS: PCP Family Medicine; Visit Provider Nurse Practitioner Family
DX: R55 Syncope and collapse (principal)
CPT/HCPCS: 93880

== ENCOUNTER 2024-06-10 13:03 | Outpatient (CLI) | payer BC, SELFPAY ==
--- NOTE | 2024-06-10 13:09 | USCV_ITS ---
Maurice Rizo Age: 64 Gender: M : 1960 Exam Date: 06/10/2024 13:41 Ordering Phys: Donnie Rene MD Technologist: USR [place] [facility] [place]: [place] Risk Factors: Previous Vascular Surgery: RIGHT LEFT BP: 146.0 / 57.00 BP: 142.0/ 62.00 0 0 Waveform Velocity (cm/s) Velocity (cm/s) Waveform Triphasic 76.1 Iliac Prox 35.7 Biphasic Triphasic 77.2 Iliac Mid 43.4 Biphasic Triphasic 73.8 Iliac Distal 58.5 Biphasic Triphasic 98.0 FUMIGATOR AND STERILIZER 43.0 Biphasic Biphasic 75.0 SFA Prox 54.0 Biphasic Monophasic 20.0 SFA Mid 55.0 Biphasic Monophasic SFA Dist Monophasic 28.0 20.0 Monophasic 56.0 POP 47.0 Monophasic Monophasic 30.0 AIRWORTHINESS INSPECTOR 34.0 Monophasic Monophasic 36.0 DPA 68.0 Monophasic 0.8 EV 0.5 FINDINGS Resting EV 0.8 on the right side and 0.5 on the left side. Transition of triphasic waveforms to monophasic waveform in the SFA on the right side. Monophasic, continuous, low amplitude waveforms in the infrapopliteal vessels on the right side Monophasic and continuous waveforms in the popliteal and infrapopliteal vessels on the left side CONCLUSIONS 1. Abnormal resting EV on the right side suggesting mild peripheral artery disease. Abnormal Doppler waveforms, suggesting superficial femoral artery disease. With possible collateral filling of the infrapopliteal vessels 2. Abnormal resting EV of 0.5 on the left side history moderately severe peripheral arterial disease. Abnormal Doppler waveforms suggesting collateral filling of the popliteal and infrapopliteal vessels Compared to study from 05/03/2023, there is progression of disease in the right side Dr Radha Ortega MD [facility] (Electronically Signed) Final Date: 11 June 2024 14:12 S
== END 2024-06-10 13:04 | disposition home or self-care (01) ==
LOC: RAD 13:04
PROVIDERS: PCP Internal Medicine; Visit Provider Internal Medicine
DX: I73.9 Peripheral vascular disease, unspecified (principal)
CPT/HCPCS: 93925

== ENCOUNTER 2024-06-17 13:16 | Inpatient (IN) | payer BC, SELFPAY ==
[2024-06-17] VITALS (11 sets, daily range): BP systolic 78–135; BP diastolic 43–88; PULSE 65–88; RESP 12–18; TEMP 36.4–36.7; O2SAT 95–99; BMI 35.5
--- NOTE | 2024-06-17 13:36 | CT_ITS ---
WS: [id number] Exam: CT head wo con* [id number] Date/Time of Exam: 06/17/2024 2:24 PM Reason For Exam: mane DLP: 1360.[address] scans at [facility] use at least one of these dose optimization techniques: automated e xposure control; mA and/or kV adjustment per patient size (includes targeted exams where dose is matc hed to clinical indication); or iterative reconstruction. Comparison 03/29/2024. There was no sign of acute intracranial bleed or space-occupying mass. The ventricles are normal in s ize. No extra-axial fluid collections. Unremarkable brainstem and cerebellum. The skull is intact. Fa cial sinuses and mastoids are clear. Unremarkable orbits and optic globes. CT/CT head wo con* [id number] IMPRESSION: 1. No acute intracranial finding. No change.
--- NOTE | 2024-06-17 13:36 | XR_ITS ---
WS: [id number] Exam: XR chest 1V portable [id number] Date/Time of Exam: 06/17/2024 1:50 PM Reason For Exam: weakness Comparison 03/29/2024. Lungs are clear and fully expanded. Normal cardiomediastinal silhouette. No pleural effusions. A meta llic density superimposes the LEFT heart. Significance is undetermined. This may be within the clothi ng or foreign body. XR/XR chest 1V portable [id number] IMPRESSION: 1. No acute cardiopulmonary finding. 2. Metallic density superimposing the LEFT heart. Significance is undetermined. This could be an artifact. Foreign body not excluded.
--- NOTE | 2024-06-17 13:37 | ECG_ITS ---
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1960 Requested By: Paco Ryan Order Number: [id number] Reading MD: YULY WEEMS Measurements Intervals [place] Rate: 81 P: 64 AR: 179 QRS: 265 QRSD: 122 T: 53 QT: 358 QTc: 417 Interpretive Statements SINUS RHYTHM POSSIBLE RIGHT VENTRICULAR HYPERTROPHY [SOME/ALL OF: PROMINENT R IN V1, LATE TRANSITION, RAD, ALEX, SSS] Compared to ECG 03/29/2024 12:21:29 Atrial-paced complex(es) or rhythm no longer present Left anterior fascicular block no longer present Electronically Signed On 06-18-2024 21:00:45 CDT by YULY WEEMS [email or web address]
--- NOTE | 2024-06-17 13:39 | ED_ITS ---
HPI - General Adult 2 General: Chief complaint: General Medical Stated complaint: hypotensive, headache Time Seen by Provider: 06/17/24 13:33 Source: patient and EMS Mode of arrival: EMS Limitations: no limitations History of Present Illness: 64-year-old male states that he has had a headache this morning he states he had felt groggy and not right as well. He does have hypertension states he took his blood pressure medicine this morning EMS found him he was hypotensive in the 70s states his headache is improved currently a 2 out of 10 and felt diaphoretic as well he denies any chest pain blood pressure is now 98/48 he denies any vomiting denies any diarrhea denies any blurred vision or focal weakness Associated symptoms: Reports headache(s) and malaise; Deny chest pain, dyspnea, nausea, rash or vomiting Related Data Home Medications Medication Instructions Recorded Confirmed aspirin 81 mg tablet,delayed 81 mg PO QAM 10/09/19 06/17/24 release (Adult Low Dose Aspirin) multivitamin 1 tab PO DAILY 10/09/19 06/17/24 atorvastatin 80 mg tablet 80 mg PO QPM 03/29/24 06/17/24 insulin glargine 100 unit/mL (3 80 unit SUBCUT BID 03/29/24 06/17/24 mL) subcutaneous pen (Lantus Solostar U-100 Insulin) metformin 500 mg tablet,extended 1,000 mg PO BID 03/29/24 06/17/24 release 24 hr olanzapine 5 mg tablet 5 mg PO QPM 03/29/24 06/17/24 ropinirole 0.5 mg tablet 0.5 mg PO QPM 03/29/24 06/17/24 cilostazol 100 mg tablet 100 mg PO BID 06/17/24 06/17/24 citalopram 40 mg tablet 40 mg PO QAM 06/17/24 06/17/24 lisinopril 20 mg tablet 40 mg PO DAILY 06/17/24 06/17/24 pregabalin 75 mg capsule 75 mg PO DAILY 06/17/24 06/17/24 spironolactone 25 1 tab PO DAILY 06/17/24 06/17/24 mg-hydrochlorothiazide 25 mg tablet Previous Rx's Medication Instructions Recorded amlodipine 5 mg tablet 5 mg PO DAILY #30 tabs 03/29/24 clonidine HCl 0.1 mg tablet 0.1 mg PO BID PRN hypertensive 04/04/24 emergency #30 tabs duloxetine 40 mg capsule,delayed 40 mg PO DAILY 30 days #30 caps 04/17/24 release syringe with needle 3 mL 20 gauge #100 ea 04/17/24 x 1 1/2 (BD Luer-Bin Syringe) testosterone cypionate 200 mg/mL 200 mg SUBCUT .every other week #1 04/30/24 intramuscular oil mL (Depo-Testosterone) dapagliflozin propanediol 10 mg 10 mg PO DAILY #30 tabs 05/08/24 tablet (Farxiga) tamsulosin 0.4 mg capsule 0.4 mg PO DAILY #30 caps 05/08/24 Allergies Allergy/AdvReac Type Severity Reaction Status Date / Time No Known Allergies Allergy Verified 04/01/24 11:04 Review of Systems 2 Const: Reports: fatigue and malaise; Denies: fever(s), chills, body aches or change in appetite Eyes: Denies: blurry vision or eye discomfort ENMT: Denies: throat pain or dental pain Card: Denies: chest pain Resp: Denies: dyspnea GI: Denies: abdominal pain, nausea, vomiting or diarrhea Musc: Denies: neck pain or back pain Skin/Breast: Denies: rash Neuro: Reports: headache(s) PFSH ED 2 PFSH: Medical History Hypertension Hyperlipidemia Diabetes type 2, controlled Osteoarthritis of left shoulder Surgical History History of lumpectomy of left breast 02/13/23 subcutaneous mass left breast and lumpectomy- Dr. Rose Hx of colonoscopy with polypectomy 3 yrs ago History of esophagogastroduodenoscopy (EGD) History of back surgery History of removal of cyst No significant past surgical history Family History Other Hypertension Social History Smoking and tobacco/nicotine status: never used tobacco/nicotine Second hand smoke exposure: No Alcohol intake: current Alcohol intake frequency: holidays/special occasions only Substance/Drug Use: unknown Adopted: No Caregiver/support person: No Lives independently: Yes Household members: significant other Housing: House Marital status: Life Partner Current occupational status: employed Do you think of yourself as: Straight/Heterosexual Current gender identity: Male Special lanre needs: No Physical Exam 2 Const: COMMON NORMALS: patient oriented x3 HENMT: COMMON NORMALS: normocephalic and atraumatic HEAD & SCALP: n ormocephalic and atraumatic Eye: COMMON NORMALS: Equal, round and reactive pupils present and EOMs intact bilaterally PUPIL: Yes Equal, round and reactive pupils present Neck/C-Spine: COMMON NORMALS: full ROM and supple Chest: COMMONS NORMALS: normal inspection of the chest and normal palpation of entire chest wall Resp: COMMON NORMALS: normal respiratory effort, No retractions, No use of accessory muscles and clear to auscultation bilaterally AUSCULTATION: clear to auscultation bilaterally Cardio: COMMON NORMALS: regular rate, regular rhythm and No murmurs present (Cardio) RATE: regular rate RHYTHM: regular rhythm Extremity: COMMON NORMALS: normal to inspection and full ROM Neuro: COMMON NORMALS: patient oriented x3, moves all extremities and no focal motor deficits CRANIAL NERVES: Yes CN normal except as noted SPEECH: s peech normal MOTOR EXAM: 5/5 motor strength present throughout Psych: COMMON NORMALS: mental status grossly normal, Normal thought process present and cooperative THOUGHT PROCESS: Normal thought process present Skin: COMMON NORMALS: no rashes or lesions noted and no wounds GENERAL SKIN EXAM: no rashes or lesions noted Course 2 Vital Signs: Vital signs: Vital Signs Temperature 97.6 F 06/17/24 13:24 Pulse Rate 88 06/17/24 15:44 Respiratory Rate 18 06/17/24 15:44 Blood Pressure 109/52 06/17/24 15:44 Pulse Oximetry 96 06/17/24 15:44 Oxygen Delivery Me thod Room Air 06/17/24 15:44 MDM - General Adult Medical Decision Making Patient is here with a near syncopal event he was hypotensive and when he got here he has acute kidney injury as well head CT is normal no signs of acute stroke. Did give him 2 L got orthostasis after that knee still having orthostatic hypotension when he stands with symptoms I spoke to the hospitalist will admit at this time Medical Records I reviewed the patient's medical records. Lab Data I reviewed the patient's lab results. 06/17/24 14:12 06/17/24 14:12 Radiology Impressions Chest X-Ray 06/17/24 13:36 IMPRESSION: 1. No acute cardiopulmonary finding. 2. Metallic density superimposing the LEFT heart. Significance is undetermined. This could be an artifact. Foreign body not excluded. Head CT 06/17/24 13:36 IMPRESSION: 1. No acute intracranial finding. No change. Head/Neck CTA 06/17/24 14:17 IMPRESSION: 1. Mild narrowing of the RIGHT and LEFT proximal internal carotid arteries secondary to moderate calcification at the carotid bulbs. Stenoses estimated at 50% or less for both sides. No aneurysm or dissection. MRA of the head. There is moderate calcified plaquing of both carotid siphons the LEFT more so than the RIGHT. Mild stenosis of the LEFT siphon estimated visually at 50% or less. No significant stenosis involving the RIGHT siphon. The middle, anterior and posterior cerebral arteries are patent. No critical stenosis or occlusion. No aneurysm. The basilar artery and visualized vertebral arteries are patent. No mass or bleed identified in the brain. IMPRESSION: 1. Mild stenosis of the LEFT carotid siphon visually estimated at 50% or less. Stenosis secondary to calcified plaquing. No significant stenosis involving the RIGHT siphon. 2. The remaining major intracranial arteries are patent without critical stenosis, aneurysm or other significant finding. Laboratory Results WBC 11.15 10^3/uL (3.29-11.43) 06/17/24 14:12 RBC 3.88 10^6/uL (3.85-5.65) 06/17/24 14:12 Hgb 11.20 g/dL (11.27-16.99) L 06/17/24 14:12 Hct 35.1 % (37-53) L 06/17/24 14:12 MCV 90.5 fl (82-101) 06/17/24 14:12 MCH 28.9 pg (27-33) 06/17/24 14:12 MCHC 31.9 g/dL (30-55) 06/17/24 14:12 RDW 13.7 % (12.1-15.1) 06/17/24 14:12 Plt Count 183 10^3/cmm (157-399) 06/17/24 14:12 MPV 11.8 fL (7.4-10.4) H 06/17/24 14:12 Neut % (Auto) 72.2 % 06/17/24 14:12 Lymph % (Auto) 17.8 % 06/17/24 14:12 [place] % (Auto) 7.9 % 06/17/24 14:12 Eos % (Auto) 1.2 % 06/17/24 14:12 Baso % (Auto) 0.5 % 06/17/24 14:12 Neut # (Auto) 8.04 10^3/uL (1.8-7.7) H 06/17/24 14:12 Lymph # (Auto) 2.0 10^3/uL (0.8-4.8) 06/17/24 14:12 [place] # (Auto) 0.9 10^3/uL (0.2-0.9) 06/17/24 14:12 Eos # (Auto) 0.1 10^3/uL (0.0-0.8) 06/17/24 14:12 Baso # (Auto) 0.1 10^3/uL (0.0-0.1) 06/17/24 14:12 Nucleated RBC % (auto) 0 % 06/17/24 14:12 Nucleated RBCs # 0.0 /100WBC 06/17/24 14:12 Sodium 129 mmol/L (136-145) L 06/17/24 14:12 Potassium 4.6 mmol/L (3.5-5.1) 06/17/24 14:12 Chloride 98 mmol/L (98-107) 06/17/24 14:12 Carbon Dioxide 23 mmol/L (22-29) 06/17/24 14:12 Anion Gap 12.6 (5-19) 06/17/24 14:12 BUN 35 mg/dL (8-23) H 06/17/24 14:12 Creatinine 2.0 mg/dL (0.7-1.2) H 06/17/24 14:12 GFR Calculation 34.0 mL/min (90-130) L 06/17/24 14:12 Glucose 100 mg/dL (65-115) 06/17/24 14:12 Calculated Osmolality 276 mOsm/kg (285-295) L 06/17/24 14:12 Calcium 8.4 mg/dL (8.5-10.5) L 06/17/24 14:12 Total Bilirubin 0.3 mg/dL (0.15-1.2) 06/17/24 14:12 AST 12 U/L (0-40) 06/17/24 14:12 ALT 10 U/L (0-41) 06/17/24 14:12 Alkaline Phosphatase 45 U/L (40-130) 06/17/24 14:12 Troponin T Baseline 63 ng/L (0-15) H 06/17/24 14:12 Total Protein 6.3 g/dL (6.6-8.7) L 06/17/24 14:12 Albumin 3.6 g/dL (3.5-5.2) 06/17/24 14:12 Globulin 2.7 g/dL (1.3-4.6) 06/17/24 14:12 All radiology interpretation(s) finalized by discharge EKG Data EKG 1: I personally reviewed and interpreted this EKG as follows: EKG interpretation date: 06/17/24 EKG interpretation time: 13:25 Interpretation: nsr hr [address] elevation qrs 122 qtc 396 Computer generated interpretation: Chest X-Ray 06/17/24 13:36 IMPRESSION: 1. No acute cardiopulmonary finding. 2. Metallic density superimposing the LEFT heart. Significance is undetermined. This could be an artifact. Foreign body not excluded. Head CT 06/17/24 13:36 IMPRESSION: 1. No acute intracranial finding. No change. Head/Neck CTA 06/17/24 14:17 IMPRESSION: 1. Mild narrowing of the RIGHT and LEFT proximal internal carotid arteries secondary to moderate calcification at the carotid bulbs. Stenoses estimated at 50% or less for both sides. No aneurysm or dissection. MRA of the head. There is moderate calcified plaquing of both carotid siphons the LEFT more so than the RIGHT. Mild stenosis of the LEFT siphon estimated visually at 50% or less. No significant stenosis involving the RIGHT siphon. The middle, anterior and posterior cerebral arteries are patent. No critical stenosis or occlusion. No aneurysm. The basilar artery and visualized vertebral arteries are patent. No mass or bleed identified in the brain. IMPRESSION: 1. Mild stenosis of the LEFT carotid siphon visually estimated at 50% or less. Stenosis secondary to calcified plaquing. No significant stenosis involving the RIGHT siphon. 2. The remaining major intracranial arteries are patent without critical stenosis, aneurysm or other significant finding. 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
[2024-06-17] MEDS: sodium chloride 0.9% 1,000 ML 999 ML IV ×2 (13:41→15:31)
[2024-06-17] MEDS: ondansetron 2 mg/ML SDV 2 mL 4 MG IVP (13:42)
[2024-06-17] MEDS: ketorolac 30 mg/mL INJ 15 MG IVP (13:43)
--- NOTE | 2024-06-17 14:17 | CT_ITS ---
WS: [id number] [id number] Date/Time of Exam: 06/17/2024 2:24 PM Reason For Exam: mane DLP: 549.[address] scans at [facility] use at least one of these dose optimization techniques: automated e xposure control; mA and/or kV adjustment per patient size (includes targeted exams where dose is matc hed to clinical indication); or iterative reconstruction. CTA of the neck. Aberrant RIGHT subclavian trunk. There is moderate calcified plaquing of both carotid bifurcations an d mild narrowing of both proximal internal carotid arteries. Stenoses estimated at 50% or less. The b ilateral common carotid arteries are otherwise patent. The cavernous internal carotid arteries are pa tent. No aneurysm or dissection noted. No neck mass or lymphadenopathy. CT/CT angio [facility]* [id number] IMPRESSION: 1. Mild narrowing of the RIGHT and LEFT proximal internal carotid arteries seco ndary to moderate calcification at the carotid bulbs. Stenoses estimated at 50% or less for both sides. No aneurysm or dissection. MRA of the head. There is moderate calcified plaquing of both carotid siphons the LEFT more so t [place] the RIGHT. Mild stenosis of the LEFT siphon estimated visually at 50% or le ss. No significant stenosis involving the RIGHT siphon. The middle, anterior an d posterior cerebral arteries are patent. No critical stenosis or occlusion. No aneurysm. The basilar artery and visualized vertebral arteries are patent. No mass or bleed identified in the brain. IMPRESSION: 1. Mild stenosis of the LEFT carotid siphon visually estimated at 50% or less. Stenosis secondary to calcified plaquing. No significant stenosis involving the RIGHT siphon. 2. The remaining major intracranial arteries are patent without critical stenos is, aneurysm or other significant finding.
[2024-06-17 14:27] LABS: Basophils # 0.1 10^3/uL (0.0-0.1); Basophils % 0.5 %; Eosinophils # 0.1 10^3/uL (0.0-0.8); Eosinophils % 1.2 %; Hematocrit 35.1 % (37-53); Lymphocytes % 17.8 %; Mean Corpuscular HGB Conc 31.9 g/dL (30-55); Mean Corpuscular Hemoglobin 28.9 pg (27-33); Mean Corpuscular Volume 90.5 fl (82-101); Mean Platelet Volume 11.8 fL (7.4-10.4); Monocytes # 0.9 10^3/uL (0.2-0.9); Monocytes % 7.9 %; Neutrophils # 8.04 10^3/uL (1.8-7.7); Neutrophils % 72.2 %; Nucleated Red Blood Cells % 0 %; Platelet Count 183 10^3/cmm (157-399); Red Blood Count 3.88 10^6/uL (3.85-5.65); Red Cell Distribution Width 13.7 % (12.1-15.1); White Blood Count 11.15 10^3/uL (3.29-11.43)
[2024-06-17] MEDS: iohexol 350 mg/mL 500 mL Btl (per mL) IV (14:34)
[2024-06-17 14:44] LABS: Alanine Aminotransferase 10 U/L (0-41); Albumin Level 3.6 g/dL (3.5-5.2); Alkaline Phosphatase 45 U/L (40-130); Anion Gap 12.6 (5-19); Aspartate Amino Transferase 12 U/L (0-40); Blood Urea Nitrogen 35 mg/dL (8-23); Calcium 8.4 mg/dL (8.5-10.5); Carbon Dioxide 23 mmol/L (22-29); Chloride 98 mmol/L (98-107); Creatinine Clr Calc Pharmacy 43.7916; Globulin 2.7 g/dL (1.3-4.6); Glucose 100 mg/dL (65-115); Osmolality Calculated 276 mOsm/kg (285-295); Potassium 4.6 mmol/L (3.5-5.1); Sodium 129 mmol/L (136-145); Total Bilirubin 0.3 mg/dL (0.15-1.2); Total Protein 6.3 g/dL (6.6-8.7)
[2024-06-17 14:56] LABS: Troponin(5th) Baseline 63 ng/L (0-15)
--- NOTE | 2024-06-17 16:19 | ECG_ITS ---
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
--- NOTE | 2024-06-17 16:31 | USCV_ITS ---
Maurice Rizo Age: 64 Gender: M : 1960 Exam Date: 06/17/2024 21:10 Ordering Phys: Luca Quevedo MD Technologist: MARGAUX Exam Location: [facility] [place] Indication: syncope BP: 126 / 71 HR: 63 Rhythm: Sinus Technical Quality: Adequate MEASUREMENTS (Male / Female) Normal Values 2D ECHO LV Diastolic Diameter PLAX 4.2 cm 4.2 - 5.9 / 3.9 - 5.3 cm IVS Diastolic Thickness 1.6 cm 0.6 - 1.0 / 0.6 - 0.9 cm IVS Systolic Thickness 2.4 cm LVPW Diastolic Thickness 2.0 cm 0.6 - 1.0 / 0.6 - 0.9 cm LVPW Systolic Thickness 2.0 cm LVOT Diameter 2.4 cm LV Ejection Fraction 2D Teich 70.3 % LV Ejection Fraction MOD 4C 43.3 % LV Ejection Fraction MOD 2C 49.0 % LV Ejection Fraction 2C AL 50.0 % LA Diameter 3.9 cm Aorta at Sinotubular Diameter 3.1 cm IVC Diameter 2.1 cm M-MODE LA Ao Ratio MM 1.4 AV Cusp Separation MM 1.7 cm DOPPLER AV Peak Velocity 130.0 cm/s LVOT Peak Velocity 101.0 cm/s AV Area Cont Eq vti 4.4 cm squared AV Area Cont Eq pk 3.4 cm squared MV Peak Velocity 115.0 cm/s MV Area PHT 3.3 cm squared Mitral E to A Ratio 0.7 TV Peak E Velocity 51.0 cm/s PV Peak Velocity 85.0 cm/s FINDINGS Left Ventricle Normal left ventricular size, systolic function and wall thickness, with no regional wall motion abnormalities. Left ventricular ejection fraction is estimated at 60 %. Grade I/IV diastolic dysfunction (abnormal relaxation filling pattern), normal to mildly elevated filling pressures. Right Ventricle The right ventricle is normal in size and function. Right Atrium The right atrium is normal in size. Left Atrium The left atrium is normal in size. Mitral Valve Moderately thickened mitral valve. Moderate mitral annular calcification. No mitral valve stenosis. Trace mitral valve regurgitation. Aortic Valve Moderate aortic valve calcification. No aortic valve stenosis, mean gradient 3.5 mmHg, ANASTASIIA 4.4 cm squared. Tricuspid Valve Structurally normal tricuspid valve without significant stenosis or regurgitation. Pulmonary artery systolic pressure is normal. Pulmonic Valve Structurally normal pulmonic valve without significant stenosis. There is no pulmonic regurgitation. Pericardium Normal pericardium without effusion. Aorta Normal ascending aorta dimension. IVC The inferior vena cava appears normal. CONCLUSIONS Normal left ventricular size, systolic function and wall thickness, with no regional wall motion abnormalities. Left ventricular ejection fraction is estimated at 60 %. Grade I/IV diastolic dysfunction (abnormal relaxation filling pattern), normal to mildly elevated filling pressures. There is no pericardial effusion. No significant valve abnormalities. Right atrial pressure is around 5 mm of mercury. Miguel A Herrera MD (Electronically Signed) Final Date: 18 June 2024 14:20 S
--- NOTE | 2024-06-17 16:40 | P.HP_ITS ---
Providers/Chief Complaint 2 Primary Care Provider: Donnie Rene MD Chief Complaint: hypotensive, headache History of Present Illness Maurice Rizo is a 64 year old male with a past medical history of insulin- dependent type 2 diabetes mellitus, history of peripheral vascular disease with 80% occlusion of his left lower extremity plans on vascular stenting and intervention by vascular surgery in [facility], in the coming future as per patient, currently started on cilostazol, hypertension, hyperlipidemia, who presents [facility] due to syncopal episode, and headache and neck pain.. Patient tells me that this morning, when he woke up he developed a headache, with pain radiating down his neck, no neck stiffness, no neck clicking or popping, no recent neck injury, he took a Tylenol at 10 AM without improvement of his pain no history of migraine headaches, his pain persisted he went to classes this morning, he was sitting in a chair when he leaned up against the wall, he tells me that that helped with his pain, and the lots of the last thing he remembered, he was told by people around him that he was not responding appropriately, he had passed out, no reported strokelike symptoms, no reported chest pain, no reported seizure-like symptoms, when EMS arrived, he was found to be hypotensive systolics in the 70s, on arrival to the emergency room his headaches were 2 out of 10, blood pressure 98/48, for his left lower extremity, he was told that he has 80 to 90% blockage of one of the arteries in his left leg, there is plans on vascular intervention in the near future by vascular surgery at [facility], he has recently been started on cilostazol, he was also started on amlodipine recently, but he stopped taking it due to strange dreams that he was having Review of Systems 2 Const: Reports: fatigue and malaise; Denies: fever(s) or chills Eyes: Denies: change in vision Card: Denies: chest pain Resp: Denies: dyspnea GI: Denies: abdominal pain : Denies: flank pain Musc: Reports: neck pain and muscle cramps; Denies: back pain Neuro: Reports: headache(s); Denies: numbness in extremities, weakness in extremities, sensory changes, lack of coordination, difficulty walking, frequent falls, dizziness, vertigo, confusion, Slurred speech present, difficulty communicating thoughts or seizure- like activity Psych: Denies: anxiety Endo: Denies: polyuria or polydipsia Medications/Allergies Home Medications Medication Instructions Recorded Confirmed Last Taken Type aspirin 81 mg tablet,delayed 81 mg PO QAM 10/09/19 06/17/24 03/29/24 History release (Adult Low Dose Aspirin) multivitamin 1 tab PO DAILY 10/09/19 06/17/24 06/17/24 History amlodipine 5 mg tablet 5 mg PO DAILY #30 tabs 03/29/24 06/17/24 06/17/24 Rx atorvastatin 80 mg tablet 80 mg PO QPM 03/29/24 06/17/24 06/16/24 History insulin glargine 100 unit/mL (3 80 unit SUBCUT BID 03/29/24 06/17/24 06/17/24 History mL) subcutaneous pen (Lantus Solostar U-100 Insulin) metformin 500 mg tablet,extended 1,000 mg PO BID 03/29/24 06/17/24 06/17/24 History release 24 hr olanzapine 5 mg tablet 5 mg PO QPM 03/29/24 06/17/24 03/28/24 History ropinirole 0.5 mg tablet 0.5 mg PO QPM 03/29/24 06/17/24 06/16/24 History clonidine HCl 0.1 mg tablet 0.1 mg PO BID PRN hypertensive 04/04/24 06/17/24 06/17/24 Rx emergency #30 tabs duloxetine 40 mg capsule,delayed 40 mg PO DAILY 30 days #30 caps 04/17/24 06/17/24 06/17/24 Rx release syringe with needle 3 mL 20 gauge #100 ea 04/17/24 06/17/24 Unknown Rx x 1 1/2 (BD Luer-Bin Syringe) testosterone cypionate 200 mg/mL 200 mg SUBCUT .every other week #1 04/30/24 06/17/24 06/11/24 Rx intramuscular oil mL (Depo-Testosterone) dapagliflozin propanediol 10 mg 10 mg PO DAILY #30 tabs 05/08/24 06/17/24 06/17/24 Rx tablet (Farxiga) tamsulosin 0.4 mg capsule 0.4 mg PO DAILY #30 caps 05/08/24 06/17/24 06/17/24 Rx cilostazol 100 mg tablet 100 mg PO BID 06/17/24 06/17/24 06/17/24 History citalopram 40 mg tablet 40 mg PO QAM 06/17/24 06/17/24 06/17/24 History lisinopril 20 mg tablet 40 mg PO DAILY 06/17/24 06/17/24 06/17/24 History pregabalin 75 mg capsule 75 mg PO DAILY 06/17/24 06/17/24 06/17/24 History spironolactone 25 1 tab PO DAILY 06/17/24 06/17/24 06/17/24 History mg-hydrochlorothiazide 25 mg tablet Allergies Allergy/AdvReac Type Severity Reaction Status Date / Time No Known Allergies Allergy Verified 04/01/24 11:04 PFSH Acute 2 PFSH: Medical History Hypertension Hyperlipidemia Diabetes type 2, controlled Osteoarthritis of left shoulder Surgical History History of lumpectomy of left breast 02/13/23 subcutaneous mass left breast and lumpectomy- Dr. Rose Hx of colonoscopy with polypectomy 3 yrs ago History of esophagogastroduodenoscopy (EGD) History of back surgery History of removal of cyst No significant past surgical history Family History Other Hypertension Social History Smoking and tobacco/nicotine status: never used tobacco/nicotine Second hand smoke exposure: No Alcohol intake: current Alcohol intake frequency: holidays/special occasions only Substance/Drug Use: unknown Adopted: No Caregiver/support person: No Lives independently: Yes Household members: significant other Housing: House Marital status: Life Partner Current occupational status: employed Do you think of yourself as: Straight/Heterosexual Current gender identity: Male Special lanre needs: No Vitals/I&O/Wt Last Vital Signs Temp 97.6 F 06/17/24 13:24 Pulse 88 06/17/24 15:44 Resp 18 06/17/24 15:44 BP 109/52 06/17/24 15:44 Pulse Ox 96 06/17/24 15:44 O2 Del Method Room Air 06/17/24 15:44 Weight last 48 hrs Weight 102.965 kg Physical Exam 2 Const: COMMON NORMALS: no acute distress and patient oriented x3 HENMT: COMMON NORMALS: normocephalic HEAD & SCALP: normocephalic Eye: COMMON NORMALS: Equal, round and reactive pupils present and EOMs intact bilaterally Neck/C-Spine: COMMON NORMALS: full ROM, no lymphadenopathy and no meningeal signs Resp: COMMON NORMALS: normal respiratory effort, No retractions, No use of accessory muscles and clear to auscultation bilaterally AUSCULTATION: clear to auscultation bilaterally Cardio: COMMON NORMALS: regular rate, regular rhythm, S1 normal heart sound present and S2 normal heart sound present RATE: regular rate RHYTHM: r egular rhythm HEART SOUNDS: S1 normal heart sound present and S2 normal heart sound present GI: COMMON NORMALS: Normal to inspection, nondistended, normoactive bowel sounds present, Soft to palpation and non-tender Extremity: COMMON NORMALS: no calf tenderness and no pedal edema NARRATIVE EXTREMITY EXAM: DP PT pulses palpable bilaterally Although DP PT pulses on the left are diminished compared to the right Good capillary refill No overlying skin changes Neuro: COMMON NORMALS: patient oriented x3, CN's II-XII intact bilaterally and moves all extremities Psych: COMMON NORMALS: mental status grossly normal Data 06/17/24 14:12 06/17/24 14:12 A&P Assessment and plan (1) Diabetes type 2, controlled: Qualifiers: 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 Mild stenosis of the LEFT carotid siphon visually estimated at 50% or less. Stenosis secondary to calcified plaquing. No significant stenosis involving the RIGHT siphon. 2. The remaining major intracranial arteries are patent without critical stenosis, aneurysm or other significant finding. -Obtain UA -Obtain mag, Phos level -Change inflammatory markers NSTEMI -No complaints of chest pain -No acute ST-T wave changes on EKG -Initial troponin 63 -Does have type 2 diabetes mellitus, peripheral vascular disease, does smoke cigars nightly -Cardiac echo -Telemetry monitoring Acute kidney injury -Check CPK levels -Did receive contrast for CTA -Monitor for contrast-induced nephropathy -Continue IV fluids Orthostatic hypotension -Hold blood pressure medications for now -IV fluids -Follow orthostatic vitals Type 2 diabetes mellitus -Takes Lantus 52 units twice daily, decreased to 30 units twice daily -Moderate dose insulin sliding scale Peripheral vascular disease ? 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
[2024-06-17 16:43] LABS: Erythrocyte Sedimentation Rate 19 mm/hr (0-10)
[2024-06-17 16:53] LABS: Bilirubin Urine Negative (Negative); Blood Urine Negative (Negative); Glucose Urine UA 1+ (Normal); Ketones Urine Negative (Negative); Leukocyte Esterase Urine Negative (Negative); Nitrate Urine Negative (Negative); Protein Urine 1+ (Negative); Urine Appearance Clear (CLEAR); Urine Color Yellow (Yellow); Urobilinogen Urine 0.2 mg/dL (Negative)
[2024-06-17 16:58] LABS: Add Urine Microscopic? YES; Bacteria Urine None Seen /hpf; Hyaline Casts Urine 23.98 /lpf; RBC Urine 0-2 /hpf (0-2); Squamous Epithelial Cell Urine 0-5 /hpf (0-5); WBC Urine 0-5 /hpf (0-5)
[2024-06-17 17:05] LABS: C Reactive Protein 3.4 mg/L (0.0-4.9); Creatine Phosphokinase 173 U/L (39-308)
[2024-06-17 17:12] LABS: Procalcitonin 0.11 ng/mL (0-0.5)
[2024-06-17 17:16] LABS: Specific Gravity, Urine 1.037 (1.005-1.030); UA Slide Review UA Slide Review Perf
[2024-06-17 17:19] LABS: INR 0.93 (0.8-1.2)
[2024-06-17 17:21] LABS: Lactic Sepsis W/Reflex 1.5 mmol/L (0.5-2.2)
[2024-06-17 17:22] LABS: Troponin 5 2HR 54.15 ng/L (0-15)
[2024-06-17 17:23] LABS: Troponin 5 2HR Delta -8.85 ABS# (0-10)
[2024-06-17 17:31] LABS: Lipase 66 U/L (13-60); NT Pro B Type Natriuretic Pept 140 pg/mL (0-125); Phosphorus 5.4 mg/dL (2.5-4.5)
[2024-06-17 17:42] LABS: Cholesterol 154 mg/dL (0-200); HDL Cholesterol 28 mg/dL (60-100); Thyroid Stimulating Hormone 1.85 uIU/mL (0.27-4.20); Triglycerides 484 mg/dL (0-150)
[2024-06-17 17:55] LABS: LDL Cholesterol Direct 71 mg/dL (0-100)
[2024-06-17] MEDS: OLANZapine 5 mg TABLET PO (17:56)
[2024-06-17] MEDS: pantoprazole 40 mg SDV IVP (17:56)
[2024-06-17] MEDS: enoxaparin 40 mg/0.4 mL Syringe SUBCUT (17:56)
[2024-06-17] MEDS: ropinirole 0.25 mg Tablet 0.5 MG PO (17:56)
[2024-06-17] MEDS: cilostazol 100 mg Tablet PO (17:56)
[2024-06-17] MEDS: atorvastatin 40 mg Tablet PO (17:56)
[2024-06-17] MEDS: sodium chloride 0.9% 1,000 ML 75 ML IV (17:57)
[2024-06-17 18:14] LABS: Glucose Point of Care 141 mg/dL (70-110)
[2024-06-17] MEDS: insulin glargine 100 units/1 mL 30 UNIT SUBCUT (18:31)
[2024-06-17] MEDS: insulin lispro 100 unit/1 mL SUBCUT (18:31)
[2024-06-17 19:30] LABS: Estmated Average Glucose 177; Hemoglobin A1C 7.8 % (4.0-6.0)
--- NOTE | 2024-06-17 20:17 | ECG_ITS ---
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
[2024-06-17 20:53] LABS: Glucose Point of Care 121 mg/dL (70-110)
[2024-06-17] MEDS: fenofibrate 145 mg Tablet PO (20:57)
[2024-06-18] VITALS (10 sets, daily range): BP systolic 95–132; BP diastolic 53–68; PULSE 61–81; RESP 14–18; TEMP 36.4–36.8; O2SAT 95–97
[2024-06-18] MEDS: aspirin 81 mg EC Tablet PO (05:52)
[2024-06-18] MEDS: citalopram 20 mg Tablet 40 MG PO (05:52)
[2024-06-18 06:25] LABS: Glucose Point of Care 88 mg/dL (70-110)
[2024-06-18 06:35] LABS: Basophils % 0.5 %; Eosinophils # 0.2 10^3/uL (0.0-0.8); Eosinophils % 2.1 %; Hematocrit 35.2 % (37-53); Lymphocytes # 2.3 10^3/uL (0.8-4.8); Lymphocytes % 26.9 %; Mean Corpuscular HGB Conc 31.5 g/dL (30-55); Mean Corpuscular Hemoglobin 28.3 pg (27-33); Mean Corpuscular Volume 89.8 fl (82-101); Monocytes # 0.6 10^3/uL (0.2-0.9); Monocytes % 7.2 %; Nucleated Red Blood Cells % 0 %; Platelet Count 172 10^3/cmm (157-399); Red Blood Count 3.92 10^6/uL (3.85-5.65); Red Cell Distribution Width 13.9 % (12.1-15.1); White Blood Count 8.58 10^3/uL (3.29-11.43)
[2024-06-18 06:43] LABS: Anion Gap 13.3 (5-19); Blood Urea Nitrogen 35 mg/dL (8-23); Calcium 7.9 mg/dL (8.5-10.5); Carbon Dioxide 22 mmol/L (22-29); Chloride 108 mmol/L (98-107); Creatinine Clr Calc Pharmacy 54.5921; Glucose 73 mg/dL (65-115); Osmolality Calculated 295 mOsm/kg (285-295); Potassium 4.3 mmol/L (3.5-5.1); Sodium 139 mmol/L (136-145)
[2024-06-18] MEDS: insulin glargine 100 units/1 mL 30 UNIT SUBCUT ×2 (08:34→17:08)
[2024-06-18] MEDS: fenofibrate 145 mg Tablet PO (08:35)
[2024-06-18] MEDS: cilostazol 100 mg Tablet PO ×2 (08:35→17:08)
[2024-06-18] MEDS: tamsulosin 0.4 mg Capsule PO (08:35)
[2024-06-18] MEDS: duloxetine 20 mg Capsule 40 MG PO (08:35)
[2024-06-18] MEDS: pregabalin 75 mg Capsule PO (09:23)
--- NOTE | 2024-06-18 10:05 | PC.CHAP ---
Pastoral Care Encounter/Spiritual Assessment Type of Contact [] Declined upholstery restorer visit [] Patient/Family/Request visit [] Outpatient visit [] Follow-up visit [] Physician referral [] Code/Alert [x] Routine visit [] Staff referral [] Actively dying [] Patient sleeping [x] Family support [] [] Out of room [] Palliative care [] [] Receiving care in room [] Pre-surgical visit [] Trauma [] Long length of stay [] ICU visit [] Other: Relational/Emotional Strength [x] Patient feels connected with others/family/visitors/staff [] Distress [] Loneliness/isolation [] Abandonment Spirituality of Patient [x] Person of Miriam [] Attends Alevism of their Miriam [x] Believes in Prayer [] Reads Bible or Mandaeism materials [] There are Spiritual issues to be addressed Tap Grinder Interventions [x] Prayer [x] Active listening [] Non-anxious presence [x] Spiritual/emotional support [] Crisis/trauma care [] Spiritual counseling [] Bereavement support [] Provided bereavement packet [] Provided Bible/devotional materials [] Provided toy/stuffed animal, coloring book to patient or family member [] Provided Communion [] Anointing/[place] [] Salvation [x] Completed spiritual assessment [] Other: Impact on Illness or Injury [] Angry [] Fearful [] Anxious [] Often cries [] Exhaustion [] Unable to work [] Unable to attend samaritan [] Unable to walk/stand [] Unable to read [] Unable to drive [] Unable to eat/drink [] Unable to sleep [] Unable to be with family [] Patient intubated [] Other: Summary Time spent with patient 5 min
--- NOTE | 2024-06-18 11:17 | CT_ITS ---
WS: [id number] CT CERVICAL SPINE TECHNIQUE: Noncontrast CT of the cervical spine with coronal and sagittal reformatted images. CLINICAL INFORMATION: neck pain COMPARISON: None. DLP: 335.[address] scans at [facility] use at least one of these dose optimization techniques: automated e xposure control; mA and/or kV adjustment per patient size (includes targeted exams where dose is matc hed to clinical indication); or iterative reconstruction. FINDINGS: Straightening of the normal cervical lordosis. Mild spondylitic changes. Central disc protrusion C3-C 4 with mild to moderate central canal stenosis. Small disc osteophyte protrusions at C4-C5 and C5-C6. C2-C3: Tiny central disc osteophyte protrusion. Spinal canal and foramen are patent. Mild facet arthr opathy. C3-C4: Prominent central and RIGHT paracentral protrusion. Mild to moderate central canal stenosis wi th slight indentation on the cervical cord. Moderate facet arthropathy. Mild bilateral foraminal narr owing. C4-C5: Small central disc osteophyte protrusion with mild central canal stenosis. Moderate facet arth ropathy. Mild LEFT greater than RIGHT foraminal narrowing. C5-C6: Small central disc osteophyte protrusion with mild central canal stenosis. Mild RIGHT greater than LEFT bony foraminal narrowing. Mild facet arthropathy. C6-C7: Disc osteophyte complex with endplate ridging. Moderate to severe bilateral bony foraminal kj rowing. Mild central canal stenosis. Mild facet arthropathy. C7-T1: Beam-hardening artifact degrades images at this level due to shoulder overlap. Osteophytic rid ging with mild bilateral foraminal narrowing. Visualized posterior nasopharynx: Normal. Prevertebral soft tissues: Normal. Carotid bulb calcification. CT/CT cervical spin wo con* [id number] IMPRESSION: 1. Mild to moderate central canal stenosis C3-C4 with central and RIGHT parace ntral disc protrusion. Slight indentation cervical cord. 2. Otherwise mild central canal stenosis C4-C5 C5-C6 and C6-C7 with disc osteo phyte protrusions. 3. Moderate to severe bilateral bony foraminal narrowing C6-7. 4. Images in the lower cervical spine are limited due to beam hardening from s houlder overlap.
[2024-06-18 12:21] LABS: Glucose Point of Care 148 mg/dL (70-110)
[2024-06-18] MEDS: insulin lispro 100 unit/1 mL SUBCUT (12:22)
--- NOTE | 2024-06-18 14:28 | NMCV_ITS ---
NM alie perf SPECT r/s* [id number] Maurice Rizo Age: 64 Gender: M : 1960 Exam Date: 06/19/2024 06:24 Ordering Phys: Luca Quevedo MD Technologist: LYNN Koch Exam Location: [facility] Indications: CP STRESS TEST Please see separate stress test report in [facility] for full findings IMAGE PROTOCOL Rest/Stress 1 Lexiscan Day Radiopharmaceutical Dose (mCi) Administration Site Administered by Rest: Tc-99m 10.1 IV LYNN Chan Sestamibi Stress:Tc-99m 31.7 IV LYNN Koch Sestamidewey Rest: 19-Jun-2024 60 Discovery 630 Stress: 19-Jun-2024 30 Discovery 630 0.4mg Lexiscan. Images obtained in supine and prone position. SPECT RESULTS Technical Quality: Good Raw Data Analysis: Normal Image Corrections: No attenuation or motion correction applied Summed Stress Score: 0 Summed Rest Score: 0 Summed Difference Score: 0 PERFUSION FINDINGS Fairly uniform myocardial tracer uptake with no significant Perfusion normalities FUNCTIONAL RESULTS (calculated via Gated SPECT) Stress Image LV EF (%): 57 Stress EDV (mL):108 TID: 1.13 Stress ESV (mL):46 FUNCTIONAL FINDINGS: Segmental wall motion analysis revealing no gross wall motion abnormalities IMPRESSIONS 1. Myocardial perfusion imaging revealing fairly uniform myocardial tracer uptake with no significant Perfusion normalities 2. Normal LV ejection fraction of 57% 3. LV wall motion analysis revealing no gross wall motion abnormalities. 4. Normal LV volume No similar previous studies are available for comparison Low probability for coronary ischemia, based on the above findings Dr Radha Ortega MD FACC (Electronically Signed) Final Date: 19 June 2024 12:58 S
--- NOTE | 2024-06-18 14:28 | ECG_ITS ---
[facility] Test Date: 2024-06-19 Pat Name: Maurice Rizo Department: Room: 276 Gender: Male Vp Packaging: : 1960 Requested By: Luca Quevedo Order Number: [id number] Valadez MD: Radha rOtega M.D. Interpretive Statements Lung unchanged pre/post procedure; Intraprocedure shortess of breath; Symptoms resoled by discharge [email or web address]
--- NOTE | 2024-06-18 15:04 | P.PN_ITS ---
Subjective 2 Subjective: - Patient was seen this morning - is at bedside -Patient tells me that when getting up o ut of bed, he does feel winded at times, feels dizzy and unsteady on his feet -Denies any fevers, no chills, no cough -Given his history of type 2 diabetes me llitus, his use of cigars, his peripheral vascular disease, we will follow-up on his echocardiogram will likely proceed to stress testing tomorrow given his episode of presyncope -Clarified with patient and his patty t his episode yesterday was a presyncopal episode he never completely passed out -Does complain of persistent neck pain, on examination, he has paracervical tenderness, no spinal tenderness, Kernig sign negative, Brudzinski sign negative Vitals/I&O/Wt Last Vital Signs Temp 98.0 F 06/18/24 12:00 Pulse 76 06/18/24 13:36 Resp 15 06/18/24 12:00 BP 119/60 06/18/24 12:00 Pulse Ox 96 06/18/24 12:00 O2 Del Method Room Air 06/18/24 12:00 06/18/24 06/18/24 06/18/24 06:59 14:59 22:59 Intake Total 0 / 2480 1900 / 1900 Balance 0 / 2480 1900 / 1900 Weight last 48 hrs Weight 102.421 kg Weight 103.782 kg Weight 102.965 kg Physical Exam 2 Const: COMMON NORMALS: no acute distress and patient oriented x3 Resp: COMMON NORMALS: normal respiratory effort, No retractions, No use of accessory muscles and clear to auscultation bilaterally AUSCULTATION: clear to auscultation bilaterally Cardio: COMMON NORMALS: regular rate, regular rhythm, S1 normal heart sound present and S2 normal heart sound present RATE: regular rate RHYTHM: r egular rhythm HEART SOUNDS: S1 normal heart sound present and S2 normal heart sound present GI: COMMON NORMALS: Normal to inspection, nondistended, normoactive bowel sounds present and non-tender Extremity: COMMON NORMALS: no pedal edema Neuro: COMMON NORMALS: patient oriented x3 Psych: COMMON NORMALS: mental status grossly normal Data 06/18/24 05:52 06/18/24 05:52 A&P Assessment and plan (1) Diabetes type 2, controlled: Qualifiers: Diabetes mellitus 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 Mild stenosis of the LEFT carotid siphon visually estimated at 50% or less. Stenosis secondary to calcified plaquing. No significant stenosis involving the RIGHT siphon. 2. The remaining major intracranial arteries are patent without critical stenosis, aneurysm or other significant finding. NSTEMI -No complaints of chest pain -No acute ST-T wave changes on EKG -Initial troponin 63 -Does have type 2 diabetes mellitus, peripheral vascular disease, does smoke cigars nightly, hypertriglyceridemia -Cardiac echo CONCLUSIONS Normal left ventricular size, systolic function and wall thickness, with no regional wall motion abnormalities. Left ventricular ejection fraction is estimated at 60 %. Grade I/IV diastolic dysfunction (abnormal relaxation filling pattern), normal to mildly elevated filling pressures. There is no pericardial effusion. No significant valve abnormalities. Right atrial pressure is around 5 mm of mercury. -Telemetry monitoring -Due to his complaints of persistent dizziness upon ambulation, feeling winded, syncopal episode, and risk factors above we will go ahead and proceed with n.p.o. midnight and cardiac stress testing tomorrow Acute kidney injury -Did receive contrast for CTA -Monitor for contrast-induced nephropathy -Continue IV fluids Orthostatic hypotension -Hold blood pressure medications for now -IV fluids -Follow orthostatic vitals Type 2 diabetes mellitus -Takes Lantus 52 units twice daily, decreased to 30 units twice daily -Moderate dose insulin sliding scale Peripheral vascular disease ? 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 -Will order CT of the cervical spine Full code Lovenox for DVT prophylaxis Attestations 2 Medical Necessity Statement*: Patient requires hospitalization for NSTEMI, symptomatic, requiring stress testing tomorrow Diagnoses Diabetes type 2, controlled E11.9 Diabetes mellitus terminal superintendent insulin use: unspecified intermediate insulin use status Diabetes mellitus complication status: with skin complications Syncope R55 Orthostatic hypotension I95.1 Mixed hyperlipidemia E78.2 Hyperlipidemia type: mixed hyperlipidemia Acute kidney injury N17.9 NSTEMI (non-ST elevated myocardial infarction) I21.4 Hypertriglyceridemia E78.1
[2024-06-18 17:02] LABS: Glucose Point of Care 118 mg/dL (70-110)
[2024-06-18] MEDS: enoxaparin 40 mg/0.4 mL Syringe SUBCUT (17:08)
[2024-06-18] MEDS: ropinirole 0.25 mg Tablet 0.5 MG PO (17:08)
[2024-06-18] MEDS: OLANZapine 5 mg TABLET PO (17:08)
[2024-06-18] MEDS: pantoprazole 40 mg SDV IVP (17:08)
[2024-06-18] MEDS: atorvastatin 40 mg Tablet PO (17:08)
[2024-06-18 20:11] LABS: Glucose Point of Care 140 mg/dL (70-110)
[2024-06-19] VITALS (8 sets, daily range): BP systolic 120–169; BP diastolic 62–81; PULSE 65–89; RESP 17–19; TEMP 36.6–37; O2SAT 96–98
[2024-06-19] MEDS: aspirin 81 mg EC Tablet PO (05:50)
[2024-06-19] MEDS: citalopram 20 mg Tablet 40 MG PO (05:50)
[2024-06-19 06:02] LABS: Glucose Point of Care 160 mg/dL (70-110)
[2024-06-19 06:09] LABS: Basophils # 0.1 10^3/uL (0.0-0.1); Basophils % 0.6 %; Eosinophils # 0.4 10^3/uL (0.0-0.8); Eosinophils % 3.8 %; Hematocrit 36.8 % (37-53); Lymphocytes # 2.2 10^3/uL (0.8-4.8); Lymphocytes % 23.3 %; Mean Corpuscular HGB Conc 32.6 g/dL (30-55); Mean Corpuscular Hemoglobin 29.7 pg (27-33); Mean Corpuscular Volume 91.1 fl (82-101); Monocytes # 0.6 10^3/uL (0.2-0.9); Monocytes % 6.2 %; Neutrophils # 6.16 10^3/uL (1.8-7.7); Neutrophils % 65.8 %; Nucleated Red Blood Cells % 0 %; Platelet Count 200 10^3/cmm (157-399); Red Blood Count 4.04 10^6/uL (3.85-5.65); Red Cell Distribution Width 13.8 % (12.1-15.1); White Blood Count 9.37 10^3/uL (3.29-11.43)
[2024-06-19 06:37] LABS: Anion Gap 14.3 (5-19); Blood Urea Nitrogen 33 mg/dL (8-23); Carbon Dioxide 25 mmol/L (22-29); Chloride 107 mmol/L (98-107); Creatinine Clr Calc Pharmacy 66.9333; Glomerular Filtration Rate 55.9 mL/min (90-130); Glucose 150 mg/dL (65-115); Osmolality Calculated 302 mOsm/kg (285-295); Potassium 5.3 mmol/L (3.5-5.1); Sodium 141 mmol/L (136-145)
--- NOTE | 2024-06-19 06:53 | PC.NURSE ---
Pt down at this time for a stress test
[2024-06-19] MEDS: regadenoson 0.4 Mg/5 ml Syringe IVP (07:12)
[2024-06-19] MEDS: duloxetine 20 mg Capsule 40 MG PO (09:15)
[2024-06-19] MEDS: cilostazol 100 mg Tablet PO (09:15)
[2024-06-19] MEDS: tamsulosin 0.4 mg Capsule PO (09:15)
[2024-06-19 09:23] LABS: Glucose Point of Care 182 mg/dL (70-110)
[2024-06-19] MEDS: fenofibrate 145 mg Tablet PO (09:26)
[2024-06-19] MEDS: insulin glargine 100 units/1 mL 30 UNIT SUBCUT (09:26)
[2024-06-19] MEDS: insulin lispro 100 unit/1 mL SUBCUT ×2 (09:31→11:58)
[2024-06-19] MEDS: pregabalin 75 mg Capsule PO (09:51)
[2024-06-19 11:49] LABS: Glucose Point of Care 213 mg/dL (70-110)
--- NOTE | 2024-06-19 14:10 | P.DS_ITS ---
Discharge Providers Date of Admission: 06/18/24 14:27 Date of Discharge: June 19, 2024 Attending Provider at Admission: Luca Quevedo MD Attending Provider at Discharge: Luca Quevedo MD Primary Care Provider: Donnie Rene MD Diagnoses at Discharge Discharge Diagnosis (1) Diabetes type 2, controlled: Status: Acute Qualifiers: Diabetes mellitus longterm insulin use: unspecified longterm insulin use status Diabetes mellitus complication status: with skin complications (2) Syncope: Status: Acute (3) Orthostatic hypotension: Status: Acute (4) Hyperlipidemia: Status: Acute Qualifiers: Hyperlipidemia type: mixed hyperlipidemia Qualified Code(s): E78.2 - Mixed hyperlipidemia (5) Acute kidney injury: Status: Acute (6) NSTEMI (non-ST elevated myocardial infarction): Status: Acute (7) Hypertriglyceridemia: Status: Acute Reason for Visit Reason for Visit: hypotensive, headache Hospital Course Hospital Course Maurice Rizo is a 64 year old male with a past medical history of insulin- dependent type 2 diabetes mellitus, history of peripheral vascular disease with 80% occlusion of his left lower extremity plans on vascular stenting and inter vention by vascular surgery in [facility], in the coming future as per patient, currently started on cilostazol, hypertension, hyperlipidemia, who presents [facility] due to syncopal episode, and headache and neck pain.. Patient tells me that this morning, when he woke up he developed a headache, with pain radiating down his neck, no neck stiffness, no neck clicking or popping, no recent neck injury, he took a Tylenol at 10 AM without improvement of his pain no history of migraine headaches, his pain persisted he went to classes this morning, he was sitting in a chair when he leaned up against the wall, he tells me that that helped with his pain, and the lots of the last thing he remembered, he was told by people around him that he was not responding appropriately, cording to he did not pass out completely, no reported strokelike symptoms, no reported chest pain, no reported seizure-like symptoms, when EMS arrived, he was found to be hypotensive systolics in the 70s, on arrival to the emergency room his headaches were 2 out of 10, blood pressure 98/48, for his left lower extremity, he was told that he has 80 to 90% blockage of one of the arteries in his left leg, there is plans on vascular intervention in the near future by vascular surgery at [place], he has recently been started on cilostazol, he was also started on amlodipine recently, but he stopped taking it due to strange dreams that he was having Presyncopal symptoms -orthostatic vitals, were positive -Likely secondary to blood pressure medications, Norvasc, lisinopril, spironolactone/hydrochlorothiazide combination -Received IV fluids blood pressure medication was hold -Orthostatics are better but persist to some degree, symptoms are minimal on discharge -Will patient has clinically improved -Will discharge her on spironolactone hydrochlorothiazide combination half a tab once daily and slowly tapered upwards from -please discontinue norvasc -start spironolactone-hctz 0.5 tab daily -if still blood pressure is elevated -if sbp>180 or dbp>100, increase start spironolactone-hctz 1 tab daily -if still blood pressure is elevated -if sbp>180 or dbp>100, start lisinopril 20mg daily -if still blood pressure is elevated -if sbp>180 or dbp>100, start lisinopril 40mg daily -for your hypertriglyceridemia, recheck triglycerides in 1 month NSTEMI -No complaints of chest pain -No acute ST-T wave changes on EKG -Initial troponin 63 -Does have type 2 diabetes mellitus, peripheral vascular disease, does smoke cigars nightly, hypertriglyceridemia -Cardiac echo CONCLUSIONS Normal left ventricular size, systolic function and wall thickness, with no regional wall motion abnormalities. Left ventricular ejection fraction is estimated at 60 %. Grade I/IV diastolic dysfunction (abnormal relaxation filling pattern), normal to mildly elevated filling pressures. There is no pericardial effusion. No significant valve abnormalities. Right atrial pressure is around 5 mm of mercury. -Telemetry monitoring -Due to his complaints of persistent dizziness upon ambulation, feeling winded, syncopal episode, and risk factors above we will go ahead and proceed stress testing tomorrow -stress testing - IMPRESSIONS 1. Myocardial perfusion imaging revealing fairly uniform myocardial tracer uptake with no significant Perfusion normalities 2. Normal LV ejection fraction of 57% 3. LV wall motion analysis revealing no gross wall motion abnormalities. 4. Normal LV volume No similar previous studies are available for comparison Low probability for coronary ischemia, based on the above findings -No chest pain complaints, -patient was advised to follow-up cardiology as outpatient Acute kidney injury -Did receive contrast for CTA -Monitor for contrast-induced nephropathy -Continue IV fluids -creatinine back to baseline at 1.3 -follow up with primary care for CKD Peripheral vascular disease ? Continue aspirin, statin, cilostazol -Doppler bilateral extremity pulses -Is supposed to follow-up with vascular surgery in [facility], for peripheral angiogram and consideration of angioplasty and/or bypass -Follow-up scheduled for Monday Physical Exam Const: COMMON NORMALS: no acute distress and patient oriented x3 Resp: COMMON NORMALS: normal respiratory effort, No retractions, No use of accessory muscles and clear to auscultation bilaterally AUSCULTATION: clear to auscultation bilaterally Cardio: COMMON NORMALS: regular rate, regular rhythm, S1 normal heart sound present and S2 normal heart sound present RATE: regular rate RHYTHM: regular rhythm HEART SOUNDS: S1 normal heart sound present and S2 normal heart sound present GI: COMMON NORMALS: Normal to inspection, nondistended, normoactive bowel sounds present and non-tender Extremity: COMMON NORMALS: no pedal edema Neuro: COMMON NORMALS: patient oriented x3 Psych: COMMON NORMALS: mental status grossly normal Discharge Data Studies Completed and Pending Completed Studies During Hospitalization Category Date Time Status CT cervical spin wo con* [id number] Routine Cat Scan 06/18/24 11:[address] head wo con* [id number] Stat Cat Scan 06/17/24 13:36 Completed CTA head neck [CT angio headneck* [id number]] Stat Cat Scan 06/17/24 14:17 Completed Sestamibi Stress Test Request Routine Exams 06/18/24 14:28 Draft XR chest 1V portable [id number] Stat Exams 06/17/24 13:36 Completed NM alie perf SPECT r/s* [id number] Routine Nuc Med 06/18/24 14:28 Completed CV. echo complete* [id number] Stat Ultrasound 06/17/24 16:31 Completed Pending at discharge Category Date Time Status Basic Metabolic Panel AM LABS Lab 06/20/24 04:00 Ordered Basic Metabolic Panel AM LABS Lab 06/21/24 04:00 Ordered Complete Blood Count w/Auto AM LABS Lab 06/20/24 04:00 Ordered Complete Blood Count w/Auto AM LABS Lab 06/21/24 04:00 Ordered Radiology Impressions Chest X-Ray 06/17/24 13:36 IMPRESSION: 1. No acute cardiopulmonary finding. 2. Metallic density superimposing the LEFT heart. Significance is undetermined. This could be an artifact. Foreign body not excluded. Head CT 06/17/24 13:36 IMPRESSION: 1. No acute intracranial finding. No change. Head/Neck CTA 06/17/24 14:17 IMPRESSION: 1. Mild narrowing of the RIGHT and LEFT proximal internal carotid arteries secondary to moderate calcification at the carotid bulbs. Stenoses estimated at 50% or less for both sides. No aneurysm or dissection. MRA of the head. There is moderate calcified plaquing of both carotid siphons the LEFT more so than the RIGHT. Mild stenosis of the LEFT siphon estimated visually at 50% or less. No significant stenosis involving the RIGHT siphon. The middle, anterior and posterior cerebral arteries are patent. No critical stenosis or occlusion. No aneurysm. The basilar artery and visualized vertebral arteries are patent. No mass or bleed identified in the brain. IMPRESSION: 1. Mild stenosis of the LEFT carotid siphon visually estimated at 50% or less. Stenosis secondary to calcified plaquing. No significant stenosis involving the RIGHT siphon. 2. The remaining major intracranial arteries are patent without critical stenosis, aneurysm or other significant finding. Cervical Spine CT 06/18/24 11:17 IMPRESSION: 1. Mild to moderate central canal stenosis C3-C4 with central and RIGHT paracentral disc protrusion. Slight indentation cervical cord. 2. Otherwise mild central canal stenosis C4-C5 C5-C6 and C6-C7 with disc osteophyte protrusions. 3. Moderate to severe bilateral bony foraminal narrowing C6-7. 4. Images in the lower cervical spine are limited due to beam hardening from shoulder overlap. Laboratory Results WBC 9.37 10^3/uL (3.29-11.43) 06/19/24 05:53 RBC 4.04 10^6/uL (3.85-5.65) 06/19/24 05:53 Hgb 12.00 g/dL (11.27-16.99) 06/19/24 05:53 Hct 36.8 % (37-53) L 06/19/24 05:53 MCV 91.1 fl (82-101) 06/19/24 05:53 MCH 29.7 pg (27-33) 06/19/24 05:53 MCHC 32.6 g/dL (30-55) 06/19/24 05:53 RDW 13.8 % (12.1-15.1) 06/19/24 05:53 Plt Count 200 10^3/cmm (157-399) 06/19/24 05:53 MPV 12.0 fL (7.4-10.4) H 06/19/24 05:53 Neut % (Auto) 65.8 % 06/19/24 05:53 Lymph % (Auto) 23.3 % 06/19/24 05:53 [place] % (Auto) 6.2 % 06/19/24 05:53 Eos % (Auto) 3.8 % 06/19/24 05:53 Baso % (Auto) 0.6 % 06/19/24 05:53 Neut # (Auto) 6.16 10^3/uL (1.8-7.7) 06/19/24 05:53 Lymph # (Auto) 2.2 10^3/uL (0.8-4.8) 06/19/24 05:53 [place] # (Auto) 0.6 10^3/uL (0.2-0.9) 06/19/24 05:53 Eos # (Auto) 0.4 10^3/uL (0.0-0.8) 06/19/24 05:53 Baso # (Auto) 0.1 10^3/uL (0.0-0.1) 06/19/24 05:53 Nucleated RBC % (auto) 0 % 06/19/24 05:53 Nucleated RBCs # 0.0 /100WBC 06/19/24 05:53 ESR 19 mm/hr (0-10) H 06/17/24 14:12 PT 12.70 SECONDS (12.1-14.9) 06/17/24 16:51 INR 0.93 (0.8-1.2) 06/17/24 16:51 Sodium 141 mmol/L (136-145) 06/19/24 05:53 Potassium 5.3 mmol/L (3.5-5.1) H 06/19/24 05:53 Chloride 107 mmol/L (98-107) 06/19/24 05:53 Carbon Dioxide 25 mmol/L (22-29) 06/19/24 05:53 Anion Gap 14.3 (5-19) 06/19/24 05:53 BUN 33 mg/dL (8-23) H 06/19/24 05:53 Creatinine 1.3 mg/dL (0.7-1.2) H 06/19/24 05:53 GFR Calculation 55.9 mL/min (90-130) L 06/19/24 05:53 Glucose 150 mg/dL (65-115) H 06/19/24 05:53 POC Glucose 213 mg/dL (70-110) H 06/19/24 11:24 Estimat Average Glucose 177 06/17/24 14:12 Hemoglobin A1c 7.8 % (4.0-6.0) H 06/17/24 14:12 Calculated Osmolality 302 mOsm/kg (285-295) H 06/19/24 05:53 Lactic Acid 1.5 mmol/L (0.5-2.2) 06/17/24 16:51 Calcium 9.0 mg/dL (8.5-10.5) 06/19/24 05:53 Phosphorus 5.4 mg/dL (2.5-4.5) H 06/17/24 14:12 Magnesium 2.0 mg/dL (1.7-2.3) 06/17/24 14:12 Total Bilirubin 0.3 mg/dL (0.15-1.2) 06/17/24 14:12 AST 12 U/L (0-40) 06/17/24 14:12 ALT 10 U/L (0-41) 06/17/24 14:12 Alkaline Phosphatase 45 U/L (40-130) 06/17/24 14:12 Creatine Kinase 173 U/L (39-308) 06/17/24 14:12 Troponin T Baseline 63 ng/L (0-15) H 06/17/24 14:12 Troponin T 120 Minute 54.15 ng/L (0-15) H 06/17/24 16:51 Delta Troponin T -8.85 ABS# (0-10) L 06/17/24 16:51 Troponin T Hi Sens 6Hr 55.30 ng/L (0-15) H 06/17/24 20:56 Troponin T Hi Sens 6Hr Delta -7.70 ng/L (0-12) L 06/17/24 20:56 C-Reactive Protein 3.4 mg/L (0.0-4.9) 06/17/24 14:12 NT-Pro-B Natriuret Pep 140 pg/mL (0-125) H 06/17/24 14:12 Total Protein 6.3 g/dL (6.6-8.7) L 06/17/24 14:12 Albumin 3.6 g/dL (3.5-5.2) 06/17/24 14:12 Globulin 2.7 g/dL (1.3-4.6) 06/17/24 14:12 Triglycerides 484 mg/dL (0-150) H 06/17/24 16:51 Cholesterol 154 mg/dL (0-200) 06/17/24 16:51 LDL Cholesterol Direct 71 mg/dL (0-100) 06/17/24 16:51 LDL Cholesterol, Calc Not Reportable 06/17/24 16:51 HDL Cholesterol 28 mg/dL (60-100) L 06/17/24 16:51 LDL/HDL Ratio Not Reportable 06/17/24 16:51 Cholesterol/HDL Ratio 5.50 mg/dL (1.0-5.00) H 06/17/24 16:51 Lipase 66 U/L (13-60) H 06/17/24 14:12 Procalcitonin 0.11 ng/mL (0-0.5) 06/17/24 14:12 TSH 1.85 uIU/mL (0.27-4.20) 06/17/24 16:51 Urine Color Yellow (Yellow) 06/17/24 16:37 Urine Appearance Clear (CLEAR) 06/17/24 16:37 Urine pH 5.0 (5-7) 06/17/24 16:37 Ur Specific [place] 1.037 (1.005-1.030) H 06/17/24 16:37 Urine Protein 1+ (Negative) A 06/17/24 16:37 Urine Glucose (UA) 1+ (Normal) H 06/17/24 16:37 Urine Ketones Negative (Negative) 06/17/24 16:37 Urine Blood Negative (Negative) 06/17/24 16:37 Urine Nitrate Negative (Negative) 06/17/24 16:37 Urine Bilirubin Negative (Negative) 06/17/24 16:37 Urine Urobilinogen 0.2 mg/dL (Negative) 06/17/24 16:37 Ur Leukocyte Esterase Negative (Negative) 06/17/24 16:37 Urine RBC 0-2 /hpf (0-2) 06/17/24 16:37 Urine WBC 0-5 /hpf (0-5) 06/17/24 16:37 Ur Squamous Epith Cells 0-5 /hpf (0-5) 06/17/24 16:37 Amorphous Sediment Not Reportable 06/17/24 16:37 Urine Bacteria None seen /hpf (NONE) 06/17/24 16:37 Hyaline Casts 23.98 /lpf 06/17/24 16:37 Vitals Last Vital Signs Temp 98.6 F 06/19/24 12:00 Pulse 82 06/19/24 12:00 Resp 18 06/19/24 12:00 BP 163/67 06/19/24 12:00 Pulse Ox 98 06/19/24 12:00 O2 Del Method Room Air 06/19/24 12:00 Discharge Plan Discharge Patient Disposition: Home Condition: Stable Prescriptions: New fenofibrate nanocrystallized 145 mg Tablet 145 mg PO DAILY 30 Days Qty: 30 0RF insulin aspart U-100 [Novolog FlexPen U-100 Insulin] 100 unit/mL (3 mL) insulin pen See Rx Instructions .ROUTE .COMPLEX Qty: 15 0RF Rx Instructions: inject, subcut, tid after meals, based on sliding scale provided Continued multivitamin Tablet 1 tab PO DAILY aspirin [Adult Low Dose Aspirin] 81 mg tablet,delayed release (DR/EC) 81 mg PO QAM (DME) syringe with needle [BD Luer-Bin Syringe] 3 mL 20 gauge x 1 1/2 syringe See Rx Instructions .Route Qty: 100 0RF Rx Instructions: As directed duloxetine 40 mg capsule,delayed release(DR/EC) 40 mg PO DAILY 30 Days Qty: 30 0RF testosterone cypionate [Depo-Testosterone] 200 mg/mL oil 200 mg SUBCUT .every other week Qty: 1 3RF Farxiga 10 mg tablet 10 mg PO DAILY Qty: 30 2RF tamsulosin 0.4 mg capsule 0.4 mg PO DAILY Qty: 30 4RF atorvastatin 80 mg tablet 80 mg PO QPM olanzapine 5 mg tablet 5 mg PO QPM ropinirole 0.5 mg tablet 0.5 mg PO QPM metformin 500 mg tablet extended release 24 hr 1,000 mg PO BID cilostazol 100 mg tablet 100 mg PO BID citalopram 40 mg tablet 40 mg PO QAM pregabalin 75 mg capsule 75 mg PO DAILY Changed spironolacton-hydrochlorothiaz 25-25 mg tablet 0.5 tab PO DAILY 30 Days Qty: 15 0RF insulin glargine [Lantus Solostar U-100 Insulin] 100 unit/mL (3 mL) insulin pen 30 unit SUBCUT BID 30 Days Qty: 18 0RF Discontinued clonidine HCl 0.1 mg tablet 0.1 mg PO BID PRN (Reason: hypertensive emergency) Qty: 30 0RF Rx Instructions: as needed if BP > 180/100 amlodipine 5 mg tablet 5 mg PO DAILY Qty: 30 0RF lisinopril 20 mg tablet 40 mg PO DAILY Discharge Orders: Discharge Order (Routine); Ordered 06/19/24 Ordered By: uLca Quevedo Referrals: Giuseppe Schwab DO [Physician] - 1 month (We have notified your physician's clinic of the need for a follow-up appointment to be scheduled. If you have not heard from them within the next 2 business days, please call them directly. ) Donnie Rene MD [Primary Care Provider] - 06/28/24 8:40 am Damon Finney M.D [Physician] - 1 month (We have notified your physician's clinic of the need for a follow-up appointment to be scheduled. If you have not heard from them within the next 2 business days, please call them directly. ) Discharge Diet: Cardiac Discharge Activity: Resume usual activity Patient Instructions: Fenofibrate (By mouth), Insulin Aspart, Recombinant (By injection), Acute Kidney Injury (GEN), Opioid Safety Activity Restrictions/Additional Instructions: -please discontinue norvasc -start spironolactone-hctz 0.5 tab daily -if still blood pressure is elevated -if sbp>180 or dbp>100, increase start spironolactone-hctz 1 tab daily -if still blood pressure is elevated -if sbp>180 or dbp>100, start lisinopril 20mg daily -if still blood pressure is elevated -if sbp>180 or dbp>100, start lisinopril 40mg daily -for your hypertriglyceridemia, recheck triglycerides in 1 month -Start fenofibrate -Start Lantus 30 units twice daily -Start insulin sliding scale -Please monitor your blood sugars closely -Monitor your blood sugars 3 times daily as after meals -Please record your blood sugars, and a blood sugar log -For your NovoLog -Please inject blood sugar after meals based on sliding scale provided -Do not inject insulin if you do not eat as hypoglycemia kills -This is a NovoLog sliding scale -Insulin sliding ?fingerstick? Insulin ?141-180?0 units/sq 181-220?2 units/sq ?221-260?4 units/sq ?261-300 6 units/sq ?301-350?8 units/sq ?351-400 10 units/sq ?401-450?12 units/sq >450? 14units/sq -If your blood sugar is greater than 500 go to the emergency room -If your blood sugar is less than 60 or at anytime you feel lightheaded or dizzy or diaphoretic or have chest palpitations check your blood sugar, and eat a hard candy or drink orange juice and go immediately to the emergency room -Remember hypoglycemia kills, so if his blood sugar is less than 60 we have to increase it by taking in a sugary meal such as a hard candy or orange juice and go to the emergency room -If you have any questions please call us where here to help -cr is 1.3 please follow-up with primary care provider monitoring kidney functi on outpatient -Please follow-up with vascular surgery as outpatient Discharge Attestations Time Spent in Discharge Care*: greater than 30 min Time Spent in Smoking Cessation: more than 10 minutes Extensive discussion about quitting smoking cigars, morbidity and mortality d iscussed, Quality Metrics Clinical Quality Measures [ No reported AMI, CVA or VTE this stay] Coding Level of Care Code 39200 Total time (in minutes) for Discharge: 45 Diagnoses Diabetes type 2, controlled E11.9 Diabetes mellitus joint terminal attack controller insulin use: unspecified longterm insulin use status Diabetes mellitus complication status: with skin complications Syncope R55 Orthostatic hypotension I95.1 Mixed hyperlipidemia E78.2 Hyperlipidemia type: mixed hyperlipidemia Acute kidney injury N17.9 NSTEMI (non-ST elevated myocardial infarction) I21.4 Hypertriglyceridemia E78.1
--- NOTE | 2024-06-19 14:58 | PC.NURSE ---
Discharge instructions provided to pt at this time. No questions or concerns voiced. Awaiting arrival of his to drive him home.
== END 2024-06-19 15:47 | disposition home or self-care (01) | DRG 312 ==
LOC: ER 16:01 → MEDSURG 16:49
PROVIDERS: Admitting Provider Family Medicine; Emergency Provider Emergency Medicine; PCP Internal Medicine; Visit Provider Family Medicine
DX: I95.2 Hypotension due to drugs (principal); T46.4X5A Adverse effect of angiotensin-converting-enzyme inhibitors, initial encounter; Y92.009 Unspecified place in unspecified non-institutional (private) residence as the place of occurrence of the external cause; E11.51 Type 2 diabetes mellitus with diabetic peripheral angiopathy without gangrene; Z79.4 Long term (current) use of insulin; Z79.84 Long term (current) use of oral hypoglycemic drugs; Z79.82 Long term (current) use of aspirin; E78.2 Mixed hyperlipidemia; E78.1 Pure hyperglyceridemia; I10 Essential (primary) hypertension; F17.290 Nicotine dependence, other tobacco product, uncomplicated; I65.22 Occlusion and stenosis of left carotid artery
CPT/HCPCS: 36415; 36416; 70450; 70496; 70498; 71045; 72125; 78452; 80048; 80053; 80061; 81001; 82550; 82962; 83036; 83605; 83690; 83721; 83735; 83880; 84100; 84145; 84443; 84484; 85025; 85610; 85651; 86140; 93005; 93017; 93306; 94664; 96361; 96372; 96374; 96375; 97116; 97161; 97165; 99285; A9500; G0378; J1650; J1815; J1885; J2405; J2470; J2785; J7030

== ENCOUNTER 2024-07-21 07:44 | Emergency (ER) | payer BC, SELFPAY ==
[2024-07-21 07:55] VITALS: BP 123/60; PULSE 88; RESP 22; TEMP 36.4; O2SAT 99; BMI 35.2
[2024-07-21 08:08] LABS: Basophils # 0.1 10^3/uL (0.0-0.1); Basophils % 0.6 %; Eosinophils # 0.2 10^3/uL (0.0-0.8); Eosinophils % 2.7 %; Lymphocytes # 1.6 10^3/uL (0.8-4.8); Lymphocytes % 19.2 %; Mean Corpuscular HGB Conc 32.9 g/dL (30-55); Mean Corpuscular Hemoglobin 28.7 pg (27-33); Mean Corpuscular Volume 87.3 fl (82-101); Mean Platelet Volume 12.2 fL (7.4-10.4); Monocytes # 0.6 10^3/uL (0.2-0.9); Monocytes % 6.9 %; Neutrophils # 5.68 10^3/uL (1.8-7.7); Neutrophils % 70.2 %; Nucleated Red Blood Cells % 0 %; Platelet Count 194 10^3/cmm (157-399); Red Blood Count 4.81 10^6/uL (3.85-5.65); White Blood Count 8.09 10^3/uL (3.29-11.43)
--- NOTE | 2024-07-21 08:15 | W.ED.ALLEREA ---
HPI - Allergic Reaction General: Chief complaint: Allergic Reaction Stated complaint: rash on both legs, burning pain (recent procedure) Time Seen by Provider: 07/21/24 07:51 History of Present Illness: HPI narrative: 62-year-old male presents emergency room with rash on lower extremities began this morning after he got up. He states he put some clothes on he was wearing yesterday he can get a rash in his arms and then his legs burning discomfort no vesicular changes does have some urticarial development on the medial arm and antecubital fossa on the right. No difficulty breathing no other symptoms. He has not taken anything for other than applying some [id number] topical lotion. Associated symptoms: Deny abdominal pain Related Data Home Medications Medication Instructions Recorded Confirmed aspirin 81 mg tablet,delayed 81 mg PO QAM 10/09/19 06/17/24 release (Adult Low Dose Aspirin) multivitamin 1 tab PO DAILY 10/09/19 06/17/24 atorvastatin 80 mg tablet 80 mg PO QPM 03/29/24 06/17/24 metformin 500 mg tablet,extended 1,000 mg PO BID 03/29/24 06/17/24 release 24 hr olanzapine 5 mg tablet 5 mg PO QPM 03/29/24 06/17/24 ropinirole 0.5 mg tablet 0.5 mg PO QPM 03/29/24 06/17/24 cilostazol 100 mg tablet 100 mg PO BID 06/17/24 06/17/24 citalopram 40 mg tablet 40 mg PO QAM 06/17/24 06/17/24 pregabalin 75 mg capsule 75 mg PO DAILY 06/17/24 06/17/24 Previous Rx's Medication Instructions Recorded duloxetine 40 mg capsule,delayed 40 mg PO DAILY 30 days #30 caps 04/17/24 release syringe with needle 3 mL 20 gauge #100 ea 04/17/24 x 1 1/2 (BD Luer-Bin Syringe) testosterone cypionate 200 mg/mL 200 mg SUBCUT .every other week #1 04/30/24 intramuscular oil mL (Depo-Testosterone) dapagliflozin propanediol 10 mg 10 mg PO DAILY #30 tabs 05/08/24 tablet (Farxiga) tamsulosin 0.4 mg capsule 0.4 mg PO DAILY #30 caps 05/08/24 insulin aspart U-100 100 unit/mL See Rx Instructions .Route 06/19/24 (3 mL) subcutaneous pen (Novolog .COMPLEX #15 mL FlexPen U-100 Insulin aspart) insulin glargine 100 unit/mL (3 30 unit (0.3 mL) SUBCUT BID 30 06/19/24 mL) subcutaneous pen (Lantus days #18 mL Solostar U-100 Insulin) spironolactone 25 0.5 tab PO DAILY 30 days #15 tabs 06/19/24 mg-hydrochlorothiazide 25 mg tablet cetirizine 10 mg tablet 10 mg PO BID #20 tabs 07/21/24 Allergies Allergy/AdvReac Type Severity Reaction Status Date / Time No Known Allergies Allergy Verified 07/21/24 08:03 Review of Systems Const: Denies: fever(s) or chills Card: Denies: chest pain Resp: Denies: dyspnea GI: Denies: abdominal pain : Denies: dysuria, urinary frequency or urinary urgency Musc: Denies: neck pain or back pain Skin/Breast: Reports: rash PFSH ED PFSH: Medical History Hypertension Hyperlipidemia Diabetes type 2, controlled Osteoarthritis of left shoulder Surgical History Hx of colonoscopy with polypectomy 3 yrs ago History of esophagogastroduodenoscopy (EGD) History of back surgery History of removal of cyst History of lumpectomy of left breast 02/13/23 subcutaneous mass left breast and lumpectomy- Dr. Rose No significant past surgical history Family History Other Hypertension Social History Smoking and tobacco/nicotine status: never used tobacco/nicotine Second hand smoke exposure: No Alcohol intake: current Alcohol intake frequency: holidays/special occasions only Substance/Drug Use: unknown Adopted: No Caregiver/support person: No Lives independently: Yes Household members: significant other Housing: House Marital status: Life Partner Current occupational status: employed Do you think of yourself as: Straight/Heterosexual Current gender identity: Male Special lanre needs: No Physical Exam Const: GENERAL APPEARANCE: cooperative ORIENTATION/CONSCIOUSNESS: Yes awake, Yes oriented to person, Yes oriented to place and Yes oriented to time HENMT: COMMON NORMALS: normocephalic, atraumatic and hearing grossly normal bilaterally HEAD & SCALP: normocephalic and atraumatic Resp: COMMON NORMALS: normal respiratory effort, No retractions, No use of accessory muscles and clear to auscultation bilaterally AUSCULTATION: clear to auscultation bilaterally Cardio: COMMON NORMALS: regular rate, regular rhythm and No murmurs present (Cardio) RATE: regular rate RHYTHM: regular rhythm GI: COMMON NORMALS: Soft to palpation and No hepatosplenomegaly present AUSCULTATION: Yes normoactive bowel sounds PALPATION: Yes Soft to palpation, No Tenderness to palpation present (GI), No Guarding due to palpation present (GI) and Yes No hepatosplenomegaly present Extremity: COMMON NORMALS: normal to inspection, capillary refill normal, no clubbing, cyanosis or edema, no calf tenderness and no pedal edema Neuro: SENSORIUM/ORIENTATION: Yes oriented to person, Yes oriented to place and Yes oriented to time Skin: OTHER: Patient has mild urticaria particularly on the medial aspect of the right arm. Is also some on the left forearm and on the lower extremities none on the back or chest. Course Vital Signs: Vital signs: Vital Signs Temperature 97.6 F 07/21/24 07:55 Pulse Rate 69 07/21/24 09:08 Respiratory Rate 22 H 07/21/24 07:55 Blood Pressure 130/63 07/21/24 09:08 Pulse Oximetry 96 07/21/24 09:08 Oxygen Delivery Me thod Room Air 07/21/24 07:55 MDM - Allergic Reaction Medical Decision Making Patient had mild urticaria scattered on the extremities. No respiratory distress. Will discharge the patient home. Blood sugar is elevated. Will not discharge him home on any further steroids instead will discharge him home on cetirizine 10 mg twice daily. -Follow-up with primary care doctor if not improving Medical Records I reviewed the patient's medical records. Lab Data I reviewed the patient's lab results. 07/21/24 07:56 07/21/24 07:56 Laboratory Results WBC 8.09 10^3/uL (3.29-11.43) 07/21/24 07:56 RBC 4.81 10^6/uL (3.85-5.65) 07/21/24 07:56 Hgb 13.80 g/dL (11.27-16.99) 07/21/24 07:56 Hct 42.0 % (37-53) 07/21/24 07:56 MCV 87.3 fl (82-101) 07/21/24 07:56 MCH 28.7 pg (27-33) 07/21/24 07:56 MCHC 32.9 g/dL (30-55) 07/21/24 07:56 RDW 13.0 % (12.1-15.1) 07/21/24 07:56 Plt Count 194 10^3/cmm (157-399) 07/21/24 07:56 MPV 12.2 fL (7.4-10.4) H 07/21/24 07:56 Neut % (Auto) 70.2 % 07/21/24 07:56 Lymph % (Auto) 19.2 % 07/21/24 07:56 Braxton % (Auto) 6.9 % 07/21/24 07:56 Eos % (Auto) 2.7 % 07/21/24 07:56 Baso % (Auto) 0.6 % 07/21/24 07:56 Neut # (Auto) 5.68 10^3/uL (1.8-7.7) 07/21/24 07:56 Lymph # (Auto) 1.6 10^3/uL (0.8-4.8) 07/21/24 07:56 Braxton # (Auto) 0.6 10^3/uL (0.2-0.9) 07/21/24 07:56 Eos # (Auto) 0.2 10^3/uL (0.0-0.8) 07/21/24 07:56 Baso # (Auto) 0.1 10^3/uL (0.0-0.1) 07/21/24 07:56 Nucleated RBC % (auto) 0 % 07/21/24 07:56 Nucleated RBCs # 0.0 /100WBC 07/21/24 07:56 Sodium 136 mmol/L (136-145) 07/21/24 07:56 Potassium 4.1 mmol/L (3.5-5.1) 07/21/24 07:56 Chloride 99 mmol/L (98-107) 07/21/24 07:56 Carbon Dioxide 23 mmol/L (22-29) 07/21/24 07:56 Anion Gap 18.1 (5-19) 07/21/24 07:56 BUN 22 mg/dL (8-23) 07/21/24 07:56 Creatinine 1.3 mg/dL (0.7-1.2) H 07/21/24 07:56 GFR Calculation 55.9 mL/min (90-130) L 07/21/24 07:56 Glucose 340 mg/dL (65-115) H 07/21/24 07:56 Calculated Osmolality 299 mOsm/kg (285-295) H 07/21/24 07:56 Calcium 9.2 mg/dL (8.5-10.5) 07/21/24 07:56 Total Bilirubin 0.3 mg/dL (0.15-1.2) 07/21/24 07:56 AST 15 U/L (0-40) 07/21/24 07:56 ALT 12 U/L (0-41) 07/21/24 07:56 Alkaline Phosphatase 48 U/L (40-130) 07/21/24 07:56 C-Reactive Protein 14.0 mg/L (0.0-4.9) H 07/21/24 07:56 Total Protein 7.2 g/dL (6.6-8.7) 07/21/24 07:56 Albumin 4.0 g/dL (3.5-5.2) 07/21/24 07:56 Globulin 3.2 g/dL (1.3-4.6) 07/21/24 07:56 No radiology studies performed this visit Discharge Plan Discharge Patient Disposition: Home Clinical Impression: Allergic reaction, Urticarial rash Condition: Stable Prescriptions: New cetirizine 10 mg tablet 10 mg PO BID Qty: 20 0RF No Action multivitamin Tablet 1 tab PO DAILY aspirin [Adult Low Dose Aspirin] 81 mg tablet,delayed release (DR/EC) 81 mg PO QAM (DME) syringe with needle [BD Luer-Bin Syringe] 3 mL 20 gauge x 1 1/2 syringe See Rx Instructions .Route Qty: 100 0RF Rx Instructions: As directed duloxetine 40 mg capsule,delayed release(DR/EC) 40 mg PO DAILY 30 Days Qty: 30 0RF testosterone cypionate [Depo-Testosterone] 200 mg/mL oil 200 mg SUBCUT .every other week Qty: 1 3RF Farxiga 10 mg tablet 10 mg PO DAILY Qty: 30 2RF tamsulosin 0.4 mg capsule 0.4 mg PO DAILY Qty: 30 4RF atorvastatin 80 mg tablet 80 mg PO QPM olanzapine 5 mg tablet 5 mg PO QPM ropinirole 0.5 mg tablet 0.5 mg PO QPM metformin 500 mg tablet extended release 24 hr 1,000 mg PO BID cilostazol 100 mg tablet 100 mg PO BID citalopram 40 mg tablet 40 mg PO QAM pregabalin 75 mg capsule 75 mg PO DAILY spironolacton-hydrochlorothiaz 25-25 mg tablet 0.5 tab PO DAILY 30 Days Qty: 15 0RF insulin glargine [Lantus Solostar U-100 Insulin] 100 unit/mL (3 mL) insulin pen 30 unit SUBCUT BID 30 Days Qty: 18 0RF insulin aspart U-100 [Novolog FlexPen U-100 Insulin] 100 unit/mL (3 mL) insulin pen See Rx Instructions .ROUTE .COMPLEX Qty: 15 0RF Rx Instructions: inject, subcut, tid after meals, based on sliding scale provided Discharge Orders: Discharge ED (Routine); Ordered 07/21/24 Ordered By: Deo Tavarez Referrals: Donnie Rene MD [Primary Care Provider] - Patient Instructions: Opioid Safety, Pain Management Activity Restrictions/Additional Instructions: Thank you for choosing [facility] for your healthcare needs today. It is very important that you follow up as instructed or that you return to the Emergency Department should you have concerns or if your condition changes or worsens in any way. You were seen in the emergency room with an urticarial rash. Uncertain what precipitated it. Recommend you use cetirizine 10 mg 1 pill twice a day. You were given a single dose of steroids in the emergency room would not recommend further steroids due to your diabetes your blood sugar was significantly elevated today and the steroid would cause it to be more elevated. If symptoms persist recheck with your primary care doctor. Coding Level of Care Code ED Laundry Housekeeping Aide for Carlos Alberto Bangura
[2024-07-21 08:28] LABS: Alanine Aminotransferase 12 U/L (0-41); Alkaline Phosphatase 48 U/L (40-130); Anion Gap 18.1 (5-19); Aspartate Amino Transferase 15 U/L (0-40); Blood Urea Nitrogen 22 mg/dL (8-23); Calcium 9.2 mg/dL (8.5-10.5); Carbon Dioxide 23 mmol/L (22-29); Chloride 99 mmol/L (98-107); Creatinine Clr Calc Pharmacy 67.0693; Globulin 3.2 g/dL (1.3-4.6); Glomerular Filtration Rate 55.9 mL/min (90-130); Glucose 340 mg/dL (65-115); Osmolality Calculated 299 mOsm/kg (285-295); Potassium 4.1 mmol/L (3.5-5.1); Sodium 136 mmol/L (136-145); Total Bilirubin 0.3 mg/dL (0.15-1.2); Total Protein 7.2 g/dL (6.6-8.7)
[2024-07-21] MEDS: methylPREDNISolone sod succ 125 mg/2 mL INJ IVP (08:36)
[2024-07-21] MEDS: diphenhydrAMINE 50 mg/mL SDV 1mL IVP (08:36)
[2024-07-21 09:08] VITALS: BP 130/63; PULSE 69; O2SAT 96
== END 2024-07-21 09:09 | disposition home or self-care (01) ==
PROVIDERS: Emergency Provider Family Medicine; PCP Internal Medicine
DX: T78.40XA Allergy, unspecified, initial encounter (principal); L50.9 Urticaria, unspecified; Z79.84 Long term (current) use of oral hypoglycemic drugs; Z79.4 Long term (current) use of insulin; I10 Essential (primary) hypertension; E78.5 Hyperlipidemia, unspecified; E11.9 Type 2 diabetes mellitus without complications
CPT/HCPCS: 36415; 80053; 85025; 86140; 96374; 96375; 99284; J1200; J2919

== ENCOUNTER 2024-09-07 16:08 | Emergency (ER) | payer BC, SELFPAY ==
[2024-09-07 16:08] VITALS: BP 140/61; PULSE 83; RESP 16; TEMP 37.1; O2SAT 98; BMI 35.2
--- NOTE | 2024-09-07 16:10 | XRR_ITS ---
PROCEDURE INFORMATION: Exam: XR Chest Exam date and time: 09/07/2024 4:21 PM Age: 64 years old Clinical indication: Chest pressure; Patient HX: Chest pain TECHNIQUE: Imaging protocol: Radiologic exam of the chest. Views: 1 view. COMPARISON: CR XR chest 1V portable [id number] 06/17/2024 1:51 PM FINDINGS: Tubes, catheters and devices: None. Lungs: Lung volumes are decreased. Bilateral perihilar pulmonary linear interstitial opacities identified within lungs. The lungs appear otherwise clear. Pleural spaces: No pleural effusion. No pneumothorax. Heart/Mediastinum: Mediastinum and justen appear unremarkable. Vasculature: Mild atherosclerotic calcification demonstrated within the aorta. Bones/joints: Moderate to severe generalized bony degenerative changes. XR/XR chest 1V portable [id number] IMPRESSION: Pulmonary atelectasis or acute infiltrates within perihilar chest bilaterally.
--- NOTE | 2024-09-07 16:11 | ECG_ITS ---
[facility] Test Date: 2024-09-07 Pat Name: Maurice Rizo Department: Room: Gender: Male Social Secretary: : 1960 Requested By: Deo Raygoza Order Number: [id number] Rory MD: YULY WEEMS Measurements Intervals [place] Rate: 84 P: 31 MN: 176 QRS: 261 QRSD: 116 T: 39 QT: 345 QTc: 410 Interpretive Statements SINUS RHYTHM PATTERN CONSISTENT WITH PULMONARY DISEASE RIGHT VENTRICULAR HYPERTROPHY [SOME/ALL OF: PROMINENT R IN V1, LATE TRANSITION, RAD, ALEX, SSS] Compared to ECG 06/17/2024 20:39:15 Atrial abnormality now present Right ventricular hypertrophy now present Left anterior fascicular block no longer present Electronically Signed On 09-07-2024 18:37:40 PATIENT REGISTRATION REP by YULY WEEMS [email or web address]
--- NOTE | 2024-09-07 16:14 | ED_ITS ---
Documented by User: Deo Tavarez DO 09/09/24 06:07 HPI - Chest Pain 2 General: Chief Complaint: Chest Pain Stated Complaint: chest pain Time Seen by Provider: 09/07/24 16:09 History of Present Illness: 64-year-old male presents emergency room complaining of chest pain. It is worse when he takes a deep breath. He has not had any fever sweats or chills. Nonproductive cough. No radiation of discomfort to the neck arms or back. No history of any blood clots. Patient is diabetic and he does smoke. Does have a history of peripheral vascular disease. Episodes of chest pain are very brief in nature lasting few seconds at a time. Pain radiates into the back and into the left arm. No symptoms at this time Associated symptoms: Deny abdominal pain, dyspnea or fever(s) Related Data Home Medications Medication Instructions Recorded Confirmed aspirin 81 mg tablet,delayed 81 mg PO QAM 10/09/19 06/17/24 release (Adult Low Dose Aspirin) multivitamin 1 tab PO DAILY 10/09/19 06/17/24 atorvastatin 80 mg tablet 80 mg PO QPM 03/29/24 06/17/24 metformin 500 mg tablet,extended 1,000 mg PO BID 03/29/24 06/17/24 release 24 hr olanzapine 5 mg tablet 5 mg PO QPM 03/29/24 06/17/24 ropinirole 0.5 mg tablet 0.5 mg PO QPM 03/29/24 06/17/24 cilostazol 100 mg tablet 100 mg PO BID 06/17/24 06/17/24 citalopram 40 mg tablet 40 mg PO QAM 06/17/24 06/17/24 pregabalin 75 mg capsule 75 mg PO DAILY 06/17/24 06/17/24 Previous Rx's Medication Instructions Recorded duloxetine 40 mg capsule,delayed 40 mg PO DAILY 30 days #30 caps 04/17/24 release syringe with needle 3 mL 20 gauge #100 ea 04/17/24 x 1 1/2 (BD Luer-Bin Syringe) testosterone cypionate 200 mg/mL 200 mg SUBCUT .every other week #1 04/30/24 intramuscular oil mL (Depo-Testosterone) dapagliflozin propanediol 10 mg 10 mg PO DAILY #30 tabs 05/08/24 tablet (Farxiga) tamsulosin 0.4 mg capsule 0.4 mg PO DAILY #30 caps 05/08/24 insulin aspart U-100 100 unit/mL See Rx Instructions .Route 06/19/24 (3 mL) subcutaneous pen (Novolog .COMPLEX #15 mL FlexPen U-100 Insulin aspart) insulin glargine 100 unit/mL (3 30 unit (0.3 mL) SUBCUT BID 30 06/19/24 mL) subcutaneous pen (Lantus days #18 mL Solostar U-100 Insulin) spironolactone 25 0.5 tab PO DAILY 30 days #15 tabs 06/19/24 mg-hydrochlorothiazide 25 mg tablet cetirizine 10 mg tablet 10 mg PO BID #20 tabs 07/21/24 albuterol sulfate 90 mcg/actuation 2 inh inhalation Q4H PRN shortness 09/07/24 aerosol inhaler of breath or wheezing #6.7 grams doxycycline hyclate 100 mg tablet 100 mg PO BID 7 days #14 tabs 09/07/24 Allergies Allergy/AdvReac Type Severity Reaction Status Date / Time No Known Allergies Allergy Verified 07/21/24 08:03 Review of Systems 2 Const: Denies: fever(s) or chills Card: Reports: chest pain Resp: Reports: non-productive cough; Denies: dyspnea GI: Denies: abdominal pain : Denies: dysuria, urinary frequency or urinary urgency Musc: Denies: neck pain or back pain Skin/Breast: Denies: rash PFSH ED 2 PFSH: Medical History Hypertension Hyperlipidemia Diabetes type 2, controlled Osteoarthritis of left shoulder Surgical History Hx of colonoscopy with polypectomy 3 yrs ago History of esophagogastroduodenoscopy (EGD) History of back surgery History of removal of cyst History of lumpectomy of left breast 02/13/23 subcutaneous mass left breast and lumpectomy- Dr. Rose No significant past surgical history Family History Other Hypertension Social History Smoking and tobacco/nicotine status: never used tobacco/nicotine Second hand smoke exposure: No Alcohol intake: current Alcohol intake frequency: holidays/special occasions only Substance/Drug Use: unknown Adopted: No Caregiver/support person: No Lives independently: Yes Household members: significant other Housing: House Marital status: Life Partner Current occupational status: employed Do you think of yourself as: Straight/Heterosexual Current gender identity: Male Special lanre needs: No Physical Exam 2 Const: COMMON NORMALS: no acute distress GENERAL APPEARANCE: cooperative and comfortable ORIENTATION/CONSCIOUSNESS: Yes awake, Yes oriented to person, Yes oriented to place and Yes oriented to time HENMT: COMMON NORMALS: normocephalic, atraumatic and hearing grossly normal bilaterally HEAD & SCALP: normocephalic and atraumatic Resp: COMMON NORMALS: normal respiratory effort, No retractions, No use of accessory muscles and clear to auscultation bilaterally AUSCULTATION: clear to auscultation bilaterally Cardio: COMMON NORMALS: regular rate, regular rhythm and No murmurs present (Cardio) RATE: regular rate RHYTHM: regular rhythm GI: COMMON NORMALS: Soft to palpation and No hepatosplenomegaly present A USCULTATION: Yes normoactive bowel sounds PALPATION: Yes Soft to palpation, No Tenderness to palpation present (GI), No Guarding due to palpation present (GI) and Yes No hepatosplenomegaly present Extremity: COMMON NORMALS: normal to inspection, capillary refill normal, no clubbing, cyanosis or edema, no calf tenderness and no pedal edema Neuro: SENSORIUM/ORIENTATION: Yes oriented to person, Yes oriented to place and Yes oriented to time Skin: COMMON NORMALS: no rashes or lesions noted GENERAL SKIN EXAM: no rashes or lesions noted Course 2 Vital Signs: Vital signs: Vital Signs Temperature 98.7 F 09/07/24 16:08 Pulse Rate 75 09/07/24 19:50 Respiratory Rate 18 09/07/24 19:50 Blood Pressure 127/73 09/07/24 19:50 Pulse Oximetry 97 09/07/24 19:50 Oxygen Delivery Me thod Room Air 09/07/24 19:42 MDM - Chest Pain Medical Decision Making Care signed out to Dr. Blancas at change of shift. See final notes for diagnosis and disposition. 62-year-old male patient checked out at shift change. He had not been in pain in the emergency department. He is a bit of discomfort that come back now he says. Describes it as a tightness. He does state that he has been coughing. He has some inflammation/atelectasis in the perihilar chest. Will place him on an inhaler, cover him with doxycycline. His EKG showed no acute changes. His delta troponin is 2. He was offered admission, as he does have risk factors, but would like to go home. He will follow-up as an outpatient. He will return for worsening symptoms despite treatment. Lab Data 09/07/24 16:32 09/07/24 16:32 Radiology Impressions Chest X-Ray 09/07/24 16:10 IMPRESSION: Pulmonary atelectasis or acute infiltrates within perihilar chest bilaterally. Laboratory Results WBC 9.46 10^3/uL (3.29-11.43) 09/07/24 16:32 RBC 4.47 10^6/uL (3.85-5.65) 09/07/24 16:32 Hgb 13.10 g/dL (11.27-16.99) 09/07/24 16:32 Hct 39.3 % (37-53) 09/07/24 16:32 MCV 87.9 fl (82-101) 09/07/24 16:32 MCH 29.3 pg (27-33) 09/07/24 16:32 MCHC 33.3 g/dL (30-55) 09/07/24 16:32 RDW 13.7 % (12.1-15.1) 09/07/24 16:32 Plt Count 189 10^3/cmm (157-399) 09/07/24 16:32 MPV 12.6 fL (7.4-10.4) H 09/07/24 16:32 Neut % (Auto) 65.9 % 09/07/24 16:32 Lymph % (Auto) 25.1 % 09/07/24 16:32 Brule % (Auto) 6.3 % 09/07/24 16:32 Eos % (Auto) 1.9 % 09/07/24 16:32 Baso % (Auto) 0.6 % 09/07/24 16:32 Neut # (Auto) 6.23 10^3/uL (1.8-7.7) 09/07/24 16:32 Lymph # (Auto) 2.4 10^3/uL (0.8-4.8) 09/07/24 16:32 Brule # (Auto) 0.6 10^3/uL (0.2-0.9) 09/07/24 16:32 Eos # (Auto) 0.2 10^3/uL (0.0-0.8) 09/07/24 16:32 Baso # (Auto) 0.1 10^3/uL (0.0-0.1) 09/07/24 16:32 Nucleated RBC % (auto) 0 % 09/07/24 16:32 Nucleated RBCs # 0.0 /100WBC 09/07/24 16:32 Sodium 135 mmol/L (136-145) L 09/07/24 16:32 Potassium 4.7 mmol/L (3.5-5.1) 09/07/24 16:32 Chloride 97 mmol/L (98-107) L 09/07/24 16:32 Carbon Dioxide 22 mmol/L (22-29) 09/07/24 16:32 Anion Gap 20.7 (5-19) H 09/07/24 16:32 BUN 23 mg/dL (8-23) 09/07/24 16:32 Creatinine 1.1 mg/dL (0.7-1.2) 09/07/24 16:32 GFR Calculation 67.8 mL/min (90-130) L 09/07/24 16:32 Glucose 344 mg/dL (65-115) H 09/07/24 16:32 Calculated Osmolality 297 mOsm/kg (285-295) H 09/07/24 16:32 Calcium 9.5 mg/dL (8.5-10.5) 09/07/24 16:32 Total Bilirubin 0.2 mg/dL (0.15-1.2) 09/07/24 16:32 AST 5 U/L (0-40) 09/07/24 16:32 ALT < 5 U/L (0-41) 09/07/24 16:32 Alkaline Phosphatase 64 U/L (40-130) 09/07/24 16:32 Troponin T Baseline 48 ng/L (0-15) H 09/07/24 16:32 Troponin T 120 Minute 50.05 ng/L (0-15) H 09/07/24 18:28 Delta Troponin T 2.05 ABS# (0-10) 09/07/24 18:28 Total Protein 6.5 g/dL (6.6-8.7) L 09/07/24 16:32 Albumin 4.1 g/dL (3.5-5.2) 09/07/24 16:32 Globulin 2.4 g/dL (1.3-4.6) 09/07/24 16:32 Clincial Decision Support The following clinical decision support tools were used to aid in care of the patient HEART Score -> Resulting HEART Score: 4. Discharge Plan Discharge Patient Disposition: Home Clinical Impression: Chest pain Prescriptions: New albuterol sulfate 90 mcg/actuation HFA aerosol inhaler 2 inh INHALATION Q4H PRN (Reason: shortness of breath or wheezing) Qty: 6.7 1RF doxycycline hyclate 100 mg tablet 100 mg PO BID 7 Days Qty: 14 0RF No Action multivitamin Tablet 1 tab PO DAILY aspirin [Adult Low Dose Aspirin] 81 mg tablet,delayed release (DR/EC) 81 mg PO QAM (DME) syringe with needle [BD Luer-Bin Syringe] 3 mL 20 gauge x 1 1/2 syringe See Rx Instructions .Route Qty: 100 0RF Rx Instructions: As directed duloxetine 40 mg capsule,delayed release(DR/EC) 40 mg PO DAILY 30 Days Qty: 30 0RF testosterone cypionate [Depo-Testosterone] 200 mg/mL oil 200 mg SUBCUT .every other week Qty: 1 3RF Farxiga 10 mg tablet 10 mg PO DAILY Qty: 30 2RF tamsulosin 0.4 mg capsule 0.4 mg PO DAILY Qty: 30 4RF atorvastatin 80 mg tablet 80 mg PO QPM olanzapine 5 mg tablet 5 mg PO QPM ropinirole 0.5 mg tablet 0.5 mg PO QPM metformin 500 mg tablet extended release 24 hr 1,000 mg PO BID cilostazol 100 mg tablet 100 mg PO BID citalopram 40 mg tablet 40 mg PO QAM pregabalin 75 mg capsule 75 mg PO DAILY spironolacton-hydrochlorothiaz 25-25 mg tablet 0.5 tab PO DAILY 30 Days Qty: 15 0RF insulin glargine [Lantus Solostar U-100 Insulin] 100 unit/mL (3 mL) insulin pen 30 unit SUBCUT BID 30 Days Qty: 18 0RF insulin aspart U-100 [Novolog FlexPen U-100 Insulin] 100 unit/mL (3 mL) insulin pen See Rx Instructions .ROUTE .COMPLEX Qty: 15 0RF Rx Instructions: inject, subcut, tid after meals, based on sliding scale provided cetirizine 10 mg tablet 10 mg PO BID Qty: 20 0RF Discharge Orders: Discharge ED (Routine); Ordered 09/07/24 Ordered By: Milo Blancas Referrals: Donnie Rene MD [Primary Care Provider] - 4-7 days Patient Instructions: Opioid Safety, Pain Management Activity Restrictions/Additional Instructions: Use the prescribed inhaler every 4 hours while awake for the next 48 hours scheduled, then as needed. Antibiotics as directed. Return for worsening chest pain despite treatment, fever, worsening shortness of breath, any other concerning symptoms. Call your doctor on Monday for an appointment this coming week. 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 [employer] Documented by User: Milo Blancas DO 09/07/24 21:09 HPI - Chest Pain 2 General: Chief Complaint: Chest Pain Stated Complaint: chest pain Time Seen by Provider: 09/07/24 16:09 Related Data Home Medications Medication Instructions Recorded Confirmed aspirin 81 mg tablet,delayed 81 mg PO QAM 10/09/19 06/17/24 release (Adult Low Dose Aspirin) multivitamin 1 tab PO DAILY 10/09/19 06/17/24 atorvastatin 80 mg tablet 80 mg PO QPM 03/29/24 06/17/24 metformin 500 mg tablet,extended 1,000 mg PO BID 03/29/24 06/17/24 release 24 hr olanzapine 5 mg tablet 5 mg PO QPM 03/29/24 06/17/24 ropinirole 0.5 mg tablet 0.5 mg PO QPM 03/29/24 06/17/24 cilostazol 100 mg tablet 100 mg PO BID 06/17/24 06/17/24 citalopram 40 mg tablet 40 mg PO QAM 06/17/24 06/17/24 pregabalin 75 mg capsule 75 mg PO DAILY 06/17/24 06/17/24 Previous Rx's Medication Instructions Recorded duloxetine 40 mg capsule,delayed 40 mg PO DAILY 30 days #30 caps 04/17/24 release syringe with needle 3 mL 20 gauge #100 ea 04/17/24 x 1 1/2 (BD Luer-Bin Syringe) testosterone cypionate 200 mg/mL 200 mg SUBCUT .every other week #1 04/30/24 intramuscular oil mL (Depo-Testosterone) dapagliflozin propanediol 10 mg 10 mg PO DAILY #30 tabs 05/08/24 tablet (Farxiga) tamsulosin 0.4 mg capsule 0.4 mg PO DAILY #30 caps 05/08/24 insulin aspart U-100 100 unit/mL See Rx Instructions .Route 06/19/24 (3 mL) subcutaneous pen (Novolog .COMPLEX #15 mL FlexPen U-100 Insulin aspart) insulin glargine 100 unit/mL (3 30 unit (0.3 mL) SUBCUT BID 30 06/19/24 mL) subcutaneous pen (Lantus days #18 mL Solostar U-100 Insulin) spironolactone 25 0.5 tab PO DAILY 30 days #15 tabs 06/19/24 mg-hydrochlorothiazide 25 mg tablet cetirizine 10 mg tablet 10 mg PO BID #20 tabs 07/21/24 albuterol sulfate 90 mcg/actuation 2 inh inhalation Q4H PRN shortness 09/07/24 aerosol inhaler of breath or wheezing #6.7 grams doxycycline hyclate 100 mg tablet 100 mg PO BID 7 days #14 tabs 09/07/24 Allergies Allergy/AdvReac Type Severity Reaction Status Date / Time No Known Allergies Allergy Verified 07/21/24 08:03 PFSH ED 2 PFSH: Medical History Hypertension Hyperlipidemia Diabetes type 2, controlled Osteoarthritis of left shoulder Surgical History Hx of colonoscopy with polypectomy 3 yrs ago History of esophagogastroduodenoscopy (EGD) History of back surgery History of removal of cyst History of lumpectomy of left breast 02/13/23 subcutaneous mass left breast and lumpectomy- Dr. Rose No significant past surgical history Family History Other Hypertension Social History Smoking and tobacco/nicotine status: never used tobacco/nicotine Second hand smoke exposure: No Alcohol intake: current Alcohol intake frequency: holidays/special occasions only Substance/Drug Use: unknown Adopted: No Caregiver/support person: No Lives independently: Yes Household members: significant other Housing: House Marital status: Life Partner Current occupational status: employed Do you think of yourself as: Straight/Heterosexual Current gender identity: Male Special lanre needs: No Course 2 Vital Signs: Vital signs: Vital Signs Temperature 98.7 F 09/07/24 16:08 Pulse Rate 75 09/07/24 19:50 Respiratory Rate 18 09/07/24 19:50 Blood Pressure 127/73 09/07/24 19:50 Pulse Oximetry 97 09/07/24 19:50 Oxygen Delivery Me thod Room Air 09/07/24 19:42 MDM - Chest Pain Medical Decision Making 62-year-old male patient checked out at shift change. He had not been in pain in the emergency department. He is a bit of discomfort that come back now he says. Describes it as a tightness. He does state that he has been coughing. He has some inflammation/atelectasis in the perihilar chest. Will place him on an inhaler, cover him with doxycycline. His EKG showed no acute changes. His delta troponin is 2. He was offered admission, as he does have risk factors, but would like to go home. He will follow-up as an outpatient. He will return for worsening symptoms despite treatment. Lab Data 09/07/24 16:32 09/07/24 16:32 Radiology Impressions Chest X-Ray 09/07/24 16:10 IMPRESSION: Pulmonary atelectasis or acute infiltrates within perihilar chest bilaterally. Laboratory Results WBC 9.46 10^3/uL (3.29-11.43) 09/07/24 16:32 RBC 4.47 10^6/uL (3.85-5.65) 09/07/24 16:32 Hgb 13.10 g/dL (11.27-16.99) 09/07/24 16:32 Hct 39.3 % (37-53) 09/07/24 16:32 MCV 87.9 fl (82-101) 09/07/24 16:32 MCH 29.3 pg (27-33) 09/07/24 16: MCHC 33.3 g/dL (30-55) 09/07/24 16:32 RDW 13.7 % (12.1-15.1) 09/07/24 16:32 Plt Count 189 10^3/cmm (157-399) 09/07/24 16:32 MPV 12.6 fL (7.4-10.4) H 09/07/24 16:32 Neut % (Auto) 65.9 % 09/07/24 16:32 Lymph % (Auto) 25.1 % 09/07/24 16:32 Brule % (Auto) 6.3 % 09/07/24 16:32 Eos % (Auto) 1.9 % 09/07/24 16:32 Baso % (Auto) 0.6 % 09/07/24 16:32 Neut # (Auto) 6.23 10^3/uL (1.8-7.7) 09/07/24 16:32 Lymph # (Auto) 2.4 10^3/uL (0.8-4.8) 09/07/24 16:32 Brule # (Auto) 0.6 10^3/uL (0.2-0.9) 09/07/24 16:32 Eos # (Auto) 0.2 10^3/uL (0.0-0.8) 09/07/24 16:32 Baso # (Auto) 0.1 10^3/uL (0.0-0.1) 09/07/24 16: Nucleated RBC % (auto) 0 % 09/07/24 16: Nucleated RBCs # 0.0 /100WBC 09/07/24 16:32 Sodium 135 mmol/L (136-145) L 09/07/24 16:32 Potassium 4.7 mmol/L (3.5-5.1) 09/07/24 16:32 Chloride 97 mmol/L (98-107) L 09/07/24 16:32 Carbon Dioxide 22 mmol/L (22-29) 09/07/24 16:32 Anion Gap 20.7 (5-19) H 09/07/24 16:32 BUN 23 mg/dL (8-23) 09/07/24 16:32 Creatinine 1.1 mg/dL (0.7-1.2) 09/07/24 16:32 GFR Calculation 67.8 mL/min (90-130) L 09/07/24 16:32 Glucose 344 mg/dL (65-115) H 09/07/24 16:32 Calculated Osmolality 297 mOsm/kg (285-295) H 09/07/24 16:32 Calcium 9.5 mg/dL (8.5-10.5) 09/07/24 16:32 Total Bilirubin 0.2 mg/dL (0.15-1.2) 09/07/24 16:32 AST 5 U/L (0-40) 09/07/24 16:32 ALT < 5 U/L (0-41) 09/07/24 16:32 Alkaline Phosphatase 64 U/L (40-130) 09/07/24 16:32 Troponin T Baseline 48 ng/L (0-15) H 09/07/24 16:32 Troponin T 120 Minute 50.05 ng/L (0-15) H 09/07/24 18:28 Delta Troponin T 2.05 ABS# (0-10) 09/07/24 18:28 Total Protein 6.5 g/dL (6.6-8.7) L 09/07/24 16:32 Albumin 4.1 g/dL (3.5-5.2) 09/07/24 16:32 Globulin 2.4 g/dL (1.3-4.6) 09/07/24 16:32 All radiology interpretation(s) finalized by discharge Clincial Decision Support The following clinical decision support tools were used to aid in care of the patient HEART Score -> History: Slightly Suspicous, EKG: Normal, Age: 45-64 yrs, Risk Factors: 1 or 2 Risk Factors, Troponin: Baseline Trop >45 ng/L. Resulting HEART Score: 4. Discharge Plan Discharge Patient Disposition: Home Clinical Impression: Chest pain Prescriptions: New albuterol sulfate 90 mcg/actuation HFA aerosol inhaler 2 inh INHALATION Q4H PRN (Reason: shortness of breath or wheezing) Qty: 6.7 1RF doxycycline hyclate 100 mg tablet 100 mg PO BID 7 Days Qty: 14 0RF No Action multivitamin Tablet 1 tab PO DAILY aspirin [Adult Low Dose Aspirin] 81 mg tablet,delayed release (DR/EC) 81 mg PO QAM (DME) syringe with needle [BD Luer-Bin Syringe] 3 mL 20 gauge x 1 1/2 syringe See Rx Instructions .Route Qty: 100 0RF Rx Instructions: As directed duloxetine 40 mg capsule,delayed release(DR/EC) 40 mg PO DAILY 30 Days Qty: 30 0RF testosterone cypionate [Depo-Testosterone] 200 mg/mL oil 200 mg SUBCUT .every other week Qty: 1 3RF Farxiga 10 mg tablet 10 mg PO DAILY Qty: 30 2RF tamsulosin 0.4 mg capsule 0.4 mg PO DAILY Qty: 30 4RF atorvastatin 80 mg tablet 80 mg PO QPM olanzapine 5 mg tablet 5 mg PO QPM ropinirole 0.5 mg tablet 0.5 mg PO QPM metformin 500 mg tablet extended release 24 hr 1,000 mg PO BID cilostazol 100 mg tablet 100 mg PO BID citalopram 40 mg tablet 40 mg PO QAM pregabalin 75 mg capsule 75 mg PO DAILY spironolacton-hydrochlorothiaz 25-25 mg tablet 0.5 tab PO DAILY 30 Days Qty: 15 0RF insulin glargine [Lantus Solostar U-100 Insulin] 100 unit/mL (3 mL) insulin pen 30 unit SUBCUT BID 30 Days Qty: 18 0RF insulin aspart U-100 [Novolog FlexPen U-100 Insulin] 100 unit/mL (3 mL) insulin pen See Rx Instructions .ROUTE .COMPLEX Qty: 15 0RF Rx Instructions: inject, subcut, tid after meals, based on sliding scale provided cetirizine 10 mg tablet 10 mg PO BID Qty: 20 0RF Discharge Orders: Discharge ED (Routine); Ordered 09/07/24 Ordered By: Milo Blancas Referrals: Donnie Rene MD [Primary Care Provider] - 4-7 days Patient Instructions: Opioid Safety, Pain Management Activity Restrictions/Additional Instructions: Use the prescribed inhaler every 4 hours while awake for the next 48 hours scheduled, then as needed. Antibiotics as directed. Return for worsening chest pain despite treatment, fever, worsening shortness of breath, any other concerning symptoms. Call your doctor on Monday for an appointment this coming week. 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
[2024-09-07] MEDS: aspirin 81 mg Chew Tablet 324 MG PO (16:20)
[2024-09-07 16:28] VITALS: BP 140/61; PULSE 82; O2SAT 97
[2024-09-07 16:39] LABS: Basophils # 0.1 10^3/uL (0.0-0.1); Basophils % 0.6 %; Eosinophils # 0.2 10^3/uL (0.0-0.8); Eosinophils % 1.9 %; Hematocrit 39.3 % (37-53); Lymphocytes # 2.4 10^3/uL (0.8-4.8); Lymphocytes % 25.1 %; Mean Corpuscular HGB Conc 33.3 g/dL (30-55); Mean Corpuscular Hemoglobin 29.3 pg (27-33); Mean Corpuscular Volume 87.9 fl (82-101); Mean Platelet Volume 12.6 fL (7.4-10.4); Monocytes # 0.6 10^3/uL (0.2-0.9); Monocytes % 6.3 %; Neutrophils # 6.23 10^3/uL (1.8-7.7); Neutrophils % 65.9 %; Nucleated Red Blood Cells % 0 %; Platelet Count 189 10^3/cmm (157-399); Red Blood Count 4.47 10^6/uL (3.85-5.65); Red Cell Distribution Width 13.7 % (12.1-15.1); White Blood Count 9.46 10^3/uL (3.29-11.43)
[2024-09-07 16:56] LABS: Troponin(5th) Baseline 48 ng/L (0-15)
[2024-09-07 16:59] LABS: Albumin Level 4.1 g/dL (3.5-5.2); Alkaline Phosphatase 64 U/L (40-130); Blood Urea Nitrogen 23 mg/dL (8-23); Calcium 9.5 mg/dL (8.5-10.5); Carbon Dioxide 22 mmol/L (22-29); Chloride 97 mmol/L (98-107); Creatinine Clr Calc Pharmacy 79.2638; Globulin 2.4 g/dL (1.3-4.6); Glomerular Filtration Rate 67.8 mL/min (90-130); Glucose 344 mg/dL (65-115); Osmolality Calculated 297 mOsm/kg (285-295); Sodium 135 mmol/L (136-145); Total Bilirubin 0.2 mg/dL (0.15-1.2); Total Protein 6.5 g/dL (6.6-8.7)
[2024-09-07 17:02] LABS: Anion Gap 20.7 (5-19); Potassium 4.7 mmol/L (3.5-5.1)
[2024-09-07 17:11] LABS: Alanine Aminotransferase < 5 U/L (0-41); Aspartate Amino Transferase 5 U/L (0-40)
[2024-09-07 18:42] VITALS: BP 130/57; PULSE 72; O2SAT 97
[2024-09-07 18:54] LABS: Troponin 5 2HR 50.05 ng/L (0-15); Troponin 5 2HR Delta 2.05 ABS# (0-10)
[2024-09-07 19:42] VITALS: BP 127/73; PULSE 71; RESP 18; O2SAT 98
[2024-09-07 19:50] VITALS: BP 127/73; PULSE 75; RESP 18; O2SAT 97
== END 2024-09-07 19:50 | disposition home or self-care (01) ==
PROVIDERS: Family Medicine; Emergency Provider Emergency Medicine; PCP Internal Medicine
DX: R07.9 Chest pain, unspecified (principal); Z79.82 Long term (current) use of aspirin; Z79.84 Long term (current) use of oral hypoglycemic drugs; Z79.4 Long term (current) use of insulin; E11.9 Type 2 diabetes mellitus without complications; I10 Essential (primary) hypertension; E78.5 Hyperlipidemia, unspecified
CPT/HCPCS: 36415; 71045; 80053; 84484; 85025; 93005; 99285

== ENCOUNTER 2024-10-17 15:53 | Emergency (ER) | payer BC, SELFPAY ==
[2024-10-17 16:18] VITALS: BP 114/63; PULSE 86; RESP 14; TEMP 36.9; O2SAT 98; BMI 34.7
--- NOTE | 2024-10-17 16:55 | CTR_ITS ---
PROCEDURE INFORMATION: Exam: CT Abdomen And Pelvis Without Contrast Exam date and time: 10/17/2024 5:00 PM Age: 64 years old Clinical indication: Abdominal pain; Localized; Right; Additional info: Flank pain TECHNIQUE: Imaging protocol: Computed tomography of the abdomen and pelvis without contrast. Radiation optimization: All CT scans at this facility use at least one of these dose optimization techniques: automated exposure control; mA and/or kV adjustment per patient size (includes targeted exams where dose is matched to clinical indication); or iterative reconstruction. COMPARISON: CT abdomen pelvis w con* [id number] 08/09/2023 2:12 AM RADIATION DOSE METRICS: Total DLP (mGy-cm): 1082.73 FINDINGS: Diaphragm: A small hiatal hernia is present. Liver: Unremarkable.No mass. Gallbladder and biliary ducts: Normal. No calcified stones. No ductal dilation. Pancreas: There are scattered pancreatic calcifications compatible sequela of chronic pancreatitis versus vascular calcifications. No findings of acute pancreatitis. Spleen: The spleen is normal. Adrenal glands: Normal. No mass. Kidneys and ureters: There is no evidence of hydronephrosis. There is no evidence of renal calcifications. There is unchanged nonspecific mild perinephric fat stranding. Stomach and bowel: There is no evidence of intestinal perforation or obstruction. There is excessive colonic stool content. There is a large amount of stool in the rectum with rectal wall thickening and haziness of the adjacent fat concerning for stercoral colitis. Impaction can not be excluded. Appendix: A normal appendix is identified. Intraperitoneal space: Unremarkable. No free air. No significant fluid collection. Vasculature: Unremarkable.No abdominal aortic aneurysm. Lymph nodes: Unremarkable.No enlarged lymph nodes. Urinary bladder: There is nonspecific bladder wall thickening. This may be related to incomplete distention. Reproductive: The prostate demonstrates moderate nonspecific enlargement. The seminal vesicles are normal. Bones/joints: Moderate to severe degenerative changes in the spine. Mild degenerative retrolisthesis of L5 on S1. Soft tissues: Unremarkable. CT/CT kidney stone [id number] IMPRESSION: There is a large amount of stool in the rectum with rectal wall thickening and haziness of the adjacent fat concerning for stercoral colitis. Impaction can not be excluded.
[2024-10-17 17:23] LABS: Basophils # 0.1 10^3/uL (0.0-0.1); Basophils % 0.5 %; Eosinophils # 0.2 10^3/uL (0.0-0.8); Eosinophils % 1.4 %; Hematocrit 40.3 % (37-53); Lymphocytes # 2.5 10^3/uL (0.8-4.8); Lymphocytes % 22.6 %; Mean Corpuscular HGB Conc 33.3 g/dL (30-55); Mean Corpuscular Hemoglobin 29.2 pg (27-33); Mean Corpuscular Volume 87.8 fl (82-101); Mean Platelet Volume 12.9 fL (7.4-10.4); Monocytes # 0.7 10^3/uL (0.2-0.9); Monocytes % 6.2 %; Neutrophils # 7.57 10^3/uL (1.8-7.7); Nucleated Red Blood Cells % 0 %; Platelet Count 186 10^3/cmm (157-399); Red Blood Count 4.59 10^6/uL (3.85-5.65); Red Cell Distribution Width 13.4 % (12.1-15.1); White Blood Count 10.96 10^3/uL (3.29-11.43)
[2024-10-17 17:34] LABS: Alanine Aminotransferase 10 U/L (0-41); Albumin Level 4.2 g/dL (3.5-5.2); Alkaline Phosphatase 63 U/L (40-130); Anion Gap 17.4 (5-19); Aspartate Amino Transferase 13 U/L (0-40); Blood Urea Nitrogen 30 mg/dL (8-23); Calcium 9.5 mg/dL (8.5-10.5); Carbon Dioxide 22 mmol/L (22-29); Chloride 102 mmol/L (98-107); Glomerular Filtration Rate 67.8 mL/min (90-130); Glucose 220 mg/dL (65-115); Osmolality Calculated 297 mOsm/kg (285-295); Potassium 4.4 mmol/L (3.5-5.1); Sodium 137 mmol/L (136-145); Total Bilirubin 0.2 mg/dL (0.15-1.2); Total Protein 7.2 g/dL (6.6-8.7)
[2024-10-17 18:42] LABS: Bilirubin Urine Negative (Negative); Blood Urine Negative (Negative); Glucose Urine UA 3+ (Normal); Ketones Urine Negative (Negative); Leukocyte Esterase Urine Negative (Negative); Nitrate Urine Negative (Negative); Protein Urine 1+ (Negative); Specific Gravity, Urine 1.028 (1.005-1.030); Urine Appearance Clear (CLEAR); Urine Color Yellow (Yellow); Urobilinogen Urine 0.2 mg/dL (Negative)
[2024-10-17 18:53] VITALS: PULSE 90; RESP 15; O2SAT 99
[2024-10-17 18:54] LABS: Add Urine Microscopic? YES
[2024-10-17 18:58] LABS: Add Urine Culture? No; RBC Urine 0-4 /hpf (0-2)
--- NOTE | 2024-10-17 19:06 | W.ED.MALEGU ---
HPI - Male Genitourinary General: Chief complaint: Urogenital-Male Stated complaint: kidney problems Time Seen by Provider: 10/17/24 18:23 History of Present Illness: Presents to the ER from the urgent care with complaints of right flank pain started yesterday t. And got significant worse throughout the night. He went to the urgent care they saw some blood in his urine they told him to come over here because he was concerned about a kidney stone. Patient describes pain as sharp and deep worse when takes a big deep breath. Pain does cause him mild nausea. Patient denies any fever chills. Patient is never had any pain like this before. Related Data Home Medications ?Medication ?Instructions ?Recorded ?Confirmed aspirin 81 mg tablet,delayed 81 mg PO QAM 10/09/19 10/17/24 release (Adult Low Dose Aspirin) multivitamin 1 tab PO DAILY 10/09/19 10/17/24 atorvastatin 80 mg tablet 80 mg PO QPM 03/29/24 10/17/24 metformin 500 mg tablet,extended 1,000 mg PO BID 03/29/24 10/17/24 release 24 hr olanzapine 5 mg tablet 5 mg PO QPM 03/29/24 10/17/24 ropinirole 0.5 mg tablet 0.5 mg PO QPM 03/29/24 10/17/24 cilostazol 100 mg tablet 100 mg PO BID 06/17/24 10/17/24 citalopram 40 mg tablet 40 mg PO QAM 06/17/24 10/17/24 pregabalin 75 mg capsule 75 mg PO DAILY 06/17/24 10/17/24 Previous Rx's ?Medication ?Instructions ?Recorded duloxetine 40 mg capsule,delayed 40 mg PO DAILY 30 days #30 caps 04/17/24 release syringe with needle 3 mL 20 gauge #100 ea 04/17/24 x 1 1/2 (BD Luer-Bin Syringe) testosterone cypionate 200 mg/mL 200 mg SUBCUT .every other week #1 04/30/24 intramuscular oil mL (Depo-Testosterone) dapagliflozin propanediol 10 mg 10 mg PO DAILY #30 tabs 05/08/24 tablet (Farxiga) tamsulosin 0.4 mg capsule 0.4 mg PO DAILY #30 caps 05/08/24 insulin aspart U-100 100 unit/mL See Rx Instructions .Route 06/19/24 (3 mL) subcutaneous pen (Novolog .COMPLEX #15 mL FlexPen U-100 Insulin aspart) insulin glargine 100 unit/mL (3 30 unit (0.3 mL) SUBCUT BID 30 06/19/24 mL) subcutaneous pen (Lantus days #18 mL Solostar U-100 Insulin) spironolactone 25 0.5 tab PO DAILY 30 days #15 tabs 06/19/24 mg-hydrochlorothiazide 25 mg tablet cetirizine 10 mg tablet 10 mg PO BID #20 tabs 07/21/24 albuterol sulfate 90 mcg/actuation 2 inh inhalation Q4H PRN shortness 09/07/24 aerosol inhaler of breath or wheezing #6.7 grams Allergies Allergy/AdvReac Type Severity Reaction Status Date / Time No Known Allergies Allergy Verified 10/17/24 16:23 Review of Systems General: Reports: 10 or more systems reviewed and unremarkable except in HPI and below PFSH ED PFSH: Medical History Hypertension Hyperlipidemia Diabetes type 2, controlled Osteoarthritis of left shoulder Surgical History Hx of colonoscopy with polypectomy 3 yrs ago History of esophagogastroduodenoscopy (EGD) History of back surgery History of removal of cyst History of lumpectomy of left breast 02/13/23 subcutaneous mass left breast and lumpectomy- Dr. Rose No significant past surgical history Family History Other Hypertension Social History Smoking and tobacco/nicotine status: current every day tobacco/nicotine user cigars Cigars smoked per week: 7 Years smoked cigars: 12 Cigar details: smokes 1 per day Second hand smoke exposure: No Alcohol intake: current Alcohol intake frequency: holidays/special occasions only Substance/Drug Use: unknown Adopted: No Caregiver/support person: No Lives independently: Yes Household members: significant other Housing: House Marital status: Life Partner Current occupational status: employed Do you think of yourself as: Straight/Heterosexual Current gender identity: Male Special lanre needs: No Physical Exam Const: COMMON NORMALS: no acute distress, average body habitus, patient oriented x3, no limitations, healthy appearing, alert and well nourished HENMT: COMMON NORMALS: normocephalic, atraumatic, hearing grossly normal bilaterally, external ears normal, Normal external nose present, moist oral mucous membranes and oropharynx normal HEAD & SCALP: normocephalic and atraumatic NOSE: Normal external nose present EXTERNAL EAR: Yes external ears normal Neck/C-Spine: COMMON NORMALS: no JVD Chest: COMMONS NORMALS: normal inspection of the chest and normal palpation of entire chest wall Resp: COMMON NORMALS: normal respiratory effort, No retractions, No use of accessory muscles and clear to auscultation bilaterally AUSCULTATION: clear to auscultation bilaterally Cardio: COMMON NORMALS: no JVD, regular rate, regular rhythm, S1 normal heart sound present, S2 normal heart sound present, No gallops present (Cardio), No clicks present (Cardio), No murmurs present (Cardio) and No rub (Cardio) RATE: regular rate RHYTHM: regular rhythm HEART SOUNDS: S1 normal heart sound present and S2 normal heart sound present GI: COMMON NORMALS: Normal to inspection, nondistended, normoactive bowel sounds present, Soft to palpation, No hepatosplenomegaly present and no masses; negative for non-tender (Mild tender to palpation right upper quadrant right flank) PALPATION: Yes Soft to palpation and Yes No hepatosplenomegaly present Neuro: COMMON NORMALS: patient oriented x3 SENSORIUM/ORIENTATION: Yes alert Course Vital Signs: Vital signs: Vital Signs Temperature 98.4 F 10/17/24 16:18 Pulse Rate 90 10/17/24 18:53 Respiratory Rate 15 10/17/24 18:53 Blood Pressure 114/63 10/17/24 16:18 Pulse Oximetry 99 10/17/24 18:53 Oxygen Delivery Me thod Room Air 10/17/24 16:18 MDM - Male Medical Decision Making Lab work was reviewed CBC CMP urinalysis all essentially unremarkable, CT scan of the abdomen pelvis did not show any stones but showed stercoral colitis. Patient was instructed to take [id number] stool softeners for the next 2 or 3 days to have several more bowel movements than normal and try to cleanse himself out. Patient understood. Patient will be discharged home. Medical Records I reviewed the patient's medical records. Lab Data I reviewed the patient's lab results. 10/17/24 16:48 10/17/24 16:48 Radiology Impressions Abdomen/Pelvis CT 10/17/24 16:55 IMPRESSION: There is a large amount of stool in the rectum with rectal wall thickening and haziness of the adjacent fat concerning for stercoral colitis. Impaction can not be excluded. Laboratory Results WBC 10.96 10^3/uL (3.29-11.43) 10/17/24 16:48 RBC 4.59 10^6/uL (3.85-5.65) 10/17/24 16:48 Hgb 13.40 g/dL (11.27-16.99) 10/17/24 16:48 Hct 40.3 % (37-53) 10/17/24 16:48 MCV 87.8 fl (82-101) 10/17/24 16:48 MCH 29.2 pg (27-33) 10/17/24 16:48 MCHC 33.3 g/dL (30-55) 10/17/24 16:48 RDW 13.4 % (12.1-15.1) 10/17/24 16:48 Plt Count 186 10^3/cmm (157-399) 10/17/24 16:48 MPV 12.9 fL (7.4-10.4) H 10/17/24 16:48 Neut % (Auto) 69.0 % 10/17/24 16:48 Lymph % (Auto) 22.6 % 10/17/24 16:48 Mayes % (Auto) 6.2 % 10/17/24 16:48 Eos % (Auto) 1.4 % 10/17/24 16:48 Baso % (Auto) 0.5 % 10/17/24 16:48 Neut # (Auto) 7.57 10^3/uL (1.8-7.7) 10/17/24 16:48 Lymph # (Auto) 2.5 10^3/uL (0.8-4.8) 10/17/24 16:48 Mayes # (Auto) 0.7 10^3/uL (0.2-0.9) 10/17/24 16:48 Eos # (Auto) 0.2 10^3/uL (0.0-0.8) 10/17/24 16:48 Baso # (Auto) 0.1 10^3/uL (0.0-0.1) 10/17/24 16:48 Nucleated RBC % (auto) 0 % 10/17/24 16:48 Nucleated RBCs # 0.0 /100WBC 10/17/24 16:48 Sodium 137 mmol/L (136-145) 10/17/24 16:48 Potassium 4.4 mmol/L (3.5-5.1) 10/17/24 16:48 Chloride 102 mmol/L (98-107) 10/17/24 16:48 Carbon Dioxide 22 mmol/L (22-29) 10/17/24 16:48 Anion Gap 17.4 (5-19) 10/17/24 16:48 BUN 30 mg/dL (8-23) H 10/17/24 16:48 Creatinine 1.1 mg/dL (0.7-1.2) 10/17/24 16:48 GFR Calculation 67.8 mL/min (90-130) L 10/17/24 16:48 Glucose 220 mg/dL (65-115) H 10/17/24 16:48 Calculated Osmolality 297 mOsm/kg (285-295) H 10/17/24 16:48 Calcium 9.5 mg/dL (8.5-10.5) 10/17/24 16:48 Total Bilirubin 0.2 mg/dL (0.15-1.2) 10/17/24 16:48 AST 13 U/L (0-40) 10/17/24 16:48 ALT 10 U/L (0-41) 10/17/24 16:48 Alkaline Phosphatase 63 U/L (40-130) 10/17/24 16:48 Total Protein 7.2 g/dL (6.6-8.7) 10/17/24 16:48 Albumin 4.2 g/dL (3.5-5.2) 10/17/24 16:48 Globulin 3.0 g/dL (1.3-4.6) 10/17/24 16:48 Urine Color Yellow (Yellow) 10/17/24 17:08 Urine Appearance Clear (CLEAR) 10/17/24 17:08 Urine pH 5.0 (5-7) 10/17/24 17:08 Ur Specific [place] 1.028 (1.005-1.030) 10/17/24 17:08 Urine Protein 1+ (Negative) A 10/17/24 17:08 Urine Glucose (UA) 3+ (Normal) H 10/17/24 17:08 Urine Ketones Negative (Negative) 10/17/24 17:08 Urine Blood Negative (Negative) 10/17/24 17:08 Urine Nitrate Negative (Negative) 10/17/24 17:08 Urine Bilirubin Negative (Negative) 10/17/24 17:08 Urine Urobilinogen 0.2 mg/dL (Negative) 10/17/24 17:08 Ur Leukocyte Esterase Negative (Negative) 10/17/24 17:08 Urine RBC 0-4 /hpf (0-2) H 10/17/24 17:08 Urine WBC None /hpf (0-5) 10/17/24 17:08 Amorphous Sediment Not Reportable 10/17/24 17:08 Urine Bacteria None /hpf (NONE) 10/17/24 17:08 Urine Mucus None /hpf 10/17/24 17:08 All radiology interpretation(s) finalized by discharge Discharge Plan Discharge Patient Disposition: Home Clinical Impression: Acute abdominal pain in right flank, Stercoral colitis Condition: Stable Prescriptions: No Action multivitamin Tablet 1 tab PO DAILY aspirin [Adult Low Dose Aspirin] 81 mg tablet,delayed release (DR/EC) 81 mg PO QAM (DME) syringe with needle [BD Luer-Bin Syringe] 3 mL 20 gauge x 1 1/2 syringe See Rx Instructions .Route Qty: 100 0RF Rx Instructions: As directed duloxetine 40 mg capsule,delayed release(DR/EC) 40 mg PO DAILY 30 Days Qty: 30 0RF testosterone cypionate [Depo-Testosterone] 200 mg/mL oil 200 mg SUBCUT .every other week Qty: 1 3RF Farxiga 10 mg tablet 10 mg PO DAILY Qty: 30 2RF tamsulosin 0.4 mg capsule 0.4 mg PO DAILY Qty: 30 4RF atorvastatin 80 mg tablet 80 mg PO QPM olanzapine 5 mg tablet 5 mg PO QPM ropinirole 0.5 mg tablet 0.5 mg PO QPM metformin 500 mg tablet extended release 24 hr 1,000 mg PO BID albuterol sulfate 90 mcg/actuation HFA aerosol inhaler 2 inh INHALATION Q4H PRN (Reason: shortness of breath or wheezing) Qty: 6.7 1RF cilostazol 100 mg tablet 100 mg PO BID citalopram 40 mg tablet 40 mg PO QAM pregabalin 75 mg capsule 75 mg PO DAILY spironolacton-hydrochlorothiaz 25-25 mg tablet 0.5 tab PO DAILY 30 Days Qty: 15 0RF insulin glargine [Lantus Solostar U-100 Insulin] 100 unit/mL (3 mL) insulin pen 30 unit SUBCUT BID 30 Days Qty: 18 0RF insulin aspart U-100 [Novolog FlexPen U-100 Insulin] 100 unit/mL (3 mL) insulin pen See Rx Instructions .ROUTE .COMPLEX Qty: 15 0RF Rx Instructions: inject, subcut, tid after meals, based on sliding scale provided cetirizine 10 mg tablet 10 mg PO BID Qty: 20 0RF Discharge Orders: Discharge ED (Routine); Ordered 10/17/24 Ordered By: Bertin James Referrals: Donnie Rene MD [Primary Care Provider] - 1 week Patient Instructions: Flank Pain (ED), Colitis (ED) Activity Restrictions/Additional Instructions: Your evaluation today in ER was unremarkable for right flank pain. You do not have any kidney stones. Your CT did show stercoral colitis which is inflammation of the colon secondary to stool. It is suggested he take [id number] laxatives and stool softeners for the next 2 to 3 days and have several more bowel movements and normal to try to clean yourself out. As this may help. Please follow-up with your family practice physician in the next 7 to 10 days for further evaluation treatment as needed. Print Language: Luxembourgish Coding Level of Care Code ED Transportation Inspector for Carlos Alberto [facility]ura
[2024-10-17 19:20] VITALS: BP 141/77; PULSE 76; RESP 16; O2SAT 100
[2024-10-17 19:21] VITALS: BP 141/77; PULSE 75; O2SAT 100
[2024-10-17] MEDS: ketorolac 10 mg Tablet PO (19:30)
== END 2024-10-17 19:23 | disposition home or self-care (01) ==
PROVIDERS: Emergency Medicine; Emergency Provider Emergency Medicine; PCP Internal Medicine
DX: R10.9 Unspecified abdominal pain (principal); K52.89 Other specified noninfective gastroenteritis and colitis; Z79.82 Long term (current) use of aspirin; Z79.84 Long term (current) use of oral hypoglycemic drugs; Z79.4 Long term (current) use of insulin; F17.290 Nicotine dependence, other tobacco product, uncomplicated; E11.9 Type 2 diabetes mellitus without complications; E78.5 Hyperlipidemia, unspecified; I10 Essential (primary) hypertension
CPT/HCPCS: 36415; 74176; 80053; 81000; 81001; 85025; 99284

== ENCOUNTER 2025-03-12 14:41 | Inpatient (IN) | payer BC, SELFPAY ==
--- OUTSIDE RECORDS SUMMARY | 2018-08-31 11:15 | XMS_ITS | Continuity of Care Document ---
Author Organization [facility] Address [address] [place] [address] Phone Care Team Providers Care Laundrette Owner Name Role Phone Abdifatah Arnold Unavailable Unavailable [...] Providers Copied on Encounter OFFICE/OUTPA TIENT VISIT, [facility] [place] [facility], [address] [place] [address], [id number] , [place] tel: [phone] [facility] Blood in stool (chief complaint) Rectal bleedingHistory of hemorrhoids 9 Brodie Gardiner. [address] [place] [address], [id number] [place], [place], [id number], [place]. tel:[phone] Referring Provider: Campbell Zaragoza , [address] [place], [address]. tel:[phone] [facility], [address] [place] [address], [id number] , [place] tel: [phone] [facility] No Information 8 No Information Referring Provider: Alex Mishra , [address] [id number] [address] [place] [address], [address]. OFFICE/OUTPA TIENT VISIT, [facility], [address] [place] [address], [id number] , [place] tel: [facility] No Information 8 Danica Johnson. [address] [place] [address] Road, [id number] [place] [address], [address], [place]. Referring Provider: Alex Mishra , [address] [place] [address] Road [id number] [address] [place] [address], [address]. OFFICE/OUTPA TIENT VISIT, [facility], [address] [place] [address], [id number] , [place] tel:[phone] [facility] Cyst (chief complaint) Abscess of left thighPilonidal cyst with abscess Edeza Abdifatah. [address] [place] [address] Rd, [id number] [place] [address], [id number], [place]. tel: [phone] Referring Provider: Campbell Zaragoza , [address] [place] [address], [address]. tel:[phone] OFFICE/OUTPA TIENT VISIT, [facility], [address] [place] [address], [id number] , [place] tel:[phone] [facility] Possible Cyst to groin area (chief complaint) Pilonidal cyst with abscessAbscess of left thigh Taraa Abdifatah. [address] [place] [address], [id number] [place], [place], [id number], [place]. tel: [phone] Referring Provider: Campbell Zaragoza , [address] [place], [address]. tel:[phone] OFFICE/OUTPA TIENT VISIT, [facility], [address] [place] [address], [id number] , [place] tel: [phone] [facility] No Information 7 Danica Johnson. [address] [place] [address] Road, [id number] [place], [address], [place]. Referring Provider: Alex Mishra , [address] [place] [address] Road [id number] [address] [place] [address], [address]. OFFICE/OUTPA TIENT VISIT, [facility], [address] [place] [address], [id number] , [place] tel:[phone] [facility] URI (chief complaint) Acute sinusitisAcute bronchitis Saeng-Inh Chanphen. [address] [place] [address] Rd, [id number] [place], [place], [id number], [place]. tel: [phone] OFFICE/OUTPA TIENT VISIT, [facility], [address] [place], [place], [id number] , [place] tel:[phone] [facility] pilonidal cyst (chief complaint) Pilonidal cyst with abscess Saeng-Inh Chanphen. [address] [place] [address] Rd, [id number] [place], [place], [id number], [place]. tel: [phone] OFFICE/OUTPA TIENT VISIT, [facility], [address] [place] [address], [place], [id number] , [place] tel: [facility] No Information 5 Danica Johnson. [address] [place] [address] Road, [id number] [place], [address], [place]. Referring Provider: Alex Mishra , [address] [place] [id number] [place] [address], [address]. [facility], [address] [place] [address], [id number] , [place] tel: [phone] [facility] No Information 5 No Information Referring Provider: Alex Mishra , [address] [place] [address] [id number] [place] [address], [address]. OFFICE/OUTPA TIENT VISIT, [facility], [address] [place], [place], [id number] , [place] tel:[phone] [facility] No Information 5 Danica Johnson. [address] [place] [address] Road, [id number] [place], [address], [place]. Referring Provider: Alex Mishra , [address] [place] [address] [id number] [place] [address], [address]. OFFICE OUTPATIENT VISIT [facility], [address] [place] [address], [id number] , tel: [phone] [facility] Abscess on right side of buttock (chief complaint) Pilonidal cyst with abscess WallyMaria L Jasonvenkat. [address] [place] [address], [id number] [place], [id number], . tel: [phone] [facility], [address] [place] [address], [id number] , tel:[phone] [facility] No Information No Information Referring Provider: Nikhil Tao, [address] [place] [address] [id number], [address] [place] [address] . tel:[phone] [facility], [address] [place] [address], [id number] , tel:[phone] [facility] No Information 5 Danica Johnson. [address] [place] [address] Road, [id number] [place] [address], [facility], . Referring Provider: Alex Mishra , [address] [place] [address] [id number], [facility]. OFFICE/OUTPA TIENT VISIT, [facility], [address] [place] [address], [id number] , tel: [phone] [facility] No Information Hung Ramos. [address] [place] [address], [id number] [place] [address], [address] [place] [address], . tel: [phone] Referring Provider: Yadiel Holly, [address] [place] [address] Road [id number] [place] [address], [id number] . tel:[phone] Family History Family Member Type Diagnosis Age At Onset No Information Payers Payer name Insurance type Covered green party ID Jeny collado(s) Bharath Alejandre [id number] Social History Type Description Quantity Date Captured [...] check Related to Abscess of left thigh Wound care instructi ons given to patientRx augmentin Related to Pilonidal cyst with abscess Will return in 1 day for wound check and repacking of abscess Related to Abscess of left thigh Drink lots of fluid, get lots of rest, complete your antibiotic as instructed. Return to the clinic if worsen. Related to Acute sinusitis Drink lots of fluid, get lots of rest, complete your antibiotic as directed, consider sinus rinse, follow up if not better or worsen. Pt to take OTC Robitussin DM PRN. Follow up with PCP Related to Acute bronchitis Repacked wound with 1.5 inches of 1/4 inches wide plain packing strip, dry dressing placed. Patient is to return in 2 days for repacking. Related to Pilonidal cyst with abscess Keep area clean and dry. Use warm soapy water to clean the area. Apply and take medications as directed. Take Ibuprofen in between Vicodin. Follow up with a cleaning technician. Related to Pilonidal cyst with abscess Assessments Type Assessment Date assessment Rectal bleeding assessment History of hemorrhoids 19 Patient Care Teams Name Effective Dates (start - stop) Status Members No Information
[2025-03-12] VITALS (11 sets, daily range): BP systolic 110–150; BP diastolic 56–65; PULSE 60–70; RESP 13–24; TEMP 36.8–37; O2SAT 93–100; BMI 34.4; BMI 35.5
--- OUTSIDE RECORDS SUMMARY | 2025-03-12 14:45 | XMS_ITS | Clinical Summary ---
Author Organization [facility] Address [address] [place] [address] Care Team Providers Care Boarding Room Fixer Name Role Phone Unavailable Primary Care Provider Unavailabl e Allergies No known active allergies Medications insulin glargine (LANTUS) 100 unit/mL pen syringe Inject 55 Units by subcutaneous injection 2 times daily. 1 Active diphenhydrAMINE- acetaminophen (TYLENOL PM) 25-500 mg Tablet Take 2 Tablets by mouth nightly as needed for Insomnia. 1 Active gabapentin (NEURONTIN) 300 mg capsuleIndicatio ns:History of back surgery,Chronic bilateral low back pain without sciatica Take 1 Capsule (300 mg) by mouth 3 times daily. 90 Capsule 1 1 Active lisinopril-hydro CHLOROthiazide (ZESTORETIC) 20-25 mg tabletIndication s:HTN (hypertension), benign Take 1 Tablet by mouth daily. 90 Tablet 3 1 Active aspirin (ECOTRIN EC) 81 mg Tablet, Delayed Release (E.C.) Take 81 mg by mouth daily. 1 Active metFORMIN (GLUCOPHAGE XR) 500 mg Extended Release 24 hour tablet Take 2 Tablets (1,000 mg) by mouth 2 times daily with meals. 360 Tablet 0 1 Active atorvastatin (LIPITOR) 40 mg tablet Take 1 Tablet (40 mg) by mouth daily. 90 Tablet 1 Active amLODIPine (NORVASC) 5 mg tabletIndication s:HTN (hypertension), benign Take 1 tablet by mouth once daily 30 Tablet 1 Active glimepiride (AMARYL) 4 mg tabletIndication s:Type 2 diabetes mellitus without complication, without long-term current use of insulin (CMS/HCC) TAKE 1 TABLET BY MOUTH TWICE DAILY WITH MEALS 180 Tablet 1 1 Active citalopram (CeleXA) 40 mg tablet Take 1 tablet by mouth once daily 30 Tablet 1 Active amoxicillin-clav ulanate (AUGMENTIN) 875-125 mg tablet Take 1 Tablet by mouth every 12 hours. 20 Tablet 4 Active Farxiga 10 mg Tablet Take 1 Tablet by mouth daily. 4 Active fenofibrate micronized (LOFIBRA) 134 mg Capsule 1 cap orally once a day Active ketorolac tromethamine (TORADOL) 10 mg tablet 1 tab orally 3 times a day Active lisinopriL (PRINIVIL) 20 mg tablet Take 1 Tablet by mouth daily. 4 Active methylPREDNISolo ne (MEDROL DOSPACK) 4 mg Tablets, Dose Pack TAKE DIRECTED PER package INSERT 4 Active tamsulosin (FLOMAX) 0.4 mg capsule Take 0.4 mg by mouth daily. Active naproxen (NAPROSYN) 375 mg tablet Take 1 Tablet (375 mg) by mouth every 8 hours as needed for Pain, Moderate. 20 Tablet 4 Active metroNIDAZOLE (FlagyL) 500 mg tablet Take 1 Tablet (500 mg) by mouth 3 times daily. 20 Tablet 4 Active HYDROcodone-acet aminophen (NORCO) 7.5-325 mg TabletIndication s:Left breast abscess TAKE ONE TABLET BY MOUTH EVERY 8 HOURS NEEDED 10 Tablet 4 Active Active Problems Problem Noted Date Diagnosed Date Left breast abscess 10/12/2023 Blister of breast without in fection, left, initial encounter 09/26/2023 Combined form of senile cataract of both eyes Hyperopia with astigmatism and presbyopia, bilat eral 01/28/2021 Type 2 diabetes mellitus wit h hyperglycemia, with long-term current use of insulin 11/20/2020 Generalized anxiety disorder 11/20/2020 HLD (hyperlipidemia) 11/20/2020 Tobacco use (cigars, former cigs with 2.5pyh) History of back surgery 11/20/2020 Severe obesity (BMI 35.0-39.9) with comorbidity 11/20/2020 HTN (hypertension), benign 11/20/2020 Chronic bilateral low back pain without sciatica 11/20/2020 Aortic atherosclerosis 11/20/2020 Family History Medical History Relation Name Comments Diabetes Father Heart Disease Father Hypertension Father Stroke Father Diabetes Mother Heart Disease Mother Hypertension Mother Colon Cancer Neg Hx Relation Name Status Comments Father Mother Alive Social History Tobacco Use Types Packs/Day Years Used Date Smoking Tobacco: Every Day Cigars Smokeless Tobacco: Never Tobacco Cessation:Ready to Q uit: Not Asked; Counseling Given: Not Answered Comments:Quit smoking: cigars currenlty, prior 2.5 pyh of cigs Alcohol Use Standard Drinks/Week Comments Yes 0 (1 standard drink = 0.6 oz pur e alcohol) Sex and Gender Information Value Date Recorded Sex Assigned at Not on file 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 Gender Identity Not on file Sexual Orientation Not on file Last Filed Vital Signs Vital Sign Reading Time Taken Comments Blood Pressure 138/70 11/07/2023 1:49 PM CDT Pulse 87 11/07/2023 1:49 PM CDT Temperature 36.2 C (97.2 F) 10/27/2023 3:23 PM MICROSTRATEGY ARCHITECT Respiratory Rate 18 10/27/2023 4:00 PM MICROSTRATEGY ARCHITECT Oxygen Saturation 98% 11/07/2023 1:49 PM CDT Inhaled Oxygen Concentration - - Weight 103.9 kg (229 lb) 11/07/2023 1:49 PM CDT Height 170.2 cm (5' 7 ) 11/07/2023 1:49 PM CDT Body Mass Index 35.87 11/07/2023 1:49 PM CDT Plan of Treatment Health Maintenance Due Date Last Done Comments DTAP/TDAP/TD VACCINES (1 - Tdap) 1981 FIT-DNA Q 3 years 2007 FIT/FOBT Q 1 year 2007 Flex Sig/CT Colonography Q 5 years 2007 ZOSTER VACCINE (1 of 2) 2012 DIABETES HBA1C Q 6 MONTHS 07/28/2021 01/26/2021, DIABETES ANNUAL FOOT EXAM 11/20/2021 11/20/2020 DIABETES MICROALBUMIN ANNUAL SCREEN 11/20/2021 11/20/2020 LDL CHOLESTEROL ANNUAL 01/26/2022 , 11/20/2020, 11/20/2020 DIABETES ANNUAL RETINAL EXAM 01/28/202210/2020, 01/28/2021, 01/28/2021, Additional history exists RSV VACCINE (60+ or ) (1 - Risk 60-74 years 1-dose series) 2022 INFLUENZA VACCINE (#1) 2025 11/20/2020 COLORECTAL SCREENING 03/16/2026 03/16/2021, 03/16/20 Colorectal Cancer Screening 03/16/2026 Procedures Procedure Name Priority Date/Time Associated Diagnosis Comments COLONOSCOPY REPORT 03/16/2021 10 :43 AM CDT LIPID RFLX Routine 01/26/2021 2:49 PM CDT HEMOGLOBIN A1C Routine 01/26/2021 2:49 PM CDT MICROALBUMIN/CREATIN INE RATIO, RANDOM UR Routine 11/20/2020 10:00 AM CDT from Last 3 Months or Most Recently Relevant to Health Maintenance Results * COLONOSCOPY REPORT (03/16/2021 10:43 AM CDT) Narrative Procedure Note Ruslan Ford MD - 03/16/2021 10:43 AM CDT [facility] GI Patient Name: Luis Miguel Rizo Procedure Date: 03/16/2021 Date of : 1960 Admit Type: Outpatient Age: 60 Attending MD: Ruslan Ford , Procedure: Colonoscopy Indications: Screening for colorectal malignant neoplasm, High risk colon cancer surveillance: Personal history of colonic polyps Providers: Ruslan Ford, Siobhan Gil RN, Kandice Rene Referring MD: Hoang Granneman Medicines: Midazolam 5 mg IV, Fentanyl 100 micrograms IV Complications: No immediate complications. Procedure: Pre-Anesthesia Assessment: - [place] Protocol: - Pre-procedure Verification: Prior to the procedure, the patient's identity was verified by full name and date of . The patient's identity was verified on all pertinent medical records, including History and Physical and pre-anesthesia assessment. Also prior to the procedure, a History and Physical was performed, and patient medications, allergies and sensitivities were reviewed. The patient's tolerance of previous anesthesia was reviewed. The patient is competent. The risks and benefits of the procedure and the sedation options and risks were discussed with the patient. All questions were answered and informed consent was obtained. - Marking: The endoscopic procedure was visually marked on a patient wrist band delineating the patient name, proposed procedure and endoscopist's initials. - Time-Out: Prior to the start of the procedure, the patient's identification, proposed procedure, accurate signed consent, correctly labeled images and records, and need for prophylactic antibiotics were verified by the physician and the nurse in the endoscopy suite. - Prior to the procedure, a History and Physical was performed, and patient medications and allergies were reviewed. The patient's tolerance of previous anesthesia was also reviewed. The risks and benefits of the procedure and the sedation options and risks were discussed with the patient. All questions were answered, and informed consent was obtained. Prior Anticoagulants: The patient has taken no previous anticoagulant or antiplatelet agents. ASA Grade Assessment: II - A patient with mild systemic disease. After reviewing the risks and benefits, the patient was deemed in satisfactory condition to undergo the procedure. After I obtained informed consent, the scope was passed under direct vision. Throughout the procedure, the patient's blood pressure, pulse, and oxygen saturations were monitored continuously. The Colonoscope was introduced through the anus and advanced to the terminal ileum. The colonoscopy was performed without difficulty. The patient tolerated the procedure well. The quality of the bowel preparation was adequate. Estimated Blood Loss: Estimated blood loss was minimal. Findings: The digital rectal exam was normal. Pertinent negatives include normal sphincter tone. Non-bleeding internal hemorrhoids were found during retroflexion. The hemorrhoids were small. Two sessile polyps were found in the transverse colon. The polyps were 8 to 9 mm in size. These polyps were removed with a cold snare. Resection and retrieval were complete. Verification of patient identification for the specimen was done by the physician and nurse using the patient's name and date. Estimated blood loss was minimal. The terminal ileum appeared normal. Moderate Sedation: The administration of moderate sedation was initiated at 10:24 AM. Moderate (conscious) sedation was administered by the endoscopy nurse and supervised by the endoscopist. The following parameters were monitored: oxygen saturation, heart rate, blood pressure, and response to care. Total physician intraservice time was 16 minutes. Impression: - Non-bleeding internal hemorrhoids. - Two 8 to 9 mm polyps in the transverse colon, removed with a cold snare. Resected and retrieved. - The examined portion of the ileum was normal. Recommendation: - Await pathology results. - No aspirin, ibuprofen, naproxen, or other non-steroidal anti-inflammatory drugs for 2 weeks. - Resume previous diet. - Patient has a contact number available for emergencies. The signs and symptoms of potential delayed complications were discussed with the patient. Return to normal activities tomorrow. Written discharge instructions were provided to the patient. - Continue present medications. - The findings and recommendations were discussed with the patient's family. - Return to primary care physician as previously scheduled. Ruslan Ford, 03/16/2021 10:42:54 AM Number of Addenda: 0 Note Initiated On: 03/16/2021 10:16 AM Scope Withdrawal Time 0 hours 10 minutes 14 seconds Scope In: 10:27:41 AM Scope Out: 10:39:57 AM [address] [place], [place] Ruslan Ford MD GI PROCEDURE ORDERABL ES Final Result * (ABNORMAL) LIPID RFLX (01/26/2021 2:49 PM CDT) Pathologist [facility] CHOLESTEROL 497(H) <200 mg/dL 01/29/2021 2:13 PM CDT [facility] [place] HDL 30(L) > OR = 40 mg/dL 01/29/2021 2:13 PM CDT [facility] [place] TRIGLYCERIDE 1,440(H) <150 mg/dL 01/29/2021 2:13 PM CDT [facility] [place] Comment: Verified by repeat analysis. If a non-fasting specimen was collected, consider repeat triglyceride testing on a fasting specimen if clinically indicated. Lon et al. J. of Clin. Lipidol. 2015;9:129-169. There is increased risk of pancreatitis when the triglyceride concentration is very high (> or = 500 mg/dL, especially if > or = 1000 mg/dL). Lon et al. J. of Clin. Lipidol. 2015;9:129-169. LDL CALCULATED 01/29/2021 2:13 PM CDT [facility] Comment: LDL cholesterol not calculated. Triglyceride levels greater than 400 mg/dL invalidate calculated LDL results. Reference range: <100 Desirable range <100 mg/dL for primary prevention; <70 mg/dL for patients with CHD or diabetic patients with > or = 2 CHD risk factors. LDL-C is now calculated using the Aleksandr-Marcelle calculation, which is a validated novel method providing better accuracy than the Friedewald equation in the estimation of LDL-C. Aleksandr SS et al. SHERWIN. 2013;310(19): 1372-7279 (http://education.Shopline/faq/BLZ178) CHOL/HDL RATIO 16.6(H) <5.0 (calc) 01/29/2021 2:13 PM CDT [facility] TOTAL NON-HDL CHOL(LDL+VLDL) 467(H) <130 mg/dL (calc) 01/29/2021 2:13 PM T [facility] Comment: For patients with diabetes plus 1 major ASCVD risk factor, treating to a non-HDL-C goal of <100 mg/dL (LDL-C of <70 mg/dL) is considered a therapeutic option. LDL CHOLESTEROL, DIRECT TNP mg/dL 01/29/2021 2:13 PM CDT [facility] Comment: Test not performed. Extremely high Triglycerides values (>1293 mg/dL) interfere with the dLDL assay. Test Performed at: [facility] [address] [place] [address] Shon Ward D.O., MPH Blood 01/26/2021 2:49 PM CDT 01/28/2021 12:36 AM CDT Hoang Snyder DO CHEMISTRY ORDERABLES Final Result [facility] [place] [address] [place] [address] [facility] [place] [address] [place] [address] * (ABNORMAL) HEMOGLOBIN A1C (01/26/2021 2:49 PM CDT) HEMOGLOBIN A1C 11.0(H) <5.7 % of total Hgb 01/29/2021 2:13 PM CDT [facility] Comment: For someone without known diabetes, a hemoglobin A1c value of 6.5% or greater indicates that they may have diabetes and this should be confirmed with a follow-up test. For someone with known diabetes, a value <7% indicates that their diabetes is well controlled and a value greater than or equal to 7% indicates suboptimal control. A1c targets should be individualized based on duration of diabetes, age, comorbid conditions, and other considerations. Currently, no consensus exists regarding use of hemoglobin A1c for diagnosis of diabetes for children. Test Performed at: [facility] [address] Shon Ward D.O., MPH Blood 01/26/2021 2:49 PM CDT 01/28/2021 12:36 AM CDT Hoang Snyder DO CHEMISTRY ORDERABLES Final Result [address] [facility] [place] [address] [facility] [address] [facility] [place] [address] * (ABNORMAL) MICROALBUMIN/CREATININE RATIO, RANDOM UR (11/20/2020 10:00 AM CDT) MICROALBUMIN, URINE 150(A) <30 mg/L 11/20/2020 11:31 AM CDT [facility] CREATININE, URINE 100(A) <50 mg/dL 11/20/2020 11:31 AM CDT [facility] MICROALBUMIN/C REAT RATIO, UR >300(A) <30 mg/g 11/20/2020 11:31 AM CDT [facility] URINE SPECIMEN OBTAINED BY CLEAN CATCH PROCEDURE / Unknown Collection / Unknown 11/20/2020 10:00 AM CDT 11/20/2020 10:00 AM CDT us Hoang Snyder DO URINE ORDERABLES Final Resu lt [facility] CLIA# [id number] [address] [place] [address] from Last 3 Months or Most Recently Relevant to Health Maintenance Insurance [address] [place] [address] [facility] BLUE ACCESS/TRUE BLUE PPO Advance Directives For more information, please contact: [phone] * Full Code (Latest Code Status on File) Date Activated Date Inactivated Comments 03/16/2021 9:30 AM 03/16/2021 1:10 PM
--- NOTE | 2025-03-12 14:48 | XRR_ITS ---
PROCEDURE INFORMATION: Exam: XR Chest Exam date and time: 03/12/2025 2:53 PM Age: 64 years old Clinical indication: Pain; Angina pectoris; Additional info: Cp TECHNIQUE: Imaging protocol: Radiologic exam of the chest. Views: 1 view. COMPARISON: CR XR chest 1V portable [id number] 09/07/2024 4:21 PM FINDINGS: Lungs: Unremarkable. No consolidation. Pleural spaces: Unremarkable. No pleural effusion. No pneumothorax. Heart/Mediastinum: Unremarkable. No cardiomegaly. Bones/joints: Unremarkable. XR/XR chest 1V portable [id number] IMPRESSION: No acute findings.
--- NOTE | 2025-03-12 15:00 | ECG_ITS ---
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 Measurements Intervals [place] Rate: 71 P: 6 TN: 142 QRS: -36 QRSD: 113 T: 17 QT: 359 QTc: 393 Interpretive Statements SINUS RHYTHM INDETERMINATE AXIS PATTERN CONSISTENT WITH PULMONARY DISEASE MODERATE INTRAVENTRICULAR CONDUCTION DELAY [110+ ms QRS DURATION] Compared to ECG 09/07/2024 16:11:44 Indeterminate axis now present Intraventricular conduction delay now present Atrial abnormality no longer present Right ventricular hypertrophy no longer present Electronically Signed On 03-12-2025 16:40:15 CDT by Radha Ortega M.D. [email or web address]
[2025-03-12 15:36] LABS: Hematocrit 36.4 % (37-53); Hemoglobin 11.50 g/dL (11.27-16.99); Mean Corpuscular HGB Conc 31.6 g/dL (30-55); Mean Corpuscular Hemoglobin 29.3 pg (27-33); Mean Corpuscular Volume 92.6 fl (82-101); Nucleated Red Blood Cells % 0 %; Platelet Count 171 10^3/cmm (157-399); Red Blood Count 3.93 10^6/uL (3.85-5.65); White Blood Count 9.99 10^3/uL (3.29-11.43)
[2025-03-12 15:58] LABS: Troponin(5th) Baseline 42 ng/L (0-15)
[2025-03-12 16:10] LABS: Alanine Aminotransferase 13 U/L (0-41); Albumin Level 4.2 g/dL (3.5-5.2); Alkaline Phosphatase 52 U/L (40-130); Anion Gap 18.3 (5-19); Aspartate Amino Transferase 15 U/L (0-40); Blood Urea Nitrogen 29 mg/dL (8-23); Calcium 9.3 mg/dL (8.5-10.5); Carbon Dioxide 22 mmol/L (22-29); Chloride 101 mmol/L (98-107); Creatinine Clr Calc Pharmacy 61.5767; Globulin 2.4 g/dL (1.3-4.6); Glucose 132 mg/dL (65-115); NT Pro B Type Natriuretic Pept 161 pg/mL (0-125); Osmolality Calculated 290 mOsm/kg (285-295); Potassium 5.3 mmol/L (3.5-5.1); Sodium 136 mmol/L (136-145); Total Protein 6.6 g/dL (6.6-8.7)
--- NOTE | 2025-03-12 17:02 | ED_ITS ---
HPI - Chest Pain 2 General: Chief Complaint: Chest Pain Stated Complaint: Dr. posadas abnormal chest x-ray Time Seen by Provider: 03/12/25 16:33 History of Present Illness: 64M with history of insulin-dependent DM , remote tobacco use and prior pancreatitis awoke Monday with sharp, stabbing pain just left of the epigastrium that radiates horizontally across the lower chest. 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 pain is more pressure-like with exertion. No clear association with meals. Denies SOB, admits intermittent light-headedness. Urgent-care EKG reportedly showed slight abnormality, prompting ED referral. Episodes of nocturnal hypoglycemia noted on Dexcom alarms (glucose 30?32 mg/dL) this month. Reports 3-lb unintentional weight loss. Prior admissions for pancreatitis and admission in 06/20 for near syncope/confusion at which time he underwent stress test which was negative. No recent fevers, nausea, or vomiting. Related Data Home Medications ?Medication ?Instructions ?Recorded ?Confirmed aspirin 81 mg tablet,delayed 81 mg PO QAM 10/09/19 release (Adult Low Dose Aspirin) multivitamin 1 tab PO DAILY 10/09/1902/25 atorvastatin 80 mg tablet 80 mg PO QPM 03/29/24 metformin 500 mg tablet,extended 1,000 mg PO BID 03/2903/12/25 release 24 hr olanzapine 5 mg tablet 5 mg PO QPM 03/29/24 5 ropinirole 0.5 mg tablet 0.5 mg PO QPM 03/29/2403/12 cilostazol 100 mg tablet 100 mg PO BID 06/17/2403/12 citalopram 40 mg tablet 40 mg PO QAM 06/17/24 pregabalin 75 mg capsule 75 mg PO DAILY 06/17/2402/25 Previous Rx's ?Medication ?Instructions ?Recorded duloxetine 40 mg capsule,delayed 40 mg PO DAILY 30 day s #30 caps 04/17/24 release syringe with needle 3 mL 20 gauge #100 ea 04/17/24 x 1 1/2 (BD Luer-Bin Syringe) testosterone cypionate 200 mg/mL 200 mg SUBCUT .every other week #1 04/30/24 intramuscular oil mL (Depo-Testosterone) dapagliflozin propanediol 10 mg 10 mg PO DAILY #30 tab s 05/08/24 tablet (Farxiga) tamsulosin 0.4 mg capsule 0.4 mg PO DAILY #30 caps 07/21 insulin aspart U-100 100 unit/mL See Rx Instructions . Route 06/19/24 (3 mL) subcutaneous pen (Novolog .COMPLEX #15 mL FlexPen U-100 Insulin aspart) insulin glargine 100 unit/mL (3 30 unit (0.3 mL) SUBCU T BID 30 06/19/24 mL) subcutaneous pen (Lantus days #18 mL Solostar U-100 Insulin) cetirizine 10 mg tablet 10 mg PO BID #20 tabs albuterol sulfate 90 mcg/actuation 2 inh inhalation Q4 H PRN shortness 09/07/24 aerosol inhaler of breath or wheezing #6.7 g keven Allergies Allergy/AdvReac Type Severity Reaction Status Date / Time No Known Allergies Allergy Verified 03/12/25 15:05 [facility] 2 [facility]: Medical History (Updated 03/12/25 @ 18:15 by Nomi Castrejon MD) Hypertension Hyperlipidemia Diabetes type 2, controlled Osteoarthritis of left shoulder Surgical History Hx of colonoscopy with polypectomy 3 yrs ago History of esophagogastroduodenoscopy (EGD) History of back surgery History of removal of cyst History of lumpectomy of left breast 02/13/23 subcutaneous mass left breast and lumpectomy- Dr. Rose No significant past surgical history Family History Other Hypertension Social History Smoking and tobacco/nicotine status: never used tobacco/nicotine Second hand smoke exposure: No Alcohol intake: current Alcohol intake frequency: holidays/special occasions only Substance/Drug Use: unknown Adopted: No Caregiver/support person: No Lives independently: Yes Household members: significant other Housing: House Marital status: Life Partner Current occupational status: employed Do you think of yourself as: Straight/Heterosexual Current gender identity: Male Special lanre needs: No Physical Exam 2 Const: COMMON NORMALS: no acute distress, patient oriented x3 and alert HENMT: COMMON NORMALS: normocephalic and atraumatic HEAD & SCALP: n ormocephalic and atraumatic Eye: COMMON NORMALS: Equal, round and reactive pupils present, EOMs intact bilaterally and no scleral icterus PUPIL: Yes Equal, round and reactive pupils present Resp: COMMON NORMALS: normal respiratory effort and No retractions Cardio: COMMON NORMALS: regular rate, regular rhythm and No murmurs present (Cardio) RATE: regular rate RHYTHM: regular rhythm GI: COMMON NORMALS: Normal to inspection, nondistended, normoactive bowel sounds present, Soft to palpation and non-tender PALPATION: Yes Soft to palpation OTHER: No tenderness to palpation. Extremity: NARRATIVE EXTREMITY EXAM: No edema. Neuro: COMMON NORMALS: patient oriented x3 SENSORIUM/ORIENTATION: Yes alert Skin: COMMON NORMALS: no rashes or lesions noted GENERAL SKIN EXAM: no rashes or lesions noted Course 2 Vital Signs: Vital signs: Vital Signs Temperature 98.2 F 03/12/25 15:02 Pulse Rate 62 03/12/25 18:13 Respiratory Rate 17 03/12/25 18:13 Blood Pressure 110/56 03/12/25 18:13 Pulse Oximetry 98 03/12/25 18:13 Oxygen Delivery Me thod Room Air 03/12/25 15:02 [facility] - Chest Pain Medical Decision Making In summary, patient is a 64-year-old male seen for chest pain which has an exertional component. Labs show DENITA. I spoke with on-call cardiology who recommends admission and catheterization not emergently in the morning. Pain is currently less than 1 out of 10. He will be given IV fluids, Lovenox, and admitted to the hospitalist service with expectation to undergo catheterization in the morning. Patient and family are agreeable to the plan. Lab Data 03/12/25 15:32 03/12/25 15:32 Radiology Impressions Chest X-Ray 03/12/25 14:48 IMPRESSION: No acute findings. Laboratory Results WBC 9.99 10^3/uL (3.29-11.43) 03/12/25 15:32 RBC 3.93 10^6/uL (3.85-5.65) 03/12/25 15:32 Hgb 11.50 g/dL (11.27-16.99) 03/12/25 15:32 Hct 36.4 % (37-53) L 03/12/25 15:32 MCV 92.6 fl (82-101) 03/12/25 15:32 MCH 29.3 pg (27-33) 03/12/25 15: MCHC 31.6 g/dL (30-55) 03/12/25 15: RDW 13.4 % (12.1-15.1) 03/12/25 15:32 Plt Count 171 10^3/cmm (157-399) 03/12/25 15:32 MPV 12.2 fL (7.4-10.4) H 03/12/25 15:32 Neut % (Auto) 64.9 % 03/12/25 15:32 Lymph % (Auto) 24.4 % 03/12/25 15:32 Hamilton % (Auto) 6.5 % 03/12/25 15:32 Eos % (Auto) 3.3 % 03/12/25 15:32 Baso % (Auto) 0.6 % 03/12/25 15:32 Neut # (Auto) 6.48 10^3/uL (1.8-7.7) 03/12/25 15:32 Lymph # (Auto) 2.4 10^3/uL (0.8-4.8) 03/12/25 15:32 Hamilton # (Auto) 0.7 10^3/uL (0.2-0.9) 03/12/25 15:32 Eos # (Auto) 0.3 10^3/uL (0.0-0.8) 03/12/25 15:32 Baso # (Auto) 0.1 10^3/uL (0.0-0.1) 03/12/25 15: Nucleated RBC % (auto) 0 % 03/12/25 15: Nucleated RBCs # 0.0 /100WBC 03/12/25 15:32 Sodium 136 mmol/L (136-145) 03/12/25 15:32 Potassium 5.3 mmol/L (3.5-5.1) H 03/12/25 15:32 Chloride 101 mmol/L (98-107) 03/12/25 15:32 Carbon Dioxide 22 mmol/L (22-29) 03/12/25 15:32 Anion Gap 18.3 (5-19) 03/12/25 15:32 BUN 29 mg/dL (8-23) H 03/12/25 15:32 Creatinine 1.4 mg/dL (0.7-1.2) H 03/12/25 15:32 GFR Calculation 51.4 mL/min (90-130) L 03/12/25 15:32 Glucose 132 mg/dL (65-115) H 03/12/25 15:32 Calculated Osmolality 290 mOsm/kg (285-295) 03/12/25 15:32 Calcium 9.3 mg/dL (8.5-10.5) 03/12/25 15:32 Total Bilirubin 0.2 mg/dL (0.15-1.2) 03/12/25 15:32 AST 15 U/L (0-40) 03/12/25 15:32 ALT 13 U/L (0-41) 03/12/25 15:32 Alkaline Phosphatase 52 U/L (40-130) 03/12/25 15:32 Troponin T Baseline 42 ng/L (0-15) H 03/12/25 15:32 Troponin T 120 Minute 40.67 ng/L (0-15) H 03/12/25 17:09 Delta Troponin T -1.33 ABS# (0-10) L 03/12/25 17:09 NT-Pro-B Natriuret Pep 161 pg/mL (0-125) H 03/12/25 15:32 Total Protein 6.6 g/dL (6.6-8.7) 03/12/25 15:32 Albumin 4.2 g/dL (3.5-5.2) 03/12/25 15:32 Globulin 2.4 g/dL (1.3-4.6) 03/12/25 15:32 All radiology interpretation(s) finalized by discharge EKG Data EKG 1: Interpretation: Time?1500?sinus rhythm, rate of 71, no ST segment elevation or depression, no T wave inversions, QTc = 393 Discharge Plan Discharge Patient Disposition: Admitted As Inpatient Clinical Impression: Chest pain, exertional, DENITA (acute kidney injury) Condition: Stable Coding Level of Care Code ED Search Advertising Strategist for Chg Willem
--- NOTE | 2025-03-12 17:06 | ECG_ITS ---
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1960 Requested By: Paco Ryan Order Number: [id number] Reading MD: YULY WEEMS Measurements Intervals [place] Rate: 63 P: 184 ME: 178 QRS: 235 QRSD: 125 T: 187 QT: 376 QTc: 386 Interpretive Statements SINUS RHYTHM POSSIBLE RIGHT VENTRICULAR HYPERTROPHY [SOME/ALL OF: PROMINENT R IN V1, LATE TRANSITION, RAD, ALEX, SSS] MODERATE ST DEPRESSION [0.05+ mV ST DEPRESSION] Compared to ECG 03/12/2025 15:00:40 ST (T wave) deviation now present Indeterminate axis no longer present Intraventricular conduction delay no longer present Electronically Signed On 03-15-2025 16:13:11 CDT by YULY WEEMS [email or web address]
[2025-03-12 17:55] LABS: Troponin 5 2HR 40.67 ng/L (0-15)
[2025-03-12 17:58] LABS: Troponin 5 2HR Delta -1.33 ABS# (0-10)
[2025-03-12] MEDS: acetaminophen 1,000 MG/100 ML PIGGYBACK 400 MG IV (18:30)
--- NOTE | 2025-03-12 18:33 | USCV_ITS ---
Maurice Rizo Age: 64 Gender: M : 1960 Exam Date: 03/12/2025 19:28 Ordering Phys: Luca Quevedo MD Technologist: MARGAUX Exam Location: [facility] [place] Indication: chest pain BP: 134 / 57 HR: 60 Rhythm: Sinus Technical Quality: Adequate MEASUREMENTS (Male / Female) Normal Values 2D ECHO LV Diastolic Diameter PLAX 4.3 cm 4.2 - 5.9 / 3.9 - 5.3 cm IVS Diastolic Thickness 1.3 cm 0.6 - 1.0 / 0.6 - 0.9 cm IVS Systolic Thickness 1.8 cm LVPW Diastolic Thickness 1.1 cm 0.6 - 1.0 / 0.6 - 0.9 cm LVPW Systolic Thickness 1.1 cm LVOT Diameter 2.3 cm LV Ejection Fraction 2D Teich 55.9 % LV Ejection Fraction MOD 4C 45.7 % LV Ejection Fraction MOD 2C 48.8 % LV Ejection Fraction 2C AL 48.6 % LA Diameter 3.5 cm Aorta at Sinotubular Diameter 2.8 cm IVC Diameter 1.7 cm M-MODE LA Ao Ratio MM 1.4 AV Cusp Separation MM 1.8 cm DOPPLER AV Peak Velocity 123.0 cm/s LVOT Peak Velocity 122.0 cm/s AV Area Cont Eq vti 4.4 cm squared AV Area Cont Eq pk 4.3 cm squared MV Peak Velocity 140.0 cm/s MV Area PHT 2.8 cm squared Mitral E to A Ratio 0.9 TR Peak Velocity 207.0 cm/s TR Peak Gradient 17.1 mmHg TV Peak E Velocity 53.0 cm/s PV Peak Velocity 86.0 cm/s FINDINGS Left Ventricle Left ventricle is normal in size. LV systolic function is mildly reduced with EF of 45-50%. Mild hypokinesis of anterolateral and anterior coles. Right Ventricle Normal in size and function Right Atrium Normal in size Left Atrium Normal in size Mitral Valve Mild to moderate mitral annular calcification. Trace mitral regurgitation. Aortic Valve Aortic valve is thickened and calcified. No significant stenosis. Tricuspid Valve Insufficient TR jet to calculate RVSP. Pulmonic Valve Not well visualized Pericardium Normal Aorta Normal in size IVC Appears to be normal CONCLUSIONS LV systolic function was reduced with EF of 45-50%. Above mentioned regional wall motion abnormalities. Trace mitral regurgitation Damon Finney MD (Electronically Signed) Final Date: 13 March 2025 10:00 S
--- NOTE | 2025-03-12 18:34 | PM.HP ---
Providers/Chief Complaint Primary Care Provider: Donnie Rene MD Chief Complaint: Dr. posadas abnormal chest x-ray History of Present Illness Maurice Rizo is a 64 year old male with a past medical history of type 2 diabetes mellitus, peripheral vascular disease, requiring stenting, hypertension, who presents to [facility] for chest pain. Patient reports episode of chest pain on Monday, reports episodes of chest pain today, denies any shortness of breath, no lightheadedness or dizziness, no syncopal symptoms, he does report stenting in his bilateral extremities for peripheral vascular disease, is on cilostazol, does report he uses cigars, denies any drug use Review of Systems Card: Reports: chest pain Resp: Denies: dyspnea Medications/Allergies Home Medications ?Medication ?Instructions ?Recorded ?Confirmed ?Last Taken ?Type aspirin 81 mg tablet,delayed 81 mg PO QAM 10/09/19 03/12/25 03/29/24 History release (Adult Low Dose Aspirin) multivitamin 1 tab PO DAILY 10/09/19 03/12/25 06/17/24 History atorvastatin 80 mg tablet 80 mg PO QPM 03/29/24 03/12/25 06/16/24 History metformin 500 mg tablet,extended 1,000 mg PO BID 03/29/24 03/12/25 06/17/24 History release 24 hr olanzapine 5 mg tablet 5 mg PO QPM 03/29/24 03/12/25 03/28/24 History ropinirole 0.5 mg tablet 0.5 mg PO QPM 03/29/24 03/12/25 06/16/24 History duloxetine 40 mg capsule,delayed 40 mg PO DAILY 30 days #30 caps 04/17/24 03/12/25 06/17/24 Rx release syringe with needle 3 mL 20 gauge #100 ea 04/17/24 03/12/25 Unknown Rx x 1 1/2 (BD Luer-Bin Syringe) testosterone cypionate 200 mg/mL 200 mg SUBCUT .every other week #1 04/30/24 03/12/25 06/11/24 Rx intramuscular oil mL (Depo-Testosterone) dapagliflozin propanediol 10 mg 10 mg PO DAILY #30 tabs 05/08/24 03/12/25 06/17/24 Rx tablet (Farxiga) tamsulosin 0.4 mg capsule 0.4 mg PO DAILY #30 caps 05/08/24 03/12/25 06/17/24 Rx cilostazol 100 mg tablet 100 mg PO BID 06/17/24 03/12/25 06/17/24 History citalopram 40 mg tablet 40 mg PO QAM 06/17/24 03/12/25 06/17/24 History pregabalin 75 mg capsule 75 mg PO DAILY 06/17/24 03/12/25 06/17/24 History insulin aspart U-100 100 unit/mL See Rx Instructions .Route 06/19/24 03/12/25 Unknown Rx (3 mL) subcutaneous pen (Novolog .COMPLEX #15 mL FlexPen U-100 Insulin aspart) insulin glargine 100 unit/mL (3 30 unit (0.3 mL) SUBCUT BID 30 06/19/24 03/12/25 06/17/24 Rx mL) subcutaneous pen (Lantus days #18 mL Solostar U-100 Insulin) cetirizine 10 mg tablet 10 mg PO BID #20 tabs 07/21/24 03/12/25 Unknown Rx albuterol sulfate 90 mcg/actuation 2 inh inhalation Q4H PRN shortness 09/07/24 03/12/25 Unknown Rx aerosol inhaler of breath or wheezing #6.7 grams Allergies Allergy/AdvReac Type Severity Reaction Status Date / Time No Known Allergies Allergy Verified 03/12/25 15:05 PFSH Acute PFSH: Medical History Hypertension Hyperlipidemia Diabetes type 2, controlled Osteoarthritis of left shoulder Surgical History Hx of colonoscopy with polypectomy 3 yrs ago History of esophagogastroduodenoscopy (EGD) History of back surgery History of removal of cyst History of lumpectomy of left breast 02/13/23 subcutaneous mass left breast and lumpectomy- Dr. Rose No significant past surgical history Family History Other Hypertension Social History Smoking and tobacco/nicotine status: never used tobacco/nicotine Second hand smoke exposure: No Alcohol intake: current Alcohol intake frequency: holidays/special occasions only Substance/Drug Use: unknown Adopted: No Caregiver/support person: No Lives independently: Yes Household members: significant other Housing: House Marital status: Life Partner Current occupational status: employed Do you think of yourself as: Straight/Heterosexual Current gender identity: Male Special lanre needs: No Vitals/I&O/Wt Last Vital Signs Temp 98.2 F 03/12/25 15:02 Pulse 62 03/12/25 18:13 Resp 17 03/12/25 18:13 BP 110/56 03/12/25 18:13 Pulse Ox 98 03/12/25 18:13 O2 Del Method Room Air 03/12/25 15:02 Weight last 48 hrs Weight 99.79 kg Physical Exam Const: COMMON NORMALS: no acute distress and patient oriented x3 HENMT: COMMON NORMALS: normocephalic HEAD & SCALP: normocephalic Resp: COMMON NORMALS: normal respiratory effort, No retractions, No use of accessory muscles and clear to auscultation bilaterally AUSCULTATION: clear to auscultation bilaterally Cardio: COMMON NORMALS: no JVD, regular rate, regular rhythm, S1 normal heart sound present and S2 normal heart sound present RATE: regular rate RHYTHM: regular rhythm HEART SOUNDS: S1 normal heart sound present and S2 normal heart sound present GI: COMMON NORMALS: Normal to inspection, nondistended, normoactive bowel sounds present, Soft to palpation and non-tender Extremity: COMMON NORMALS: no calf tenderness and no pedal edema Neuro: COMMON NORMALS: patient oriented x3, CN's II-XII intact bilaterally and moves all extremities Psych: COMMON NORMALS: mental status grossly normal Data 03/12/25 15:32 03/12/25 15:32 A&P Assessment and plan 1. Hypertension: 2. Hyperlipidemia: 3. Diabetes type 2, controlled: 4. Chronic renal disease: 5. Chest pain, exertional: Plan: Chest pain Stress testing May 2024 - IMPRESSIONS 1. Myocardial perfusion imaging revealing fairly uniform myocardial tracer uptake with no significant Perfusion normalities 2. Normal LV ejection fraction of 57% 3. LV wall motion analysis revealing no gross wall motion abnormalities. 4. Normal LV volume No similar previous studies are available for comparison -History of peripheral vascular disease status post stenting -Recent history of cigar use -No history of drug use - NSTEMI Plan - Serial EKGs, troponins, telemetry monitoring - Aspirin - Atorvastatin - Therapeutic Lovenox -Repeat cardiac echocardiogram - Hold cilostazol for now - Type 2 diabetes mellitus, moderate dose sliding scale - Creatinine 1.4, IV fluids -Hyperkalemia potassium 5.3, 1 dose of Kayexalate, repeat BMP - Full code - Lovenox for DVT prophylaxis PDMP PDMP Reviewed: Not Reviewed Attestations Medical Necessity Statement*: Patient requires hospitalization, inpatient, greater than 2 midnights, for chest pain Diagnoses Hypertension I10 Hyperlipidemia E78.5 Diabetes type 2, controlled E11.9 Chronic renal disease N18.9 Chest pain, exertional R07.9
--- NOTE | 2025-03-12 19:48 | PC.NURSE ---
Report was called to Shyanne GALLEGOS in [facility]. All questions and concerns were addressed at time of report.
[2025-03-12 20:47] LABS: Cholesterol 140 mg/dL (0-200); HDL Cholesterol 31 mg/dL (60-100); Thyroid Stimulating Hormone 2.13 uIU/mL (0.27-4.20); Triglycerides 298 mg/dL (0-150)
--- NOTE | 2025-03-12 21:06 | ECG_ITS ---
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
[2025-03-12] MEDS: pantoprazole 40 mg SDV IVP (21:17)
[2025-03-12 21:19] LABS: PCP Screen Urine Negative (Negative)
--- NOTE | 2025-03-12 22:11 | ECG_ITS ---
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 Measurements Intervals [place] Rate: 56 P: 43 VA: 203 QRS: -57 QRSD: 129 T: 32 QT: 405 QTc: 392 Interpretive Statements SINUS BRADYCARDIA LEFT ANTERIOR FASCICULAR BLOCK [QRS AXIS <= -45, QR IN I, RS IN II] Compared to ECG 03/12/2025 21:01:22 Left anterior fascicular block now present Intraventricular conduction delay no longer present Electronically Signed On 03-15-2025 14:14:21 CDT by Radha Ortega M.D. [email or web address]
[2025-03-12 22:23] LABS: Estmated Average Glucose 183; Hemoglobin A1C 8.0 % (4.0-6.0)
[2025-03-12 22:23] LABS: Troponin 5 6HR 45.07 ng/L (0-15); Troponin 5 6HR Delta 3.07 ng/L (0-12)
[2025-03-12 22:37] LABS: Anion Gap 15.8 (5-19); Blood Urea Nitrogen 29 mg/dL (8-23); Calcium 9.2 mg/dL (8.5-10.5); Carbon Dioxide 25 mmol/L (22-29); Chloride 102 mmol/L (98-107); Creatinine Clr Calc Pharmacy 62.5594; Glucose 95 mg/dL (65-115); Osmolality Calculated 292 mOsm/kg (285-295); Potassium 4.8 mmol/L (3.5-5.1); Sodium 138 mmol/L (136-145)
[2025-03-13] VITALS (51 sets, daily range): BP systolic 84–204; BP diastolic 27–100; PULSE 58–89; RESP 5–20; TEMP 36.6–36.9; O2SAT 94–100
[2025-03-13 04:21] LABS: Hematocrit 34.9 % (37-53); Hemoglobin 11.20 g/dL (11.27-16.99); Mean Corpuscular HGB Conc 32.1 g/dL (30-55); Mean Corpuscular Hemoglobin 29.4 pg (27-33); Mean Corpuscular Volume 91.6 fl (82-101); Nucleated Red Blood Cells % 0 %; Platelet Count 160 10^3/cmm (157-399); Red Blood Count 3.81 10^6/uL (3.85-5.65); White Blood Count 8.11 10^3/uL (3.29-11.43)
[2025-03-13 04:51] LABS: Anion Gap 14.4 (5-19); Blood Urea Nitrogen 27 mg/dL (8-23); Calcium 8.7 mg/dL (8.5-10.5); Carbon Dioxide 22 mmol/L (22-29); Chloride 107 mmol/L (98-107); Creatinine Clr Calc Pharmacy 79.6211; Glucose 95 mg/dL (65-115); Osmolality Calculated 293 mOsm/kg (285-295); Potassium 4.4 mmol/L (3.5-5.1); Sodium 139 mmol/L (136-145)
--- NOTE | 2025-03-13 08:51 | XACV_ITS ---
Exam Room: [facility] Ht: 170 cm Wt: 103 kg BSA: 2.25 m2 Gender: Male : 1960 Any Known Allergies: No known allergies Exam Priority: Routine Procedure(s): Procedure Description: Diagnostic procedure Procedure Description: PCI procedure Procedure Description: Left Heart Catheterization Procedure Description: Drug Eluting Coronary Stent Procedure Description: PTCA Procedure Description: Miscellaneous Procedure Description: ACT Procedure Description[facility] Cath Status: Urgent Diagnostic Findings * Left Main has no disease. * Circumflex has no disease. * Proximal Left Anterior Descending: severe 90% stenosis, SHERI: 3 flow. * Proximal Right Coronary Artery: severe 90% stenosis, SHERI: 3 flow. * Mid Right Coronary Artery: significant 80% stenosis, SHERI: 3 flow. * Distal Right Coronary Artery: significant 80% stenosis, SHERI: 3 flow. * Coronary angiography shows right dominance. PCI Status: Urgent PCI Indication: New Onset Angina <= 2 months Interventional Findings * Proximal Left Anterior Descendin% stenosis treated with a TREK 2.50X15 RX BALLOON, ROSY Álvarez MARIO 3.0X26 KELLEN, and MDT NC EUPHORA RX [id number] BALLOON. 0% residual stenosis, SHERI: 3 flow. * Proximal Right Coronary Artery: 90% stenosis treated with a AB TREK 2.50X15 RX BALLOON, and MDT NC EUPHORA RX [id number] BALLOON. 50% residual stenosis, SHERI: 3 flow.Dissection was noted in the proximal to distal segment, due to extreme torturosity and anterior take off of RA depite of using right left radial and common femoral approach guidliner JR, AL0.75, AL1.0, CLS, Hocky stick and multipurpose guides we remain unsuccesful to deliver proximal to mid stent due to lack of guide support, since vessel remain patent with good SHERI flow and because of the fact we achieved high contrast and ratdiation plus RCA is moderate caliber but non culpurit vessel therefore we decided to manage him conservatively, CT surgery was consulted and pictures were shared Dr Berger from [facility] also was the opinion to manage patient conservatively, patient remain stable asymptomatic , EKG remained normal while Blood flow was SHERI 3 at the end of the case. * Mid Right Coronary Artery: 80% stenosis treated with a AB TREK 2.50X15 RX BALLOON. 40% residual stenosis, SHERI: 3 flow. * Distal Right Coronary Artery: 80% stenosis treated with a AB TREK 2.50X15 RX BALLOON, and MDT R MARIO 2.5X18 KELLEN. 0% residual stenosis, SHERI: 3 flow. Conclusions 1. There is severe coronary artery disease with two vessel disease. 2. Proximal Left Anterior Descending was treated with a Balloon, Drug Eluting Stent, and Balloon. 3. Proximal Right Coronary Artery was treated with a Balloon, and Balloon. 4. Mid Right Coronary Artery was treated with a Balloon. 5. Distal Right Coronary Artery was treated with a Balloon, and Drug Eluting Stent. Recommendations * Transfer to ICU. Observe for 24 hours, Patient was loaded with 600mg of plavix, continue plavix 45mg po daily along with Asprin 81mg , continue statin. Diagnostic RX Recommendation: PCI w/o planned CABG Pressures Phase:Rest AO : 116 / 69 ( 89 ) @ 10:44:00 AM 107 / 76 ( 92 ) @ 10:44:00 AM 160 / 63 ( 98 ) @ 11:11:00 AM 161 / 63 ( 98 ) @ 11:11:00 AM 124 / 62 ( 87 ) @ 11:23:00 AM 129 / 71 ( 95 ) @ 11:23:00 AM 166 / 78 ( 113 ) @ 12:14:00 PM 187 / 77 ( 119 ) @ 12:27:00 PM 167 / 65 ( 102 ) @ 12:50:00 PM 115 / 60 ( 83 ) @ 1:46:00 PM 110 / 56 ( 78 ) @ 1:51:00 PM LV : 172 / -4 / 28 @ 11:10:00 AM 170 / -5 / 27 @ 11:11:00 AM Valves Phase:DefaultPhase AV : 9.0 @ 1:24:32 PM AV Mean Gradient: 8.0 @ 1:24:32 PM Clinical Evaluation EBL: 5mL-10mL Procedural Details Current Diagnosis : NSTEMI. Pre-Procedure Time Out. Identified patient by full name and date of as verbalized by the patient/guarantor. Does the consent match the physician's order: Yes. Accurate & Complete Informed Consent: Yes. Inpatient/Outpatient History & Physical on Chart: Yes. If H&P is completed, is and addenduem needed: No; If yes, is the addendum complete: N/A. Visualize and Verify Site with Patient/Guarantor: N/A. Relevant Radiology Images available: Yes. Pre-op teaching completed and patient verbalized understanding. The risks, benefits, and alternatives of sedation and/or procedure were discussed by physician. The patient agrees to continue. Procedure started. Physician arrived. [facility] Clinical Fraility Score: 3: Managing Well. Principal Developer Indications: ACS > 24 hours. Chest Pain Symptom Assessment: Typical Angina Symptoms. Correct patient, site and procedure confirmed by cath team. Current diagnosis: NSTEMI. IV Site on Arrival: 18 gauge in the right forearm. PERRLA. Strong, equal hand falafel cart cook bilaterally. Lungs clear x 5 lobes. IV Fluids: 0.9% NaCl at KVO. 0 mL infused prior to labor relations representative. Oxygen started at 2liters/min via nasal canula. right groin was prepped with chloroprep then draped in the usual sterile fashion. right radial was prepped with chloroprep then draped in the usual sterile fashion. Baseline sample Acquired. HR: 64 BPM. Physician scrubbed in. Immediate Pre-Procedure Time Out. Correct Patient: Yes; Correct Procedure: Yes; Correct Site: Yes; Correct Patient Position: Yes; Correct Supplies: Yes; Dried Flammable Prep: Yes; Blood Products Available: N/A;. Lidocaine 1% infiltrated to the right radial. Arterial access obtained. Wire unable to advance. Wire and needle removed. Arterial access obtained. A 5 taiwanese Elgin catheter in over wire. Multiple views taken of right coronary artery. Catheter redirected to the LCA. Catheter removed over the exchange wire. A 5 taiwanese JL4 catheter in over wire. Multiple views taken of left coronary artery. Catheter removed over the exchange wire. A TR Band was successful obtaining hemostatsis at the Right Radial artery insertion site. Lidocaine 1% infiltrated to the right groin. Arterial access obtained with micropuncture set. A Right femoral angiogram was performed to determine safe placement of closure device. 6 taiwanese XB 3.5 guide catheter was inserted over the wire. ACT drawn. Results 238 seconds. Therapeutic limits - pre-heparin administration 90-150 seconds and monitoring heparin during a vascular procedure >250 seconds. EDP Sample taken: LV 172/-5,28; HR: 60 BPM; SpO2: 99%. Pullback taken: LV 170/-6,27; AO 160/63(98); Mean: 8mmHg, Peak to Peak: 9mmHg, SEP: 21sec/min; HR: 59 BPM; SpO2: 98%. Runthrough guidewire was advanced through the guide catheter to lesion in the prox LAD. Inflation number : 1 A AB TREK 2.50X15 RX BALLOON was prepped and advanced across the Prox LAD , then inflated to 14 BART for 0:15 seconds. Inflation number: 2 The AB TREK 2.50X15 RX BALLOON was reinflated across the Prox LAD, to 14 BATR for 0:13 seconds. Balloon out. Inflation Number : 3 A MDT R MARIO 3.0X26 KELLEN -Lot Number# _[id number] EXP: 11/25/2027 was prepped and advanced across the Prox LAD. The stent was deployed at 14 BART for 0:19 seconds. Stent balloon out over wire. Inflation number : 4 A MDT NC EUPHORA RX [id number] BALLOON was prepped and advanced across the Prox LAD , then inflated to 12 BART for 0:17 seconds. Inflation number: 5 The MDT NC EUPHORA RX 3.15M65NJ BALLOON was reinflated across the Prox LAD, to 16 BART for 0:16 seconds. Inflation number: 6 The MDT NC EUPHORA RX 3.14D92TM BALLOON was reinflated across the Prox LAD, to 14 BART for 0:16 seconds. Inflation number: 7 The MDT NC EUPHORA RX 3.55X14SD BALLOON was reinflated across the Prox LAD, to 16 BART for 0:15 seconds. Balloon and wire out. Results checked. Guide catheter out. 6 taiwanese JR 4 guide catheter was inserted over the wire. Runthrough guidewire was advanced through the guide catheter to lesion in the distal RCA. ACT drawn. Results 273 seconds. Therapeutic limits - pre-heparin administration 90-150 seconds and monitoring heparin during a vascular procedure >250 seconds. Inflation number: 1 The AB TREK 2.50X15 RX BALLOON was reinflated across the Dist RCA, to 12 BART for 0:13 seconds. Inflation number: 1 The AB TREK 2.50X15 RX BALLOON was reinflated across the Mid RCA, to 14 BART for 0:14 seconds. Inflation number: 1 The AB TREK 2.50X15 RX BALLOON was reinflated across the Prox RCA, to 14 BART for 0:07 seconds. Inflation number: 2 The AB TREK 2.50X15 RX BALLOON was reinflated across the Prox RCA, to 16 BART for 0:14 seconds. Balloon out. Results checked. 2.5x18mm Resolute Mario Stent inserted to lesion in the distal RCA. Intact stent out OTW. Guideliner inserted OTW and advanced to the RCA. 2.5x18mm Resolute [place] Stent inserted to lesion in the distal RCA. Intact stent out OTW. Wire out. Guide catheter out. 6 taiwanese AL 0.75 guide catheter was inserted over the wire. Runthrough guidewire was advanced through the guide catheter to lesion in the distal RCA. Stent inserted to lesion in the distal RCA. Intact stent out OTW. Guideliner inserted OTW and advanced to the RCA. 2.5x18mm Resolute Mario Stent inserted to lesion in the distal RCA. Intact stent out OTW. 3.0x12mm NC Euphora Balloon inserted to lesion in the distal RCA. Balloon out. Guideliner out. Guideliner inserted OTW and advanced to the RCA. Inflation number : 3 A MDT NC EUPHORA RX [id number] BALLOON was prepped and advanced across the Prox RCA , then inflated to 12 BART for 0:19 seconds. Inflation number: 4 The MDT NC EUPHORA RX 3.43S08RE BALLOON was reinflated across the Prox RCA, to 12 BART for 0:14 seconds. Balloon out. Inflation Number : 2 A MDT R MARIO 2.5X18 KELLEN -Lot Number# _[id number]_ EXP: 11/05/2027 was prepped and advanced across the Dist RCA. The stent was deployed at 14 BART for 0:14 seconds. Stent balloon out over wire. 3.0x38mm Stent inserted to lesion in the RCA. Intact stent out OTW. Stent inserted to lesion in the mid RCA. Intact stent out OTW. Wire and Guideliner out. Wire out. ACT drawn. Results 228 seconds. Therapeutic limits - pre-heparin administration 90-150 seconds and monitoring heparin during a vascular procedure >250 seconds. Guide catheter out. Runthrough guidewire was advanced through the guide catheter to lesion in the distal RCA. 6 taiwanese AL I guide catheter was inserted over the wire. A new Runthrough guidewire was advanced through the guide catheter to lesion in the distal RCA. Wire out. Guide catheter out. 6 taiwanese XB 3.5 guide catheter was inserted over the wire. Runthrough guidewire was advanced through the guide catheter to lesion in the distal RCA. A second Runthrough inserted. Second wire out. Guideliner inserted. Guideliner out. Stent inserted to lesion in the distal RCA. Intact stent out OTW. Wire out. Guide catheter out. 6 taiwanese 3DRC guide catheter was inserted over the wire. ACT drawn. Results 313 seconds. Therapeutic limits - pre-heparin administration 90-150 seconds and monitoring heparin during a vascular procedure >250 seconds. David Valle in for Geeta Hickey. Darío Elizalde in for Shubham Simms. Runthrough inserted and advanced to the RCA. Wire out. Runthrough guidewire was advanced through the guide catheter to lesion in the distal RCA. Wire out. Guide catheter out. 6 taiwanese AL 0.75 guide catheter was inserted over the wire. Guide catheter out. Sheath upsized to a 6 Fr. 6 taiwanese AL 0.75 guide catheter was inserted over the wire. Guide catheter out. The short 6Fr sheath exchanged for a 45cm Flexor sheath. 6 taiwanese AL 0.75 guide catheter was inserted over the wire. Guide catheter out. 6 taiwanese HS SH guide catheter was inserted over the wire. Guide catheter out. 6 taiwanese JR 4 guide catheter was inserted over the wire. Guide catheter out. left radial was prepped with chloroprep then draped in the usual sterile fashion. Lidocaine 1% infiltrated to the left radial. Arterial access obtained. 6 taiwanese AL 0.75 guide catheter was inserted over the wire. Wire out. Glidewire inserted. Wire out. ACT drawn. Results 265 seconds. Therapeutic limits - pre-heparin administration 90-150 seconds and monitoring heparin during a vascular procedure >250 seconds. Runthrough guidewire was advanced through the guide catheter to the RCA. Guideliner inserted and advanced OTW. Guideliner and wire out. Runthrough wire inserted to the RCA. DOC wire inserted. Teleport catheter inserted OTW. Wires and teleport catheter out. Sheath upsized to a 7 Fr. A Suture was successful obtaining hemostatsis at the Right Femoral artery insertion site. Glidewire inserted through the guide catheter. Wire and guide catheter out. A TR Band was successful obtaining hemostatsis at the Left Radial artery insertion site. Sheath(s) sutured into position with 2-0 silk and sterile 4x4's and Op-site applied over the site. No oozing or signs and symptoms of hematoma noted. Arterial sheath flushed and connected to tranducer and pressure bag with heparinized saline. Post Procedure: Pulses reassessed and unchanged. PERRLA. Strong, equal hand falafel cart cook bilaterally. No VTE prophylaxis required. Medication's Wasted: Nitro = 50 mcg. Medication's Wasted: Other = Fentanyl 50 mcg. Medication's Wasted: Heparin = 3000 units. Respiratory called to do an EKG. Dr. Herrera scrubbed out. Medication's Wasted: Other = Hydralazine 10 mg. Total IV fluids: 300 mL. Post-op diagnosis: Stent to LAD and RCA. Estimated blood loss: 5mL-10mL. Responsiveness - Normal response to verbal stimuli; alert and oriented, PERRLA. Airway - Unaffected, no intervention required; spontaneous ventilation. Circulation: W/N/L, pulses unchanged. Nausea/Vomiting: No. Procedure completed. Respiratory arrived. Vital chart was stopped. Patient transferred by bed to ICU. Access Site Site: Right Radial artery Sheath Size: 6 Fr Hemostasis Method: TR Band Hemostasis Success: Successful Site: Right Femoral artery Sheath Size: 6 Fr Hemostasis Method: Suture Hemostasis Success: Successful Site: Left Radial artery Sheath Size: 6 Fr Hemostasis Method: TR Band Hemostasis Success: Successful Procedure Medications Start: 9:17 AM Stop: 9:17 AM Medication: Benadryl Amount: 25 mg Route: I.V. Start: 9:20 AM Stop: 9:20 AM Medication: Versed Amount: 1 mg Route: I.V. Start: 9:20 AM Stop: 9:20 AM Medication: Fentanyl Amount: 50 mcg Route: I.V. Start: 9:36 AM Stop: 9:36 AM Medication: Versed Amount: 1 mg Route: I.V. Start: 9:43 AM Stop: 9:43 AM Medication: Heparin Amount: 5000 units Route: I.V. Start: 10:10 AM Stop: 10:10 AM Medication: Versed Amount: 1 mg Route: I.V. Start: 10:16 AM Stop: 10:16 AM Medication: Heparin Amount: 3000 units Route: I.V. Start: 10:33 AM Stop: 10:33 AM Medication: Heparin Amount: 3000 units Route: I.V. Start: 10:37 AM Stop: 10:37 AM Medication: Fentanyl Amount: 50 mcg Route: I.V. Start: 11:04 AM Stop: 11:04 AM Medication: Fentanyl Amount: 50 mcg Route: I.V. Start: 11:29 AM Stop: 11:29 AM Medication: Heparin Amount: 4000 units Route: I.V. Start: 11:29 AM Stop: 11:29 AM Medication: Hydralazine Amount: 10 mg Route: I.V. Start: 11:29 AM Stop: 11:29 AM Medication: Versed Amount: 1 mg Route: I.V. Start: 11:54 AM Stop: 11:54 AM Medication: Plavix Amount: 600 mg Route: P.O. Start: 12:07 PM Stop: 12:07 PM Medication: Fentanyl Amount: 25 mcg Route: I.V. Start: 12:38 PM Stop: 12:38 PM Medication: Fentanyl Amount: 25 mcg Route: I.V. Start: 12:38 PM Stop: 12:38 PM Medication: Versed Amount: 1 mg Route: I.V. Start: 12:55 PM Stop: 12:55 PM Medication: Heparin Amount: 4000 units Route: I.V. Start: 1:02 PM Stop: 1:02 PM Medication: Versed Amount: 1 mg Route: I.V. Start: 1:05 PM Stop: 1:05 PM Medication: Fentanyl Amount: 50 mcg Route: I.V. I, the attending physician, have reviewed and verified all procedure medications. Yes, all medications given per verbal order History/Risk Factors Hypertension: Yes Dyslipidemia: Yes Peripheral Arterial Disease (PAD): No Myocardial Infarction (WI): No Obesity: No Renal Disease: No Tobacco Use: Never Prior Interventions PCI: No CABG: No Valve Surgery: No Report Signatures Finalized by Miguel A Herrera MD on 03/19/2025 11:56 PM
--- NOTE | 2025-03-13 09:27 | PM.CONSULT ---
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 Patient was admitted, he was noted to have trending up cardiac markers in the form of troponin. It is the reason we have been asked to see the patient. Review of Systems Card: Reports: chest pain Resp: Denies: dyspnea Musc: Denies: joint warmth Skin/Breast: Reports: surgical incision Medications/Allergies Home Medications ?Medication ?Instructions ?Recorded ?Confirmed ?Last Taken ?Type aspirin 81 mg tablet,delayed 81 mg PO QAM 10/09/19 03/13/25 03/12/25 History release (Adult Low Dose Aspirin) multivitamin 1 tab PO DAILY 10/09/19 03/13/25 03/12/25 History atorvastatin 80 mg tablet 80 mg PO QPM 03/29/24 03/13/25 03/12/25 History syringe with needle 3 mL 20 gauge #100 ea 04/17/24 03/13/25 Unknown Rx x 1 1/2 (BD Luer-Bin Syringe) testosterone cypionate 200 mg/mL 200 mg SUBCUT .every other week #1 04/30/24 03/13/25 02/28/25 Rx intramuscular oil mL (Depo-Testosterone) dapagliflozin propanediol 10 mg 10 mg PO DAILY #30 tabs 05/08/24 03/13/25 03/12/25 Rx tablet (Farxiga) tamsulosin 0.4 mg capsule 0.4 mg PO DAILY #30 caps 05/08/24 03/13/25 03/12/25 Rx citalopram 40 mg tablet 40 mg PO QAM 06/17/24 03/13/25 03/12/25 History pregabalin 75 mg capsule 75 mg PO DAILY 06/17/24 03/13/25 03/12/25 History cetirizine 10 mg tablet 10 mg PO BID #20 tabs 07/21/24 03/13/25 Unknown Rx albuterol sulfate 90 mcg/actuation 2 inh inhalation Q4H PRN shortness 09/07/24 03/13/25 Unknown Rx aerosol inhaler of breath or wheezing #6.7 grams clopidogrel 75 mg tablet 75 mg PO DAILY 03/13/25 03/13/25 03/12/25 History duloxetine 20 mg capsule,delayed 40 mg PO DAILY 03/13/25 03/13/25 Unknown History release insulin degludec 200 unit/mL (3 100 unit SUBCUT DAILY 03/13/25 03/13/25 03/12/25 History mL) subcutaneous pen (Tresiba FlexTouch U-200 insulin) insulin lispro 100 unit/mL See Rx Instructions .Route .COMPLEX 03/13/25 03/13/25 03/12/25 History subcutaneous pen (Humalog KwikPen (U-100) Insulin) lisinopril 40 mg tablet 40 mg PO DAILY 03/13/25 03/13/25 03/12/25 History metformin 1,000 mg tablet 1,000 mg PO BID 03/13/25 03/13/25 03/12/25 History Allergies Allergy/AdvReac Type Severity Reaction Status Date / Time No Known Allergies Allergy Verified 03/12/25 15:05 Current Medications Generic Name Dose Route Start Last Admin Trade Name Vidya PRN Reason Stop Dose Admin Aspirin 81 mg 03/13/25 06:00 03/13/25 06:10 Aspirin 81 Mg Ec Tablet PO 81 mg QAM KALEB Administration Citalopram Hydrobromide 40 mg 03/13/25 06:00 03/13/25 06:10 Citalopram 20 Mg Tablet PO 40 mg QAM KALEB Administration Enoxaparin Sodium 100 mg 03/13/25 06:30 03/13/25 06:43 Enoxaparin 100 Mg/Ml Syringe 1 mg/kg (100 mg) Not Given SUBCUT Q12H KALEB Sodium Chloride 1,000 mls @ 75 mls/hr 03/12/25 19:52 03/12/25 21:17 Sodium Chloride 0.9% IV 75 mls/hr .[id number] KALEB Administration Insulin Human Lispro 0 unit 03/12/25 21:00 03/13/25 08:56 Insulin Lispro 100 Unit/1 Ml SUBCUT Not Given WM&BEDTIME KALEB Protocol Pantoprazole Sodium 40 mg 03/12/25 19:52 03/12/25 21:17 Pantoprazole 40 Mg Sdv IVP 40 mg Q24H KALEB Administration PFSH Acute PFSH: Medical History Hypertension Hyperlipidemia Diabetes type 2, controlled Osteoarthritis of left shoulder Surgical History Hx of colonoscopy with polypectomy 3 yrs ago History of esophagogastroduodenoscopy (EGD) History of back surgery History of removal of cyst History of lumpectomy of left breast 02/13/23 subcutaneous mass left breast and lumpectomy- Dr. Rose No significant past surgical history Family History Other Hypertension Social History Smoking and tobacco/nicotine status: never used tobacco/nicotine Second hand smoke exposure: No Alcohol intake: current Alcohol intake frequency: holidays/special occasions only Substance/Drug Use: unknown Adopted: No Caregiver/support person: No Lives independently: Yes Household members: significant other Housing: House Marital status: Life Partner Current occupational status: employed Do you think of yourself as: Straight/Heterosexual Current gender identity: Male Special lanre needs: No Dietary Habits: Current diet type/program: regular Caffeine: Yes Exercise: What type of physical activity do you participate in?: none Physical activity functional status: independent ambulation Safety: Seatbelt use: sometimes Helmet use: No Drive intoxicated or ride with intoxicated recycle driver?: never Home Safety: Water heater temperature set < 120 degrees: Yes Working smoke detector in home: Yes Fire extinguisher in home: Yes Carbon monoxide detector in home: No Personal Safety: Do you feel safe at home: Yes Victim of physical abuse: No Victim of emotional abuse: No Victim of sexual abuse: No NHANES Social Connection/Isolation: In a typical week, how many times do you talk on the telephone with family, friends, or neighbors?: Three or More Times per Week How often do you get together with friends or relatives?: Twice per Week Social isolation score (0-1 are the most socially isolated patients): 1 Vitals/I&O/Wt Last Vital Signs Temp 97.8 F 03/13/25 07:52 Pulse 62 03/13/25 07:52 Resp 12 03/13/25 07:52 BP 125/61 03/13/25 07:52 Pulse Ox 100 03/13/25 07:52 O2 Del Method Room Air 03/13/25 07:52 03/12/25 03/13/25 03/13/25 22:59 06:59 14:59 Intake Total 1220 / 1220 Balance 1220 / 1220 Weight last 48 hrs Weight 227 lb Weight 227 lb Weight 227 lb Weight 220 lb Physical Exam Const: OTHER: GENERAL: Patient is alert, awake and oriented x3. HEART: Regular S1 and S2. No murmur, rub or gallop. LUNGS: Clear to auscultate bilaterally. CENTRAL NERVOUS SYSTEM: Grossly nonfocal. EXTREMITIES: Lower extremities with out edema bilaterally. Data 03/13/25 03:53 03/13/25 03:53 A&P Assessment and plan 1. DENITA (acute kidney injury): 2. NSTEMI (non-ST elevated myocardial infarction): Plan: Patient presentation is suggestive of acute coronary syndrome such as unstable angina. We will therefore proceed with left heart cath. Continue aspirin statin heparin and beta-brianne. Further plan will be devised as per progress of the patient PDMP PDMP Reviewed: Not Reviewed Consult Attestations Medical Necessity Statement: Require continuation hospitalization for above defined care Coding Level of Care Code Acute Code for [facility] Fwd Diagnoses DENITA (acute kidney injury) N17.9 NSTEMI (non-ST elevated myocardial infarction) I21.4
--- NOTE | 2025-03-13 09:28 | P.HPUD_ITS ---
Surgery/Procedure H&P Update DATE OF PROCEDURE: March 13, 2025 DATE H&P PERFORMED: 03/13/25 CHANGES TO PREVIOUS DOCUMENTATION: 64-year-old male past medical history significant for hypertension hyperlipidemia diabetes mellitus continuous tobacco abuse peripheral arterial disease s/p intervention to both legs, chronic kidney disease acute on chronic now improved with creatinine of 1.1 from 1.5 after IV fluid presented with worsening of chest pain increase in frequency and duration every time he walks and now at rest highly suspicious for unstable angina. Patient was admitted to the hospital started on heparin. Troponin started trending up. It is the reaso n patient is brought to the [facility] for left heart cath. PATIENT REASSESSED PRIOR TO SEDATION, WITH NO CHANGE NOTED: Yes PHYSICAL EXAM: alert, oriented x 3, clear to auscultation bilaterally, regular rate & rhythm and operative site marked AIRWAY EVAL/ANESTHESIA PLAN: ASA II, Risks, benefits & alternatives of sedation and/or procedure discussed and Patient agrees to continue as planned ADDITIONAL INFORMATION: All risk-benefit and alternative for the procedure has been explained to the patient. Patient understand 2% risk of stroke major bleed. Patient is stent 6% risk of contrast-induced nephropathy, urgent emergent vascular bypass surgery hematoma pseudoaneurysm. He would like to proceed with it. Creatinine was 1.5 which improved after IV hydration to 1.1.
--- NOTE | 2025-03-13 13:20 | ECG_ITS ---
[facility]: 2025-03-13 Pat Name: Maurice Rizo Department: Room: ICU02 Gender: Male Director Online Marketing: : 1960 Requested By: Miguel A Herrera Order Number: [id number] Reading MD: MIGUEL A HERRERA Measurements Intervals [place] Rate: 59 P: 7 UT: 189 QRS: -68 QRSD: 134 T: 28 QT: 405 QTc: 402 Interpretive Statements SINUS BRADYCARDIA INTRAVENTRICULAR CONDUCTION DELAY [130+ ms QRS DURATION] INTERPRETATION BASED ON A DEFAULT AGE OF 40 YEARS Compared to ECG 03/12/2025 22:11:13 Intraventricular conduction delay now present Left anterior fascicular block no longer present Electronically Signed On 03-15-2025 16:12:24 CDT by MIGUEL A HERRERA [email or web address]
--- NOTE | 2025-03-13 13:44 | PC.NURSE ---
patient to clinical laboratory technologist at 0910.
--- NOTE | 2025-03-13 14:02 | P.PCN_ITS ---
Procedure Note: Date of procedure: 03/13/25 Pre-procedure diagnosis: Unstable angina Procedure: Left heart cath was performed indication was unstable angina. Patient has highly tortuous calcified aorta and coronary arteries specially RCA. He was noted to have high-grade 90% proximal LAD stenosis near the bifurcation of the diagonal. Left circumflex is large size and caliber vessel which is codominant. It has proximal and distal 50% stenosis RCA has anterior takeoff which is eccentric it is tortuous very calcified vessel due to tortuosity of the aorta and takeoff guide and catheter placement was not optimal PCI to proximal LAD with excellent angiographic result SHERI-3 flow using 3.0 x 26 mm stent postdilated with 3.5 mm of noncompliant balloon. No complication noted PCI to distal RCA with drug-eluting stent. It was extremely difficult to engage we used right radial, right common femoral and left radial approach. While trying to deliver the stent into the proximal to mid segment dissection in the proximal and mid segment was noted. Despite of utmost effort and using multiple technique we were not able to deliver the stent since patient had a good flow and he is not unstable no chest pain twelve-lead EKG is normal I discussed with Dr. Parish Berger cardiothoracic surgeon at [facility]. He also agreed that since the vessel is open patent patient is stable we will manage him conservatively. We will bring patient back in 2 to 3 days as we have already reached high dose of radiation and contrast. Will then look into right coronary artery and see if we can deliver the stent. Plan Continue IV fluid 100 mL/h for next 12 hours Continue dual antiplatelet therapy in the form of Plavix and aspirin Monitor patient in the ICU Bedrest for 6 hours after pulling out the sheath Coding Level of Care Code Acute Code for Chg Fwd
--- NOTE | 2025-03-13 14:47 | P.PN_ITS ---
Subjective 2 Subjective: Patient was seen status post cardiac cath procedure, no chest pain, no palpitations, no nausea, no vomiting, he will be moved to the ICU for close monitoring Vitals/I&O/Wt Last Vital Signs Temp 97.8 F 03/13/25 07:52 Pulse 60 03/13/25 14:15 Resp 15 03/13/25 14:15 BP 144/52 03/13/25 14:15 Pulse Ox 99 03/13/25 14:15 O2 Del Method Room Air 03/13/25 14:15 03/12/25 03/13/25 03/13/25 22:59 06:59 14:59 Intake Total 1220 / 1220 Balance 1220 / 1220 Weight last 48 hrs Weight 102.965 kg Weight 102.965 kg Weight 102.965 kg Weight 99.79 kg Physical Exam 2 Const: COMMON NORMALS: no acute distress and patient oriented x3 Resp: COMMON NORMALS: normal respiratory effort, No retractions, No use of accessory muscles and clear to auscultation bilaterally AUSCULTATION: clear to auscultation bilaterally Cardio: COMMON NORMALS: regular rate, regular rhythm, S1 normal heart sound present and S2 normal heart sound present RATE: regular rate RHYTHM: r egular rhythm HEART SOUNDS: S1 normal heart sound present and S2 normal heart sound present GI: COMMON NORMALS: Normal to inspection, nondistended, normoactive bowel sounds present and non-tender Extremity: COMMON NORMALS: no calf tenderness and no pedal edema Neuro: COMMON NORMALS: patient oriented x3 Psych: COMMON NORMALS: mental status grossly normal Data 03/13/25 03:53 03/13/25 03:53 A&P Assessment and plan 1. Hypertension: 2. Hyperlipidemia: 3. Diabetes type 2, controlled: 4. Chronic renal disease: 5. Chest pain, exertional: Plan: Chest pain Stress testing May 2024 - IMPRESSIONS 1. Myocardial perfusion imaging revealing fairly uniform myocardial tracer uptake with no significant Perfusion normalities 2. Normal LV ejection fraction of 57% 3. LV wall motion analysis revealing no gross wall motion abnormalities. 4. Normal LV volume No similar previous studies are available for comparison -History of peripheral vascular disease status post stenting -Recent history of cigar use -No history of drug use - NSTEMI - S/p cardiac cath chest post PCI to proximal LAD, PCI to distal RCA with drug- eluting stent, with proximal to mid segment dissection in the proximal and mid segment noted Plan - Serial EKGs, troponins, telemetry monitoring - Aspirin - Atorvastatin - Plavix -Repeat cardiac echocardiogram Left ventricle is normal in size. LV systolic function is mildly reduced with EF of 45-50%. Mild hypokinesis of anterolateral and anterior coles. - Hold cilostazol for now - Type 2 diabetes mellitus, moderate dose sliding scale - Creatinine 1.1 -Hyperkalemia, resolved -Plan to bring patient back to [facility] in 2 to 3 days, - Full code - Lovenox for DVT prophylaxis PDMP PDMP Reviewed: Not Reviewed Attestations 2 Medical Necessity Statement*: Patient requires hospitalization for chest pain,NSTEMI, status post 2 stents, with right coronary artery dissection Diagnoses Hypertension I10 Hyperlipidemia E78.5 Diabetes type 2, controlled E11.9 Chronic renal disease N18.9 Chest pain, exertional R07.9
--- NOTE | 2025-03-13 15:33 | PC.NURSE ---
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
[2025-03-13 18:38] LABS: Partial Thromboplastin Time 28.3 SECONDS (23.9-36.7)
[2025-03-13] MEDS: fentaNYL 50 mcg/mL INJ 2mL IVP (19:25)
[2025-03-13] MEDS: pantoprazole 40 mg SDV IVP (19:26)
[2025-03-13] MEDS: ondansetron 2 mg/ML SDV 2 mL 4 MG IVP (20:00)
[2025-03-14] VITALS (30 sets, daily range): BP systolic 115–160; BP diastolic 52–74; PULSE 67–84; RESP 8–21; TEMP 36.6–36.8; O2SAT 93–100
[2025-03-14 02:47] LABS: Hematocrit 31.4 % (37-53); Hemoglobin 10.30 g/dL (11.27-16.99); Mean Corpuscular HGB Conc 32.8 g/dL (30-55); Mean Corpuscular Hemoglobin 30.0 pg (27-33); Mean Corpuscular Volume 91.5 fl (82-101); Nucleated Red Blood Cells % 0 %; Platelet Count 164 10^3/cmm (157-399); Red Blood Count 3.43 10^6/uL (3.85-5.65); White Blood Count 9.81 10^3/uL (3.29-11.43)
[2025-03-14 03:06] LABS: Anion Gap 16.6 (5-19); Blood Urea Nitrogen 23 mg/dL (8-23); Calcium 8.4 mg/dL (8.5-10.5); Carbon Dioxide 22 mmol/L (22-29); Chloride 105 mmol/L (98-107); Creatinine Clr Calc Pharmacy 67.3717; Glucose 115 mg/dL (65-115); Osmolality Calculated 293 mOsm/kg (285-295); Potassium 4.6 mmol/L (3.5-5.1); Sodium 139 mmol/L (136-145)
--- NOTE | 2025-03-14 04:06 | PC.NURSE ---
Addendum entered by Sofi Wolf RN 03/14/25 04:09: Bilateral TR band in place from days shift = all air out before this nurses arrival. opsite dressings applied bilateral sites within normal limits. Original Note: Right femoral sheath removed at 1939 pressure held x 30 minutes - site wnl. Dressing applied. Patient premedicated with fentanyl and zofran given by second nurse while pressure being held. Patient tolerated removal without complications. vitals stable. pulses positive. dime size hematoma noted.
--- NOTE | 2025-03-14 09:31 | P.PN_ITS ---
<Statement entered by Miguel A Herrera MD - 03/15/25 15:01> Patient was evaluated and cared for in conjunction with an advanced practice practitioner. I personally examined the patient and reviewed the chart and all pertinent data including imaging, telemetry, and laboratory results. I discussed the patient in detail with the advanced practice practitioner. Please see their note for complete H&P testing result and agreed upon plan of care for the patient. Subjective 2 Subjective: He underwent coronary angiogram yesterday, stent to the LAD. Distal RCA stent was unable to be delivered-highly tortuous calcified aorta and coronary arteries. Since there is good flow we will observe patient progress in keep patient on DAPT. He is feeling well without chest pain or shortness of breath this morning. Vitals/I&O/Wt Last Vital Signs Temp 98.1 F 03/14/25 08:00 Pulse 71 03/14/25 08:00 Resp 11 L 03/14/25 08:00 BP 128/58 03/14/25 08:00 Pulse Ox 97 03/14/25 08:00 O2 Del Method Room Air 03/14/25 08:00 03/13/25 03/14/25 03/14/25 22:59 06:59 14:59 Intake Total 1300 / 2440 1140 / 2440 Output Total 1100 / 1800 700 / 1800 Balance 200 / 640 440 / 640 Weight last 48 hrs Weight 227 lb Weight 227 lb Weight 227 lb Weight 220 lb Physical Exam 2 Const: COMMON NORMALS: no acute distress and patient oriented x3 GENERAL APPEARANCE: cooperative ORIENTATION/CONSCIOUSNESS: Yes awake, Yes oriented to person, Yes oriented to place and Yes oriented to time Chest: COMMONS NORMALS: normal inspection of the chest and normal palpation of entire chest wall CHEST: Yes Symmetrical chest wall rise Resp: COMMON NORMALS: normal respiratory effort, No retractions, No use of accessory muscles and clear to auscultation bilaterally AUSCULTATION: clear to auscultation bilaterally Cardio: COMMON NORMALS: regular rate, regular rhythm, S1 normal heart sound present, S2 normal heart sound present, No gallops present (Cardio), No clicks present (Cardio), No murmurs present (Cardio) and No rub (Cardio) RATE: r egular rate RHYTHM: regular rhythm HEART SOUNDS: S1 normal heart sound present and S2 normal heart sound present PERIPHERAL PULSES: radial pulses present positive right 2+ and femoral pulses present positive right 2+ Neuro: COMMON NORMALS: patient oriented x3 and moves all extremities S ENSORIUM/ORIENTATION: Yes oriented to person, Yes oriented to place and Yes oriented to time Skin: WOUNDS: Yes surgical site (no hematoma palpable) Details: no odor Data 03/14/25 02:23 03/14/25 02:23 A&P Assessment and plan 1. NSTEMI (non-ST elevated myocardial infarction): 2. Hypertension: 3. Coronary artery disease: 4. Uncontrolled type 2 diabetes mellitus: 5. DENITA (acute kidney injury): Plan: He can transfer to CSU today. Continue IV fluids at 100 mL/h to reduce DENITA. Continue aspirin, Plavix, Imdur. PDMP PDMP Reviewed: Not Reviewed Attestations 2 Medical Necessity Statement*: Post cath DENITA continuing IV fluid Coding Level of Care Code Acute Code for [facility] Diagnoses NSTEMI (non-ST elevated myocardial infarction) I21.4 Hypertension I10 Coronary artery disease I25.10 Uncontrolled type 2 diabetes mellitus DENITA (acute kidney injury) N17.9
--- NOTE | 2025-03-14 13:32 | P.PN_ITS ---
Subjective 2 Subjective: Patient was seen this morning, x 3, this, no chest pain, no palpitations, no lightheadedness, no dizziness Vitals/I&O/Wt Last Vital Signs Temp 98.1 F 03/14/25 08:00 Pulse 84 03/14/25 12:00 Resp 19 H 03/14/25 12:00 BP 120/55 03/14/25 12:00 Pulse Ox 97 03/14/25 12:00 O2 Del Method Room Air 03/14/25 12:00 03/13/25 03/14/25 03/14/25 22:59 06:59 14:59 Intake Total 1300 / 1300 1140 / 2440 240 / 240 Output Total 1100 / 1100 700 / 1800 Balance 200 / 200 440 / 640 240 / 240 Weight last 48 hrs Weight 102.965 kg Weight 102.965 kg Weight 102.965 kg Weight 99.79 kg Physical Exam 2 Const: COMMON NORMALS: no acute distress and patient oriented x3 Resp: COMMON NORMALS: normal respiratory effort, No retractions, No use of accessory muscles and clear to auscultation bilaterally AUSCULTATION: clear to auscultation bilaterally Cardio: COMMON NORMALS: regular rate, regular rhythm, S1 normal heart sound present and S2 normal heart sound present RATE: regular rate RHYTHM: r egular rhythm HEART SOUNDS: S1 normal heart sound present and S2 normal heart sound present GI: COMMON NORMALS: Normal to inspection, nondistended, normoactive bowel sounds present and non-tender Extremity: COMMON NORMALS: no pedal edema Neuro: COMMON NORMALS: patient oriented x3 Psych: COMMON NORMALS: mental status grossly normal Data 03/14/25 02:23 03/14/25 02:23 A&P Assessment and plan 1. Hypertension: 2. Hyperlipidemia: 3. Diabetes type 2, controlled: 4. Chronic renal disease: 5. Chest pain, exertional: Plan: Chest pain Stress testing May 2024 - IMPRESSIONS 1. Myocardial perfusion imaging revealing fairly uniform myocardial tracer uptake with no significant Perfusion normalities 2. Normal LV ejection fraction of 57% 3. LV wall motion analysis revealing no gross wall motion abnormalities. 4. Normal LV volume No similar previous studies are available for comparison -History of peripheral vascular disease status post stenting -Recent history of cigar use -No history of drug use - NSTEMI - S/p cardiac cath chest post PCI to proximal LAD, PCI to distal RCA with drug- eluting stent, with proximal to mid segment dissection in the proximal and mid segment noted Plan - Serial EKGs, troponins, telemetry monitoring - Aspirin - Atorvastatin - Plavix -Repeat cardiac echocardiogram Left ventricle is normal in size. LV systolic function is mildly reduced with EF of 45-50%. Mild hypokinesis of anterolateral and anterior coles. - Hold cilostazol for now - Type 2 diabetes mellitus, moderate dose sliding scale - Creatinine 1.3 -Hyperkalemia, resolved -Plan to bring patient back to [facility]s [facility] in 2 to 3 days, - Full code - Lovenox for DVT prophylaxis Plan for today moved to cardiac stepdown unit, IV fluids, will clinically monitor for chest pain PDMP PDMP Reviewed: Not Reviewed Attestations 2 Medical Necessity Statement*: Patient requires hospitalization for chest pain, Diagnoses Hypertension I10 Hyperlipidemia E78.5 Diabetes type 2, controlled E11.9 Chronic renal disease N18.9 Chest pain, exertional R07.9
[2025-03-14] MEDS: pantoprazole 40 mg SDV IVP (20:47)
[2025-03-15] VITALS (26 sets, daily range): BP systolic 92–167; BP diastolic 41–83; PULSE 63–86; RESP 10–21; TEMP 36.6–37.7; O2SAT 96–100
[2025-03-15 05:20] LABS: Hematocrit 30.3 % (37-53); Hemoglobin 9.70 g/dL (11.27-16.99); Mean Corpuscular HGB Conc 32.0 g/dL (30-55); Mean Corpuscular Hemoglobin 29.8 pg (27-33); Mean Corpuscular Volume 93.2 fl (82-101); Nucleated Red Blood Cells % 0 %; Platelet Count 160 10^3/cmm (157-399); Red Blood Count 3.25 10^6/uL (3.85-5.65); White Blood Count 7.43 10^3/uL (3.29-11.43)
[2025-03-15 05:43] LABS: Anion Gap 14.1 (5-19); Blood Urea Nitrogen 18 mg/dL (8-23); Calcium 7.9 mg/dL (8.5-10.5); Carbon Dioxide 23 mmol/L (22-29); Chloride 108 mmol/L (98-107); Creatinine Clr Calc Pharmacy 87.5832; Glucose 114 mg/dL (65-115); Osmolality Calculated 295 mOsm/kg (285-295); Potassium 4.1 mmol/L (3.5-5.1); Sodium 141 mmol/L (136-145)
[2025-03-15 09:27] LABS: Hematocrit 30.0 % (37-53); Hemoglobin 9.50 g/dL (11.27-16.99); Mean Corpuscular HGB Conc 31.7 g/dL (30-55); Mean Corpuscular Hemoglobin 29.5 pg (27-33); Mean Corpuscular Volume 93.2 fl (82-101); Nucleated Red Blood Cells % 0 %; Platelet Count 155 10^3/cmm (157-399); Red Blood Count 3.22 10^6/uL (3.85-5.65); White Blood Count 8.25 10^3/uL (3.29-11.43)
--- NOTE | 2025-03-15 14:46 | PM.PN ---
Subjective Subjective: Patient was seen this morning, currently alert oriented x 3, following all commands, no chest pain Vitals/I&O/Wt Last Vital Signs Temp 99.8 F H 03/15/25 08:00 Pulse 73 03/15/25 12:00 Resp 10 L 03/15/25 12:00 BP 124/58 03/15/25 12:00 Pulse Ox 100 03/15/25 12:00 O2 Del Method Room Air 03/15/25 12:00 03/14/25 03/15/25 03/15/25 22:59 06:59 14:59 Intake Total 340 / 1580 1200 / 2780 480 / 480 Balance 340 / 1580 1200 / 2780 480 / 480 Physical Exam Const: COMMON NORMALS: no acute distress and patient oriented x3 Resp: COMMON NORMALS: normal respiratory effort, No retractions, No use of accessory muscles and clear to auscultation bilaterally AUSCULTATION: clear to auscultation bilaterally Cardio: COMMON NORMALS: regular rate, regular rhythm, S1 normal heart sound present and S2 normal heart sound present RATE: regular rate RHYTHM: regular rhythm HEART SOUNDS: S1 normal heart sound present and S2 normal heart sound present GI: COMMON NORMALS: Normal to inspection, nondistended, normoactive bowel sounds present and non-tender Extremity: COMMON NORMALS: no pedal edema Neuro: COMMON NORMALS: patient oriented x3 Psych: COMMON NORMALS: mental status grossly normal Data 03/15/25 08:49 03/15/25 03:47 A&P Assessment and plan 1. Hypertension: 2. Hyperlipidemia: 3. Diabetes type 2, controlled: 4. Chronic renal disease: 5. Chest pain, exertional: Plan: Chest pain Stress testing May 2024 - IMPRESSIONS 1. Myocardial perfusion imaging revealing fairly uniform myocardial tracer uptake with no significant Perfusion normalities 2. Normal LV ejection fraction of 57% 3. LV wall motion analysis revealing no gross wall motion abnormalities. 4. Normal LV volume No similar previous studies are available for comparison -History of peripheral vascular disease status post stenting -Recent history of cigar use -No history of drug use - NSTEMI - S/p cardiac cath chest post PCI to proximal LAD, PCI to distal RCA with drug-eluting stent, with proximal to mid segment dissection in the proximal and mid segment noted Plan - Serial EKGs, troponins, telemetry monitoring - Aspirin - Atorvastatin - Plavix -Repeat cardiac echocardiogram Left ventricle is normal in size. LV systolic function is mildly reduced with EF of 45-50%. Mild hypokinesis of anterolateral and anterior coles. - Hold cilostazol for now - Type 2 diabetes mellitus, moderate dose sliding scale - Creatinine 1.0 -Hyperkalemia, resolved -Plan to bring patient back to [facility] Conservation Specialist in 2 to 3 days versus medical management - Full code - Lovenox for DVT prophylaxis Plan for today moved to cardiac stepdown unit, hemoglobin 9.5, monitor PDMP PDMP Reviewed: Not Reviewed Attestations Medical Necessity Statement*: Patient requires hospitalization for chest pain, right coronary artery dissection Diagnoses Hypertension I10 Hyperlipidemia E78.5 Diabetes type 2, controlled E11.9 Chronic renal disease N18.9 Chest pain, exertional R07.9
--- NOTE | 2025-03-15 15:11 | PM.PN ---
Subjective Subjective: Patient denies any complaint. Remained stable Vitals/I&O/Wt Last Vital Signs Temp 99.8 F H 03/15/25 08:00 Pulse 74 03/15/25 14:00 Resp 10 L 03/15/25 12:00 BP 124/58 03/15/25 12:00 Pulse Ox 100 03/15/25 12:00 O2 Del Method Room Air 03/15/25 12:00 03/15/25 03/15/25 03/15/25 06:59 14:59 22:59 Intake Total 1200 / 2780 1480 / 1480 Balance 1200 / 2780 1480 / 1480 Physical Exam Const: COMMON NORMALS: alert OTHER: GENERAL: Patient is alert, awake and oriented x3. HEART: Regular S1 and S2. No murmur, rub or gallop. LUNGS: Clear to auscultate bilaterally. CENTRAL NERVOUS SYSTEM: Grossly nonfocal. EXTREMITIES: Lower extremities with out edema bilaterally. Resp: COMMON NORMALS: clear to auscultation bilaterally AUSCULTATION: clear to auscultation bilaterally Neuro: SENSORIUM/ORIENTATION: Yes alert Data 03/15/25 08:49 03/15/25 03:47 A&P Assessment and plan 1. NSTEMI (non-ST elevated myocardial infarction): patient underwent left heart catheterization yesterday for noted to have significant proximal LAD lesion it was treated with single drug-eluting stent postdilated with noncompliant balloon with excellent angiographic result. Patient was also noted to have high-grade proximal mid and distal RCA stenosis which has a torturous anterior takeoff. With a lot of difficulty we were able to cross the lesion as we did not have much guide support despite of right radial right common femoral and left radial approach. Many guides used got kinked due to tortuosity, even long sheath was used. We were able to deliver distal RCA stent however proximal to mid dissection was noted. Despite of utmost effort we were not able to deliver the mid and proximal stent due to tortuosity eccentric takeoff and lack of guide support. Since patient had good flow which was SHERI-3, we consulted CT surgery at [facility] Dr. Berger, who also reviewed films with me and was in agreement that we should conservatively manage him since patient does not have any EKG changes he stable hemodynamics canas as he has no pain. I have also discussed this with patient patient and they are in agreement. Patient received high contrast in radiation it is the reason patient was taken off of the table. Since post PCI 2 days back patient continues to do fine without any complication. He is moving around without any chest pain. I will continue to monitor him for 24 more hours and will discharge him tomorrow. In the future patient has any symptoms we can consider taking him back to the [facility] or referred for single-vessel bypass surgery. 2. Primary hypertension: Continue lisinopril Add metoprolol 3. Coronary artery disease: 4. Uncontrolled type 2 diabetes mellitus: 5. DENITA (acute kidney injury): Renal function has improved, stop IV fluid Plan: Continue treatment as above plan for possible discharge tomorrow if remains stable continue dual antiplatelet therapy in the form of aspirin statin and Plavix. Add beta-brianne. Right groin looks good no hematoma PDMP PDMP Reviewed: Not Reviewed Attestations Medical Necessity Statement*: Patient require continuation hospitalization for above defined care. Coding Level of Care Code Acute Code for [facility] Diagnoses NSTEMI (non-ST elevated myocardial infarction) I21.4 Primary hypertension I10 Hypertension type: primary hypertension Coronary artery disease I25.10 Uncontrolled type 2 diabetes mellitus DENITA (acute kidney injury) N17.9
[2025-03-15 18:29] LABS: Hematocrit 30.7 % (37-53); Hemoglobin 9.80 g/dL (11.27-16.99)
[2025-03-15] MEDS: pantoprazole 40 mg SDV IVP (21:34)
[2025-03-16] VITALS (14 sets, daily range): BP systolic 124–160; BP diastolic 31–75; PULSE 57–77; RESP 9–22; TEMP 36.5–36.9; O2SAT 98–100
[2025-03-16] MEDS: metoprolol succinate ER (24 HR) 25 mg Tablet PO (08:38)
[2025-03-16 09:21] LABS: Hematocrit 31.5 % (37-53); Hemoglobin 10.20 g/dL (11.27-16.99); Mean Corpuscular HGB Conc 32.4 g/dL (30-55); Mean Corpuscular Hemoglobin 30.1 pg (27-33); Mean Corpuscular Volume 92.9 fl (82-101); Nucleated Red Blood Cells % 0 %; Platelet Count 155 10^3/cmm (157-399); Red Blood Count 3.39 10^6/uL (3.85-5.65); White Blood Count 8.10 10^3/uL (3.29-11.43)
[2025-03-16 09:41] LABS: Alanine Aminotransferase 11 U/L (0-41); Albumin Level 3.4 g/dL (3.5-5.2); Alkaline Phosphatase 52 U/L (40-130); Anion Gap 14.5 (5-19); Aspartate Amino Transferase 13 U/L (0-40); Blood Urea Nitrogen 15 mg/dL (8-23); Calcium 8.4 mg/dL (8.5-10.5); Carbon Dioxide 23 mmol/L (22-29); Chloride 106 mmol/L (98-107); Creatinine Clr Calc Pharmacy 79.6211; Globulin 2.6 g/dL (1.3-4.6); Glucose 278 mg/dL (65-115); Osmolality Calculated 299 mOsm/kg (285-295); Potassium 4.5 mmol/L (3.5-5.1); Sodium 139 mmol/L (136-145); Total Protein 6.0 g/dL (6.6-8.7)
--- NOTE | 2025-03-16 14:27 | P.PN_ITS ---
Subjective 2 Subjective: No complaint no overnight event no arrhythmia patient walked around without any chest pain. Vitals/I&O/Wt Last Vital Signs Temp 98.4 F 03/16/25 09:00 Pulse 70 03/16/25 09:00 Resp 13 03/16/25 09:00 BP 152/66 03/16/25 09:00 Pulse Ox 99 03/16/25 09:00 O2 Del Method Room Air 03/16/25 09:00 03/15/25 03/16/25 03/16/25 22:59 06:59 14:59 Intake Total 740 / 2220 Balance 740 / 2220 Physical Exam 2 Const: COMMON NORMALS: alert OTHER: GENERAL: Patient is alert, awake and oriented x3. HEART: Regular S1 and S2. No murmur, rub or gallop. LUNGS: Clear to auscultate bilaterally. CENTRAL NERVOUS SYSTEM: Grossly nonfocal. EXTREMITIES: Lower extremities with out edema bilaterally. Resp: COMMON NORMALS: clear to auscultation bilaterally AUSCULTATION: clear to auscultation bilaterally Neuro: SENSORIUM/ORIENTATION: Yes alert Data 03/16/25 08:58 03/16/25 08:58 A&P Assessment and plan 1. NSTEMI (non-ST elevated myocardial infarction): patient underwent left heart catheterization yesterday for noted to have significant proximal LAD lesion it was treated with single drug-eluting stent postdilated with noncompliant balloon with excellent angiographic result. Patient was also noted to have high-grade proximal mid and distal RCA stenosis which has a torturous anterior takeoff. With a lot of difficulty we were able to cross the lesion as we did not have much guide support despite of right radial right common femoral and left radial approach. Many guides used got kinked due to tortuosity, even long sheath was used. We were able to deliver distal RCA stent however proximal to mid dissection was noted. Despite of utmost effort we were not able to deliver the mid and proximal stent due to tortuosity eccentric takeoff and lack of guide support. Since patient had good flow which was SHERI-3, we consulted CT surgery at [facility] Dr. Berger, who also reviewed films with me and was in agreement that we should conservatively manage him since patient does not have any EKG changes he stable hemodynamics canas as he has no pain. I have also discussed this with patient patient and they are in agreement. Patient received high contrast in radiation it is the reason patient was taken off of the table. Since post PCI 2 days back patient continues to do fine without any complication. He is moving around without any chest pain. I will continue to monitor him for 24 more hours and will discharge him tomorrow. In the future patient has any symptoms we can consider taking him back to the [facility] or referred for single- vessel bypass surgery. 2. Primary hypertension: Continue lisinopril Add metoprolol 3. Coronary artery disease: 4. Uncontrolled type 2 diabetes mellitus: 5. DENITA (acute kidney injury): Renal function has improved, stop IV fluid Plan: Patient continues to do fine from a cardiovascular perspective denies any complaint feeling chest pain shortness of breath orthopnea. He has walked around today without any difficulty. At this point we will discharge him on aspirin statin beta-brianne Plavix. Patient has been advised to continue dual antiplatelet therapy for at least 1 year without interruption. Patient is advised in case of chest pain not relieved with nitroglycerin he should call 911 to come to the ER. 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 I will see him by myself in 1 week. Further plan will be advised as per progress the patient at this point will continue to manage him medically and conservatively as we have discussed the plan detail with CT surgery as well and since blood vessel is open and it is a difficult anatomy to deliver stent and because of the fact he continues fine we will continue to observe him if we see any problem including chest pain worsening or shortness of breath or any symptoms unable to redo left heart cath or consider option between CT surgery with single-vessel graft versus intervention. Patient creatinine is normalized. Due to high achievement of creatinine and radiation we will manage him medically. From cardiovascular perspective patient can be discharged today. PDMP PDMP Reviewed: Not Reviewed Attestations 2 Medical Necessity Statement*: From a cardiovascular perspective patient can be discharged today Coding Level of Care Code Acute Code for [facility] Diagnoses NSTEMI (non-ST elevated myocardial infarction) I21.4 Primary hypertension I10 Hypertension type: primary hypertension Coronary artery disease I25.10 Uncontrolled type 2 diabetes mellitus DENITA (acute kidney injury) N17.9
--- NOTE | 2025-03-16 15:41 | P.DS_ITS ---
Discharge Providers Date of Admission: 03/12/25 18:44 Date of Discharge: March 16, 2025 Attending Provider at Admission: Luca Quevedo MD Attending Provider at Discharge: Luca Quevedo MD Primary Care Provider: Donnie Rene MD Diagnoses at Discharge Discharge Diagnosis 1. NSTEMI (non-ST elevated myocardial infarction): 2. Primary hypertension: 3. Coronary artery disease: 4. Uncontrolled type 2 diabetes mellitus: 5. DENITA (acute kidney injury): Reason for Visit Reason for Visit: Dr. posadas abnormal chest x-ray Hospital Course Hospital Course Maurice Rizo is a 64 year old male with a past medical history of type 2 diabetes mellitus, peripheral vascular disease, requiring stenting, hypertension, who presents to [facility] for chest pain. Patient reports episode of chest pain on Monday, reports episodes of chest pain today, denies any shortness of breath, no lightheadedness or dizziness, no syncopal symptoms, he does report stenting in his bilateral extremities for peripheral vascular disease, is on cilostazol, does report he uses cigars, denies any drug use Patient was admitted to [facility] for chest pain, NSTEMI Stress testing May 2024 - IMPRESSIONS 1. Myocardial perfusion imaging revealing fairly uniform myocardial tracer uptake with no significant Perfusion normalities 2. Normal LV ejection fraction of 57% 3. LV wall motion analysis revealing no gross wall motion abnormalities. 4. Normal LV volume No similar previous studies are available for comparison -History of peripheral vascular disease status post stenting -Recent history of cigar use -No history of drug use - Radiology consulted - S/p cardiac cath chest post PCI to proximal LAD, PCI to distal RCA with drug- eluting stent, with proximal to mid segment dissection in the proximal and mid segment noted -Required monitoring the ICU, no recurrent chest pain -Monitored on aspirin, statin, Plavix -ardiac echocardiogram Left ventricle is normal in size. LV systolic function is mildly reduced with EF of 45-50%. Mild hypokinesis of anterolateral and anterior coles. -No recurrent chest pain during hospitalization we will discharge on aspirin, statin, Plavix, beta-brianne, Isosorbide mononitrate - Patient will follow-up with cardiology in 7 days -If patient has any recurrent chest pain he should come back to the emergency room -Discussion outpatient if patient would proceed with CT surgery with single vessel graft versus intervention Physical Exam Const: COMMON NORMALS: no acute distress and patient oriented x3 Resp: COMMON NORMALS: normal respiratory effort, No retractions, No use of accessory muscles and clear to auscultation bilaterally AUSCULTATION: clear to auscultation bilaterally Cardio: COMMON NORMALS: regular rate, regular rhythm, S1 normal heart sound present and S2 normal heart sound present RATE: regular rate RHYTHM: regular rhythm HEART SOUNDS: S1 normal heart sound present and S2 normal heart sound present GI: COMMON NORMALS: Normal to inspection, nondistended, normoactive bowel sounds present and non-tender Extremity: COMMON NORMALS: no pedal edema Neuro: COMMON NORMALS: patient oriented x3 Psych: COMMON NORMALS: mental status grossly normal Discharge Data Studies Completed and Pending Completed Studies During Hospitalization Category Date Time Status CXRP [XR chest 1V portable [id number]] Stat Exams 03/12/25 14:48 Completed CV. echo complete* [id number] Stat Ultrasound 03/12/25 18:33 Completed Pending at discharge Category Date Time Status [employer] request for service Routine Exams 03/13/25 08:51 Taken Radiology Impressions Chest X-Ray 03/12/25 14:48 IMPRESSION: No acute findings. Laboratory Results WBC 8.10 10^3/uL (3.29-11.43) 03/16/25 08:58 RBC 3.39 10^6/uL (3.85-5.65) L 03/16/25 08:58 Hgb 10.20 g/dL (11.27-16.99) L 03/16/25 08:58 Hct 31.5 % (37-53) L 03/16/25 08:58 MCV 92.9 fl (82-101) 03/16/25 08:58 MCH 30.1 pg (27-33) 03/16/25 08:58 MCHC 32.4 g/dL (30-55) 03/16/25 08:58 RDW 13.3 % (12.1-15.1) 03/16/25 08:58 Plt Count 155 10^3/cmm (157-399) L 03/16/25 08:58 MPV 12.5 fL (7.4-10.4) H 03/16/25 08:58 Neut % (Auto) 74.5 % 03/16/25 08:58 Lymph % (Auto) 13.6 % 03/16/25 08:58 [place] % (Auto) 6.8 % 03/16/25 08:58 Eos % (Auto) 4.1 % 03/16/25 08:58 Baso % (Auto) 0.5 % 03/16/25 08:58 Neut # (Auto) 6.04 10^3/uL (1.8-7.7) 03/16/25 08:58 Lymph # (Auto) 1.1 10^3/uL (0.8-4.8) 03/16/25 08:58 [place] # (Auto) 0.6 10^3/uL (0.2-0.9) 03/16/25 08:58 Eos # (Auto) 0.3 10^3/uL (0.0-0.8) 03/16/25 08:58 Baso # (Auto) 0.0 10^3/uL (0.0-0.1) 03/16/25 08:58 Nucleated RBC % (auto) 0 % 03/16/25 08:58 Nucleated RBCs # 0.0 /100WBC 03/16/25 08:58 APTT 28.3 SECONDS (23.9-36.7) 03/13/25 17:58 Sodium 139 mmol/L (136-145) 03/16/25 08:58 Potassium 4.5 mmol/L (3.5-5.1) 03/16/25 08:58 Chloride 106 mmol/L (98-107) 03/16/25 08:58 Carbon Dioxide 23 mmol/L (22-29) 03/16/25 08:58 Anion Gap 14.5 (5-19) 03/16/25 08:58 BUN 15 mg/dL (8-23) 03/16/25 08:58 Creatinine 1.1 mg/dL (0.7-1.2) 03/16/25 08:58 GFR Calculation 67.8 mL/min (90-130) L 03/16/25 08:58 Glucose 278 mg/dL (65-115) H 03/16/25 08:58 POC Glucose 259 mg/dL (70-110) H 03/16/25 11:57 Estimat Average Glucose 183 03/12/25 15:32 Hemoglobin A1c 8.0 % (4.0-6.0) H 03/12/25 15:32 Calculated Osmolality 299 mOsm/kg (285-295) H 03/16/25 08:58 Calcium 8.4 mg/dL (8.5-10.5) L 03/16/25 08:58 Total Bilirubin 0.3 mg/dL (0.15-1.2) 03/16/25 08:58 AST 13 U/L (0-40) 03/16/25 08:58 ALT 11 U/L (0-41) 03/16/25 08:58 Alkaline Phosphatase 52 U/L (40-130) 03/16/25 08:58 Troponin T Baseline 42 ng/L (0-15) H 03/12/25 15:32 Troponin T 120 Minute 40.67 ng/L (0-15) H 03/12/25 17:09 Delta Troponin T -1.33 ABS# (0-10) L 03/12/25 17:09 Troponin T Hi Sens 6Hr 45.07 ng/L (0-15) H 03/12/25 21:15 Troponin T Hi Sens 6Hr Delta 3.07 ng/L (0-12) 03/12/25 21:15 NT-Pro-B Natriuret Pep 161 pg/mL (0-125) H 03/12/25 15:32 Total Protein 6.0 g/dL (6.6-8.7) L 03/16/25 08:58 Albumin 3.4 g/dL (3.5-5.2) L 03/16/25 08:58 Globulin 2.6 g/dL (1.3-4.6) 03/16/25 08:58 Triglycerides 298 mg/dL (0-150) H 03/12/25 15:32 Cholesterol 140 mg/dL (0-200) 03/12/25 15:32 LDL Cholesterol, Calc 49 mg/dL (50-129) L 03/12/25 15:32 HDL Cholesterol 31 mg/dL (60-100) L 03/12/25 15:32 LDL/HDL Ratio 1.58 RATIO (0.00-3.22) 03/12/25 15:32 Cholesterol/HDL Ratio 4.52 mg/dL (1.0-5.00) 03/12/25 15:32 TSH 2.13 uIU/mL (0.27-4.20) 03/12/25 15:32 Urine Opiates Screen Negative ng/mL (Negative) 03/12/25 20:57 Ur Barbiturates Screen Negative ng/mL (Negative) 03/12/25 20:57 Ur Phencyclidine Scrn Negative ng/mL (Negative) 03/12/25 20:57 Ur Amphetamines Screen Negative ng/mL (Negative) 03/12/25 20:57 U Benzodiazepines Scrn Negative ng/mL (Negative) 03/12/25 20:57 Urine Cocaine Screen Negative ng/mL (Negative) 03/12/25 20:57 U Marijuana (THC) Screen Negative ng/mL (Negative) 03/12/25 20:57 Vitals Last Vital Signs Temp 97.8 F 03/16/25 14:51 Pulse 68 03/16/25 14:51 Resp 20 H 03/16/25 14:51 BP 131/58 03/16/25 14:51 Pulse Ox 98 03/16/25 14:51 O2 Del Method Room Air 03/16/25 09:00 Discharge Plan Discharge Patient Disposition: Home Condition: Stable Prescriptions: New isosorbide mononitrate 20 mg Tablet 20 mg PO BID 30 Days Qty: 60 0RF nitroglycerin 0.4 mg Tablet, Sublingual 0.4 mg sublingual Q5M PRN (Reason: Chest Pain) 30 Days Qty: 30 0RF metoprolol succinate 25 mg Tablet Extended Release 24 Hr 25 mg PO DAILY 30 Days Qty: 30 0RF Continued multivitamin Tablet 1 tab PO DAILY testosterone cypionate [Depo-Testosterone] 200 mg/mL oil 200 mg SUBCUT .every other week Qty: 1 3RF Farxiga 10 mg tablet 10 mg PO DAILY Qty: 30 2RF tamsulosin 0.4 mg capsule 0.4 mg PO DAILY Qty: 30 4RF albuterol sulfate 90 mcg/actuation HFA aerosol inhaler 2 inh INHALATION Q4H PRN (Reason: shortness of breath or wheezing) Qty: 6.7 1RF pregabalin 75 mg capsule 75 mg PO DAILY cetirizine 10 mg tablet 10 mg PO BID Qty: 20 0RF metformin 1,000 mg tablet 1,000 mg PO BID lisinopril 40 mg tablet 40 mg PO DAILY duloxetine 20 mg capsule,delayed release(DR/EC) 40 mg PO DAILY atorvastatin 80 mg tablet 80 mg PO QPM 30 Days Qty: 30 0RF citalopram 40 mg tablet 40 mg PO QAM 30 Days Qty: 30 0RF clopidogrel 75 mg tablet 75 mg PO DAILY 30 Days Qty: 30 0RF aspirin [Adult Low Dose Aspirin] 81 mg tablet,delayed release (DR/EC) 81 mg PO QAM 30 Days Qty: 30 0RF Changed insulin lispro [Humalog KwikPen Insulin] 100 unit/mL insulin pen See Rx Instructions .ROUTE .COMPLEX 30 Days Qty: 0 0RF Rx Instructions: Inject, subcu, 3 times daily, after meals, based on low-dose insulin sliding scale insulin degludec [Tresiba FlexTouch U-200] 200 unit/mL (3 mL) insulin pen 10 unit SUBCUT DAILY 30 Days Qty: 0 0RF No Action (DME) syringe with needle [BD Luer-Bin Syringe] 3 mL 20 gauge x 1 1/2 syringe See Rx Instructions .Route Qty: 100 0RF Rx Instructions: As directed Sterile Tech OK for DC: Cardiology Discharge Order = DC NOW: Discharge Order (Routine); Ordered 03/16/25 Ordered By: Luca Quevedo Referrals: Xin Valle NP [Nurse Practitioner, Cardiology] - 03/18/25 3:00 pm Donnie Rene MD [Primary Care Provider, Internal Medicine] Miguel A Gorman MD [Physician, Cardiology] - 4-7 days Referral Note: follow up dr gorman one week Discharge Diet: Advance as tolerated Patient Instructions: Chest Pain - Chest Wall, Isosorbide Dinitrate (By mouth), Metoprolol (By mouth), Nitroglycerin, Rapid Release (By mouth), Coronary Angioplasty (DC), Acute Kidney Injury (DC), Opioid Safety, Post Angiogram Home Care Instructions, Patient Portal & Alexandre Instructions Activity Restrictions/Additional Instructions: -Please monitor your blood sugars closely -Monitor your blood sugars 3 times daily as after meals -Please record your blood sugars, and a blood sugar log -For your NovoLog -Please inject blood sugar after meals based on sliding scale provided -Do not inject insulin if you do not eat as hypoglycemia kills -This is a NovoLog sliding scale -Insulin sliding ?fingerstick? Insulin ?141-180?0 units/sq 181-220?2 units/sq ?221-260?4 units/sq ?261-300 6 units/sq ?301-350?8 units/sq ?351-400 10 units/sq ?401-450?12 units/sq >450? 14units/sq -If your blood sugar is greater than 500 go to the emergency room -If your blood sugar is less than 60 or at anytime you feel lightheaded or dizzy or diaphoretic or have chest palpitations check your blood sugar, and eat a hard candy or drink orange juice and go immediately to the emergency room -Remember hypoglycemia kills, so if his blood sugar is less than 60 we have to increase it by taking in a sugary meal such as a hard candy or orange juice and go to the emergency room -If you have any questions please call us where here to help Discharge Attestations Time Spent in Discharge Care*: greater than 30 min Quality Metrics Clinical Quality Measures [ No reported AMI, CVA or VTE this stay] Coding Level of Care Code 04677 Total time (in minutes) for Discharge: 45 Diagnoses NSTEMI (non-ST elevated myocardial infarction) I21.4 Primary hypertension I10 Hypertension type: primary hypertension Coronary artery disease I25.10 Uncontrolled type 2 diabetes mellitus E11.65 DENITA (acute kidney injury) N17.9
--- NOTE | 2025-03-16 16:00 | PC.NURSE ---
Addendum entered by Douglas Freeman RN 03/16/25 16:02: Bilateral wrist and right groin cath sites inspected before discharge. Sites are unremarkable. No internal or external signs of bleeding. No signs of infection. Dressing intact and clean. Original Note: Discharged patient at 1515. New medications sent to [facility] pharmacy. Educated patient on new medications and medication changes, Upcoming appointments, and activity restrictions. IV removed. Patient picked up by . Left with all belongings. Signature form signed.
--- NOTE | 2025-03-16 19:24 | PC.NURSE ---
received call from after discharge stating had removed tape from wrist and was now swelling after conversation was stated was from prior arterial stick where cath was done instructed to bring back to er ,hesitant to do so and informed her he needed to be seen by medical personel , ask about ambulance in area stated yes she would call them , intructed that he should be seen by medical person here or in her area stated she would
== END 2025-03-16 16:03 | disposition home or self-care (01) | DRG 321 ==
LOC: ER 18:15 → CSU 18:44 → ICU 03-13 13:24
PROVIDERS: Emergency Medicine; Internal Medicine Cardiovascular Disease; Admitting Provider Family Medicine; Emergency Provider Student in an Organized Health Care Education/Training Program; PCP Internal Medicine; Visit Provider Family Medicine
PROC: 027135Z Dilation of Coronary Artery, Two Arteries with Two Drug-eluting Intraluminal Devices, Percutaneous Approach (ICD-10-PCS; principal; 2025-03-13 13:30)
PROC: 027135Z Dilation of Coronary Artery, Two Arteries with Two Drug-eluting Intraluminal Devices, Percutaneous Approach (ICD-10-PCS; 2025-03-13 13:30)
DX: I21.4 Non-ST elevation (NSTEMI) myocardial infarction (principal); I25.42 Coronary artery dissection; N17.9 Acute kidney failure, unspecified; I97.88 Other intraoperative complications of the circulatory system, not elsewhere classified; N18.9 Chronic kidney disease, unspecified; I25.10 Atherosclerotic heart disease of native coronary artery without angina pectoris; I25.84 Coronary atherosclerosis due to calcified coronary lesion; I12.9 Hypertensive chronic kidney disease with stage 1 through stage 4 chronic kidney disease, or unspecified chronic kidney disease; Z72.0 Tobacco use; E78.5 Hyperlipidemia, unspecified; E11.51 Type 2 diabetes mellitus with diabetic peripheral angiopathy without gangrene; Z79.84 Long term (current) use of oral hypoglycemic drugs; Z79.4 Long term (current) use of insulin; Z95.820 Peripheral vascular angioplasty status with implants and grafts; M19.012 Primary osteoarthritis, left shoulder; E87.5 Hyperkalemia; Z79.82 Long term (current) use of aspirin; I70.0 Atherosclerosis of aorta; Y84.8 Other medical procedures as the cause of abnormal reaction of the patient, or of later complication, without mention of misadventure at the time of the procedure; Y71.1 Therapeutic (nonsurgical) and rehabilitative cardiovascular devices associated with adverse incidents; E11.65 Type 2 diabetes mellitus with hyperglycemia
CPT/HCPCS: 36415; 36416; 71045; 80048; 80053; 80061; 80306; 82962; 83036; 83880; 84443; 84484; 85014; 85018; 85025; 85347; 85730; 93005; 93306; 93458; 94664; 96361; 96372; 96374; 96376; 99152; 99153; 99285; C1725; C1769; C1874; C1887; C1894; C9600; C9601; J0131; J0360; J1200; J1644; J1650; J1815; J2250; J2405; J2470; J3010; J3490; J7030; J9999; Q9967

== ENCOUNTER 2025-03-27 14:20 | Inpatient (IN) | payer BC, SELFPAY ==
--- OUTSIDE RECORDS SUMMARY | 2018-08-31 11:15 | XMS_ITS | Continuity of Care Document ---
Author Organization [facility] (Closed) [facility] Address [address] [place] [id number] Phone Care Team Providers Care Loan Servicing Specialist Name Role Phone Abdifatah Arnold Unavailable Unavailable Allergies, Adverse Reactions, Alerts Substance Reaction Status Criticality No Known Allergies Active No Inform ation Medications Medication Instructions Dosage Effective Dates (start - stop) Status Comments Colace 100 mg capsule take 1 capsule by oral route every day at bedtime as needed 100 MG - Active promethazine-DM 6.25 mg-15 mg/5 mL syrup take 5 milliliter by oral route every 6 hours as needed 5.00 milliliter - Active loratadine 10 mg tablet take 1 tablet by oral route every day as needed 10 MG - Active Tradjenta 5 mg tablet take 1 tablet by oral route every day 5 MG - Active lisinopril 20 mg tablet take 1 tablet by oral route 2 times every bedtime 20 MG - Active glimepiride 4 mg tablet take 1 tablet by oral route 2 times every day 4 MG - Active metformin 850 mg tablet take 1 tablet by oral route 2 times every day with morning and evening meals 850 MG - Active citalopram 10 mg tablet take 1 tablet by oral route every day 10 MG - Active Aspirin Low Dose 81 mg tablet,delayed release take 1 tablet by oral route every day 81 MG - Active Anusol-HC 25 mg rectal suppository insert 1 suppository by rectal route 2 times every day for 2 weeks 25 MG - No Longer Active Procedures Procedure Date OFFICE/OUTPATIENT VISIT, EST X-RAY EXAM L SPINE COMPLETE Xray Hip W Ap Pelvis OFFICE/OUTPATIENT VISIT, EST OFFICE/OUTPATIENT VISIT, EST DRAINAGE OF SKIN ABSCESS OFFICE/OUTPATIENT VISIT, EST Surgical trays OFFICE/OUTPATIENT VISIT, EST OFFICE/OUTPATIENT VISIT, EST OFFICE/OUTPATIENT VISIT, EST OFFICE/OUTPATIENT VISIT, EST COMPLETE CBC W/AUTO DIFF WBC COMPREHEN METABOLIC PANEL ROUTINE VENIPUNCTURE OFFICE/OUTPATIENT VISIT, EST Ondansetron 4 mg DRAINAGE OF PILONIDAL CYST OFFICE OUTPATIENT VISIT EST COMPLETE CBC W/AUTO DIFF WBC COMPREHEN METABOLIC PANEL LIPID PANEL ASSAY THYROID STIM HORMONE ROUTINE VENIPUNCTURE TB INTRADERMAL TEST OFFICE/OUTPATIENT VISIT, EST Advance Directives Directive Yes / No Effective Date File Name No Information Encounters Encounter Description Practice Location Reason(s) For Visit Diagnoses Date Provider Providers Copied on Encounter OFFICE/OUTPA TIENT VISIT, [facility], [address] [place] [address], [id number] , [place] tel: [phone] [facility] Blood in stool (chief complaint) Rectal bleedingHistory of hemorrhoids 9 Brodie Gardiner. [address] [place] [address], [id number] [place], [place], [id number], [place]. tel:[phone] Referring Provider: Campbell Zaragoza , [address] [place], [address]. tel:[phone] Counts Include [facility], [address] [place] [address], [id number] , [place] tel: [phone] [facility] No Information 8 No Information Referring Provider: Alex Mishra , [address] [id number] [address] [place] [address], [address]. OFFICE/OUTPA TIENT VISIT, [facility], [address] [place] [address], [id number] , [place] tel: [facility] No Information 8 Danica Johnson. [address] [place] [address] Road, [id number] [place] [address], [address], [place]. Referring Provider: Alex Mishra , [address] [place] [address] Road [id number] [address] [place] [address], [address]. OFFICE/OUTPA TIENT VISIT, [facility], [address] [place] [address], [id number] , [place] tel:[phone] [facility] Cyst (chief complaint) Abscess of left thighPilonidal cyst with abscess Edeza Abdifatah. [address] [place] [address] Rd, [id number] [place] [address], [id number], [place]. tel: [phone] Referring Provider: Campbell Zaragoza , [address] [place] [address], [address]. tel:[phone] OFFICE/OUTPA TIENT VISIT, [facility], [address] [place] [address], [id number] , [place] tel:[phone] [facility] Possible Cyst to groin area (chief complaint) Pilonidal cyst with abscessAbscess of left thigh Taraa Abdifatah. [address] [place] [address], [id number] [place], [id number], [place]. tel: [phone] Referring Provider: Campbell Zaragoza , [address] [place], [address]. tel:[phone] OFFICE/OUTPA TIENT VISIT, [facility], [address] [place] [address], [id number] , [place] tel: [phone] [facility] No Information 7 Danica Johnson. [address] [place] [address] Road, [id number] [place], [address], [place]. Referring Provider: Alex Mishra , [address] [place] [address] Road [id number] [address] [place] [address], [address]. OFFICE/OUTPA TIENT VISIT, [facility], [address] [place] [address], [id number] , [place] tel:[phone] [facility] URI (chief complaint) Acute sinusitisAcute bronchitis Saeng-Inh Chanphen. [address] [place] [address] Rd, [id number] [place], [id number], [place]. tel: [phone] OFFICE/OUTPA TIENT VISIT, [facility], [address] [place], [place], [id number] , [place] tel:[phone] [facility] pilonidal cyst (chief complaint) Pilonidal cyst with abscess Saeng-Inh Chanphen. [address] [place] [address] Rd, [id number] [place], [id number], [place]. tel: [phone] OFFICE/OUTPA TIENT VISIT, [facility], [address] [place] [address], [place], [place], [id number] , [place] tel: [facility] No Information 5 Danica Johnson. [address] [place] [address] Road, [id number] [place], [address], [place]. Referring Provider: Alex Mishra , [address] [place] [id number] [place] [address], [address]. Counts Include [address] [facility], [address] [place] [address], [id number] , [place] tel: [phone] [facility] No Information 5 No Information Referring Provider: Alex Mishra , [address] [place] [address] [id number] [place] [address], [address]. OFFICE/OUTPA TIENT VISIT, [facility], [address] [place], [place], [id number] , [place] tel:[phone] [facility] No Information 5 Danica Johnson. [address] [place] [address] Road, [id number] [place], [address], [place]. Referring Provider: Alex Mishra , [address] [place] [id number] [place] [address], [address]. OFFICE OUTPATIENT VISIT [facility], [address] [place] [address], [id number] , tel: [phone] [facility] Abscess on right side of buttock (chief complaint) Pilonidal cyst with abscess WallyMaria L Jasonvenkat. [address] [place] [address], [id number] [place], [place], [id number], . tel: [phone] Counts Include [facility], [address] [place] [address], [id number] , tel:[phone] [facility] No Information No Information Referring Provider: Nikhil Tao, [address] [place] [address] [id number], [address] [place] [address] . tel:[phone] Counts Include [facility], [address] [place] [address], [id number] , tel:[phone] [facility] No Information 5 Danica Johnson. [address] [place] [address] Road, [id number] [place] [address], [facility], . Referring Provider: Alex Mishra , [address] [place] [address] [id number], [facility]. OFFICE/OUTPA TIENT VISIT, [facility], [address] [place] [address], [id number] , tel: [phone] [facility] No Information Hung Ramos. [address] [place] [address], [id number] [place] [address], [address] [place] [address], . tel: [phone] Referring Provider: Yadiel Holly, [address] [place] [address] Road [id number] [address] [place] [address], [id number] . tel:[phone] Family History Family Member Type Diagnosis Age At Onset No Information Payers Payer name Insurance type Covered republican ID Jeny collado(s) Bharath Alejandre [id number] Social History Type Description Quantity Date Captured Comments Alcohol Use Details Unknown Caffeine Use Details Unknown Tobacco Use Status No Information Smoking Status No Information Sex Male Vital Signs Date / Time: Height Weight BMI Pulse Rate Blood Pressure Temperature Respiratory Rate Body Surface Area Head Circumference Head Circ. Percentile Wt./Johny. Percentile BMI percentile Pulse Ox Inhaled Ox 4:21 PM 66.00 in 104.780 kg (231.00 lbs) 37.2 8 kg/m eter (2) 81 /min 153/74 mm[Hg] 98.30 F 20 /min 98 % Chief Complaint And Reason For Visit From encounter dated '08/31/2018 16:15'. Blood in stool (chief complaint). Description: Onset: 1 day ago. Associated symptoms include rectalpain and rectal pain associated with bleeding. Additional information: chang matson. Has a history ofhemorrhoids. Reason For Referral Reason For Referral No Information Plan Of Treatment Date Type Action Status Referral Ordered: Referrals: Surgery. Evaluate and treat Appointment date/timeframe: 05/07/2018 ordered History Of Present Illness Encounter Date Complaint History Of Prese nt Illness Blood in stool Onset: 1 day ago . Associated symptoms include rectal pain and rectal pain associated with bleeding. Additional information: chang matson. Has a history of hemorrhoids. Cyst The symptoms are reported as being moderate. He states the symptoms are acute. Possible Cyst to groin area The symptoms began 3 days ago. The symptoms are reported as being severe. Left side cyst since 3 days , Right cyst 3weeks draining, has a smell URI The symptoms beg an 4 days ago. The patient presents with chills, cough and generalized weakness. The illness is associated with change in appetite, change in sleep cycle and hoarseness. The patient denies dyspnea, rash and reduced urine output. Additional information: runny nose. pilonidal cyst The symptoms beg an 6 days ago. Patient is here for wound packing, the packing has fallen out. Over all states that he feels better with significant reduction in pain. Abscess on right side of buttock The symptoms began 5 days ago. The symptoms are reported as being moderate. Aggravating factors include Movemant. H/o of abscess, had to had one surgically removed on left side. h/o DM and HTN. Hx of abscess in the past in the same site. Functional Status Date Functional Assessmen t Pain Score 5/10 Instructions Date Instruction Additional Infor mation Plenty of fluids. Ea t more vegetables and fibersTake medications as prescribedRx anusol HC, colaceFollow up with pcp if symptoms worsen. May need referral to a GI specialist or a surgeon Related to Rectal bleeding Will call surgeon fo r an appointment for the pilonidal cyst for further management Related to Pilonidal cyst with abscess (+) improvement on a bscessTake antibiotics prescribedFollow up in 7-10 days for wound check Related to Abscess of left thigh Will return in 1 day for wound check and repacking of abscess Related to Abscess of left thigh Wound care instructi ons given to patientRx augmentin Related to Pilonidal cyst with abscess Drink lots of fluid, get lots of rest, complete your antibiotic as directed, consider sinus rinse, follow up if not better or worsen. Pt to take OTC Robitussin DM PRN. Follow up with PCP Related to Acute bronchitis Drink lots of fluid, get lots of rest, complete your antibiotic as instructed. Return to the clinic if worsen. Related to Acute sinusitis Repacked wound with 1.5 inches of 1/4 inches wide plain packing strip, dry dressing placed. Patient is to return in 2 days for repacking. Related to Pilonidal cyst with abscess Keep area clean and dry. Use warm soapy water to clean the area. Apply and take medications as directed. Take Ibuprofen in between Vicodin. Follow up with a utility worker. Related to Pilonidal cyst with abscess Assessments Type Assessment Date assessment Rectal bleeding assessment History of hemorrhoids 19 Patient Care Teams Name Effective Dates (start - stop) Status Members No Information
--- OUTSIDE RECORDS SUMMARY | 2023-11-07 05:00 | XMS_ITS ---
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 He cancelled and no-showed the scheduled appointments, but he did get an MRI in May, Med list updated per referral notes and verified with external history/PDMP. Unknowns have not been filled for several months Medications Medication SIG (Take, Route, Frequency, Duration) Notes Start Date End Date Status Lantus Solostar Pen 100 units/mL as directed subcutaneously 2 times a day Active MetFORMIN (Eqv-Glucophage XR) 500 mg 2 tab(s) orally 2 times a day Active lisinopril 20 mg 1 tab(s) orally once a day; Duration: 30 day(s) Active naproxen 375 mg 1 tab(s) orally ever y 8 hours Active metroNIDAZOLE 500 mg 1 tab(s) orally as directed Active fenofibrate 134 mg 1 cap orally once a day Active atorvastatin 80 mg 1 tab orally once a day Active dapagliflozin 10 mg 1 tab(s) orally once a day; Duration: 30 day(s) Active citalopram 40 mg 1 tab orally once a day Active docusate sodium 100 mg 1 cap(s) orally 2 times a day Active acetaminophen-hydrocodone 325 mg-7.5 mg 1 tab(s) orally as directed Active traMADol 50 mg 1 tab(s) orally ever y 8 hours, as needed Unknown tiZANidine 4 mg 1 tab(s) orally ever y 8 hours, as needed Unknown aspirin 81 mg 1 tab orally once a day Active triamcinolone topical 0.1% 1 marcia applied topically 2 times a day Unknown multivitamin Unknown ketotifen ophthalmic 0.025% 1 gtt in each affected eye 2 times a day Unknown terbinafine 250 mg 1 tab(s) orally once a day; Duration: 42 day(s) Unknown pregabalin 100 mg 1 cap(s) orally 3 ti mes a day Unknown ketorolac 10 mg 1 tab orally 3 times a day Unknown tamsulosin 0.4 mg 1 cap orally once a day Active ondansetron 4 mg 1 tab(s) orally ever y 6 hours, as needed Unknown hydrochlorothiazide-lisin opril 25 mg-20 mg 1 tab orally once a day Unknown amLODIPine 5 mg 1 tab orally once a day Unknown Social History Tobacco Use: Social History Observation Description Date Smoking Status WARNING: Information temporarily unavailable alcohol Question Answer Notes Did you have a drink contain ing alcohol in the past year? Yes How often did you have a dri nk containing alcohol in the past year? Monthly or less (1 point) How many drinks did you have on a typical day when you were drinking in the past year? 1 or 2 (0 points) How often did you have six o r more drinks on one occasion in the past year? Less than monthly (1 point) Points 2 Interpretation Negative Tobacco use: Question Answer Notes Additional Findings: Tobacco User cigar : current smoker Are you interested in quitting? Ready to quit How many cigarettes a day do you smoke? 5 or les s How often do you smoke cigarettes? every day How soon after you wake up do you smoke your fir st cigarette? 6-30 min When did you start smoking? 2006 Encounters Encounter Location Date Provider Diagnosis [facility] [address] [place], [place] [id number] 11/07/2023 Alejandro Rubio Vertebrogenic low ba ck pain M54.51 ; Myalgia, other site M79.18 ; Postlaminectomy syndrome, not elsewhere classified M96.1 ; Spondylosis without myelopathy or radiculopathy, lumbar region M47.816 ; Sacroiliitis, not elsewhere classified M46.1 ; Hypersomnia, unspecified G47.10 and Other skilled nursing (current) drug therapy Z79.899 Assessments Encounter Date Diagnosis (ICD Code) Assessment Notes Treatment Notes Treatment Clinical Notes Section Notes 11/07/2023 Vertebrogenic low back pain (ICD-10 - M54.51) Consider interventional treatment pending outcome of imaging study RADIOLOGIST'S IMPRESSION OF L-SPINE MRI ON 06/01/23: 1. L4-5: Moderate central, bilateral subarticular recess and LEFT foraminal stenosis. Mild RIGHT foraminal stenosis. Stenosis from a combination of disc, facet and ligamentum flavum disease. 2. L5-S1: Moderate bilateral foraminal stenosis. Slightly greater stenosis and contact on the RIGHT L5 and S1 nerve roots. 3. L3-4: Mild central and bilateral subarticular recess stenosis. LEFT foraminal disc protrusion is contributing to the nerve root encroachment 11/07/2023 Myalgia, other site (ICD-10 - M79.18) Pattern has been appreciated and noted to be consistent with an iliopsoas myofascial pain syndrome. This syndrome may show improvement with interventional spine treatment of the lumbosacral region (when this occurs it typically follows successful RFA procedure[s]) RADIOLOGIST'S IMPRESSION OF L-SPINE MRI ON 06/01/23: 1. L4-5: Moderate central, bilateral subarticular recess and LEFT foraminal stenosis. Mild RIGHT foraminal stenosis. Stenosis from a combination of disc, facet and ligamentum flavum disease. 2. L5-S1: Moderate bilateral foraminal stenosis. Slightly greater stenosis and contact on the RIGHT L5 and S1 nerve roots. 3. L3-4: Mild central and bilateral subarticular recess stenosis. LEFT foraminal disc protrusion is contributing to the nerve root encroachment 11/07/2023 Postlaminectomy syndrome, not elsewhere classified (ICD-10 - M96.1) Patient had an imaging study ordered in 2019 when he was in [place] and pre-authorization was received, however, patient did not end up getting the study completed due to his relocation plans. Plan updated imaging studies (x-rays completed; CT scan is pending). Patient may be a candidate for DCS trial and have discussed the technology at length with patient: verbal, written and AV information regarding DCS trial / placement given to patient at 05/18/22 visit. Patient plans to investigate this treatment option further. Have discussed LESI as a treatment option. Have not recommended LESI. Patient with history of LESI prior to surgery with history of no significant benefit RADIOLOGIST'S IMPRESSION OF L-SPINE MRI ON 06/01/23: 1. L4-5: Moderate central, bilateral subarticular recess and LEFT foraminal stenosis. Mild RIGHT foraminal stenosis. Stenosis from a combination of disc, facet and ligamentum flavum disease. 2. L5-S1: Moderate bilateral foraminal stenosis. Slightly greater stenosis and contact on the RIGHT L5 and S1 nerve roots. 3. L3-4: Mild central and bilateral subarticular recess stenosis. LEFT foraminal disc protrusion is contributing to the nerve root encroachment 11/07/2023 Spondylosis without myelopathy or radiculopathy, lumbar region (ICD-10 - M47.816) Consider medial branch blocks and possible RFA. Conduct of procedures as well as risks and potential benefits have been discussed at length with patient RADIOLOGIST'S IMPRESSION OF L-SPINE MRI ON 06/01/23: 1. L4-5: Moderate central, bilateral subarticular recess and LEFT foraminal stenosis. Mild RIGHT foraminal stenosis. Stenosis from a combination of disc, facet and ligamentum flavum disease. 2. L5-S1: Moderate bilateral foraminal stenosis. Slightly greater stenosis and contact on the RIGHT L5 and S1 nerve roots. 3. L3-4: Mild central and bilateral subarticular recess stenosis. LEFT foraminal disc protrusion is contributing to the nerve root encroachment 11/07/2023 Sacroiliitis, not elsewhere classified (ICD-10 - M46.1) Could consider SI steroid injections. Back up plan in setting of diagnostic block efficacy with no significant steroid benefit would include possible sacral RFA procedure(s), however, patient's insurer ([facility]) has yet to ever authorize / cover sacral RFA procedures RADIOLOGIST'S IMPRESSION OF L-SPINE MRI ON 06/01/23: 1. L4-5: Moderate central, bilateral subarticular recess and LEFT foraminal stenosis. Mild RIGHT foraminal stenosis. Stenosis from a combination of disc, facet and ligamentum flavum disease. 2. L5-S1: Moderate bilateral foraminal stenosis. Slightly greater stenosis and contact on the RIGHT L5 and S1 nerve roots. 3. L3-4: Mild central and bilateral subarticular recess stenosis. LEFT foraminal disc protrusion is contributing to the nerve root encroachment 11/07/2023 Hypersomnia, unspecified (ICD-10 - G47.10) Patient has described his sleep as fair with complaints of frequent awakenings, excessive daytime sleepiness, snoring, and difficulty in sleeping. Patient has not had a sleep study. [place] Sleepiness Scale = 10. Patient, more likely than not, has sleep apnea. Medical history includes: depression, hyperlipidemia, hypertension and diabetes with diabetic nephropathy. Plan a sleep study RADIOLOGIST'S IMPRESSION OF L-SPINE MRI ON 06/01/23: 1. L4-5: Moderate central, bilateral subarticular recess and LEFT foraminal stenosis. Mild RIGHT foraminal stenosis. Stenosis from a combination of disc, facet and ligamentum flavum disease. 2. L5-S1: Moderate bilateral foraminal stenosis. Slightly greater stenosis and contact on the RIGHT L5 and S1 nerve roots. 3. L3-4: Mild central and bilateral subarticular recess stenosis. 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 Opioid Risk Tool score 1 - low risk. Patient has expressed no desire for oral opioid therapy RADIOLOGIST'S IMPRESSION OF L-SPINE MRI ON 06/01/23: 1. L4-5: Moderate central, bilateral subarticular recess and LEFT foraminal stenosis. Mild RIGHT foraminal stenosis. Stenosis from a combination of disc, facet and ligamentum flavum disease. 2. L5-S1: Moderate bilateral foraminal stenosis. Slightly greater stenosis and contact on the RIGHT L5 and S1 nerve roots. 3. L3-4: Mild central and bilateral subarticular recess stenosis. LEFT foraminal disc protrusion is contributing to the nerve root encroachment Plan Of Treatment Treatment Notes Assessment Notes Vertebrogenic low back pain Consider int erventional treatment pending outcome of imaging study Myalgia, other site Pattern has been marcia reciated and noted to be consistent with an iliopsoas myofascial pain syndrome. This syndrome may show improvement with interventional spine treatment of the lumbosacral region (when this occurs it typically follows successful RFA procedure[s]) Postlaminectomy syndrome, no t elsewhere classified Patient had an imaging study ordered in 2019 when he was in [place] and pre-authorization was received, however, patient did not end up getting the study completed due to his relocation plans. Plan updated imaging studies (x-rays completed; CT scan is pending). Patient may be a candidate for DCS trial and have discussed the technology at length with patient: verbal, written and AV information regarding DCS trial / placement given to patient at 05/18/22 visit. Patient plans to investigate this treatment option further. Have discussed LESI as a treatment option. Have not recommended LESI. Patient with history of LESI prior to surgery with history of no significant benefit Spondylosis without myelopat hy or radiculopathy, lumbar region Consider medial branch blocks and possib le RFA. Conduct of procedures as well as risks and potential benefits have been discussed at length with patient Sacroiliitis, not elsewhere classified C ould consider SI steroid injections. Back up plan in setting of diagnostic block efficacy with no significant steroid benefit would include possible sacral RFA procedure(s), however, patient's insurer ([employer]) has yet to ever authorize / cover sacral RFA procedures Hypersomnia, unspecified Patient has nataly cribed his sleep as fair with complaints of frequent awakenings, excessive daytime sleepiness, snoring, and difficulty in sleeping. Patient has not had a sleep study. [place] Sleepiness Scale = 10. Patient, more likely than not, has sleep apnea. Medical history includes: depression, hyperlipidemia, hypertension and diabetes with diabetic nephropathy. 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 Opioid Risk Tool score 1 - low risk. Patient has expressed no desire for oral opioid therapy Progress Notes * Maurice WONG SDOB:[birth year] (64 yo M)Acc No.[id number]:11/07/2023 Patient: New Maurice LAWSON Provider: Preeti Rubio :1960 A ge:63 Y S ex:Male Date:11/07/2023 Address:[address] [place], [place] [id number] Pcp:Anna Ayon MD Subjective: * Chief Complaints: * 1 . Patient states he is here today for {}. 2. Office visit. 3. Arline AYON REF FORMS/NOTES 10-06-2023. 4. PATIENT MADE IT CLEAR DURING SCHEDULING OF THIS APPT THAT HE DOES NOT WANT A SLEEP STUDY.. 5. CT was authorized 3 times and he did not complete the study. He cancelled and no-showed the scheduled appointments, but he did get an MRI in May. 6. Med list updated per referral notes and verified with external history/PDMP. Unknowns have not been filled for several months. * HPI: L umbar Spine: 63 year old male presents with c/o pain f or l eric - term duration i n the bilateral low back. This pain is described as constant aching. This pain is moderate to severe in intensity. This pain extends into the hips, groin r ight lateral thigh, and right lateral leg (all symptoms right > left). The back pain is aggravated by walking > 50 yards, standing > 10-15 minutes, lifting > 25 pounds, and weed eating. This pain is somewhat alleviated with use of heat in the evenings, via Biofreeze topical applications, and by lying on either side. c /o tingling/numbness i n the right toes and occasionally in the right foot. c /o weakness i ntermittently in th BLE (R>L). injury: f all on ice in 11/2021. previous surgery: L 5 disc surgery in 2015. P loreleian's referral: Physician's referral received: f hayden Marc right f or right hip pain / injections; see scanned documents. N ew / updated imaging: MRI o f the L-spine on 06/01/23; see scanned documents.? CT o f the C-spine order cancelled due to multiple cancellations/no-shows. P revious Imaging/Studies: CT o f the abdomen and pelvis on 05/10/21. X-rays o f the L-spine on 05/09/22; of the left shoulder on 04/04/22 and 10/09/19. P revious Therapy: Previous therapy: c hiropractic manipulation for 3 weeks with minimal benefit (2019); physical therapy for 6-8 weeks with benefit (2015); injection (epidural steroid injection per patient report) by Dr. Hasmukh Bee with minimal benefit (2012). Medication history: N eurontin 100 mg; Neurontin 600 mg (very groggy); Zanaflex 4 mg (moderate benefit); Dilaudid (IV while hospitalized); Biofreeze topical applications; Eastview 10/325; Eastview 7.5/325; [place] 5/325; tramadol 50 mg; Lyrica 75 mg; Lyrica 100 mg.? M edications: aspirin i s managed by Dr. Anna Ayon; request for anticoagulation cessation recommendations sent via fax. Eastview (hydrocodone / acetaminophen) 3 25 mg-7.5 mg tablet 1 tab(s) orally as directed, 10, 4 day supply (prescribed by Ted Kauffman MD). Patient reports * benefit with quantity * and * prescription(s) remaining.Last fill date: 10/31/23, per PDMP. * Medical History: C hronic low back pain, Chronic hip pain, bilateral, Osteoarthritis of left shoulder, Depression, Hyperlipidemia, Hypercholesterolemia, Hypertension, Fungal infection / onychomycosis, Diabetes mellitus type 2, Diabetic nephropathy (stage 3 kidney disease as per prior patient report), Obesity, moderate, Tobacco use, Sleep disorder, Sciatica. * Surgical History: R emoval of cyst, 2008, Back surgery ( cleaned out ; presumed laminectomy), performed at [facility] in [place], [place] by Dr. Hasmukh Bee, 01/2016, EGD , Colonoscopy w/ polypectomy, 2020, Lumpectomy, left breast, 02/13/23. * Hospitalization/Major Diagno stic Procedure: D enies Past Hospitalization. * Medications: T aking acetaminophen-hydrocodone 325 mg-7.5 mg tablet 1 tab(s) orally as directed , Taking aspirin 81 mg delayed release tablet 1 tab orally once a day , Taking atorvastatin 80 mg tablet 1 tab orally once a day , Taking citalopram 40 mg tablet 1 tab orally once a day , Taking dapagliflozin 10 mg tablet 1 tab(s) orally once a day , Taking docusate sodium 100 mg capsule 1 cap(s) orally 2 times a day , Taking fenofibrate 134 mg capsule 1 cap orally once a day , Taking Lantus Solostar Pen(insulin glargine) 100 units/mL solution as directed subcutaneously 2 times a day , Taking lisinopril 20 mg tablet 1 tab(s) orally once a day , Taking MetFORMIN (Eqv-Glucophage XR)(metFORMIN) 500 mg tablet, extended release 2 tab(s) orally 2 times a day , Taking metroNIDAZOLE 500 mg tablet 1 tab(s) orally as directed , Taking naproxen 375 mg tablet 1 tab(s) orally every 8 hours , Taking tamsulosin 0.4 mg capsule 1 cap orally once a day , Unknown ondansetron 4 mg tablet 1 tab(s) orally every 6 hours, as needed , Unknown amLODIPine 5 mg tablet 1 tab orally once a day , Unknown hydrochlorothiazide-lisinopril 25 mg-20 mg tablet 1 tab orally once a day , Unknown ketorolac 10 mg tablet 1 tab orally 3 times a day , Unknown ketotifen ophthalmic 0.025% solution 1 gtt in each affected eye 2 times a day , Unknown multivitamin , Unknown pregabalin 100 mg capsule 1 cap(s) orally 3 times a day , Unknown terbinafine 250 mg tablet 1 tab(s) orally once a day , Unknown tiZANidine 4 mg tablet 1 tab(s) orally every 8 hours, as needed , Unknown traMADol 50 mg tablet 1 tab(s) orally every 8 hours, as needed , Unknown triamcinolone topical 0.1% cream 1 marcia applied topically 2 times a day * Allergies: N .K.D.A. Objective: Therapeutic Interventions: Assessment: * Assessment: 1. V ertebrogenic low back pain - M54.51 (Primary) 2 . M yalgia, other site - M79.18 3 . P ostlaminectomy syndrome, not elsewhere classified - M96.1 ? 4 . S pondylosis without myelopathy or radiculopathy, lumbar region - M47.816 & #160; 5 . S acroiliitis, not elsewhere classified - M46.1 6 . H ypersomnia, unspecified - G47.10 7 . O ther skilled nursing (current) drug therapy - Z79.899? RADIOLOGIST'S IMPRESSION OF L-SPINE MRI ON 06/01/23: 1. L4-5: Moderate central, bilateral subarticular recess and LEFT foraminal stenosis. Mild RIGHT foraminal stenosis. Stenosis from a combination of disc, facet and ligamentum flavum disease. 2. L5-S1: Moderate bilateral foraminal stenosis. Slightly greater stenosis and contact on the RIGHT L5 and S1 nerve roots. 3. L3-4: Mild central and bilateral subarticular recess stenosis. LEFT foraminal disc protrusion is contributing to the nerve root encroachment. Plan: * Treatment: 2. M yalgia, other site Notes: Pattern has been appreciated and noted to be consistent with an iliopsoas myofascial pain syndrome. This syndrome may show improvement with interventional spine treatment of the lumbosacral region (when this occurs it typically follows successful RFA procedure[s]) 3. P ostlaminectomy syndrome, not elsewhere classified Notes: Patient had an imaging study ordered in 2019 when he was in [place] and pre-authorization was received, however, patient did not end up getting the study completed due to his relocation plans. Plan updated imaging studies (x-rays completed; CT scan is pending). Patient may be a candidate for DCS trial and have discussed the technology at length with patient: verbal, written and AV information regarding DCS trial / placement given to patient at 05/18/22 visit. Patient plans to investigate this treatment option further. Have discussed LESI as a treatment option. Have not recommended LESI. Patient with history of LESI prior to surgery with history of no significant benefit 4. S pondylosis without myelopathy or radiculopathy, lumbar region Notes: Consider medial branch blocks and possible RFA. Conduct of procedures as well as risks and potential benefits have been discussed at length with patient 5. S acroiliitis, not elsewhere classified Notes: Could consider SI steroid injections. Back up plan in setting of diagnostic block efficacy with no significant steroid benefit would include possible sacral RFA procedure(s), however, patient's insurer ([employer]) has yet to ever authorize / cover sacral RFA procedures 6. H ypersomnia, unspecified Notes: Patient has described his sleep as fair with complaints of frequent awakenings, excessive daytime sleepiness, snoring, and difficulty in sleeping. Patient has not had a sleep study. [place] Sleepiness Scale = 10. Patient, more likely than not, has sleep apnea. Medical history includes: depression, hyperlipidemia, hypertension and diabetes with diabetic nephropathy. Plan a sleep study ? 7. O ther skilled nursing (current) drug therapy Notes: Patient was given a copy of the Treatment Agreement, signed by patient on 05/09/22. Opioid Risk Tool score 1 - low risk. Patient has expressed no desire for oral opioid therapy ? * Preventive Medicine: Counseling: S moking Counseling Patient counselled on the dangers of tobacco use and urged to quit. 0 05/18/2022 C are Goal Follow Up Plan: BMI management provided Y es Above Normal BMI Follow-up D ietary management education, guidance, and counseling P ain Management: Follow-up Plan documented: Y es Pain Screenin .5 ASA Status Classification: s core: P 3. * Images: * Electronic signature of Cesar Rubio MD on 03/28/2025 at 06:30 AM CDT Sign off status: Pending * Provider: Preeti Rubio Date: 0 11/07/2023 Generated for Keyla yee/Puneet/Raul on: 0 03/28/2025 06:30 AM CDT History and Physical Notes * HPI (History of Present Illness) Category Sub-Category Detail Notes Category Not es Lumbar Spine injury: fall on ice in 11/2021 tingling/numbness in the right toes an d occasionally in the right foot pain in the bilateral low back. This pain is described as constant aching. This pain is moderate to severe in intensity. This pain extends into the hips, groin right lateral thigh, and right lateral leg (all symptoms right > left). The back pain is aggravated by walking > 50 yards, standing > 10-15 minutes, lifting > 25 pounds, and weed eating. This pain is somewhat alleviated with use of heat in the evenings, via Biofreeze topical applications, and by lying on either side previous surgery: L5 disc surgery in 2 016 weakness intermittently in th BLE (R>L) Medications Eastview (hydrocodone / acetaminoph en) 325 mg-7.5 mg tablet 1 tab(s) orally as directed, 10, 4 day supply (prescribed by Ted Kauffman MD). Patient reports * benefit with quantity * and * prescription(s) remaining. Last fill date: 10/31/23, per PDMP aspirin is managed by Dr. Me manda Ayon; request for anticoagulation cessation recommendations sent via fax Previous Therapy Previous therapy: chiropractic manipulation for 3 weeks with minimal benefit (2019); physical therapy for 6-8 weeks with benefit (2015); injection (epidural steroid injection per patient report) by Dr. Hasmukh Bee with minimal benefit (2012) Medication history: Neurontin 100 mg; Ne urontin 600 mg (very groggy); Zanaflex 4 mg (moderate benefit); Dilaudid (IV while hospitalized); Biofreeze topical applications; [place] 10/325; [place] 7.5/325; [place] 5/325; tramadol 50 mg; Lyrica 75 mg; Lyrica 100 mg New / updated imaging MRI of the L-spine on ; see scanned documents CT of the C-spine order cancelled due to multiple cancellations/no-shows Previous Imaging/Studies CT of the abdomen a nd pelvis on 05/10/21 X-rays of the L-spine on ; of the left shoulder on 04/04/22 and 10/09/19 Physician's referral Physician's referral receiv ed: from Dr. Anna Ayon for right hip pain / injections; see scanned documents
--- OUTSIDE RECORDS SUMMARY | 2025-03-19 10:00 | XMS_ITS ---
Author Organization [facility] Address [address] [place] [address] Care Team Providers Care Weaver Needle Loom Name Role Phone Patrick Rene Primary Care Provider Amy Webb [phone] Allergies Allergen (clinical drug ingredient) Drug/Non Drug Allergy documented on EMR Reaction Allergy Type Onset Date Status No Known Drug Allergy Unknown Drug Allergy Active REASON FOR VISIT Bilateral EVT with stent of the SFA 07/01/24 and 07/19/24- bilateral lead w/chris's-Radha Medications Medication SIG (Take, Route, Frequency, Duration) Notes Start Date End Date Status Lisinopril 40 mg Tablet TAKE ONE TABLET BY MOUTH ONCE a day; Duration: 30 Active NovoLOG FlexPen 100 UNIT/ML Solution Pen-injector as directed Subcutaneous to sliding scale after meals 06/25/2024 Active metFORMIN HCl 500 MG Tablet 2 tablets Orally Twice a day; Duration: 30 days Active Pregabalin 75 MG Capsule 1 capsule Orally Once a day; Duration: 30 days 01/01/2025 06/30/2025 Active One A Day Men 50 Plus - Tablet as directed Orally Active HumaLOG KwikPen 100 unit/mL Solution Pen-injector INJECT MAX 42 UNITS SUBCUTANEOUSLY THREE TIMES DAILY AFTER MEALS BASED ON SLIDING SCALE PROVIDED; Duration: 30 Active Farxiga 10 mg Tablet TAKE 1 TABLET BY [facility] ONCE a day; Duration: 30 Active Insulin Degludec 200 UNIT/ML Solution Pen-injector 80 Subcutaneous daily; Duration: 90 days 12/19/2024 Active DULoxetine HCl 20 mg Capsule Delayed Release Particles TAKE TWO CAPSULES BY MOUTH ONCE a day; Duration: 30 Active Dibucaine (Perianal) 1 % Ointment 1 application as needed Externally Three times a day; Duration: 30 days 12/02/2024 04/01/2025 Active Dexcom G6 Transmitter - Miscellaneous as directed in vitro apply once every 90 days; Duration: 90 days 05/15/2024 Active Citalopram Hydrobromide 40 mg Tablet TAKE ONE TABLET BY MOUTH EVERY MORNING; Duration: 90 Active Atorvastatin Calcium 80 MG Tablet 1 tablet Orally Once a day Active Dexcom G6 Sensor - Miscellaneous USE DIRECTED change EVERY 10 days; Duration: 30 Active Clopidogrel Bisulfate 75 mg Tablet TAKE ONE TABLET BY MOUTH ONCE DAILY; Duration: 30 Active Aspirin 81 MG Tablet Delayed Release 1 tablet Orally Once a day Active Doxycycline Hyclate 100 MG Tablet 1 tablet Orally Twice a day Not-Taking Spironolactone-HCTZ 25-25 MG Tablet 1/2 tablet Orally Once a day; Duration: 90 days Not-Taking rOPINIRole HCl 0.5 MG Tablet 1 tablet 1 to 3 hours before bedtime Orally Once a day Not-Taking ZyrTEC 10 MG Tablet Chewable 1 tablet Orally Once a day Not-Taking cloNIDine HCl 0.1 MG Tablet 1 tablet Orally Once a day Not-Taking TRUEplus 5-Bevel Pen [place] 31G X 6 MM Miscellaneous USE DIRECTED with insulin; Duration: 30 Active Tresiba FlexTouch 200 UNIT/ML Solution Pen-injector 100 Subcutaneous daily; Duration: 90 days 02/06/2025 Active Testosterone Cypionate 200 MG/ML Solution 1 mL SUBCUTANEOUSLY Every other week; Duration: 14 days 01/01/2025 Active Tamsulosin HCl 0.4 mg Capsule TAKE ONE CAPSULE BY MOUTH ONCE DAILY; Duration: 30 Active Social History Tobacco Use: Social History Observation Description Date Details (start date - stop date) Current Smoker NA - NA Social History Drugs/Alcohol: Social Info Question Answer Notes Drugs Have you used drugs other than those for medical reasons in the past 12 months? No Caffeine Intake: more than 4 cups per day Tobacco Use: Social Info Question Answer Notes Tobacco Control (Standard) Tobacco use: Current smoker Additional Findings: Tobacco user Cigar smoker Additional Details Category Social Info Options Details Drugs/Alcohol: Do you smoke marijuana? De nies Do you drink alcohol? No Section Notes: Dep - 08/09/24 Tob - 08/09/24 CIME Dep/tob - 12/02/24 Vital Signs Temperature 97 degrees Fahrenheit 03/19/2025 Blood pressure systolic 140 mm Hg 03/19/20 25 Blood pressure diastolic 90 mm Hg 025 Heart Rate 71 /min 03/19/2025 Height 67 in 03/19/2025 Weight 228.62 lbs 03/19/2025 BMI 35.8 kg/m2 03/19/2025 Oximetry 97 % 03/19/2025 Height-cm 170.18 cm 03/19/2025 Weight-kg 103.7 kg 03/19/2025 Encounters Encounter Location Date Provider Diagnosis [facility] [address] [place] [address] 03/19/2025 Amy Tracey S/P angioplasty with stent Z95.820 ; Peripheral vascular disease I73.9 and 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 Will anticipate follow-up with patient in 3 months with LEAD and ABIs at that time. Patient understand that if they develop lower extremity pain or signs or symptoms of claudication to notify us sooner than this or wound. Patient was educated on signs and symptoms of lower limb ischemia in the ER immediately with the such as blue-black discoloration, also function, blanching, cold extremities, or pain not relieved with rest. Patient denies all these and verbalized understanding. Counseling and congratulations on cessation of smoking today. 03/19/2025 Atheroscler of [place] artery of both legs with intermit claudication (ICD-10 - I70.213) Plan Of Treatment Treatment Notes Assessment Notes Peripheral vascular disease Continue marguerite ing Plavix, aspirin, statin daily as directed and documented today. Will anticipate follow-up with patient in 3 months with LEAD and ABIs at that time. Patient understand that if they develop lower extremity pain or signs or symptoms of claudication to notify us sooner than this or wound. Patient was educated on signs and symptoms of lower limb ischemia in the ER immediately with the such as blue-black discoloration, also function, blanching, cold extremities, or pain not relieved with rest. Patient denies all these and verbalized understanding. Counseling and congratulations on cessation of smoking today. Next Appt Details Follow Up: 3 Months, Reason: PVD EVT Provider Name:Patrick Winter Rene, 05/06/2025 03:40:00 PM, [address], [address], Provider Name:Mulugeta moreland, 06/18/2025 03:00:00 PM, [address] [place] [address] [address], [place], [address], Provider Name:Christo fontana, 06/18/2025 03:30:00 PM, [address] [place] [address] [address], [place], [address], History and Physical Notes * HPI (History of Present Illness) Category Sub-Category Detail Notes Category Not es : This is a 64 year old presenting for 8-month follow-upFor a July 19 left lower extremity arteriogram, shockwave intravascular lithotripsy to the left SFA, and stent placement in the left SFA by Dr. Garcia. He is well in terms of his leg pain and states that he has had 0 pain since his last procedure and is very happy with how things are going. He does also note that he was just hospitalized for PCI due to cardiac issues and coronary artery disease. He remains on Plavix, aspirin and statin that he takes on a daily basis. He has no acute concerns today and feels great.He reports that he was smoking up till about a week ago and he is committed to cessation and will abstain moving forward. ABIs today are as follows: Right ELECTRONIC TEST TECHNICIAN noncompressible DPA noncompressible Left ELECTRONIC TEST TECHNICIAN 0.66 DPA noncompressible Preliminary ultrasound results show good blood flow throughout with previous known left ELECTRONIC TEST TECHNICIAN occlusion.Please see ultrasound report and reading for further detail. Examination Category Sub-Category Detail Notes Category Not es Examination GENERAL APPEARANCE: Awake/alert. No appar ent distress SKIN: Normal appearance fo r race without rashes or lesions. Good turgor HEART: Regular rate and rhy thm CHEST: ABDOMEN: EXTREMITIES: No clubbing, cyanosi s, or edema VASCULAR: NEUROLOGIC: Alert and oriented t o person, place, time, and situation. Speech clear. CN II-XII intact. Gross exam non-focal LUNGS: Clear to auscultatio n without rales, rhonchi, wheezing, tachypnea or air hunger Progress Notes * Maurice WONG SDOB:[birth year] (64 yo M)Acc No.[id number]:03/19/2025 Progress Notes Patient: Maurice Perez Provider: Maya Webb CNP :1960 A ge:64 Y S ex:Male Date:03/19/2025 Address:[address] [place], [place] [id number] Pcp:Patrick Rene Check Out:03:05 PM BACK [employer]ER Subjective: * Chief Complaints: * B ilateral EVT with stent of the SFA 07/01/24 and 07/19/24- bilateral lead w/chris's-Radha * HPI: * :: This is a 64 y ear old presenting for 8-month follow-upFor a July 19 left lower extremity arteriogram, shockwave intravascular lithotripsy to the left SFA, and stent placement in the left SFA by Dr. Garcia. He is well in terms of his leg pain and states that he has had 0 pain since his last procedure and is very happy with how things are going. He does also note that he was just hospitalized for PCI due to cardiac issues and coronary artery disease. He remains on Plavix, aspirin and statin that he takes on a daily basis. He has no acute concerns today and feels great.He reports that he was smoking up till about a week ago and he is committed to cessation and will abstain moving forward. ABIs today are as follows: Right ELECTRONIC TEST TECHNICIAN noncompressible DPA noncompressible Left ELECTRONIC TEST TECHNICIAN 0.66 DPA noncompressible Preliminary ultrasound results show good blood flow throughout with previous known left ELECTRONIC TEST TECHNICIAN occlusion.Please see ultrasound report and reading for further detail. * ROS: G eneral - Multi System: Constitutional D enies, fever, chills, weakness, fatigue, poor appetite, unexplained weight loss. C ardiovascular?Denies any recent chest pain, palpitations or syncope. R espiratory D enies any shortness of breath, cough, or hemoptysis. G astrointestinal D enies heartburn, constipation, diarrhea, nausea, blood in stools, or abdominal pain. I ntegumentary D enies any rashes, bruising, or skin changes. G eneral/Constitutional: Denies C hange in appetite, d enies. D enies F atigue/Tiredness, a dmits. D enies H eadache, d enies. D enies L ightheadedness, d enies. R espiratory: Denies S hortness of breath, a dmits. D enies W heezing, d enies. D enies C ough, d enies. C ardiovascular: Denies C hest pain, d enies. D enies P alpitations, d enies. D enies S welling in hands/feet, d enies. G astrointestinal: Denies A bdominal pain. D enies C onstipation. D enies D iarrhea. D enies N ausea. D enies V omiting. G enitourinary: Denies D ifficulty urinating. D enies F requent urination. D enies B urning Urination. P eripheral Vascular: Denies C old extremities, d enies. D enies D ecreased sensation in extremities, d enies. D enies P ain/cramping in legs after exertion,?denies. D enies P ainful extremities, d enies. D enies U lceration of feet, d enies. * Medical History: High Blood Pressure type II diabetes Neuropathy Anxiety disorder Depression Restless leg syndrome Blockage Medical History Verified * Surgical History: back surgery 2014 pilonidal cyst excision 2015 Endovascular treatment 07.01.2024 Surgical History verified. * Hospitalization/Major Diagno stic Procedure: see above Hospitalization Verified. * Family History: F ather: , type II diabetes. M other: alive, heart, type II diabetes. F amily History Verified.. * Social History: T obacco Use: T obacco Control (Standard) T obacco use: C urrent smoker A dditional Findings: Tobacco user C igar smoker D rugs/Alcohol: D rugs H ave you used drugs other than those for medical reasons in the past 12 months? N o Caffeine I ntake: m ore than 4 cups per day Do you smoke marijuana?: Denies. Do you drink alcohol?: No. S ocial History Verified. D ep - 08/09/24 Tob - 08/09/24 CIME Dep/tob - 12/02/24. * Medications: T akingAspirin 81 MG Tablet Delayed Release 1 tablet Orally Once a day Atorvastatin Calcium 80 MG Tablet 1 tablet Orally Once a day Citalopram Hydrobromide 40 mg Tablet TAKE ONE TABLET BY MOUTH EVERY MORNING Clopidogrel Bisulfate 75 mg Tablet TAKE ONE TABLET BY MOUTH ONCE DAILY Dexcom G6 Sensor - Miscellaneous USE DIRECTED change EVERY 10 days Dexcom G6 Transmitter - Miscellaneous as directed in vitro apply once every 90 days Dibucaine (Perianal) 1 % Ointment 1 application as needed Externally Three times a day , stop date 04/01/2025DULoxetine HCl 20 mg Capsule Delayed Release Particles TAKE TWO CAPSULES BY MOUTH ONCE a day Farxiga 10 mg Tablet TAKE 1 TABLET BY MOUTH ONCE a day HumaLOG KwikPen 100 unit/mL Solution Pen-injector INJECT MAX 42 UNITS SUBCUTANEOUSLY THREE TIMES DAILY AFTER MEALS BASED ON SLIDING SCALE PROVIDED Insulin Degludec 200 UNIT/ML Solution Pen-injector 80 Subcutaneous daily Lisinopril 40 mg Tablet TAKE ONE TABLET BY MOUTH ONCE a day metFORMIN HCl 500 MG Tablet 2 tablets Orally Twice a day NovoLOG FlexPen 100 UNIT/ML Solution Pen-injector as directed Subcutaneous to sliding scale after meals One A Day Men 50 Plus - Tablet as directed Orally Pregabalin 75 MG Capsule 1 capsule Orally Once a day , stop date 06/30/2025Tamsulosin HCl 0.4 mg Capsule TAKE ONE CAPSULE BY MOUTH ONCE DAILY Testosterone Cypionate 200 MG/ML Solution 1 mL SUBCUTANEOUSLY Every other week Tresiba FlexTouch 200 UNIT/ML Solution Pen-injector 100 Subcutaneous daily TRUEplus 5-Bevel Pen [place] 31G X 6 MM Miscellaneous USE DIRECTED with insulin Taking Aspirin 81 MG Tablet Delayed Release 1 tablet Orally Once a day Taking Atorvastatin Calcium 80 MG Tablet 1 tablet Orally Once a day Taking Citalopram Hydrobromide 40 mg Tablet TAKE ONE TABLET BY MOUTH EVERY MORNING Taking Clopidogrel Bisulfate 75 mg Tablet TAKE ONE TABLET BY MOUTH ONCE DAILY Taking Dexcom G6 Sensor - Miscellaneous USE DIRECTED change EVERY 10 days Taking Dexcom G6 Transmitter - Miscellaneous as directed in vitro apply once every 90 days Taking Dibucaine (Perianal) 1 % Ointment 1 application as needed Externally Three times a day , stop date 04/01/2025Taking DULoxetine HCl 20 mg Capsule Delayed Release Particles TAKE TWO CAPSULES BY MOUTH ONCE a day Taking Farxiga 10 mg Tablet TAKE 1 TABLET BY MOUTH ONCE a day Taking HumaLOG KwikPen 100 unit/mL Solution Pen-injector INJECT MAX 42 UNITS SUBCUTANEOUSLY THREE TIMES DAILY AFTER MEALS BASED ON SLIDING SCALE PROVIDED Taking Insulin Degludec 200 UNIT/ML Solution Pen-injector 80 Subcutaneous daily Taking Lisinopril 40 mg Tablet TAKE ONE TABLET BY MOUTH ONCE a day Taking metFORMIN HCl 500 MG Tablet 2 tablets Orally Twice a day Taking NovoLOG FlexPen 100 UNIT/ML Solution Pen- injector as directed Subcutaneous to sliding scale after meals Taking One A Day Men 50 Plus - Tablet as directed Orally Taking Pregabalin 75 MG Capsule 1 capsule Orally Once a day , stop date 06/30/2025Taking Tamsulosin HCl 0.4 mg Capsule TAKE ONE CAPSULE BY MOUTH ONCE DAILY Taking Testosterone Cypionate 200 MG/ML Solution 1 mL SUBCUTANEOUSLY Every other week Taking Tresiba FlexTouch 200 UNIT/ML Solution Pen-injector 100 Subcutaneous daily Taking TRUEplus 5-Bevel Pen [place] 31G X 6 MM Miscellaneous USE DIRECTED with insulin Not-TakingcloNIDine HCl 0.1 MG Tablet 1 tablet Orally Once a day Doxycycline Hyclate 100 MG Tablet 1 tablet Orally Twice a day rOPINIRole HCl 0.5 MG Tablet 1 tablet 1 to 3 hours before bedtime Orally Once a day Spironolactone- HCTZ 25-25 MG Tablet 1/2 tablet Orally Once a day ZyrTEC 10 MG Tablet Chewable 1 tablet Orally Once a day Medication List reviewed and reconciled with the patientNot- Taking cloNIDine HCl 0.1 MG Tablet 1 tablet Orally Once a day Not-Taking Doxycycline Hyclate 100 MG Tablet 1 tablet Orally Twice a day Not-Taking rOPINIRole HCl 0.5 MG Tablet 1 tablet 1 to 3 hours before bedtime Orally Once a day Not-Taking Spironolactone- HCTZ 25-25 MG Tablet 1/2 tablet Orally Once a day Not-Taking ZyrTEC 10 MG Tablet Chewable 1 tablet Orally Once a day Medication List reviewed and reconciled with the patient * Allergies: N o Known Drug AllergyyesAllergies Verified. Objective: * Vitals: H t: 67 in, Wt:228.62lbs, Wt-k.7 kg, BMI:35.8Index, Temp:97F, BP:140/90mm Hg, HR:71/min, Oxygen sat %:97%, O2 Source: ra, Ht-cm: 170.18 cm. * Examination: E xamination: GENERAL APPEARANCE: A wake/alert. No apparent distress.? SKIN: N ormal appearance for race without rashes or lesions. Good turgor. HEART: R egular rate and rhythm . LUNGS: C lear to auscultation without rales, rhonchi, wheezing, tachypnea or air hunger. EXTREMITIES: N o clubbing, cyanosis, or edema. NEUROLOGIC: A lert and oriented to person, place, time, and situation. Speech clear. CN II-XII intact. Gross exam non-focal. Assessment: * Assessment: 1. P eripheral vascular disease - I73.9 (Primary) 2 . S /P angioplasty with stent - Z95.820 3 . A theroscler of [place] artery of both legs with intermit claudication - I70.213 Plan: * Treatment: * Procedure Codes: 3 075F SYST BP GE 130 - 139MM [id number] DIAST BP < 80 MM [id number] AMNT PAIN NOTED PAIN PRSNT * Follow Up: 3 Months (Reason: PVD EVT) Billing Information: * Visit Code: 00901 Office Visit, Est Pt., Level 3. * Procedure Codes: 3075F SYST BP GE 130 - 139MM HG. 3078F DIAST BP < 80 MM HG. 1125F AMNT PAIN NOTED PAIN PRSNT. Care Plan Details* * Electronic signature of Pako Webb CNP on 03/28/2025 at 06:31 AM CDT Sign off status: Pending * Provider: Maya Webb CNP Date: 03/19/2025 Generated for Keyla yee/Puneet/Raul on: 03/28/2025 06:31 AM CDT
--- OUTSIDE RECORDS SUMMARY | 2025-03-20 04:20 | XMS_ITS ---
Author Organization [facility] Address [address] [place] [address] Care Team Providers Care Lease Administration Supervisor Name Role Phone Patrick Rene Primary Care Provider Allergies Allergen (clinical drug ingredient) Drug/Non Drug Allergy documented on EMR Reaction Allergy Type Onset Date Status No Known Drug Allergy Unknown Drug Allergy Active REASON FOR VISIT [facility] F/U Medications Medication SIG (Take, Route, Frequency, Duration) Notes Start Date End Date Status Tamsulosin HCl 0.4 mg Capsule TAKE ONE CAPSULE BY MOUTH ONCE DAILY; Duration: 30 Active Testosterone Cypionate 200 MG/ML Solution 1 mL SUBCUTANEOUSLY Every other week; Duration: 14 days 01/01/2025 Active cloNIDine HCl 0.1 MG Tablet 1 tablet Orally Once a day Not-Taking Tresiba FlexTouch 200 UNIT/ML Solution Pen-injector 100 Subcutaneous daily; Duration: 90 days 02/06/2025 Active TRUEplus 5-Bevel Pen Ravia 31G X 6 MM Miscellaneous USE DIRECTED with insulin; Duration: 30 Active Pregabalin 75 MG Capsule 1 capsule Orally Once a day; Duration: 30 days 01/01/2025 06/30/2025 Active NovoLOG FlexPen 100 UNIT/ML Solution Pen-injector as directed Subcutaneous to sliding scale after meals 06/25/2024 Active One A Day Men 50 Plus - Tablet as directed Orally Active Lisinopril 40 mg Tablet TAKE ONE TABLET BY MOUTH ONCE a day; Duration: 30 Active Insulin Degludec 200 UNIT/ML Solution Pen-injector 80 Subcutaneous daily; Duration: 90 days 12/19/2024 Active Dibucaine (Perianal) 1 % Ointment 1 application as needed Externally Three times a day; Duration: 30 days 12/02/2024 04/01/2025 Active Dexcom G6 Transmitter - Miscellaneous as directed in vitro apply once every 90 days; Duration: 90 days 05/15/2024 Active HumaLOG KwikPen 100 unit/mL Solution Pen-injector INJECT MAX 42 UNITS SUBCUTANEOUSLY THREE TIMES DAILY AFTER MEALS BASED ON SLIDING SCALE PROVIDED; Duration: 30 Active DULoxetine HCl 20 mg Capsule Delayed Release Particles TAKE TWO CAPSULES BY MOUTH ONCE a day; Duration: 30 Active Farxiga 10 mg Tablet TAKE 1 TABLET BY [facility] ONCE a day; Duration: 30 Active Dexcom G6 Sensor - Miscellaneous USE DIRECTED change EVERY 10 days; Duration: 30 Active Citalopram Hydrobromide 40 mg Tablet TAKE ONE TABLET BY MOUTH EVERY MORNING; Duration: 90 Active Clopidogrel Bisulfate 75 mg Tablet TAKE ONE TABLET BY MOUTH ONCE DAILY; Duration: 30 Active Atorvastatin Calcium 80 MG Tablet 1 tablet Orally Once a day Active Mounjaro 2.5 MG/0.5ML Solution Auto-injector as directed Subcutaneous weekly; Duration: 30 days 03/20/2025 Active Aspirin 81 MG Tablet Delayed Release 1 tablet Orally Once a day Active Isosorbide Mononitrate 20 MG Tablet 1 tablet Orally Twice a day 03/20/2025 Active Metoprolol Succinate ER 25 MG Tablet Extended Release 24 Hour 1 tablet Orally Once a day Active Nitroglycerin 0.4MG Sublingual Tablets 0.4MG Tablet 1 Tablet under tongue and allow to dissolve as needed, given in clinic Sublingual Every 5 minutes up to 3 times if chest pain persists 03/20/2025 Active ZyrTEC 10 MG Tablet Chewable 1 tablet Orally Once a day Not-Taking rOPINIRole HCl 0.5 MG Tablet 1 tablet 1 to 3 hours before bedtime Orally Once a day Not-Taking Spironolactone-HCTZ 25-25 MG Tablet 1/2 tablet Orally Once a day; Duration: 90 days Not-Taking Doxycycline Hyclate 100 MG Tablet 1 tablet Orally Twice a day Not-Taking Social History Tobacco Use: Social History Observation Description Date Details (start date - stop date) Current Smoker NA - NA Social History Tobacco Use: Social Info Question Answer Notes Tobacco Control (Standard) Tobacco use: Current smoker Additional Findings: Tobacco user Cigar smoker Section Notes: Dep - 08/09/24 Tob - 08/09/24 CIME Dep/tob - 12/02/24 Vital Signs Temperature 98.7 degrees Fahrenheit 03/20/20 25 Blood pressure systolic 148 mm Hg 03/20/20 25 Blood pressure diastolic 67 mm Hg 025 Heart Rate 82 /min 03/20/2025 Height 67 in 03/20/2025 Weight 230 lbs 03/20/2025 BMI 36.02 kg/m2 03/20/2025 Oximetry 96 % 03/20/2025 Height-cm 170.18 cm 03/20/2025 Weight-kg 104.33 kg 03/20/2025 Encounters Encounter Location Date Provider Diagnosis [facility] [address] [phone] 03/20/2025 Patrick Rnee Type 2 diabetes mellitus with other specified complication, without long-term current use of insulin E11.69 ; Acute chest pain R07.9 ; PVD (peripheral vascular disease) I73.9 and Essential hypertension I10 Assessments Encounter Date Diagnosis (ICD Code) Assessment Notes Treatment Notes Treatment Clinical Notes Section Notes 03/20/2025 Type 2 diabetes mellitus with other specified complication, without long-term current use of insulin (ICD-10 - E11.69) 03/20/2025 Acute chest pain (ICD-10 - R07.9) 03/20/2025 PVD (peripheral vascular disease) (ICD-10 - I73.9) 03/20/2025 Essential hypertension (ICD-10 - I10) Plan Of Treatment Medication Medication Name Sig Start Date Stop Date Notes Mounjaro 2.5 MG/0.5ML Solution Auto-injector as directed Subcutaneous weekly; Duration: 30 days 03/20/2025 metFORMIN HCl 500 MG Tablet 2 tablets Orally Twice a day Next Appt Details Follow Up: 2 Months, Reason: Provider Name:Patrick Rene, 05/06/2025 03:40:00 PM, [address], [phone], Provider Name:Mulugeta moreland, 06/18/2025 03:00:00 PM, [address] [place] [address] [address], [place], [address], Provider Name:Christo fontana, 06/18/2025 03:30:00 PM, [address] [place] [address] [address], [facility] [place], [phone], History and Physical Notes * HPI (History of Present Illness) Category Sub-Category Detail Notes Category Not es Interim History *Hospital Transition of care (inpatient/overnight stay) Date of admission to hospital:: 03/12/2025 Reason for admission:: Chest pain Date of discharge from hospital:: 2024 Discharging Facility:: [facility] First Attempt at Contact:: Visit within 2 business days. Discharge medications review ed and reconciled from hospital:: Medications to be reconciled with Health Care Provider at Follow Up Visit Date of receipt of hospital admission re port:: 03/19/2025 Date of receipt of hospital discharge grubbs mmary:: 03/19/2025 Patient Complaints Patient h ere for follow up- pt spent 5 days ICU after having 2 stents placed- went to Urgent Care in [place], they did an EKG it showed something they sent him to ER @ [facility]- not having any chest pain now- would like a referral to a brand coordinator, wants to lose 20-30 pounds- would like to know what his limitations are now with having these stents put in Examination Category Sub-Category Detail Notes Category Not es Examination GENERAL APPEARANCE: Awake/alert. No appar ent distress HEART: Regular rate and rhy thm without rubs, murmurs, or gallops. PMI nondisplaced ABDOMEN: Soft, nontender, non distended with active bowel sounds X4. 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 D ischarge medications reviewed and reconciled from hospital: M edications to be reconciled with Health Care Provider at Follow Up Visit D ate of receipt of hospital admission report:?03/19/2025 D ate of receipt of hospital discharge summary: 0 03/19/2025 P atient Complaints: Patient here for follow up- pt spent 5 days ICU after having 2 stents placed- went to Urgent Care in [place], they did an EKG it showed something they sent him to ER @ [facility]- not having any chest pain now- would like a referral to a brand coordinator, wants to lose 20-30 pounds- would like to know what his limitations are now with having these stents put in. * ROS: G eneral/Constitutional: Patient denies f atigue , fever , night sweats. ? H ematology: Patient denies e asy bruising , bleeding problems , recent transfusion. R espiratory: Patient denies c ough , shortness of breath , wheezing.? C ardiovascular: Patient denies c hest pain , irregular heartbeat , swelling in hands/feet. G astrointestinal: Patient denies a bdominal pain, bloating , constipation , diarrhea , heartburn , blood in stool , nausea , vomiting. G enitourinary: Patient denies p ainful urination , blood in the urine , difficulty urinating. E NT: Patient denies e ar pain , nosebleed, runny nose, s ore throat. M usculoskeletal: Patient denies a rthritis\arthralgia , back pain , joint stiffness , muscle aches. S kin: Patient denies s kin lesion(s) , rash , acne. ? N eurologic: Patient denies d izziness , fainting , headache , memory loss , seizures. P sychiatric: Patient denies a nxiety , depressed mood , difficulty sleeping , suicidal thoughts. f ollow up- 2 stents placed, spent 5 days in ICU @ [facility], talk about weight lose- referral to dietitian. * Medical History: High Blood Pressure type II diabetes Neuropathy Anxiety disorder Depression Restless leg syndrome Blockage Medical History Verified * Surgical History: back surgery 2014 pilonidal cyst excision 2015 Endovascular treatment 07.01.2024 Stent 2x 03/21 Surgical History verified. * Hospitalization/Major Diagno stic Procedure: see above Hospitalization Verified. * Family History: F ather: , type II diabetes. M other: alive, heart, type II diabetes. F amily History Verified.. * Social History: T obacco Use: T obacco Control (Standard) T obacco use: C urrent smoker A dditional Findings: Tobacco user C igar smoker S ocial History Verified. D ep - 08/09/24 Tob - 08/09/24 CIME Dep/tob - 12/02/24. * Medications: T akingNitroglycerin 0.4MG Sublingual Tablets 0.4MG Tablet 1 Tablet under tongue and allow to dissolve as needed, given in clinic Sublingual Every 5 minutes up to 3 times if chest pain persists Isosorbide Mononitrate 20 MG Tablet 1 tablet Orally Twice a day Metoprolol Succinate ER 25 MG Tablet Extended Release 24 Hour 1 tablet Orally Once a day Aspirin 81 MG Tablet Delayed Release 1 [...] Pen-injector 100 Subcutaneous daily TRUEplus 5-Bevel Pen Ravia 31G X 6 MM Miscellaneous USE DIRECTED with insulin Taking Nitroglycerin 0.4MG Sublingual Tablets 0.4MG Tablet 1 Tablet under tongue and allow to dissolve as needed, given in clinic Sublingual Every 5 minutes up to 3 times if chest pain persists Taking Isosorbide Mononitrate 20 MG Tablet 1 tablet Orally Twice a day Taking Metoprolol Succinate ER 25 MG Tablet Extended Release 24 Hour 1 tablet Orally Once a day Taking Aspirin 81 MG Tablet Delayed Release [...] day Taking HumaLOG KwikPen 100 unit/mL Solution Pen- injector INJECT MAX 42 UNITS SUBCUTANEOUSLY THREE TIMES DAILY AFTER MEALS BASED ON SLIDING SCALE PROVIDED Taking Insulin Degludec 200 UNIT/ML Solution Pen-injector 80 Subcutaneous daily Taking Lisinopril 40 mg Tablet TAKE ONE TABLET BY MOUTH ONCE a day Taking metFORMIN HCl 500 MG Tablet 2 tablets Orally Twice a day Taking NovoLOG FlexPen 100 UNIT/ML Solution Pen-injector as [...] 100 Subcutaneous daily Taking TRUEplus 5-Bevel Pen Ravia 31G X 6 MM Miscellaneous USE DIRECTED with insulin Not-TakingcloNIDine HCl 0.1 MG Tablet 1 tablet Orally Once a day Doxycycline Hyclate 100 MG Tablet 1 tablet Orally Twice a day rOPINIRole HCl 0.5 MG Tablet 1 tablet 1 to 3 hours before bedtime Orally Once a day Spironolactone-HCTZ 25-25 MG Tablet 1/2 tablet Orally Once a day ZyrTEC 10 MG Tablet Chewable 1 tablet Orally Once a day Medication List reviewed and reconciled with the patientNot-Taking cloNIDine HCl 0.1 MG Tablet 1 tablet Orally Once a day Not-Taking Doxycycline Hyclate 100 MG Tablet 1 tablet Orally Twice a day Not-Taking rOPINIRole HCl 0.5 MG Tablet 1 tablet 1 to 3 hours before bedtime Orally Once a day Not-Taking Spironolactone-HCTZ 25-25 MG Tablet 1/2 tablet Orally Once a day Not-Taking ZyrTEC 10 MG Tablet Chewable 1 tablet Orally Once a day Medication List reviewed and reconciled with the patient * Allergies: N o Known Drug AllergyyesAllergies Verified. Objective: * Vitals: H t: 67 in, Wt:230lbs, Wt-k.33 kg, BMI:36.02Index, Temp:98.7F, BP:148/67mm Hg, HR:82/min, Oxygen sat %:96%, O2 Source: RA, Pain scale: 0 1-10, Ht-cm: 170.18 cm. * Examination: E xamination: GENERAL APPEARANCE: A wake/alert. No apparent distress.? HEART: R egular rate and rhythm without rubs, murmurs, or gallops. PMI nondisplaced. LUNGS: C lear to auscultation without rales, rhonchi, wheezing, tachypnea or air hunger. ABDOMEN: S oft, nontender, nondistended with active bowel sounds X4. No HSM or masses. Assessment: * Assessment: 1. T ype 2 diabetes mellitus with other specified complication, without long-term current use of insulin - E11.69 (Primary) 2 . A cute chest pain - R07.9 3 .?PVD (peripheral vascular disease) - I73.9 4 . E ssential hypertension - I10? Plan: * Treatment: 2. O thers Stop metFORMIN HCl Tablet, 500 MG, 2 tablets, Orally, Twice a day. * Procedure Codes: 9 9496 TRANS CARE MGMT 7 DAY [id number] SYST BP = 140 MM HG6 [id number] DIAST BP < 80 MM HG * Preventive Medicine: Screenings: L AST WELLNESS VISIT (if today's visit is wellness, use today's date): Date: 1 C OLORECTAL CANCER SCREENING: Date of last colonoscopy 0 05/12/2021 [facility] or [place] pt unknown D EPRESSION SCREENING: Date of most recent screenin 10/10/2023 T OBACCO USE SCREENING: (Please document on Smart Form in Social History to meet measure. No mapping from this section.) * V ACCINATIONS: Influenza vaccinations: d oes not take shot //. * Follow Up: 2 Months Billing Information: * Procedure Codes: 14256 TRANS CARE MGMT 7 DAY DISCH. 3077F SYST BP = 140 MM HG6 IT. 3078F DIAST BP < 80 MM HG. * Sign off status: Completed true * Provider: Corazon Rene MD Date: 0 03/20/2025 Generated for Keyla yee/Puneet/Nadjaitting on: 03/28/2025 06:31 AM CDT
--- OUTSIDE RECORDS SUMMARY | 2025-03-25 11:15 | XMS_ITS ---
Author Organization [facility] Address [address] [place] [address] Care Team Providers Care Loss Prevention Operations Manager Name Role Phone Patrick Rene Primary Care Provider Mulugeta Garcia [phone] REASON FOR VISIT Read US Encounters Encounter Location Date Provider Diagnosis [facility] [address] [place] [address] 03/25/2025 Mulugeta Garcia Atherosclerosis of lower extremity with claudication I70.219 Assessments Encounter Date Diagnosis (ICD Code) Assessment Notes Treatment Notes Treatment Clinical Notes Section Notes 03/25/2025 Atherosclerosis of lower extremity with claudication (ICD-10 - I70.219) Arterial duplex bilateral lower extremities: No significant inflow atherosclerosis right lower extremity. Popliteal stent is widely patent. Moderate to severe atherosclerosis below the knee right lower extremity without any significant stenosis noted. No significant inflow atherosclerosis left lower extremity. Left superficial femoral artery stent is widely patent. Moderate to severe atherosclerosis below the knee with occlusion of the posterior tibial artery noted. ABIs are noncompressible right lower extremity and 0.66 left lower extremity. Plan Of Treatment Treatment Notes Assessment Notes Atherosclerosis of lower ext remity with claudication Arterial duplex bilateral lower extremities: No significant inflow atherosclerosis right lower extremity. Popliteal stent is widely patent. Moderate to severe atherosclerosis below the knee right lower extremity without any significant stenosis noted. No significant inflow atherosclerosis left lower extremity. Left superficial femoral artery stent is widely patent. Moderate to severe atherosclerosis below the knee with occlusion of the posterior tibial artery noted. ABIs are noncompressible right lower extremity and 0.66 left lower extremity. Next Appt Details Provider Name:Patrick Rene, 05/06/2025 03:40:00 PM, [address] [place] [address], [phone], Provider Name:Mulugeta moreland, 06/18/2025 03:00:00 PM, [address] [place] [address] [address], [place], [address], Provider Name:Christo Leung Augusto fontana, 06/18/2025 03:30:00 PM, [address] [place] [address] [address], [place], [address], Progress Notes * Maurice WONG SDOB:[birth year] (64 yo M)Acc No.[id number]:03/25/2025 Patient: Maurice Perez Provider: Randolph Garcia MD :1960 A ge:64 Y S ex:Male Date:03/25/2025 Address:[address] [place], [place] [phone] Pcp:Patrick Rene Subjective: * Chief Complaints: * R ead US Assessment: * Assessment: 1. A therosclerosis of lower extremity with claudication - I70.219 (Primary) Plan: * Treatment: Images * 2025-03-19-HEART-BLE ART DOP * Sign off status: Completed true * Provider: Randolph Garcia MD Date: 03/25/2025 Generated for Keyla yee/Puneet/eTransmitting on: 03/28/2025 06:31 AM CDT
[2025-03-27] VITALS (24 sets, daily range): BP systolic 104–136; BP diastolic 48–63; PULSE 50–63; RESP 8–16; TEMP 36.8; O2SAT 93–100; BMI 34.7; BMI 35.0
--- NOTE | 2025-03-27 14:23 | XR_ITS ---
WS: [id number] Portable AP upright chest, 03/27/2025 Clinical Data: chest pain Comparison: Portable chest, 03/12/2025 Findings: No nodules, masses or effusions are seen. The heart is normal. The pulmonary vascularity is not increased. No pneumonia or pneumothorax is seen. Monitor leads are on the chest wall. The aortic arch shows mild tortuosity. XR/XR chest 1V portable [id number] Impression: Atherosclerosis.
--- NOTE | 2025-03-27 14:23 | ECG_ITS ---
[facility] Date: 2025-03-27 Pat Name: Maurice Rizo Department: Room: Gender: Male Disability Coordinator: : 1960 Requested By: Deo Raygoza Order Number: [id number] Reading MD: YULY WEEMS Measurements Intervals [place] Rate: 61 P: 53 SD: 194 QRS: -52 QRSD: 118 T: 30 QT: 380 QTc: 385 Interpretive Statements SINUS RHYTHM S1-S2-S3 PATTERN, CONSISTENT WITH PULMONARY DISEASE, RVH, OR NORMAL VARIANT PATTERN CONSISTENT WITH PULMONARY DISEASE LEFT ANTERIOR FASCICULAR BLOCK [QRS AXIS <= -45, QR IN I, RS IN II] Compared to ECG 03/13/2025 13:20:23 Right ventricular hypertrophy now present Left anterior fascicular block now present Sinus bradycardia no longer present Intraventricular conduction delay no longer present Electronically Signed On 03-27-2025 22:17:52 CDT by YULY WEEMS [email or web address]
--- NOTE | 2025-03-27 15:21 | ED_ITS ---
HPI - Chest Pain 2 General: Chief Complaint: Chest Pain Stated Complaint: candy zepeda Time Seen by Provider: 03/27/25 14:23 History of Present Illness: 64-year-old with a history of coronary d isease presents emergency room complaining of chest pain. He had an episode earlier today while at rest lasted about couple of minutes and then resolved an hour later he had another episode of chest pain with associated shortness of breath that lasted several minutes which resolved now. Patient recently had stents placed he had some tortuosity of the vessel and there was dissection at the time of the last angiography. He is on Plavix and has been taking it regularly. Began to have chest pain again while we are in the course of the workup. Associated symptoms: Reports dyspnea; Deny abdominal pain or fever(s) Related Data Home Medications ?Medication ?Instructions ?Recorded ?Confirmed multivitamin 1 tab PO DAILY 10/09/1909/21 pregabalin 75 mg capsule 75 mg PO DAILY 06/17/2409/21 duloxetine 20 mg capsule,delayed 40 mg PO DAILY 03/28/25 release lisinopril 40 mg tablet 40 mg PO DAILY 03/13/2509/21 cetirizine 10 mg tablet 10 mg PO BID PRN allergies 0 03/18/25 03/28/25 metformin 500 mg tablet 1,000 mg PO BID 03/28/2509/21 tirzepatide 2.5 mg/0.5 mL 2.5 mg SUBCUT Q7D 03/28/25 0 03/28/25 subcutaneous pen injector (Jonathon) Held on 03/29/25. Instructions: see pcp triamcinolone acetonide 0.1 % 1 applic topical BID PRN Skin 03/28/25 03/28/25 topical cream Irritation Previous Rx's ?Medication ?Instructions ?Recorded syringe with needle 3 mL 20 gauge #100 ea 04/17/24 x 1 1/2 (BD Luer-Bin Syringe) testosterone cypionate 200 mg/mL 200 mg SUBCUT .every other week #1 04/30/24 intramuscular oil mL (Depo-Testosterone) Held on 03/29/25. Instructions: see pcp dapagliflozin propanediol 10 mg 10 mg PO DAILY #30 tab s 05/08/24 tablet (Farxiga) tamsulosin 0.4 mg capsule 0.4 mg PO DAILY #30 caps 07/21 albuterol sulfate 90 mcg/actuation 2 inh inhalation Q4 H PRN shortness 09/07/24 aerosol inhaler of breath or wheezing #6.7 g keven aspirin 81 mg tablet,delayed 81 mg PO QAM 30 days #30 tabs 03/16/25 release (Adult Low Dose Aspirin) atorvastatin 80 mg tablet 80 mg PO QPM 30 days #30 tab s 03/16/25 citalopram 40 mg tablet 40 mg PO QAM 30 days #30 tab s 03/16/25 insulin degludec 200 unit/mL (3 10 unit (0.05 mL) SUBC UT DAILY 30 03/16/25 mL) subcutaneous pen (Tresi days #0 mL FlexTouch U-200 insulin) insulin lispro 100 unit/mL See Rx Instructions .Route 03/16/25 subcutaneous pen (Humalog KwikPen .COMPLEX 30 days #0 mL (U-100) Insulin) metoprolol succinate 25 mg 25 mg PO DAILY 30 days #30 tabs 03/16/25 tablet,extended release 24 hr nitroglycerin 0.4 mg sublingual 0.4 mg sublingual Q5M PRN Chest 03/16/25 tablet Pain 30 days #30 tabs clopidogrel 75 mg tablet 75 mg PO DAILY 30 days #90 t abs 03/18/25 isosorbide mononitrate 30 mg 30 mg PO DAILY #30 tabs 0 03/29/25 tablet,extended release 24 hr Allergies Allergy/AdvReac Type Severity Reaction Status Date / Time No Known Allergies Allergy Verified 03/18/25 11:09 Review of Systems 2 Const: Denies: fever(s) or chills Card: Reports: chest pain and dyspnea on exertion; Denies: edema or swelling of feet/ankles Resp: Reports: dyspnea GI: Denies: abdominal pain : Denies: dysuria, urinary frequency or urinary urgency Musc: Denies: neck pain or back pain Skin/Breast: Denies: rash PFSH ED 2 PFSH: Medical History Coronary artery disease Hypertension Hyperlipidemia Diabetes type 2, controlled Osteoarthritis of left shoulder Surgical History Hx of colonoscopy with polypectomy 3 yrs ago History of esophagogastroduodenoscopy (EGD) History of back surgery History of removal of cyst History of lumpectomy of left breast 02/13/23 subcutaneous mass left breast and lumpectomy- Dr. Rose No significant past surgical history Family History Other Hypertension Social History Smoking and tobacco/nicotine status: former use of tobacco/nicotine Second hand smoke exposure: No Alcohol intake: current Alcohol intake frequency: holidays/special occasions only Substance/Drug Use: unknown Adopted: No Caregiver/support person: No Lives independently: Yes Household members: significant other Housing: House Marital status: Life Partner Current occupational status: employed Do you think of yourself as: Straight/Heterosexual Current gender identity: Male Special lanre needs: No Physical Exam 2 Const: COMMON NORMALS: no acute distress GENERAL APPEARANCE: cooperative and comfortable ORIENTATION/CONSCIOUSNESS: Yes awake, Yes oriented to person, Yes oriented to place and Yes oriented to time HENMT: COMMON NORMALS: normocephalic, atraumatic and hearing grossly normal bilaterally HEAD & SCALP: normocephalic and atraumatic Resp: COMMON NORMALS: normal respiratory effort, No retractions, No use of accessory muscles and clear to auscultation bilaterally AUSCULTATION: clear to auscultation bilaterally Cardio: COMMON NORMALS: regular rate, regular rhythm and No murmurs present (Cardio) RATE: regular rate RHYTHM: regular rhythm GI: COMMON NORMALS: Soft to palpation and No hepatosplenomegaly present A USCULTATION: Yes normoactive bowel sounds PALPATION: Yes Soft to palpation, No Tenderness to palpation present (GI), No Guarding due to palpation present (GI) and Yes No hepatosplenomegaly present Extremity: COMMON NORMALS: normal to inspection, capillary refill normal, no clubbing, cyanosis or edema, no calf tenderness and no pedal edema Neuro: SENSORIUM/ORIENTATION: Yes oriented to person, Yes oriented to place and Yes oriented to time Skin: COMMON NORMALS: no rashes or lesions noted GENERAL SKIN EXAM: no rashes or lesions noted Course 2 Vital Signs: Vital signs: Vital Signs Temperature 97.5 F L 03/29/25 07:33 Pulse Rate 60 03/29/25 11:31 Respiratory Rate 16 03/29/25 11:31 Blood Pressure 160/73 03/29/25 11:31 Pulse Oximetry 100 03/29/25 11:31 Oxygen Delivery Me thod Room Air 03/29/25 09:01 MDM - Chest Pain Medical Decision Making Patient no recurring anginal-like symptoms while at rest I discussed with Dr. Grove he asked that we bring the patient he is concerned that the dissection may be causing some trouble. He is considering repeat angiography. Patient started on nitro and heparin per Dr Finney.. Discussed with hospitalist orders written Medical Records I reviewed the patient's medical records. Lab Data I reviewed the patient's lab results. 03/29/25 02:48 03/29/25 02:48 Radiology Impressions Chest X-Ray 03/27/25 14:23 Impression: Atherosclerosis. Laboratory Results WBC 8.47 10^3/uL (3.29-11.43) 03/27/25 15:16 RBC 3.66 10^6/uL (3.85-5.65) L 03/27/25 15:16 Hgb 11.00 g/dL (11.27-16.99) L 03/27/25 15:16 Hct 33.6 % (37-53) L 03/27/25 15:16 MCV 91.8 fl (82-101) 03/27/25 15:16 MCH 30.1 pg (27-33) 03/27/25 15:16 MCHC 32.7 g/dL (30-55) 03/27/25 15:16 RDW 13.4 % (12.1-15.1) 03/27/25 15:16 Plt Count 193 10^3/cmm (157-399) 03/27/25 15:16 MPV 12.0 fL (7.4-10.4) H 03/27/25 15:16 Neut % (Auto) 66.8 % 03/27/25 15:16 Lymph % (Auto) 21.1 % 03/27/25 15:16 [place] % (Auto) 7.9 % 03/27/25 15:16 Eos % (Auto) 3.2 % 03/27/25 15:16 Baso % (Auto) 0.8 % 03/27/25 15:16 Neut # (Auto) 5.65 10^3/uL (1.8-7.7) 03/27/25 15:16 Lymph # (Auto) 1.8 10^3/uL (0.8-4.8) 03/27/25 15:16 [place] # (Auto) 0.7 10^3/uL (0.2-0.9) 03/27/25 15:16 Eos # (Auto) 0.3 10^3/uL (0.0-0.8) 03/27/25 15:16 Baso # (Auto) 0.1 10^3/uL (0.0-0.1) 03/27/25 15:16 Nucleated RBC % (auto) 0 % 03/27/25 15:16 Nucleated RBCs # 0.0 /100WBC 03/27/25 15:16 APTT 25.6 SECONDS (23.9-36.7) 03/27/25 15:16 Sodium 138 mmol/L (136-145) 03/27/25 15:16 Potassium 4.9 mmol/L (3.5-5.1) 03/27/25 15:16 Chloride 102 mmol/L (98-107) 03/27/25 15:16 Carbon Dioxide 23 mmol/L (22-29) 03/27/25 15:16 Anion Gap 17.9 (5-19) 03/27/25 15:16 BUN 32 mg/dL (8-23) H 03/27/25 15:16 Creatinine 1.6 mg/dL (0.7-1.2) H 03/27/25 15:16 GFR Calculation 44.0 mL/min (90-130) L 03/27/25 15:16 Glucose 83 mg/dL (65-115) 03/27/25 15:16 POC Glucose 83 mg/dL (70-110) 03/27/25 16:07 Calculated Osmolality 292 mOsm/kg (285-295) 03/27/25 15:16 Calcium 9.5 mg/dL (8.5-10.5) 03/27/25 15:16 Total Bilirubin 0.3 mg/dL (0.15-1.2) 03/27/25 15:16 AST 11 U/L (0-40) 03/27/25 15:16 ALT 12 U/L (0-41) 03/27/25 15:16 Alkaline Phosphatase 63 U/L (40-130) 03/27/25 15:16 Troponin T Baseline 50 ng/L (0-15) H 03/27/25 15:16 Troponin T 120 Minute 49.19 ng/L (0-15) H 03/27/25 16:56 Delta Troponin T -0.81 ABS# (0-10) L 03/27/25 16:56 Total Protein 6.7 g/dL (6.6-8.7) 03/27/25 15:16 Albumin 4.0 g/dL (3.5-5.2) 03/27/25 15:16 Globulin 2.7 g/dL (1.3-4.6) 03/27/25 15:16 TSH 2.60 uIU/mL (0.27-4.20) 03/27/25 16:56 All radiology interpretation(s) finalized by discharge Discharge Plan Discharge Patient Disposition: Admitted As Inpatient Admit Provider: Jessica Rocha Clinical Impression: Uncontrolled type 2 diabetes mellitus, Coronary artery disease, Chest pain, exertional, DENITA (acute kidney injury) Condition: Stable Discharge Diet: Cardiac Coding Level of Care Code ED Application Support Engineer for Carlos Alberto Bangura
[2025-03-27 15:34] LABS: Hematocrit 33.6 % (37-53); Hemoglobin 11.00 g/dL (11.27-16.99); Mean Corpuscular HGB Conc 32.7 g/dL (30-55); Mean Corpuscular Hemoglobin 30.1 pg (27-33); Mean Corpuscular Volume 91.8 fl (82-101); Nucleated Red Blood Cells % 0 %; Platelet Count 193 10^3/cmm (157-399); Red Blood Count 3.66 10^6/uL (3.85-5.65); White Blood Count 8.47 10^3/uL (3.29-11.43)
[2025-03-27 15:53] LABS: Troponin(5th) Baseline 50 ng/L (0-15)
[2025-03-27 16:07] LABS: Alanine Aminotransferase 12 U/L (0-41); Albumin Level 4.0 g/dL (3.5-5.2); Alkaline Phosphatase 63 U/L (40-130); Anion Gap 17.9 (5-19); Aspartate Amino Transferase 11 U/L (0-40); Blood Urea Nitrogen 32 mg/dL (8-23); Calcium 9.5 mg/dL (8.5-10.5); Carbon Dioxide 23 mmol/L (22-29); Chloride 102 mmol/L (98-107); Creatinine Clr Calc Pharmacy 54.1255; Globulin 2.7 g/dL (1.3-4.6); Glucose 83 mg/dL (65-115); Osmolality Calculated 292 mOsm/kg (285-295); Potassium 4.9 mmol/L (3.5-5.1); Sodium 138 mmol/L (136-145); Total Protein 6.7 g/dL (6.6-8.7)
[2025-03-27] MEDS: morphine 4 mg/mL SDV 1 mL 2 MG IVP (16:40)
[2025-03-27] MEDS: nitroglycerin 1 gm/inch oint Pkt 0.5 INCH TOPICAL (16:40)
--- NOTE | 2025-03-27 16:44 | ECG_ITS ---
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1960 Requested By: Deo Raygoza Order Number: [id number] Reading MD: YULY WEEMS Measurements Intervals [place] Rate: 59 P: 20 [place]: 190 QRS: -44 QRSD: 123 T: 21 QT: 398 QTc: 397 Interpretive Statements SINUS BRADYCARDIA LEFT AXIS DEVIATION [QRS AXIS < -30] MODERATE INTRAVENTRICULAR CONDUCTION DELAY [110+ ms QRS DURATION] Compared to ECG 03/27/2025 14:42:17 Left-axis deviation now present Intraventricular conduction delay now present Sinus rhythm no longer present Right ventricular hypertrophy no longer present Left anterior fascicular block no longer present Electronically Signed On 03-27-2025 22:21:17 CDT by YULY WEEMS [email or web address]
[2025-03-27 17:37] LABS: Troponin 5 2HR 49.19 ng/L (0-15)
[2025-03-27 17:38] LABS: Troponin 5 2HR Delta -0.81 ABS# (0-10)
[2025-03-27] MEDS: heparin 5,000 unit/mL INJ 1 mL IVP (17:49)
[2025-03-27] MEDS: heparin drip 25,000 UNIT/500 ML PREMIX 28 UNIT IV (17:54)
[2025-03-27] MEDS: nitroglycerin drip 50 MG/250 ML PREMIX IV (17:54)
--- NOTE | 2025-03-27 18:01 | USCV_ITS ---
Maurice Rizo Age: 64 Gender: M : 1960 Exam Date: 03/27/2025 19:36 Ordering Phys: Jessica Rocha MD Technologist: MARGAUX [place] [facility] [place]: chest pain, nstemi, History of CAD, HTN, HL, DM2 BP: 109 / 55 HR: 56 Rhythm: Sinus Technical Quality: Adequate MEASUREMENTS (Male / Female) Normal Values 2D ECHO LV Diastolic Diameter PLAX 4.2 cm 4.2 - 5.9 / 3.9 - 5.3 cm IVS Diastolic Thickness 1.3 cm 0.6 - 1.0 / 0.6 - 0.9 cm IVS Systolic Thickness 2.0 cm LVPW Diastolic Thickness 1.5 cm 0.6 - 1.0 / 0.6 - 0.9 cm LVPW Systolic Thickness 2.0 cm LVOT Diameter 2.1 cm LV Ejection Fraction 2D Teich 64.6 % LV Ejection Fraction MOD 4C 54.0 % LV Ejection Fraction MOD 2C 54.8 % LV Ejection Fraction 2C AL 56.4 % LA Diameter 3.6 cm Aorta at Sinotubular Diameter 2.8 cm IVC Diameter 1.9 cm M-MODE LA Ao Ratio MM 1.3 AV Cusp Separation MM 2.5 cm DOPPLER AV Peak Velocity 131.0 cm/s LVOT Peak Velocity 91.0 cm/s AV Area Cont Eq vti 2.7 cm squared AV Area Cont Eq pk 2.4 cm squared MV Peak Velocity 108.0 cm/s MV Area PHT 3.2 cm squared Mitral E to A Ratio 0.9 TV Peak E Velocity 51.0 cm/s PV Peak Velocity 109.0 cm/s RV Ejection Time 0.4 s FINDINGS Left Ventricle Normal left ventricular size, systolic function and wall thickness, with no regional wall motion abnormalities. Left ventricular ejection fraction is estimated at 60 %. Grade I/IV diastolic dysfunction (abnormal relaxation filling pattern), normal to mildly elevated filling pressures. Right Ventricle The right ventricle is normal in size and function. Right Atrium The right atrium is normal in size. Left Atrium The left atrium is normal in size. Mitral Valve Moderately thickened mitral valve. No mitral valve stenosis. Trace mitral valve regurgitation. Aortic Valve Moderate aortic valve calcification. No aortic valve stenosis. Trace aortic valve regurgitation. Tricuspid Valve Structurally normal tricuspid valve without significant stenosis or regurgitation. Pulmonary artery systolic pressure is normal. Pulmonic Valve Structurally normal pulmonic valve without significant stenosis. There is no pulmonic regurgitation. Pericardium Normal pericardium without effusion. Aorta Normal ascending aorta dimension. IVC The inferior vena cava appears normal. CONCLUSIONS Normal left ventricular size, systolic function and wall thickness, with no regional wall motion abnormalities. Left ventricular ejection fraction is estimated at 60 %. Grade I/IV diastolic dysfunction (abnormal relaxation filling pattern), normal to mildly elevated filling pressures. Moderate aortic valve calcification. No aortic valve stenosis. Trace aortic valve regurgitation. Moderately thickened mitral valve. No mitral valve stenosis. Trace mitral valve regurgitation. There is no pericardial effusion. Right atrial pressure is around 5 mm of mercury. Miguel A Herrera MD (Electronically Signed) Final Date: 27 March 2025 21:37 S
--- NOTE | 2025-03-27 18:06 | PM.HP ---
Providers/Chief Complaint Primary Care Provider: Donnie Rene MD Chief Complaint: cp,sob History of Present Illness Maurice Rizo is a 64 year old male with past medical history of CAD status post PCI recently was discharged home presented back to the hospital today with chest pain. At the previous visit doing coronary angiography. Coronary artery dissection as well. He states he has been having chest pain and shortness of breath that last few minutes at a time. This morning he states the pain was persistent all morning. He did not take a nitro. He then came to the hospital for further evaluation. At this time he is on a nitro drip and having mild chest pain. He states is about 1 out of 10 at this time. He states he is taking his medications as scheduled and not missed any doses. Medications/Allergies Home Medications ?Medication ?Instructions ?Recorded ?Confirmed ?Last Taken ?Type multivitamin 1 tab PO DAILY 10/09/19 03/28/25 03/27/25 History syringe with needle 3 mL 20 gauge #100 ea 04/17/24 03/28/25 Unknown Rx x 1 1/2 (BD Luer-Bin Syringe) testosterone cypionate 200 mg/mL 200 mg SUBCUT .every other week #1 04/30/24 03/28/25 02/28/25 Rx intramuscular oil mL (Depo-Testosterone) dapagliflozin propanediol 10 mg 10 mg PO DAILY #30 tabs 05/08/24 03/28/25 03/27/25 Rx tablet (Farxiga) tamsulosin 0.4 mg capsule 0.4 mg PO DAILY #30 caps 05/08/24 03/28/25 03/27/25 Rx pregabalin 75 mg capsule 75 mg PO DAILY 06/17/24 03/28/25 03/27/25 History albuterol sulfate 90 mcg/actuation 2 inh inhalation Q4H PRN shortness 09/07/24 03/28/25 Unknown Rx aerosol inhaler of breath or wheezing #6.7 grams duloxetine 20 mg capsule,delayed 40 mg PO DAILY 03/13/25 03/28/25 03/27/25 History release lisinopril 40 mg tablet 40 mg PO DAILY 03/13/25 03/28/25 03/27/25 History aspirin 81 mg tablet,delayed 81 mg PO QAM 30 days #30 tabs 03/16/25 03/28/25 03/27/25 Rx release (Adult Low Dose Aspirin) atorvastatin 80 mg tablet 80 mg PO QPM 30 days #30 tabs 03/16/25 03/28/25 03/26/25 Rx citalopram 40 mg tablet 40 mg PO QAM 30 days #30 tabs 03/16/25 03/28/25 03/27/25 Rx insulin degludec 200 unit/mL (3 10 unit (0.05 mL) SUBCUT DAILY 30 03/16/25 03/28/25 03/27/25 Rx mL) subcutaneous pen (Tresiba days #0 mL FlexTouch U-200 insulin) insulin lispro 100 unit/mL See Rx Instructions .Route 03/16/25 03/28/25 03/27/25 Rx subcutaneous pen (Humalog KwikPen .COMPLEX 30 days #0 mL (U-100) Insulin) isosorbide mononitrate 20 mg tablet 20 mg PO BID 30 days #60 tabs 03/16/25 03/28/25 03/27/25 Rx metoprolol succinate 25 mg 25 mg PO DAILY 30 days #30 tabs 03/16/25 03/28/25 03/27/25 Rx tablet,extended release 24 hr nitroglycerin 0.4 mg sublingual 0.4 mg sublingual Q5M PRN Chest 03/16/25 03/28/25 Unknown Rx tablet Pain 30 days #30 tabs cetirizine 10 mg tablet 10 mg PO BID PRN allergies 03/18/25 03/28/25 Unknown History clopidogrel 75 mg tablet 75 mg PO DAILY 30 days #90 tabs 03/18/25 03/28/25 03/27/25 Rx insulin glargine 100 unit/mL (3 80 unit SUBCUT BID 03/28/25 03/28/25 Unknown History mL) subcutaneous pen (Lantus Solostar U-100 Insulin) metformin 500 mg tablet 1,000 mg PO BID 03/28/25 03/28/25 03/27/25 History tirzepatide 2.5 mg/0.5 mL 2.5 mg SUBCUT Q7D 03/28/25 03/28/25 Unknown History subcutaneous pen injector (Mounjaro) tizanidine 4 mg tablet 4 mg PO Q8H PRN muscle spasms 03/28/25 03/28/25 Unknown History triamcinolone acetonide 0.1 % 1 applic topical BID PRN Skin 03/28/25 03/28/25 Unknown History topical cream Irritation Allergies Allergy/AdvReac Type Severity Reaction Status Date / Time No Known Allergies Allergy Verified 03/18/25 11:09 PFSH Acute PFSH: Medical History (Updated 03/27/25 @ 14:10 by Miguel A Herrera MD) Coronary artery disease Hypertension Hyperlipidemia Diabetes type 2, controlled Osteoarthritis of left shoulder Surgical History Hx of colonoscopy with polypectomy 3 yrs ago History of esophagogastroduodenoscopy (EGD) History of back surgery History of removal of cyst History of lumpectomy of left breast 02/13/23 subcutaneous mass left breast and lumpectomy- Dr. Rose No significant past surgical history Family History Other Hypertension Social History (Updated 03/18/25 @ 11:12 by Angle Hanks LPN) Smoking and tobacco/nicotine status: former use of tobacco/nicotine Second hand smoke exposure: No Alcohol intake: current Alcohol intake frequency: holidays/special occasions only Substance/Drug Use: unknown Adopted: No Caregiver/support person: No Lives independently: Yes Household members: significant other Housing: House Marital status: Life Partner Current occupational status: employed Do you think of yourself as: Straight/Heterosexual Current gender identity: Male Special lanre needs: No Vitals/I&O/Wt Last Vital Signs Temp 98.2 F 03/27/25 14:22 Pulse 60 03/27/25 18:00 Resp 16 03/27/25 18:00 BP 109/55 03/27/25 18:00 Pulse Ox 93 03/27/25 18:00 O2 Del Method Room Air 03/27/25 18:00 03/27/25 03/27/25 03/27/25 06:59 14:59 22:59 Intake Total 0 / 0 Balance 0 / 0 Weight last 48 hrs Weight 100.698 kg Physical Exam Const: COMMON NORMALS: no acute distress and patient oriented x3 Resp: COMMON NORMALS: normal respiratory effort, No retractions, No use of accessory muscles and clear to auscultation bilaterally AUSCULTATION: clear to auscultation bilaterally Cardio: COMMON NORMALS: regular rate, regular rhythm, S1 normal heart sound present and S2 normal heart sound present RATE: regular rate RHYTHM: regular rhythm HEART SOUNDS: S1 normal heart sound present and S2 normal heart sound present GI: COMMON NORMALS: Normal to inspection, nondistended, normoactive bowel sounds present and non-tender Extremity: COMMON NORMALS: no pedal edema Neuro: COMMON NORMALS: patient oriented x3 Psych: COMMON NORMALS: mental status grossly normal Data 03/28/25 06:50 03/28/25 06:50 A&P Assessment and plan 1. Chest pain: 2. Hypertension: 3. Coronary artery disease: 4. Hyperlipidemia: 5. Diabetes type 2, controlled: 6. DENITA (acute kidney injury): 7. HTN (hypertension), benign: Plan: #Chest pain #CAD status post PCI #Coronary artery dissection #Hypertension #Hyperlipidemia #Type 2 diabetes #DENITA ? Hold home Lantus and placed on sliding scale insulin. - Keep n.p.o. overnight for potential coronary angiogram in the morning. ? Initial troponin 2-hour troponin resulted. Delta -0.81. ? Continue aspirin atorvastatin, Plavix ? Continue on heparin drip. Cardiology instructed ER doctor to start nitro drip and heparin drip. Will continue the same ? Creatinine 1.6 at this time. Will order gentle IV fluid hydration 75 cc/h normal saline. -Cardiology consulted. Await recommendations ? Hold home metformin secondary to DENITA Continue metoprolol succinate, cetirizine, citalopram ? Hold oral nitro as patient is on nitro drip at this time ? Continue pregabalin ? Hold Mounjaro Full code DVT prophylaxis: On heparin drip PDMP PDMP Reviewed: Not Reviewed Attestations Medical Necessity Statement*: chest pain, > 2 midnight stay, will go for cath in AM Diagnoses Chest pain R07.9 Hypertension I10 Coronary artery disease I25.10 Hyperlipidemia E78.5 Diabetes type 2, controlled E11.9 DENTIA (acute kidney injury) N17.9 HTN (hypertension), benign I10
[2025-03-27 18:28] LABS: Thyroid Stimulating Hormone 2.60 uIU/mL (0.27-4.20)
[2025-03-27 18:39] LABS: Partial Thromboplastin Time 25.6 SECONDS (23.9-36.7)
--- NOTE | 2025-03-27 20:23 | ECG_ITS ---
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1960 Requested By: Deo Raygoza Order Number: [id number] Reading MD: YULY WEEMS Measurements Intervals [place] Rate: 54 P: 50 [place]: 190 QRS: -46 QRSD: 127 T: 29 QT: 414 QTc: 395 Interpretive Statements SINUS BRADYCARDIA LEFT ANTERIOR FASCICULAR BLOCK [QRS AXIS <= -45, QR IN I, RS IN II] Compared to ECG 03/27/2025 16:44:11 Left anterior fascicular block now present Left-axis deviation no longer present Intraventricular conduction delay no longer present Electronically Signed On 03-27-2025 22:20:51 CDT by YULY WEEMS [email or web address]
[2025-03-27 22:26] LABS: Troponin 5 6HR 53.37 ng/L (0-15); Troponin 5 6HR Delta 3.37 ng/L (0-12)
[2025-03-28] VITALS (71 sets, daily range): BP systolic 108–174; BP diastolic 47–115; PULSE 50–74; RESP 7–22; TEMP 36.4–36.9; O2SAT 92–100
[2025-03-28 00:44] LABS: Partial Thromboplastin Time 82.0 SECONDS (23.9-36.7)
--- OUTSIDE RECORDS SUMMARY | 2025-03-28 06:30 | XMS_ITS | Patient Health Record ---
Author Organization [facility] Address [address] [place], [place] [address] Care Team Providers Care Paralegal Legal Secretary Name Role Phone Anna Blackowod MD Primary Care Provider Unavail able Ramiro LOZA, [facility] [phone] Allergies No Known Allergies Reason For Referral No Information Medications Medication SIG (Take, Route, Frequency, Duration) Notes Start Date End Date Status multivitamin Unknown ketotifen ophthalmic 0.025% 1 gtt in each affected eye 2 times a day Unknown terbinafine 250 mg 1 tab(s) orally once a day; Duration: 42 day(s) Unknown pregabalin 100 mg 1 cap(s) orally 3 ti mes a day Unknown acetaminophen-hydrocodone 325 mg-7.5 mg 1 tab(s) orally as directed Active traMADol 50 mg 1 tab(s) orally ever y 8 hours, as needed Unknown tiZANidine 4 mg 1 tab(s) orally ever y 8 hours, as needed Unknown atorvastatin 80 mg 1 tab orally once a day Active aspirin 81 mg 1 tab orally once a day Active triamcinolone topical 0.1% 1 marcia applied topically 2 times a day Unknown ketorolac 10 mg 1 tab orally 3 times a day Unknown hydrochlorothiazide-lisin opril 25 mg-20 mg 1 tab orally once a day Unknown amLODIPine 5 mg 1 tab orally once a day Unknown Lantus Solostar Pen 100 units/mL as directed subcutaneously 2 times a day Active fenofibrate 134 mg 1 cap orally once a day Active MetFORMIN (Eqv-Glucophage XR) 500 mg 2 tab(s) orally 2 times a day Active lisinopril 20 mg 1 tab(s) orally once a day; Duration: 30 day(s) Active naproxen 375 mg 1 tab(s) orally ever y 8 hours Active metroNIDAZOLE 500 mg 1 tab(s) orally as directed Active tamsulosin 0.4 mg 1 cap orally once a day Active ondansetron 4 mg 1 tab(s) orally ever y 6 hours, as needed Unknown Lantus Solostar Pen 100 units/mL as directed subcutaneously A ctive metFORMIN 1000 mg 1 tab orally 2 times a day Active dapagliflozin 10 mg 1 tab(s) orally once a day; Duration: 30 day(s) Active citalopram 40 mg 1 tab orally once a day Active docusate sodium 100 mg 1 cap(s) orally 2 times a day Active Social History Tobacco Use: Social History [...] 6-30 min When did you start smoking? 2007 Problems Problem Type SNOMED Code ICD Code Onset Dates Problem Status W/U Status Risk Notes Problem Solitary sacroiliitis (664950100) Sacroiliitis, not elsewhere classified (M46.1) Active confirmed Problem Lumbosacral spondylosis without myelopathy (46770882) Spondylosis without myelopathy or radiculopathy, lumbar region (M47.816) Active confirmed Problem Hypersomnia (12718606) Hypersomnia, unspecified (G47.10) Active confirmed Problem Chronic pain (07914232) Other chronic pain (G89.29) Active confirmed Problem Intervertebral disc disorder (92055640) Unspecified thoracic, thoracolumbar and lumbosacral intervertebral disc disorder (M51.9) Active confirmed Problem Backache (214724808) Dorsalgia, unspecified (M54.9) Active confirmed Problem Post-laminectomy syndrome (28022887) Postlaminectomy syndrome, not elsewhere classified (M96.1) Active confirmed Problem 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) Active confirmed Problem Long-term current use of drug therapy (053028569) Other rn long term care (current) drug therapy (Z79.899) Active confirmed Problem Muscle pain (89309302) Myalgia, other site (M79.18) Active confirmed Problem Pain in lumbar spine (277301826) Vertebrogenic low back pain (M54.51) Active confirmed Plan Of Treatment No Information Insurance Providers Payer Name Payer Address Payer Phone Subscriber Number Group Number Insured Name Patient Relationship to Insured Coverage Start Date Coverage End Date BC [address] [place] [address] [id number] Maurice Rizo Self - patient is the insured Medical (General) History Medical History History ICD Code Chronic low back pain Chronic hip pain, bilateral Osteoarthritis of left shoulder Depression Hyperlipidemia Hypercholesterolemia Hypertension Fungal infection / onychomycosis Diabetes mellitus type 2 Diabetic nephropathy (stage 3 kidney dis ease as per prior patient report) Obesity, moderate Tobacco use Sleep disorder Sciatica Surgical History Surgery Date(Month/Year) Removal of cyst, 2008 Back surgery ( cleaned out ; presumed laminectomy), performed at [facility] in [place], [place] by Dr. Hasmukh Bee, 01/2016 EGD Colonoscopy w/ polypectomy, 2020 Lumpectomy, left breast, 02/13/23
--- OUTSIDE RECORDS SUMMARY | 2025-03-28 06:31 | XMS_ITS | Clinical Summary ---
Author Organization [facility] Address [address] 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 Procedure: Pre-Anesthesia Assessment: - Corinna Protocol: - Pre-procedure Verification: Prior to the [...] Scope Out: 10:39:57 AM [address] [place], [place] Ruslan Ford MD GI PROCEDURE ORDERABL ES Final Result * (ABNORMAL) LIPID RFLX (01/26/2021 2:49 PM CDT) Pathologist [facility] CHOLESTEROL 497(H) <200 mg/dL 01/29/2021 2:13 PM CDT [facility] HDL 30(L) > OR = 40 mg/dL 01/29/2021 2:13 PM CDT [facility] TRIGLYCERIDE 1,440(H) <150 mg/dL 01/29/2021 2:13 PM CDT [facility] Comment: Verified by repeat analysis. If a [...] 2015;9:129-169. LDL CALCULATED 01/29/2021 2:[address] [facility] Comment: LDL cholesterol not calculated. Triglyceride levels [...] LDL-C. Aleksandr SS et al. SHERWIN. 2013;310(19): 5327-7963 (http://education.[employer]/faq/XZT853) CHOL/HDL RATIO 16.6(H) <5.0 (calc) 01/29/2021 2:[address] [facility] TOTAL NON-HDL CHOL(LDL+VLDL) 467(H) <130 mg/dL (calc) 01/29/2021 2:[address] [facility] Comment: For patients with diabetes plus 1 major ASCVD risk factor, treating to a non-HDL-C goal of <100 mg/dL (LDL-C of <70 mg/dL) is considered a therapeutic option. LDL CHOLESTEROL, DIRECT TNP mg/dL 01/29/2021 2:[address] [facility] Comment: Test not performed. Extremely high Triglycerides values (>1293 mg/dL) interfere with the dLDL assay. Test Performed at: [facility] [address] [place] [address] Shon Ward D.O., MPH Blood 01/26/2021 2:49 PM CDT 01/28/2021 12:36 AM CDT Hoang Snyder DO CHEMISTRY ORDERABLES Final Result [facility] [address] [place] [address] [employer] [place] [address] [place] [address] * (ABNORMAL) HEMOGLOBIN A1C (01/26/2021 2:49 PM CDT) HEMOGLOBIN A1C 11.0(H) <5.7 % of total Hgb 01/29/2021 2:[address] [facility] Comment: For someone without known diabetes, a [...] of diabetes for children. Test Performed at: [facility] [address] Shon Ward D.O., MPH Blood 01/26/2021 2:49 PM CDT 01/28/2021 12:36 AM CDT Hoang Snyder DO CHEMISTRY ORDERABLES Final Result [address] [facility] [place] [address] [facility] [employer] [address] [facility] [place] [address] * (ABNORMAL) MICROALBUMIN/CREATININE RATIO, RANDOM UR (11/20/2020 10:00 AM CDT) MICROALBUMIN, URINE 150(A) <30 mg/L 11/20/2020 11:31 AM CDT [facility] CREATININE, URINE 100(A) <50 mg/dL 11/20/2020 11:31 AM CDT [facility] MICROALBUMIN/C REAT RATIO, UR >300(A) <30 mg/g 11/20/2020 11:31 AM CDT [facility] Urine URINE SPECIMEN OBTAINED BY CLEAN CATCH PROCEDURE / Unknown Collection / Unknown 11/20/2020 10:00 AM CDT 11/20/2020 10:00 AM CDT us Hoang Snyder DO URINE ORDERABLES Final Resu lt [facility] CLIA# [id number] [address] [place] [address] from Last 3 Months or Most Recently Relevant to Health Maintenance Insurance [address] [place] [address] [facility] BLUE ACCESS/TRUE BLUE PPO Advance Directives For more information, please contact: [phone] * Full Code (Latest Code Status on File) Date Activated Date Inactivated Comments 03/16/2021 9:30 AM 03/16/2021 1:10 PM
--- OUTSIDE RECORDS SUMMARY | 2025-03-28 06:31 | XMS_ITS | Patient Health Record ---
Author Organization [facility] Address [address] [place] [address] Care Team Providers Care Heating Element Winder Name Role Phone Patrick Rene Primary Care Provider Migration, Provider Unavailable Unavailable Gerhard Jaeger Unavailable [phone] Mulugeta Garcia Unavailable [phone] Nitesh Roblero Unavailable [phone] Amy Webb Unavailable [phone] Allergies Allergen (clinical drug ingredient) Drug/Non Drug Allergy documented on EMR Reaction Allergy Type Onset Date Status No Known Drug Allergy Unknown Drug Allergy Active Results Component Value Reference Range Flag Notes POCT-ACT--NO CPT Reviewed date:07/18/2024 04:55:16 PM Interpretation: Performing Lab: Notes/Report: POCT-ACT 270 75-120 SEC HI Diagnostic Colonoscopy-32199 Reviewed date:12/18/2024 04:42:17 PM Interpretation: Performing Lab: Notes/Report: Schedule Confirmation Reviewed date:07/18/2024 04:54:17 PM Interpretation: Performing Lab: Notes/Report: Lower Ext Angiogram Unilat US Doppler Scan Arterial LE Bilat-12833 Reviewed date:03/20/2025 09:38:18 AM Interpretation: Performing Lab: Notes/Report: This report was dictated at the [facility] FINAL REPORT Read This report was dictated at the [facility] Basic Metabolic Panel (BMP) 89311 Reviewed date:07/18/2024 04:55:31 PM Interpretation: Performing Lab: Notes/Report: Diagnosis Description: Type 2 diabetes mellitus with other specified complication Diagnosis Description: Essential (primary) hypertension Diagnosis Description: 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 [address]. CLIA ID#: [id number] BUN 24 7-21 MG/DL HI Creat 1.19 .57-1.17 MG/DL HI Use of this assay is not recommended for patients undergoing treatment with phenindione, due to the potential for falsely depressed results. J-nezthj-l-benzoquin one imine (NAPQI) is a metabolite of acetaminophen, NAPQI concentrations of apparoximately 10 mg/L correlation to toxic levels of acetaminophen demonstrates a greater than or equil to 10% change in results. NAPQI concentrations greater than this may lead to falsely depressed results for patient samples. GFR 69.1 NA Calculation pe rformed from GFR calculator provided by the [employer]. Glomerular Filtration rate(GRF) is the best overall index of kidney function. Normal GFR varies according to age,sex, body size, and declines with age. The National Kidney Foundation recommends using the CKD-EPI Creatinine Equation(2020) to estimate GFR. 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, unspecified extremity Diagnosis Description: Encounter for other preprocedural examination WBC 10.3 4.5-11.0 X10'3 RBC 4.60 4.50-5.90 X10'6 Hgb 13.2 13.5-17.5 G/DL LOW Hct 41.0 41.0-53.0 % MCV 89.1 80.0-100.0 FL MCH 28.7 27.0-31.0 PG MCHC 32.2 31.0-37.0 G/DL Platelet 220 150-400 X10'3 RDW-SD 44.3 35.0-49.0 FL RDW-CV 13.7 12.2-15.6 % MPV 12.4 9.2-12.0 FL HI Review Auto Diff Conf CTA AFRO w/ + w/o Contrast-7 5635 Reviewed date:06/25/2024 05:08:36 PM Interpretation: Performing Lab: Notes/Report: See Below For Report CTA AFRO w/ + w/o Contrast Read See Below For Report WBC Auto Diff--22388 Reviewed date:07/18/2024 04:55:31 PM Interpretation: Performing Lab: Notes/Report: Added by Discern Rules Neutro Auto% 73.0 40.0-70.0 % HI Lymph Auto% 17.2 22.0-44.0 % LOW Spalding Auto% 5.9 3.0-7.0 % Eos Auto% 2.7 2.0-4.0 % Baso Auto% 0.7 0.0-1.0 % NRBC% .00 .00-.20 /100 intact WBC's Neutro Abs 7.49 .80-7.70 Absolute Neutrophil Count 7490 NA Lymph Abs 1.76 .10-4.10 Spalding Abs .61 .20-1.00 Eos Abs .28 .00-.40 Baso Abs .07 .00-.20 NRBC# .00 .00-.20 Imm Gran Abs .05 .00-.10 Imm Gran% .5 .0-.4 % HI Schedule Confirmation Reviewed date:07/22/2024 09:03:34 AM Interpretation: Performing Lab: Notes/Report: Lower Ext Angiogram Unilat Schedule Confirmation Reviewed date:07/22/2024 09:03:34 AM Interpretation: Performing Lab: Notes/Report: Lower Ext Angiogram Unilat Schedule Confirmation Reviewed date:07/22/2024 09:03:42 AM Interpretation: Performing Lab: Notes/Report: Lower Ext Angiogram Unilat Schedule Confirmation Reviewed date:07/22/2024 09:03:34 AM Interpretation: Performing Lab: Notes/Report: Hemoglobin A1c 64843 Reviewed date:03/13/2025 01:27:19 PM Interpretation: Performing Lab: Notes/Report: Diagnosis Description: Type 2 diabetes mellitus with other specified complication Hgb A1c 7.6 3.8-6.4 % HI Interpretation Of Hgb A1c: 4.5-6.2 % nondiabetics. >7.0 % diabetics. EAG 171 NA Estimated Aver age Glucose(EAG). Comprehensive Metabolic Pane l ([facility]) 88538 Reviewed date:03/13/2025 01:27:19 PM Interpretation: Performing Lab: Notes/Report: Diagnosis Description: Type 2 diabetes mellitus with other specified complication Glucose Serum 143 71-110 MG/DL HI Testing p erformed at [facility], [address] [place] [address] [place] [address]. CLIA ID#: [id number] BUN 26 7-21 MG/DL HI Creat 1.10 .57-1.17 MG/DL S-loagwi-t-benzoquin one imine (NAPQI) is a metabolite of acetaminophen, NAPQI concentrations of apparoximately 10 mg/L correlation to toxic levels of acetaminophen demonstrates a greater than or equil to 10% change in results. NAPQI concentrations greater than this may lead to falsely depressed results for patient samples. Use of this assay is not recommended for patients undergoing treatment with phenindione, due to the potential for falsely depressed results. GFR 75.3 NA Calculation pe rformed from GFR calculator provided by the National [employer]. Glomerular Filtration rate(GRF) is the best overall index of kidney function. Normal GFR varies according to age,sex, body size, and declines with age. The National Kidney Foundation recommends using the CKD-EPI Creatinine Equation(2020) to estimate GFR. BUN/Creat Ratio 23.6 12.0-20.0 % HI Total Protein 7.0 5.8-8.0 G/DL Albumin 4.3 3.2-4.8 G/DL Globulin 2.7 2.3-3.5 G/DL Alb/Glob 1.6 0.8-2.2 Calcium 10.0 8.7-10.4 MG/DL Sodium 137 136-145 MMOL/L Potassium 4.7 3.5-5.1 MMOL/L Chloride 103 98-107 MMOL/L CO2 26.3 20.0-31.0 MMOL/L Anion Gap 12 5-15 Alk Phos 54 46-116 Bili Total .4 .3-1.2 MG/DL Use of this assay is not recommended for patients undergoing treatment with eltrombopag due to the potential for falsely elevated results. AST/SGOT 18 15-37 UNIT/L ALT/SGPT 15 12-78 UNIT/L Osmo Serum,Calculated 291 280-300 MOSM/KG Microalbumin (U) Random 8204 3 Reviewed date:03/13/2025 01:27:19 PM Interpretation: Performing Lab: Notes/Report: Diagnosis Description: Type 2 diabetes mellitus with other specified complication Ur Microalbumin 189.0 .0-30.0 MG/L HI Ur Creat 63.4 40.0-278.0 MG/DL Mal/Crea/Ratio 298.1 .0-30.0 mg Alb/g Cr HI Schedule Confirmation Reviewed date:06/25/2024 05:08:36 PM Interpretation: Performing Lab: Notes/Report: CTA AFRO w/ + w/o Contrast Hemoglobin A1c 82453 Reviewed date:12/17/2024 01:29:13 PM Interpretation: Performing Lab: Notes/Report: Diagnosis Description: Type 2 diabetes mellitus without complications Hgb A1c 9.3 3.8-6.4 % HI Interpretation Of Hgb A1c: 4.5-6.2 % nondiabetics. >7.0 % diabetics. EAG 220 NA Estimated Aver age Glucose(EAG). Schedule Confirmation Reviewed date:07/18/2024 04:55:16 PM Interpretation: Performing Lab: Notes/Report: Lower Ext Angiogram Unilat zzzLower Ext Angiogram Unila t Reviewed date:07/18/2024 04:55:21 PM Interpretation: Performing Lab: Notes/Report: [id number]=iSite US Doppler Scan Arterial LE Bilat-39336 Reviewed date:06/12/2024 11:04:06 AM Interpretation: Performing Lab: Notes/Report: zzzLower Ext Angiogram Unila t Reviewed date:07/18/2024 04:55:16 PM Interpretation: Performing Lab: Notes/Report: See Below For Report This report was dictated outside of the [facility] system. Read See Below For Report zzzLower Ext Angiogram Unila t Reviewed date:07/22/2024 09:03:34 AM Interpretation: Performing Lab: Notes/Report: This procedure was dictated and transcribed outside of the [employer] system. The results may be found in the patient's physical chart. FINAL REPORT Read This procedure was dictated and transcribed outside of the [employer] system. The results may be found in the patient's physical chart. 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 NAPQI concentrations greater than this may lead to falsely depressed results for patient samples. Use of this assay is not recommended for patients undergoing treatment with phenindione, due to the potential for falsely depressed results. GFR N/A NA Calculation pe rformed from GFR calculator provided by the National Kidney Foundation. Glomerular Filtration rate(GRF) is the best overall index of kidney function. Normal GFR varies according to age,sex, body size, and declines with age. The National Kidney Foundation recommends using the CKD-EPI Creatinine Equation(2020) to estimate GFR. 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, unspecified extremity BUN 27 7-21 MG/DL HI Schedule Confirmation Reviewed date:06/25/2024 05:08:36 PM Interpretation: Performing Lab: Notes/Report: CTA AFRO w/ + w/o Contrast CTA AFRO w/ + w/o Contrast-7 5635 Reviewed date:06/25/2024 05:08:44 PM Interpretation: Performing Lab: Notes/Report: [id number]=iSite Colonoscopy, High Risk Scree reid-[id number] Reviewed date:12/17/2024 04:38:06 PM Interpretation: Performing Lab: Notes/Report: US Doppler Scan Arterial LE Bilat-78854 Reviewed date:03/26/2025 02:35:26 PM Interpretation: Performing Lab: Notes/Report: [email or web address]=[id number]&org=iSite tqf=[id number]&org=iSite Schedule Confirmation Reviewed date:07/18/2024 04:54:17 PM Interpretation: Performing Lab: Notes/Report: Lower Ext Angiogram Unilat POCT-ACT--NO CPT Reviewed date:07/22/2024 09:03:34 AM Interpretation: Performing Lab: Notes/Report: POCT-ACT 244 75-120 SEC HI zzzLower Ext Angiogram Unila t Reviewed date:07/22/2024 09:03:42 AM Interpretation: Performing Lab: Notes/Report: [email or web address]=[id number]=iSite Schedule Confirmation Reviewed date:07/18/2024 04:55:16 PM Interpretation: Performing Lab: Notes/Report: Lower Ext Angiogram Unilat Schedule Confirmation Reviewed date:07/22/2024 09:03:42 AM Interpretation: Performing Lab: Notes/Report: FEMORAL ANTEGRADE STICK OR ACCESS Schedule Confirmation Reviewed date:07/22/2024 09:03:42 AM Interpretation: Performing Lab: Notes/Report: FEMORAL ANTEGRADE STICK OR ACCESS Reason For Referral Reason testosterone managem ent Diagnosis 1 Low testosterone (R7 9.89) Referring Provider First Name Anna Referring Provider Last Name Jaison Referring Provider Speciality Family Med icine Referred Organization [facility] Referred Provider Nitesh Roblero Referred Address [address] [place] [address],[address],[place], [place],[address],[place] Referred Provider Specialty Urology General Notes Olinda Solo 04/28 03:59:46 PM >left vm Referral Priority Routine Reason PVD as reported by A rp Diagnosis 1 PVD (peripheral vasc ular disease) (I73.9) Referral Organization [facility] Referring Provider First Name Justin gallego Referring Provider Last Name Edgard Referring Provider Speciality Internal M edicine Referred Organization [facility] Referred Provider Mulugeta Garcia Referred Address [address] [place] [address] [address],[address],[place] Referred Provider Specialty Vascular Chris bill General Notes Era Ramos 024 04:34:45 PM >FAXED TO [facility] LUTZ Arieona 05/22/2024 12:49:17 PM >per fax pt is scheduled 06/04, Sonny Ramsoidi 06/04/2024 01:15:19 PM >PROGRESS NOTES IN REFERRAL FILE Referral Priority Routine Referral Appointment Date 06/04/2024 Reason PVD Diagnosis 1 PVD (peripheral vasc ular disease) (I73.9) Referral Organization [facility] Referring Provider First Name Justin gallego Referring Provider Last Name Rene Referring Provider Speciality Internal M edicine Referred Organization [facility] Referred Provider Mulugeta Garcia Referred Address [address] [place] [address] [address],[place], [place],[address], Referred Provider Specialty Vascular Chris bill General Notes Nancy Reyes 05/16/20 09:46:07 AM >referral states PVD as reported by Dr. Mo - requested note and any testing from Dr. Mo's office, Nancy Reyes 05/22/2024 09:40:35 AM >Please schedule with Dr. Garcia - may need LEAD and/or Navdeep Rai Brittany M 05/22/2024 10:37:40 AM >Appointment scheduled on 06.04 @ 10:15 Referral Priority Routine Medications Medication SIG (Take, Route, Frequency, Duration) Notes Start Date End Date Status Dibucaine (Perianal) 1 % Ointment 1 application as needed Externally Three times a day; Duration: 30 days 12/02/2024 04/01/2025 Active NovoLOG FlexPen 100 UNIT/ML Solution Pen-injector as directed Subcutaneous to sliding scale after meals 06/25/2024 Active One A Day Men 50 Plus - Tablet as directed Orally Active Lisinopril 40 mg Tablet TAKE ONE TABLET BY MOUTH ONCE a day; Duration: 30 Active HumaLOG KwikPen 100 unit/mL Solution Pen-injector INJECT MAX 42 UNITS SUBCUTANEOUSLY THREE TIMES DAILY AFTER MEALS BASED ON SLIDING SCALE PROVIDED; Duration: 30 Active Insulin Degludec 200 UNIT/ML Solution Pen-injector 80 Subcutaneous daily; Duration: 90 days 12/19/2024 Active DULoxetine HCl 20 mg Capsule Delayed Release Particles TAKE TWO CAPSULES BY MOUTH ONCE a day; Duration: 30 Active Farxiga 10 mg Tablet TAKE 1 TABLET BY [facility] ONCE a day; Duration: 30 Active Dexcom G6 Sensor - Miscellaneous USE DIRECTED change EVERY 10 days; Duration: 30 Active Dexcom G6 Transmitter - Miscellaneous as directed in vitro apply once every 90 days; Duration: 90 days 05/15/2024 Active Tamsulosin HCl 0.4 mg Capsule TAKE ONE CAPSULE BY MOUTH ONCE DAILY; Duration: 30 Active Testosterone Cypionate 200 MG/ML Solution 1 mL SUBCUTANEOUSLY Every other week; Duration: 14 days 01/01/2025 Active Citalopram Hydrobromide 40 mg Tablet TAKE ONE TABLET BY MOUTH EVERY MORNING; Duration: 90 Active ZyrTEC 10 MG Tablet Chewable 1 tablet Orally Once a day Not-Taking Clopidogrel Bisulfate 75 mg Tablet TAKE ONE TABLET BY MOUTH ONCE DAILY; Duration: 30 Active Aspirin 81 MG Tablet Delayed Release 1 tablet Orally Once a day Active rOPINIRole HCl 0.5 MG Tablet 1 tablet 1 to 3 hours before bedtime Orally Once a day Not-Taking Atorvastatin Calcium 80 MG Tablet 1 tablet Orally Once a day Active Spironolactone-HCTZ 25-25 MG Tablet 1/2 tablet Orally Once a day; Duration: 90 days Not-Taking Isosorbide Mononitrate 20 MG Tablet 1 tablet Orally Twice a day 03/20/2025 Active cloNIDine HCl 0.1 MG Tablet 1 tablet Orally Once a day Not-Taking Metoprolol Succinate ER 25 MG Tablet Extended Release 24 Hour 1 tablet Orally Once a day Active Doxycycline Hyclate 100 MG Tablet 1 tablet Orally Twice a day Not-Taking Tresiba FlexTouch 200 UNIT/ML Solution Pen-injector 100 Subcutaneous daily; Duration: 90 days 02/06/2025 Active Nitroglycerin 0.4MG Sublingual Tablets 0.4MG Tablet 1 Tablet under tongue and allow to dissolve as needed, given in clinic Sublingual Every 5 minutes up to 3 times if chest pain persists 03/20/2025 Active TRUEplus 5-Bevel [place] 31G X 6 MM Miscellaneous USE DIRECTED with insulin; Duration: 30 Active Pregabalin 75 MG Capsule 1 capsule Orally Once a day; Duration: 30 days 01/01/2025 06/30/2025 Active Mounjaro 2.5 MG/0.5ML Solution Auto-injector as directed Subcutaneous weekly; Duration: 30 days 03/20/2025 Active Social History Tobacco Use: Social History Observation Description Date Details (start date - stop date) Current Smoker NA - NA Social History Depression Screening Social Info Question Answer Notes depression screening findings Findings Negative (0 -4) 12/02/24 PHQ-9 Little interest or p noé in doing things Not at all Feeling down, depressed, or hopeless Not at all Trouble falling or staying asleep, or sleeping t oo much Not at all Feeling tired or having little energy Not at all Poor appetite or overeating Not at all Feeling bad about yourself, or that you are a failure, or have let yourself or your family down Not at all Trouble concentrating on thi ngs, such as reading the newspaper or watching television Not at all Moving or speaking so slowly that other people could have noticed. Or the opposite ? being so fidgety or restless that you have been moving around a lot more than usual Not at all Thoughts that you would be b jorge off , or of hurting yourself in some way Not at all Total Score 0 Drugs/Alcohol: Social Info Question Answer Notes Drugs Have you used drugs other than those for medical reasons in the past 12 months? No Caffeine Intake: more than 4 cups per day Comprehensive Health Assessm ent Social Info Question Answer Notes *Social Determinants of Health Has lack of transportation kept you from medical appointments, meetings, work or from getting things needed for daily living? No Recently, have you worried t hat your food would run out before you got money to buy more? No Do you feel physically and emotionally safe wher e you currently live? No Are you worried about losing your housing? No Have you recently been mecca rned that your utilities would be turned off (electricity, gas, or water)? No Drug/Alcohol: Social Info Question Answer Notes AUDIT-C (Standard) Did you have a drink containing alcohol in the past year? No Points 0 Interpretation Negative Tobacco Use: Social Info Question Answer Notes Tobacco Control (Standard) Tobacco use: Current smoker Additional Findings: Tobacco user Cigar smoker Additional Details Category Social Info Options Details Drugs/Alcohol: Do you smoke marijuana? De nies Do you drink alcohol? No Section Notes: Dep - 08/09/24 Tob - 08/09/24 Dep - 08/09/24 Tob - 08/09/24 CIME Dep/tob - 12/02/24 Dep - 08/09/24 Tob - 08/09/24 CIME Dep/tob - 12/02/24 Dep - 08/09/24 Tob - 08/09/24 CIME Dep/tob - 12/02/24 Dep - 08/09/24 Tob - 08/09/24 Dep - 08/09/24 Tob - 08/09/24 Dep - 08/09/24 Tob - 08/09/24 CIME Dep/tob - 12/02/24 Dep - 08/09/24 Tob - 08/09/24 CIME Dep/tob - 12/02/24 Dep - 08/09/24 Tob - 08/09/24 CIME Dep/tob - 12/02/24 Problems Problem Type SNOMED Code ICD Code Onset Dates Problem Status W/U Status Risk Notes Problem Essential hypertension (02329338) Essential hypertension (I10) Active confirmed Problem Type II diabetes mellitus without complication (080564768) Type 2 diabetes mellitus without complication, unspecified whether long wall shear operator insulin use (E11.9) Active confirmed Problem Internal hemorrhoids (22316473) Internal hemorrhoids (K64.8) Active confirmed Problem Peripheral vascular disease (712617045) PVD (peripheral vascular disease) (I73.9) Active confirmed Problem Diabetic peripheral neuropathy (315188294) Diabetic peripheral neuropathy (E11.42) Active confirmed Problem S/P angioplasty with stent (Z95.820) Active confirmed Problem Type 2 diabetes mellitus with other specified complication, without long-term current use of insulin (E11.69) Active confirmed Problem Peripheral vascular disease (167732595) Peripheral vascular disease (I73.9) Active confirmed Problem Intermittent claudication of bilateral lower limbs co-occurrent and due to atherosclerosis (finding) (66196371879365419 ) Atheroscler of platinum artery of both legs with intermit claudication (I70.213) Active confirmed Problem Intermittent claudication of left lower limb co-occurrent and due to atherosclerosis (finding) (98826111750634434 ) Atheroscler of platinum artery of left leg with intermit claudication (I70.212) Active confirmed Problem Intermittent claudication of right lower limb co-occurrent and due to atherosclerosis (finding) (00280163568278260 ) Atheroscler of platinum artery of right leg with intermit claudication (I70.211) Active confirmed Problem Intermittent claudication due to atherosclerosis of artery of limb (finding) (992839998) Atherosclerosis of lower extremity with claudication (I70.219) Active confirmed Vital Signs Heart Rate 82 /min 03/20/2025 Temperature 98.7 degrees Fahrenheit 03/20/2025 Blood pressure diastolic 67 mm Hg 03/20/2025 Oximetry 96 % 03/20/2025 Height-cm 170.18 cm 03/20/2025 Weight-kg 104.33 kg 03/20/2025 Height 67 in 03/20/2025 Blood pressure systolic 148 mm Hg 03/20/2025 Weight 230 lbs 03/20/2025 BMI 36.02 kg/m2 03/20/2025 Encounters Encounter Location Date Provider Diagnosis [facility] [address] [place] [address] 03/19/2025 Amy Webb S/P angioplasty with stent Z95.820 ; Peripheral vascular disease I73.9 and 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 [facility] [address] [place] [phone] 02/06/2025 Patrick Rene Type 2 diabetes mellitus with other specified complication, without long-term current use of insulin E11.69 ; PVD (peripheral vascular disease) I73.9 ; Essential hypertension I10 ; Diabetic peripheral neuropathy E11.42 and Depression screen Z13.31 [facility] [address] [place] [phone] 01/01/2025 Patrick Rene Type 2 diabetes mellitus with other specified complication, without long-term current use of insulin E11.69 ; Essential hypertension I10 ; Pneumonia of right lower lobe due to Streptococcus pneumoniae J13 and Depression screen Z13.31 [facility] [address] [place] [phone] 12/19/2024 Patrick Rene Type 2 diabetes mellitus without complication, unspecified whether long wall shear operator insulin use E11.9 ; Essential hypertension I10 ; PVD (peripheral vascular disease) I73.9 ; Internal hemorrhoids K64.8 and Depression screen Z13.31 [facility] [address] [place], [place] [address] 12/13/2024 Patrick Paredes K92.1 [facility] [address] [place] [phone] 07/29/2024 Patrick Rene Atherosclerosis of lower extremity with claudication I70.219 ; Type 2 diabetes mellitus with other specified complication, without long-term current use of insulin E11.69 and Essential hypertension I10 [facility] [address] [place] [address] 07/08/2024 Amy Webb S/P angioplasty with stent Z95.820 ; Peripheral vascular disease I73.9 and 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 [facility] [address] [place] [address] 06/25/2024 Mulugeta Garcia Atherosclerosis of lower extremity with claudication I70.219 [facility] [address] [place] [address] 06/28/2024 Patrick Rene Type 2 diabetes mellitus with other specified complication, without long-term current use of insulin E11.69 ; PVD (peripheral vascular disease) I73.9 ; Essential hypertension I10 ; Atherosclerosis of lower extremity with claudication I70.219 and Diabetic peripheral neuropathy E11.42 [facility] [address] [place] [address] 12/10/2024 Patrick Rene Type 2 diabetes mellitus without complication, unspecified whether long wall shear operator insulin use E11.9 [facility] [address] [place] [address] 06/04/2024 Mulugeta Garcia Atherosclerosis of lower extremity with claudication I70.219 and Diabetic peripheral neuropathy E11.42 [facility] [address] [place] [address] 05/15/2024 Patrick Rene Type 2 diabetes mellitus with other specified complication, without long-term current use of insulin E11.69 ; PVD (peripheral vascular disease) I73.9 ; Essential hypertension I10 and Depression screen Z13.31 [facility] [address] [place] [address] 08/09/2024 Patrick Rene Atherosclerosis of lower extremity with claudication I70.219 ; Type 2 diabetes mellitus with other specified complication, without long-term current use of insulin E11.69 ; PVD (peripheral vascular disease) I73.9 ; Essential hypertension I10 and Depression screen Z13.31 [facility] [address] [address] 12/02/2024 Patrick Rene Internal hemorrhoids K64.8 ; History of colon polyps Z86.0100 and Depression screen Z13.31 [facility] [address] [place] [address] 06/04/2024 [facility] [address] [place] [address] 03/19/2025 [facility] [address] [place] [address] 07/16/2024 Mulugeta Garcia Atheroscler of nativ e artery of both legs with intermit claudication I70.213 [facility] [address] [place] [address] 07/01/2024 Mulugeta Garcia [facility] [address] [address] 06/12/2024 Patrick Rene Diabetic peripheral neuropathy E11.42 ; Atherosclerosis of lower extremity with claudication I70.219 and Type 2 diabetes mellitus with other specified complication, without long-term current use of insulin E11.69 [facility] [address] [address] 03/20/2025 Patrick Rene Type 2 diabetes mellitus with other specified complication, without long-term current use of insulin E11.69 ; Acute chest pain R07.9 ; PVD (peripheral vascular disease) I73.9 and Essential hypertension I10 [facility] [address] [address] 08/05/2024 Patrick Rene Low testosterone R79.89 [facility] [address] [place] [address] 02/10/2025 Patrick Rene Type 2 diabetes mellitus with other specified complication, without long-term current use of insulin E11.69 [facility] [address] [place] [address] 09/09/2024 Patrick Rene Type 2 diabetes mellitus with other specified complication, without long-term current use of insulin E11.69 ; PVD (peripheral vascular disease) I73.9 ; Essential hypertension I10 ; S/P angioplasty with stent Z95.820 ; 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 and Bronchitis J40 [facility] [address] [place] [address] 07/08/2024 Amy Webb [facility] [address] [place] [address] 03/25/2025 Mulugeta Radha Atherosclerosis of lower extremity with claudication I70.219 [facility] [address] [place] [address] 06/25/2024 Mulugeta Radha Type 2 diabetes mellitus with other specified complication, without long-term current use of insulin E11.69 ; Essential hypertension I10 ; Atherosclerosis of lower extremity with claudication I70.219 and Preprocedural examination Z01.818 [facility] [address] [place] [address] 06/21/2024 [facility] [address] [place] [address] 06/19[facility] [address] [place] [address] 06/17/2024 [facility] [address] [facility] [place] [address] 06/10/2024 [facility] [address] [place] [address] 06/03/2024 [facility] [address] [facility] [address] [place] [address] 06/03/2024 [facility] [address] [place] [address] [address] [place] [address] 05/13/2024 Nitesh Annika Migrated_Facility 0 0 06/23/2024 Provider Migration Migrated[facility]Facility 0 0 06/22/2024 Provider Migration [facility] [address] [facility] [address] [place] [address] 03/19/2025 [facility] [address] [place] [address] [place] [address] 02/27/2025 [facility] [address] [facility] [address] [place] [address] 11/11/2024 [facility] [address] [facility] [address] [place] [address] 11/11/2024 [facility] [address] [facility] [address] [place] [address] 10/08/2024 [facility] [address] [facility] [address] [place] [address] 08/05/2024 Patrick Renecharlie Gary [facility] [address] [place] [address] 08/05/2024 [facility] [address] [facility] [place] [address] 07/22/2024 Patrick [facility] [address] [place] [address] 07/11/2024 Amy Webb [facility] [address] [place] [place] [address] 07/02/2024 Mulugeta Garcia [facility] [address] [facility] [address] [place] [address] 07/02/2024 Patrick Rene [facility] [address] [address] 06/26/2024 Patrick Rene [facility] [address] [address] 06/26/2024 Patrick Rene Assessments Encounter Date Diagnosis (ICD Code) Assessment Notes Treatment Notes Treatment Clinical Notes Section Notes 05/15/2024 Type 2 diabetes mellitus with other specified complication, without long-term current use of insulin (ICD-10 - E11.69) 06/04/2024 Diabetic peripheral neuropathy (ICD-10 - E11.42) Continue with Lyrica. I discussed with him that if we do improve the circulation in his legs that it will not cure the neuropathy and he will likely need to continue managing his diabetes and taking his Lyrica. 06/04/2024 Atherosclerosis of lower extremity with claudication (ICD-10 - I70.219) His walking symptoms are consistent with atherosclerosis. Will start him on cilostazol 100 mg twice daily in the meantime while we obtain a CT angiogram Afro for further evaluation of his revascularization options. Follow-up after CTA Afro ABIs today are 0.45 on the right and 0.9 on the left. I suspect that the EV on the left is falsely elevated due to calcific arterial disease and his diabetic peripheral atherosclerosis. 06/12/2024 Diabetic peripheral neuropathy (ICD-10 - E11.42) 05/15/2024 PVD (peripheral vascular disease) (ICD-10 - I73.9) 06/25/2024 Atherosclerosis of lower extremity with claudication (ICD-10 - I70.219) Images of CT angiogram were reviewed. He has diffuse calcified atherosclerotic vascular disease in the aorta and iliac vessels without any significant stenosis. Both femoral, profunda, and superficial femoral arteries appear to be widely patent. He then has occlusion or near occlusion of the popliteal arteries from severely calcified disease and then severe calcification of his tibial vessels bilaterally which are difficult to assess for patency. Lifestyle limiting claudication not improved with exercise and not improved with Pletal. I have offered him endovascular treatment of the right lower extremity. We will consider treatment of the left leg a couple of weeks after his right leg procedure. The patient understands the benefits and risks of the procedure including the risk of bleeding, infection, arterial injury/thrombosis, and renal failure. The patient gives consent for surgery. Follow-up after surgery 06/25/2024 Type 2 diabetes mellitus with other specified complication, without long-term current use of insulin (ICD-10 - E11.69) 06/28/2024 Type 2 diabetes mellitus with other specified complication, without long-term current use of insulin (ICD-10 - E11.69) 07/08/2024 S/P angioplasty with stent (ICD-10 - Z95.820) 07/29/2024 Type 2 diabetes mellitus with other specified complication, without long-term current use of insulin (ICD-10 - E11.69) 07/29/2024 Atherosclerosis of lower extremity with claudication (ICD-10 - I70.219) He is doing so much better. 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 Significant improvement in right EV after endovascular treatment. Still with severe atherosclerosis left lower extremity. 08/09/2024 Type 2 diabetes mellitus with other specified complication, without long-term current use of insulin (ICD-10 - E11.69) 08/09/2024 Atherosclerosis of lower extremity with claudication (ICD-10 - I70.219) 09/09/2024 Type 2 diabetes mellitus with other specified complication, without long-term current use of insulin (ICD-10 - E11.69) 12/02/2024 History of colon polyps (ICD-10 - Z86.0100) --x- to be completed at [facility] ---to be completed at [facility] ---to be completed at [facility] ---to be completed at 12/10/2024 Type 2 diabetes mellitus without complication, unspecified whether long wall shear operator insulin use (ICD-10 - E11.9) 12/13/2024 Melena (ICD-10 - K92.1) 12/02/2024 Internal hemorrhoids (ICD-10 - K64.8) 12/19/2024 Type 2 diabetes mellitus without complication, unspecified whether long wall shear operator insulin use (ICD-10 - E11.9) 01/01/2025 Essential hypertension (ICD-10 - I10) 01/01/2025 Type 2 diabetes mellitus with other specified complication, without long-term current use of insulin (ICD-10 - E11.69) 02/06/2025 Type 2 diabetes mellitus with other specified complication, without long-term current use of insulin (ICD-10 - E11.69) 02/10/2025 Type 2 diabetes mellitus with other specified complication, without long-term current use of insulin (ICD-10 - E11.69) 03/19/2025 S/P angioplasty with stent (ICD-10 - Z95.820) 03/20/2025 Type 2 diabetes mellitus with other specified complication, without long-term current use of insulin (ICD-10 - E11.69) 03/20/2025 Acute chest pain (ICD-10 - R07.9) 03/25/2025 Atherosclerosis of lower extremity with claudication [...] lower extremity and 0.66 left lower extremity. 03/20/2025 PVD (peripheral vascular disease) (ICD-10 - I73.9) 03/19/2025 Peripheral vascular disease (ICD-10 - I73.9) [...] and congratulations on cessation of smoking today. 01/01/2025 Pneumonia of right lower lobe due to Streptococcus pneumoniae (ICD-10 - J13) 02/06/2025 PVD (peripheral vascular disease) (ICD-10 - I73.9) 12/02/2024 Depression screen (ICD-10 - Z13.31) 12/19/2024 Essential hypertension (ICD-10 - I10) 09/09/2024 PVD (peripheral vascular disease) (ICD-10 - I73.9) 07/29/2024 Essential hypertension (ICD-10 - I10) 08/09/2024 PVD (peripheral vascular disease) (ICD-10 - I73.9) 07/08/2024 Peripheral vascular disease (ICD-10 - I73.9) Doing very well post EVT.Patient is interested in similar treatment on the left leg, with Dr. Garcia if possible but will consider any surgeon for the timing he needs (the week prior to ). Discussed possible right Femoral stick angiogram of the iliacs and bilateral lower extremities. Possible atherectomy angioplasty and stenting of the right lower extremity and any other indicated procedures, Benefits and risks of procedure were discussed with patient to include but not limited to loss of limb, side effects from anesthesia, infection, bleeding, clotting, failed procedure, and or non-use of limb. Patient vocalized understanding of the risks and elects to continue with the scheduled procedure. Patient does smoke 2 cigars a day and discussed cessation greater than three minutes. He is considering quitting. Continue ASA and Plavix, other medications as documented. 06/25/2024 Essential hypertension (ICD-10 - I10) 06/28/2024 PVD (peripheral vascular disease) (ICD-10 - I73.9) 05/15/2024 Essential hypertension (ICD-10 - I10) 06/12/2024 Atherosclerosis of lower extremity with claudication (ICD-10 - I70.219) He is plugged in to vascular. 05/15/2024 Depression screen (ICD-10 - Z13.31) 06/12/2024 Type 2 diabetes mellitus with other specified complication, without long-term current use of insulin (ICD-10 - E11.69) He is doing really well with his Dexcom. 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 (ICD-10 - I70.213) 03/20/2025 Essential hypertension (ICD-10 - I10) 02/06/2025 Diabetic peripheral neuropathy (ICD-10 - E11.42) 12/19/2024 Internal hemorrhoids (ICD-10 - K64.8) 09/09/2024 S/P angioplasty with stent (ICD-10 - Z95.820) 08/09/2024 Depression screen (ICD-10 - Z13.31) 06/28/2024 Atherosclerosis of lower extremity with claudication (ICD-10 - I70.219) 06/25/2024 Preprocedural examination (ICD-10 - Z01.818) 06/28/2024 Diabetic peripheral neuropathy (ICD-10 - E11.42) 09/09/2024 Bronchitis (ICD-10 - J40) 09/09/2024 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 They are agreeable with the proposed plan of care and deny further needs or concerns. I am happy to see patient prior to next office visit as needed for acute concerns. 12/10/2024 Other Venipuncture performed by Sara Barton. Right arm/hand. One attempt. Pt tolerated well, bleeding controlled with light dressing. Lab sent to [facility] via hydrate control tender. 12/13/2024 Other see scanned document from [facility] in patients documents. 02/06/2025 Other Dx: Diabetic diagnosis Pt is due for preventive health screenings. We will set up the appropriate screenings for the patient at the facility of choice. 02/10/2025 Other Venipuncture performed by Chelo Garcia. Left arm/hand. One attempt. Pt tolerated well, bleeding controlled with light dressing. Lab sent to [facility] via hydrate control tender. 02/27/2025 Other Diabetic foot exam performed: -History obtained from patient/caregiver -Physical examination completed while addressing skin breakdown, ulcer formation, and vascular perfusion (hair growth, pulses, and temperature changes) -Teaching given to patient/caregiver regarding daily foot care/examination/fo otwear/health risk management. - Encouraged annual diabetic foot exams and daily self foot checks. Plan Of Treatment Pending Test Test Name Order Date Blood Urea Nitrogen (BUN) 34054 06/04/20 24 Creatinine (B) 21965 06/04/2024 Next Appt Details Provider Name:Patrick Rene, 05/06/2025 03:40:00 PM, [address] [place] [address], [id number], Provider Name:Mulugeta moreland, 06/18/2025 03:00:00 PM, [address] [place] [address] [address], [place], [address], Provider Name:Christo fontana, 06/18/2025 03:30:00 PM, [address] [place] [address] [address], [place], [address], Insurance Providers Payer Name Payer Address Payer Phone Subscriber Number Group Number Insured Name Patient Relationship to Insured Coverage Start Date Coverage End Date [employer] [place] [address] [place] [address] [id number] Maurice Cutler Self - patient is the insured Medications Administered Medication Instructions Date of Administration Dosage Notes Rocephin 01/01/2025 1 g Medical (General) History Medical History History ICD Code High Blood Pressure type II diabetes neuropathy Anxiety disorder Depression restless leg syndrome blockage Surgical History Surgery Date(Month/Year) back surgery 2014 pilonidal cyst excision 2015 Endovascular treatment 07.01.2024 Stent 2x 03/21 Hospitalization History Reason Date(Month/Year) see above
[2025-03-28 07:02] LABS: Hematocrit 35.2 % (37-53); Hemoglobin 11.30 g/dL (11.27-16.99); Mean Corpuscular HGB Conc 32.1 g/dL (30-55); Mean Corpuscular Hemoglobin 29.1 pg (27-33); Mean Corpuscular Volume 90.7 fl (82-101); Nucleated Red Blood Cells % 0 %; Platelet Count 184 10^3/cmm (157-399); Red Blood Count 3.88 10^6/uL (3.85-5.65); White Blood Count 12.51 10^3/uL (3.29-11.43)
[2025-03-28 07:16] LABS: Partial Thromboplastin Time 58.6 SECONDS (23.9-36.7)
[2025-03-28 07:23] LABS: Alanine Aminotransferase 12 U/L (0-41); Albumin Level 3.6 g/dL (3.5-5.2); Alkaline Phosphatase 58 U/L (40-130); Anion Gap 18.3 (5-19); Aspartate Amino Transferase 13 U/L (0-40); Blood Urea Nitrogen 29 mg/dL (8-23); Calcium 9.1 mg/dL (8.5-10.5); Carbon Dioxide 22 mmol/L (22-29); Chloride 102 mmol/L (98-107); Creatinine Clr Calc Pharmacy 78.9065; Globulin 3.2 g/dL (1.3-4.6); Glucose 77 mg/dL (65-115); Magnesium 2.2 mg/dL (1.7-2.3); Osmolality Calculated 291 mOsm/kg (285-295); Potassium 4.3 mmol/L (3.5-5.1); Sodium 138 mmol/L (136-145); Total Protein 6.8 g/dL (6.6-8.7)
[2025-03-28] MEDS: metoprolol succinate ER (24 HR) 25 mg Tablet PO (08:17)
[2025-03-28] MEDS: multivitamin therapeutic Tablet 1 TAB PO (08:17)
--- NOTE | 2025-03-28 08:50 | PM.PN ---
Vitals/I&O/Wt Last Vital Signs Temp 97.5 F L 03/28/25 07:30 Pulse 60 03/28/25 14:15 Resp 13 03/28/25 14:15 BP 133/68 03/28/25 14:15 Pulse Ox 100 03/28/25 14:15 O2 Del Method Room Air 03/28/25 14:15 03/28/25 03/28/25 03/28/25 06:59 14:59 22:59 Intake Total 200.667 / 370.312 3182.517 / 1380.517 Output Total 550 / 550 Balance -349.333 / -290.298 4822.517 / 1380.517 Weight last 48 hrs Weight 223 lb Weight 223 lb 12.307 oz Weight 222 lb Data 03/28/25 06:50 03/28/25 06:50 A&P PDMP PDMP Reviewed: Not Reviewed Coding Level of Care Code Acute Code for Chg Fwd
--- NOTE | 2025-03-28 08:50 | P.CONIM_ITS ---
<Statement entered by Damon Finney M.D - 04/01/25 08:09> Patient was cared for in conjunction with an advanced practice practitioner.? I reviewed the chart and all pertinent data including imaging, telemetry, and laboratory results.? I discussed the patient in detail with the advanced practice practitioner.? Please see?their note for consult note, testing results and agreed upon plan of care for the patient. Providers/Reason For Consult 2 Consulting Physician/Specialty*: Dr Finney, cardiology Reason for Consult*: chest pain Requesting Physician: Jessica Rocha MD Attending Physician: Jessica Rocha MD Primary Care Provider: Donnie Rene MD History of Present Illness History of Present Illness Maurice Rizo is a 64 year old male with past medical history of CAD, underwent coronary angiogram 03/13/2025 finding significant stenosis of the proximal LAD which was treated with KELLEN x 1. He had highly tortuous calcified vessels especially the RCA, stenosis in the distal RCA treated with KELLEN x 1. Dissection of the proximal to mid segment of the RCA noted during stent delivery, was unable to deliver the stent. It was left in place as there was good flow. He continued to have chest pain after the procedure which was treated with isosorbide mononitrate, metoprolol succinate was added. He saw Dr. Herrera in the clinic 03/18/2025 who felt the symptoms that he was experiencing was likely related to anxiety. Patient presented to the emergency room yesterday with chest pain and shortness of breath. Troponin series: 50-> 49-> 53. Creatinine was initially 1.6, improved to 1.1 today. Review of Systems 2 Const: Denies: fever(s), chills, change in weight, fatigue or diaphoresis Eyes: Denies: change in vision ENMT: Denies: epistaxis Card: Reports: chest pain and dyspnea on exertion; Denies: palpitations, irregular heart rhythm, edema, syncope, pre-syncope, orthopnea or leg pain with exertion Resp: Denies: dyspnea, productive cough or wheezing GI: Denies: nausea, vomiting, hematemesis, hematochezia or melena : Denies: hematuria Musc: Denies: extremity swelling Tao/Lymph: Denies: easy bruising or easy bleeding Medications/Allergies Home Medications ?Medication ?Instructions ?Recorded ?Confirmed ?Last Taken ?Type multivitamin 1 tab PO DAILY 10/09/19 08/0 09/2103/27/25 History syringe with needle 3 mL 20 gauge #100 ea 04/17/2409/21 Unknown Rx x 1 2 (BD Luer-Bin Syringe) testosterone cypionate 200 mg/mL 200 mg SUBCUT .every other week #1 04/30/24 03/28/25 02/28/25 Rx intramuscular oil mL (Depo-Testosterone) dapagliflozin propanediol 10 mg 10 mg PO DAILY #30 tab s 05/08/24 03/28/25 03/27/25 Rx tablet (Farxiga) tamsulosin 0.4 mg capsule 0.4 mg PO DAILY #30 caps 07/2103/28/25 03/27/25 Rx pregabalin 75 mg capsule 75 mg PO DAILY 06/17/24/09/2103/27/25 History albuterol sulfate 90 mcg/actuation 2 inh inhalation Q4 H PRN shortness 09/07/24 03/28/25 Unknown Rx aerosol inhaler of breath or wheezing #6.7 g keven duloxetine 20 mg capsule,delayed 40 mg PO DAILY 03/28/25 03/27/25 History release lisinopril 40 mg tablet 40 mg PO DAILY 03/13/25/09/2103/27/25 History aspirin 81 mg tablet,delayed 81 mg PO QAM 30 days #30 tabs 03/16/25 03/28/25 03/27/25 Rx release (Adult Low Dose Aspirin) atorvastatin 80 mg tablet 80 mg PO QPM 30 days #30 tab s 03/16/25 03/28/25 03/26/25 Rx citalopram 40 mg tablet 40 mg PO QAM 30 days #30 tab s 03/16/25 03/28/25 03/27/25 Rx insulin degludec 200 unit/mL (3 10 unit (0.05 mL) SUBC UT DAILY 30 03/16/25 03/28/25 03/27/25 Rx mL) subcutaneous pen (Tresiba days #0 mL FlexTouch U-200 insulin) insulin lispro 100 unit/mL See Rx Instructions .Route 03/16/25 03/28/25 03/27/25 Rx subcutaneous pen (Humalog KwikPen .COMPLEX 30 days #0 mL (U-100) Insulin) isosorbide mononitrate 20 mg tablet 20 mg PO BID 30 da ys #60 tabs 03/16/25 03/28/25 03/27/25 Rx metoprolol succinate 25 mg 25 mg PO DAILY 30 days #30 tabs 03/16/25 03/28/25 03/27/25 Rx tablet,extended release 24 hr nitroglycerin 0.4 mg sublingual 0.4 mg sublingual Q5M PRN Chest 03/16/25 03/28/25 Unknown Rx tablet Pain 30 days #30 tabs cetirizine 10 mg tablet 10 mg PO BID PRN allergies 0 03/18/25 03/28/25 Unknown History clopidogrel 75 mg tablet 75 mg PO DAILY 30 days #90 t abs 03/18/25 03/28/25 03/27/25 Rx insulin glargine 100 unit/mL (3 80 unit SUBCUT BID 09/2103/28/25 Unknown History mL) subcutaneous pen (Lantus Solostar U-100 Insulin) metformin 500 mg tablet 1,000 mg PO BID 03/28/2509/2103/27/25 History tirzepatide 2.5 mg/0.5 mL 2.5 mg SUBCUT Q7D 03/28/25 0 03/28/25 Unknown History subcutaneous pen injector (Jonathon) tizanidine 4 mg tablet 4 mg PO Q8H PRN muscle spasm s 03/28/25 03/28/25 Unknown History triamcinolone acetonide 0.1 % 1 applic topical BID PRN Skin 03/28/25 03/28/25 Unknown History topical cream Irritation Allergies Allergy/AdvReac Type Severity Reaction Status Date / Time No Known Allergies Allergy Verified 03/18/25 11:09 Current Medications Generic Name Dose Route Start Last Admin Trade Name Freq PRN Reason Stop Dose Admin Aspirin 81 mg 03/28/25 09:00 03/28/25 08:17 Aspirin 81 Mg Ec Tablet PO 81 mg DAILY KALEB Administration Clopidogrel Bisulfate 75 mg 03/28/25 09:00 03/28/25 08:18 Clopidogrel 75 Mg Tablet PO 75 mg DAILY KALEB Administration Duloxetine HCl 40 mg 03/28/25 09:00 03/28/25 08:17 Duloxetine 20 Mg Capsule PO 40 mg DAILY KALEB Administration Nitroglycerin/Dextrose 50 mg in 250 mls @ 0 mls/hr 03/27/25 17:00 03/28/25 06:55 Nitroglycerin Drip IV 0 mcg/min .Q0M KALEB 0 mls/hr Protocol Titration Per Protocol Sodium Chloride 1,000 mls @ 75 mls/hr 03/27/25 19:30 03/28/25 08:18 Sodium Chloride 0.9% IV 75 mls/hr .[id number] KALEB Administration Insulin Human Lispro 0 unit 03/27/25 21:00 03/28/25 12:54 Insulin Lispro 100 Unit/1 Ml SUBCUT Not Given WM&BEDTIME KALEB Protocol Metoprolol Succinate 25 mg 03/28/25 09:00 03/28/25 08:17 Metoprolol Succinate Er (24 Hr) 25 Mg Tablet PO 25 mg DAILY KALEB Administration Multivitamins Therapeutic 1 tab 03/28/25 09:00 03/28/25 08:17 Multivitamin Therapeutic Tablet PO 1 tab DAILY KALEB Administration Pregabalin 75 mg 03/28/25 09:00 03/28/25 08:17 Pregabalin 75 Mg Capsule PO 75 mg DAILY KALEB Administration PFSH Acute 2 PFSH: Medical History Coronary artery disease Hypertension Hyperlipidemia Diabetes type 2, controlled Osteoarthritis of left shoulder Surgical History Hx of colonoscopy with polypectomy 3 yrs ago History of esophagogastroduodenoscopy (EGD) History of back surgery History of removal of cyst History of lumpectomy of left breast 02/13/23 subcutaneous mass left breast and lumpectomy- Dr. Rose No significant past surgical history Family History Other Hypertension Social History Smoking and tobacco/nicotine status: former use of tobacco/nicotine Second hand smoke exposure: No Alcohol intake: current Alcohol intake frequency: holidays/special occasions only Substance/Drug Use: unknown Adopted: No Caregiver/support person: No Lives independently: Yes Household members: significant other Housing: House Marital status: Life Partner Current occupational status: employed Do you think of yourself as: Straight/Heterosexual Current gender identity: Male Special lanre needs: No Vitals/I&O/Wt Last Vital Signs Temp 97.5 F L 03/28/25 07:30 Pulse 60 03/28/25 14:15 Resp 13 03/28/25 14:15 BP 133/68 03/28/25 14:15 Pulse Ox 100 03/28/25 14:15 O2 Del Method Room Air 03/28/25 14:15 03/28/25 03/28/25 03/28/25 06:59 14:59 22:59 Intake Total 200.667 / 212.693 9710.517 / 1380.517 Output Total 550 / 550 Balance -349.333 / -233.466 5330.517 / 1380.517 Weight last 48 hrs Weight 223 lb Weight 223 lb 12.307 oz Weight 222 lb Physical Exam 2 Const: COMMON NORMALS: no acute distress and patient oriented x3 GENERAL APPEARANCE: cooperative and comfortable ORIENTATION/CONSCIOUSNESS: Yes awake, Yes oriented to person, Yes oriented to place and Yes oriented to time Chest: COMMONS NORMALS: normal inspection of the chest and normal palpation of entire chest wall CHEST: Yes Symmetrical chest wall rise Resp: COMMON NORMALS: normal respiratory effort, No retractions, No use of accessory muscles and clear to auscultation bilaterally EFFORT & INSPECTION: Yes symmetric chest movement AUSCULTATION: clear to auscultation bilaterally Cardio: COMMON NORMALS: regular rate, regular rhythm, S1 normal heart sound present, S2 normal heart sound present, No gallops present (Cardio), No clicks present (Cardio), No murmurs present (Cardio) and No rub (Cardio) RATE: r egular rate RHYTHM: regular rhythm HEART SOUNDS: S1 normal heart sound present and S2 normal heart sound present PERIPHERAL PULSES: radial pulses present Extremity: COMMON NORMALS: no pedal edema Neuro: COMMON NORMALS: patient oriented x3 and moves all extremities S ENSORIUM/ORIENTATION: Yes oriented to person, Yes oriented to place and Yes oriented to time Data 03/28/25 06:50 03/28/25 06:50 A&P Assessment and plan 1. Coronary artery disease: 2. Hypertension: 3. Chest pain, exertional: 4. Diabetes type 2, controlled: Plan: Will plan for coronary angiogram this morning to reevaluate vessels given the history of dissection. Further plan will be advised. He has been n.p.o. PDMP PDMP Reviewed: Not Reviewed Coding Level of Care Code Acute Code for g Fwd Diagnoses Coronary artery disease I25.10 Hypertension I10 Chest pain, exertional R07.9 Diabetes type 2, controlled E11.9
--- NOTE | 2025-03-28 10:36 | XACV_ITS ---
Exam Room: [facility] Ht: 170 cm Wt: 101 kg BSA: 2.23 m2 Gender: Male : 1960 Any Known Allergies: No known allergies Exam Priority: Routine Indication(s): - Unstable angina Procedure(s): Procedure Description: Diagnostic procedure Procedure Description: Left Heart Catheterization Procedure Description: Miscellaneous Procedure Description: ACT Procedure Description: Coronary Angiography Diagnostic Cath Status: Urgent Diagnostic Findings * INDICATION: Patient had recent PCI of LAD and RCA. RCA had a large iatrogenic dissection that could not be stented however there was flow in the vessel. At that time, operating team decided to proceed with medical therapy. Patient has presented with worsening angina. Plan for coronary angiogram. * Patent LAD stent. Left main artery is patent. Left circumflex artery is patent. RCA has flow with visible dissection.. * Coronary angiography shows right dominance. Conclusions 1. Patent LAD stent. Left main artery is patent. Left circumflex artery is patent. RCA has flow with visible dissection.. 2. Medical therapy for healing RCA dissection as vessel has good flow in it. Recommendations * Continue dual antiplatelet therapy. * Uptitrate antianginal medications. * Outpatient cardiology follow up in 2 weeks. Interventional RX Recommendation: medical therapy and/or counseling Diagnostic RX Recommendation: medical therapy and/or counseling Pressures Phase:Rest AO : 1 / 0 ( 0 ) @ 12:12:00 PM 356 / 266 ( 323 ) @ 12:13:00 PM 96 / 57 ( 66 ) @ 12:14:00 PM 161 / 62 ( 96 ) @ 12:19:00 PM 162 / 61 ( 96 ) @ 12:19:00 PM LV : 2 / 0 / 0 @ 12:18:00 PM 162 / 1 / 19 @ 12:19:00 PM 168 / 0 / 22 @ 12:19:00 PM Valves Phase:DefaultPhase AV : 6.0 @ 11:35:54 AM 6.0 @ 11:35:54 AM AV Mean Gradient: 7.0 @ 11:35:54 AM 7.0 @ 11:35:54 AM Clinical Evaluation EBL: 5mL-10mL Procedural Details Procedure Consent Obtained. Admit Source: In Patient. Current Diagnosis : Unstable angina. Pre-Procedure Time Out. Identified patient by full name and date of as verbalized by the patient/guarantor. Does the consent match the physician's order: Yes. Accurate & Complete Informed Consent: Yes. Inpatient/Outpatient History & Physical on Chart: Yes. If H&P is completed, is and addenduem needed: No; If yes, is the addendum complete: N/A. Visualize and Verify Site with Patient/Guarantor: N/A. Relevant Radiology Images available: N/A. The risks, benefits, and alternatives of sedation and/or procedure were discussed by physician. The patient agrees to continue. Procedure started. [facility] Clinical Fraility Score: 4: Vulnerable. 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 Chest Pain Symptom Assessment: Typical Angina Symptoms. Cardiovascular Instability: No. Correct patient, site and procedure confirmed by cath team. Current diagnosis: Unstable angina. PERRLA. Strong, equal hand bushler bilaterally. Lungs clear x 5 lobes. IV Site on Arrival: 20 gauge in the right forearm. IV Site on Arrival: 20 gauge in the left forearm. IV Fluids: 0.9% NaCl at KVO. 200 mL infused prior to director of cath lab. Pre Procedural Pulses: bilateral posterior tibial was Doppled. Pre Procedural Pulses: bilateral dorsalis pedis was Doppled. Pre Procedural Pulses: bilateral radial was 3+. Oxygen started at 3liters/min via nasal canula. bilateral groins was prepped with chloroprep then draped in the usual sterile fashion. Physician notified. Baseline sample Acquired. HR: 60 BPM. Baseline sample Acquired. HR: 61 BPM. Physician arrived. Physician scrubbed in. Immediate Pre-Procedure Time Out. Correct Patient: Yes; Correct Procedure: Yes; Correct Site: Yes; Correct Patient Position: Yes; Correct Supplies: Yes; Dried Flammable Prep: Yes; Blood Products Available: N/A;. Lidocaine 1% infiltrated to the right groin. Venous access obtained. A 5 khmer JL4 catheter in over wire. Multiple views taken of left coronary artery. Catheter removed over the exchange wire. A 5 khmer JR4 catheter in over wire. Multiple views taken of right coronary artery. Catheter dropped into the LV. EDP Sample taken: LV 162/1,19; HR: 57 BPM; SpO2: 100%. Pullback taken: LV 168/0,22; AO 161/62(96); Mean: 7mmHg, Peak to Peak: 6mmHg, SEP: 19sec/min; HR: 58 BPM; SpO2: 98%. Catheter removed over the wire. Physician review of films. Contrast type used: Visipaque 320 mgI/mL, 100 mL bottle. [id number]. A Right femoral angiogram was performed to determine safe placement of closure device. ACT drawn. Results 167 seconds. Therapeutic limits - pre-heparin administration 90-150 seconds and monitoring heparin during a vascular procedure >250 seconds. A Mynx was successful obtaining hemostatsis at the Right Femoral artery insertion site. Mynx placed without complications. No signs or symptoms of hematoma noted. Sterile dressing applied per usual sterile fashion. LOT # [id number] EXP 01/10/27. Post Procedure: Pulses reassessed and unchanged. PERRLA. Strong, equal hand bushler bilaterally. No VTE prophylaxis required. Medication's Wasted: Heparin = 1000 mg. Medication's Wasted: Versed = 1 mg. Total IV fluids: 60 mL. Fluoro: 2:08. Post-op diagnosis: RCA diffuse disease with old dissection. Complications: None. Estimated blood loss: 5mL-10mL. Responsiveness - Normal response to verbal stimuli; alert and oriented, PERRLA. Airway - Unaffected, no intervention required; spontaneous ventilation. Circulation: W/N/L, pulses unchanged. Nausea/Vomiting: No. Procedure completed. Patient transferred by bed to ICU. Medication's Wasted: Benadryl = 25 mg. Vital chart was stopped. Access Site Site: Right Femoral artery Sheath Size: 6 Fr Hemostasis Method: Mynx Hemostasis Success: Successful Procedure Medications Start: 11:02 AM Stop: 11:02 AM Medication: Benadryl Amount: 25 mg Route: I.V. Start: 11:06 AM Stop: 11:06 AM Medication: Versed Amount: 1 mg Route: I.V. Start: 11:07 AM Stop: 11:07 AM Medication: Fentanyl Amount: 50 mcg Route: I.V. Start: 11:11 AM Stop: 11:11 AM Medication: Fentanyl Amount: 25 mcg Route: I.V. Start: 11:24 AM Stop: 11:24 AM Medication: Fentanyl Amount: 25 mcg Route: I.V. I, the attending physician, have reviewed and verified all procedure medications. Yes, all medications given per verbal order History/Risk Factors Hypertension: Yes Dyslipidemia: Yes Peripheral Arterial Disease (PAD): No Myocardial Infarction (FL): No Obesity: Yes Renal Disease: No Tobacco Use: Former Prior Interventions PCI: Yes CABG: No Valve Surgery: No Date of PCI: 03/13/2025 Report Signatures Finalized by Damon Finney MD on 04/09/2025 05:33 PM
--- NOTE | 2025-03-28 10:54 | W.PM.OPSUD ---
Surgery/Procedure H&P Update DATE OF PROCEDURE: March 28, 2025 DATE H&P PERFORMED: 03/28/25 H&P UPDATE INFORMATION: I have reviewed H&P completed within last 30 days, I have examined patient prior to procedure and Changes to prior documentation as noted here CHANGES TO PREVIOUS DOCUMENTATION: Patient continues having on and off chest pain symptoms. Was having worsening shortness of breath along with chest pain and came to ER. Troponins are elevated but did not trend up significantly. Given known recent RCA dissection that could not be stented, we will proceed with coronary angigoram with possible PCI PREOP DIAGNOSIS: Worsening angina/ unstable angina PRIMARY INDICATION FOR PROCEDURE: Worsening angina/ unstable angina PLANNED PROCEDURE: Left heart cath with possible percutaneous coronary intervention PATIENT REASSESSED PRIOR TO SEDATION, WITH NO CHANGE NOTED: Yes PHYSICAL EXAM: alert, oriented x 3, clear to auscultation bilaterally and regular rate & rhythm AIRWAY EVAL/ANESTHESIA PLAN: normal airway, ASA III, Local Anesthesia, Risks, benefits & alternatives of sedation and/or procedure discussed and Patient agrees to continue as planned ADDITIONAL INFORMATION: Moderate sedation
--- NOTE | 2025-03-28 11:40 | PM.PROC ---
Procedure Note: Date of procedure: 03/28/25 Pre-procedure diagnosis: Worsening angina Post-procedure diagnosis: other (Patent coronary arteries) Procedure: Patent LAD stent. The circumflex artery has mild to moderate luminal irregularities. RCA has old dissection with severe diffuse disease. Medical therapy for that. Dual antiplatelet therapy. Uptitrate antianginal regimen Performing Provider: Damon Finney Estimated blood loss (mL): 10 Complications: None Condition: stable Disposition: no change Coding Level of Care Code Acute Code for Carlos Alberto Bangura
--- NOTE | 2025-03-28 12:31 | P.PN_ITS ---
Subjective 2 Subjective: Seen this morning. Patient will be going for coronary angiogram today. On IV fluids since last night Vitals/I&O/Wt Last Vital Signs Temp 97.5 F L 03/28/25 07:30 Pulse 53 L 03/28/25 12:15 Resp 16 03/28/25 12:15 BP 114/94 03/28/25 12:15 Pulse Ox 97 03/28/25 12:15 O2 Del Method Room Air 03/28/25 12:15 03/27/25 03/28/25 03/28/25 22:59 06:59 14:59 Intake Total 64.3 / 64.3 200.667 / 774.169 3812.017 / 1296.017 Output Total 550 / 550 Balance 64.3 / 64.3 -349.333 / -283.449 6442.017 / 1296.017 Weight last 48 hrs Weight 101.151 kg Weight 101.5 kg Weight 100.698 kg Physical Exam 2 Const: COMMON NORMALS: no acute distress and patient oriented x3 Resp: COMMON NORMALS: normal respiratory effort, No retractions, No use of accessory muscles and clear to auscultation bilaterally AUSCULTATION: clear to auscultation bilaterally Cardio: COMMON NORMALS: regular rate, regular rhythm, S1 normal heart sound present and S2 normal heart sound present RATE: regular rate RHYTHM: r egular rhythm HEART SOUNDS: S1 normal heart sound present and S2 normal heart sound present GI: COMMON NORMALS: Normal to inspection, nondistended, normoactive bowel sounds present and non-tender Extremity: COMMON NORMALS: no pedal edema Neuro: COMMON NORMALS: patient oriented x3 Psych: COMMON NORMALS: mental status grossly normal Data 03/28/25 06:50 03/28/25 06:50 A&P Assessment and plan 1. Chest pain: 2. Hypertension: 3. Coronary artery disease: 4. Hyperlipidemia: 5. Diabetes type 2, controlled: 6. DENITA (acute kidney injury): 7. HTN (hypertension), benign: Plan: #Chest pain #CAD status post PCI #Coronary artery dissection #Hypertension #Hyperlipidemia #Type 2 diabetes #DENITA ? Hold home Lantus and placed on sliding scale insulin. - Keep n.p.o. overnight for potential coronary angiogram in the morning. ? Initial troponin 2-hour troponin resulted. Delta -0.81. ? Continue aspirin atorvastatin, Plavix ? Continue on heparin drip. Cardiology instructed ER doctor to start nitro drip and heparin drip. Will continue the same ? Creatinine 1.6 at this time. Will order gentle IV fluid hydration 75 cc/h normal saline. -Cardiology consulted. Await recommendations ? Hold home metformin secondary to DENITA Continue metoprolol succinate, cetirizine, citalopram ? Hold oral nitro as patient is on nitro drip at this time ? Continue pregabalin ? Hold Mounjaro Full code DVT prophylaxis: On heparin drip 03/28/2025 Going for angiogram today. Await cardiology recommendations Continue current medications at this time. Further recommendations to be made after angiogram results available. PDMP PDMP Reviewed: Not Reviewed Attestations 2 Medical Necessity Statement*: chest pain, > 2 midnight stay, will go for cath today Diagnoses Chest pain R07.9 Hypertension I10 Coronary artery disease I25.10 Hyperlipidemia E78.5 Diabetes type 2, controlled E11.9 DENITA (acute kidney injury) N17.9 HTN (hypertension), benign I10
--- NOTE | 2025-03-28 17:07 | PC.NURSE ---
Report was given to EL Correa in [facility]. Patient and all their belongings were transferred to [facility]. Patient was stable during transfer.
[2025-03-29 03:06] LABS: Hematocrit 34.5 % (37-53); Hemoglobin 11.10 g/dL (11.27-16.99); Mean Corpuscular HGB Conc 32.2 g/dL (30-55); Mean Corpuscular Hemoglobin 29.3 pg (27-33); Mean Corpuscular Volume 91.0 fl (82-101); Nucleated Red Blood Cells % 0 %; Platelet Count 184 10^3/cmm (157-399); Red Blood Count 3.79 10^6/uL (3.85-5.65); White Blood Count 10.03 10^3/uL (3.29-11.43)
[2025-03-29 03:29] LABS: Blood Urea Nitrogen 24 mg/dL (8-23); Calcium 9.0 mg/dL (8.5-10.5); Carbon Dioxide 23 mmol/L (22-29); Chloride 104 mmol/L (98-107); Creatinine Clr Calc Pharmacy 78.9065; Glucose 203 mg/dL (65-115); Osmolality Calculated 294 mOsm/kg (285-295); Sodium 137 mmol/L (136-145)
[2025-03-29 03:34] VITALS: BP 140/69; PULSE 52; RESP 16; TEMP 36.5; O2SAT 100
[2025-03-29 03:37] LABS: Anion Gap 15.1 (5-19); Potassium 5.1 mmol/L (3.5-5.1)
[2025-03-29 07:33] VITALS: BP 160/73; PULSE 62; RESP 15; TEMP 36.4; O2SAT 100
[2025-03-29] MEDS: metoprolol succinate ER (24 HR) 25 mg Tablet PO (08:29)
[2025-03-29] MEDS: multivitamin therapeutic Tablet 1 TAB PO (08:29)
--- NOTE | 2025-03-29 08:45 | PM.PN ---
Subjective Subjective: Patient doing well. Coronary angiogram showed patent LAD stent and patent RCA with healing dissection. No chest pain today. Vitals/I&O/Wt Last Vital Signs Temp 97.5 F L 03/29/25 07:33 Pulse 62 03/29/25 07:33 Resp 15 03/29/25 07:33 BP 160/73 03/29/25 07:33 Pulse Ox 100 03/29/25 07:33 O2 Del Method Room Air 03/29/25 03:34 03/28/25 03/29/25 03/29/25 22:59 06:59 14:59 Intake Total 1240 / 2620.517 Balance 1240 / 2620.517 Weight last 48 hrs Weight 225 lb 8 oz Weight 223 lb Weight 223 lb 12.307 oz Weight 222 lb Physical Exam Narrative: GENERAL: Patient is alert, awake and oriented x3. [] NECK: No jugular vein distension. [] HEENT: No cyanosis. No icterus. No pallor. [] HEART: Regular S1 and S2. No murmur, rub or gallop. [] LUNGS: Clear to auscultate bilaterally. [] CENTRAL NERVOUS SYSTEM: Grossly nonfocal. [] EXTREMITIES: Lower extremities with no edema bilaterally. Data 03/29/25 02:48 03/29/25 02:48 A&P Assessment and plan 1. Coronary artery disease: 2. Hypertension: 3. Chest pain, exertional: 4. Diabetes type 2, controlled: Plan: Medical management for healing RCA dissection. Can uptitrate Imdur. Continue dual antiplatelet therapy. Outpatient cardiology follow-up. Thank you for involving is with care of this patient. We will continue to follow. Please call with questions PDMP PDMP Reviewed: Not Reviewed Attestations Medical Necessity Statement*: Care expected to cross 2 midnights. Coding Level of Care Code Acute Code for [facility] Fwd Diagnoses Coronary artery disease I25.10 Hypertension I10 Chest pain, exertional R07.9 Diabetes type 2, controlled E11.9
[2025-03-29 09:01] VITALS: PULSE 63; RESP 16; O2SAT 98
--- NOTE | 2025-03-29 09:54 | PM.DCS ---
Discharge Providers Date of Admission: 03/27/25 17:14 Date of Discharge: March 29, 2025 Attending Provider at Admission: Jessica Rocha MD Attending Provider at Discharge: Jessica Rocha MD Primary Care Provider: Donnie Rene MD Diagnoses at Discharge Discharge Diagnosis 1. Coronary artery disease: 2. Primary hypertension: 3. Chest pain, exertional: 4. Diabetes type 2, controlled: Reason for Visit Reason for Visit: cp,sob Hospital Course Hospital Course Presented to the hospital with chest pain. He had recent PCI performed. Underwent repeat coronary angiogram which showed patent stents. Also had a mild DENITA on admission which was improved with IV fluids. Patient will be discharged home in stable condition to follow-up with cardiology as an outpatient. He is to continue his aspirin Plavix. We will add Imdur at this time. Physical Exam Const: COMMON NORMALS: no acute distress and patient oriented x3 Resp: COMMON NORMALS: normal respiratory effort, No retractions, No use of accessory muscles and clear to auscultation bilaterally AUSCULTATION: clear to auscultation bilaterally Cardio: COMMON NORMALS: regular rate, regular rhythm, S1 normal heart sound present and S2 normal heart sound present RATE: regular rate RHYTHM: regular rhythm HEART SOUNDS: S1 normal heart sound present and S2 normal heart sound present GI: COMMON NORMALS: Normal to inspection, nondistended, normoactive bowel sounds present and non-tender Extremity: COMMON NORMALS: no pedal edema Neuro: COMMON NORMALS: patient oriented x3 Psych: COMMON NORMALS: mental status grossly normal Discharge Data Studies Completed and Pending Completed Studies During Hospitalization Category Date Time Status XR chest 1V portable [id number] Stat Exams 03/27/25 14:23 Completed CV. echo complete* [id number] Stat Ultrasound 03/27/25 18:01 Completed Pending at discharge Category Date Time Status ADJUSTMENT EXAMINER request for service Routine Exams 03/28/25 10:36 Taken Radiology Impressions Chest X-Ray 03/27/25 14:23 Impression: Atherosclerosis. Laboratory Results WBC 10.03 10^3/uL (3.29-11.43) 03/29/25 02:48 RBC 3.79 10^6/uL (3.85-5.65) L 03/29/25 02:48 Hgb 11.10 g/dL (11.27-16.99) L 03/29/25 02:48 Hct 34.5 % (37-53) L 03/29/25 02:48 MCV 91.0 fl (82-101) 03/29/25 02:48 MCH 29.3 pg (27-33) 03/29/25 02:48 MCHC 32.2 g/dL (30-55) 03/29/25 02:48 RDW 13.3 % (12.1-15.1) 03/29/25 02:48 Plt Count 184 10^3/cmm (157-399) 03/29/25 02:48 MPV 12.4 fL (7.4-10.4) H 03/29/25 02:48 Neut % (Auto) 76.7 % 03/29/25 02:48 Lymph % (Auto) 12.9 % 03/29/25 02:48 [place] % (Auto) 7.5 % 03/29/25 02:48 Eos % (Auto) 2.1 % 03/29/25 02:48 Baso % (Auto) 0.4 % 03/29/25 02:48 Neut # (Auto) 7.70 10^3/uL (1.8-7.7) 03/29/25 02:48 Lymph # (Auto) 1.3 10^3/uL (0.8-4.8) 03/29/25 02:48 [place] # (Auto) 0.8 10^3/uL (0.2-0.9) 03/29/25 02:48 Eos # (Auto) 0.2 10^3/uL (0.0-0.8) 03/29/25 02:48 Baso # (Auto) 0.0 10^3/uL (0.0-0.1) 03/29/25 02:48 Nucleated RBC % (auto) 0 % 03/29/25 02:48 Nucleated RBCs # 0.0 /100WBC 03/29/25 02:48 APTT 58.6 SECONDS (23.9-36.7) H 03/28/25 06:50 Sodium 137 mmol/L (136-145) 03/29/25 02:48 Potassium 5.1 mmol/L (3.5-5.1) 03/29/25 02:48 Chloride 104 mmol/L (98-107) 03/29/25 02:48 Carbon Dioxide 23 mmol/L (22-29) 03/29/25 02:48 Anion Gap 15.1 (5-19) 03/29/25 02:48 BUN 24 mg/dL (8-23) H 03/29/25 02:48 Creatinine 1.1 mg/dL (0.7-1.2) 03/29/25 02:48 GFR Calculation 67.8 mL/min (90-130) L 03/29/25 02:48 Glucose 203 mg/dL (65-115) H 03/29/25 02:48 POC Glucose 155 mg/dL (70-110) H 03/29/25 06:20 Calculated Osmolality 294 mOsm/kg (285-295) 03/29/25 02:48 Calcium 9.0 mg/dL (8.5-10.5) 03/29/25 02:48 Magnesium 2.2 mg/dL (1.7-2.3) 03/28/25 06:50 Total Bilirubin 0.2 mg/dL (0.15-1.2) 03/28/25 06:50 AST 13 U/L (0-40) 03/28/25 06:50 ALT 12 U/L (0-41) 03/28/25 06:50 Alkaline Phosphatase 58 U/L (40-130) 03/28/25 06:50 Troponin T Baseline 50 ng/L (0-15) H 03/27/25 15:16 Troponin T 120 Minute 49.19 ng/L (0-15) H 03/27/25 16:56 Delta Troponin T -0.81 ABS# (0-10) L 03/27/25 16:56 Troponin T Hi Sens 6Hr 53.37 ng/L (0-15) H 03/27/25 21:45 Troponin T Hi Sens 6Hr Delta 3.37 ng/L (0-12) 03/27/25 21:45 Total Protein 6.8 g/dL (6.6-8.7) 03/28/25 06:50 Albumin 3.6 g/dL (3.5-5.2) 03/28/25 06:50 Globulin 3.2 g/dL (1.3-4.6) 03/28/25 06:50 TSH 2.60 uIU/mL (0.27-4.20) 03/27/25 16:56 Vitals Last Vital Signs Temp 97.5 F L 03/29/25 07:33 Pulse 63 03/29/25 09:01 Resp 16 03/29/25 09:01 BP 160/73 03/29/25 07:33 Pulse Ox 98 03/29/25 09:01 O2 Del Method Room Air 03/29/25 09:01 Discharge Plan Discharge Patient Disposition: Home Condition: Stable Prescriptions: New isosorbide mononitrate 30 mg Tablet Extended Release 24 Hr 30 mg PO DAILY Qty: 30 0RF Continued multivitamin Tablet 1 tab PO DAILY (DME) syringe with needle [BD Luer-Bin Syringe] 3 mL 20 gauge x 1 1/2 syringe See Rx Instructions .Route Qty: 100 0RF Rx Instructions: As directed cetirizine 10 mg tablet 10 mg PO BID PRN (Reason: allergies) clopidogrel 75 mg tablet 75 mg PO DAILY 30 Days Qty: 90 3RF Farxiga 10 mg tablet 10 mg PO DAILY Qty: 30 2RF tamsulosin 0.4 mg capsule 0.4 mg PO DAILY Qty: 30 4RF albuterol sulfate 90 mcg/actuation HFA aerosol inhaler 2 inh INHALATION Q4H PRN (Reason: shortness of breath or wheezing) Qty: 6.7 1RF metformin 500 mg tablet 1,000 mg PO BID triamcinolone acetonide 0.1 % Cream 1 applic TOPICAL BID PRN (Reason: Skin Irritation) pregabalin 75 mg capsule 75 mg PO DAILY lisinopril 40 mg tablet 40 mg PO DAILY duloxetine 20 mg capsule,delayed release(DR/EC) 40 mg PO DAILY nitroglycerin 0.4 mg Tablet, Sublingual 0.4 mg sublingual Q5M PRN (Reason: Chest Pain) 30 Days Qty: 30 0RF metoprolol succinate 25 mg Tablet Extended Release 24 Hr 25 mg PO DAILY 30 Days Qty: 30 0RF atorvastatin 80 mg tablet 80 mg PO QPM 30 Days Qty: 30 0RF citalopram 40 mg tablet 40 mg PO QAM 30 Days Qty: 30 0RF aspirin [Adult Low Dose Aspirin] 81 mg tablet,delayed release (DR/EC) 81 mg PO QAM 30 Days Qty: 30 0RF insulin lispro [Humalog KwikPen Insulin] 100 unit/mL insulin pen See Rx Instructions .ROUTE .COMPLEX 30 Days Qty: 0 0RF Rx Instructions: Inject, subcu, 3 times daily, after meals, based on low-dose insulin sliding scale insulin degludec [Tresiba FlexTouch U-200] 200 unit/mL (3 mL) insulin pen 10 unit SUBCUT DAILY 30 Days Qty: 0 0RF Held testosterone cypionate [Depo-Testosterone] 200 mg/mL oil 200 mg SUBCUT .every other week Qty: 1 3RF Hold Instructions: see pcp Mounjaro 2.5 mg/0.5 mL pen injector 2.5 mg SUBCUT Q7D Hold Instructions: see pcp Discontinued insulin glargine [Lantus Solostar U-100 Insulin] 100 unit/mL (3 mL) insulin pen 80 unit SUBCUT BID tizanidine 4 mg tablet 4 mg PO Q8H PRN (Reason: muscle spasms) isosorbide mononitrate 20 mg Tablet 20 mg PO BID 30 Days Qty: 60 0RF Discharge Order = DC NOW: Discharge Order (Routine); Ordered 03/29/25 Ordered By: Jessica Rocha Referrals: Donnie Rene MD [Primary Care Provider, Internal Medicine] - 4-7 days Referral Note: We have notified your physician's clinic of the need for a follow-up appointment to be scheduled. If you have not heard from them within the next 2 business days, please call them directly. Damon Finney M.D [Physician, Cardiology] - 1 week Referral Note: We have notified your physician's clinic of the need for a follow-up appointment to be scheduled. If you have not heard from them within the next 2 business days, please call them directly. Discharge Diet: Cardiac Patient Instructions: Isosorbide Mononitrate (By mouth), Opioid Safety, Post Angiogram Home Care Instructions, Patient Portal & Alexandre Instructions Activity Restrictions/Additional Instructions: -Please monitor your blood sugars closely -Monitor your blood sugars 3 times daily as after meals -Please record your blood sugars, and a blood sugar log -For your NovoLog -Please inject blood sugar after meals based on sliding scale provided -Do not inject insulin if you do not eat as hypoglycemia kills -This is a NovoLog sliding scale -Insulin sliding ?fingerstick? Insulin ?141-180?0 units/sq 181-220?2 units/sq ?221-260?4 units/sq ?261-300 6 units/sq ?301-350?8 units/sq ?351-400 10 units/sq ?401-450?12 units/sq >450? 14units/sq -If your blood sugar is greater than 500 go to the emergency room -If your blood sugar is less than 60 or at anytime you feel lightheaded or dizzy or diaphoretic or have chest palpitations check your blood sugar, and eat a hard candy or drink orange juice and go immediately to the emergency room -Remember hypoglycemia kills, so if his blood sugar is less than 60 we have to increase it by taking in a sugary meal such as a hard candy or orange juice and go to the emergency room -If you have any questions please call us where here to help Discharge Attestations Time Spent in Discharge Care*: less than 30 min Quality Metrics Clinical Quality Measures [ No reported AMI, CVA or VTE this stay] Coding Level of Care Code Acute Code for [facility] Fwd Diagnoses Coronary artery disease I25.10 Primary hypertension I10 Hypertension type: primary hypertension Chest pain, exertional R07.9 Diabetes type 2, controlled E11.9
--- NOTE | 2025-03-29 10:08 | PC.NURSE ---
Dr Finney has been in to see patient and received ok for discharge pending hospitalist.
--- NOTE | 2025-03-29 11:24 | PC.NURSE ---
Patient discharged to home. Instruction provided regarding follow up needs, medication changes and site care with restrictions. Patient verbalized complete understanding. New Rx transmitted to Mame Aguayo. Dressing to right groin remains c,d,i withou s/s of bleeding or hematoma formation. Patient left ambulatory to private vehicle. Spouse to provide transportation.
[2025-03-29 11:31] VITALS: BP 160/73; PULSE 60; RESP 16; O2SAT 100
== END 2025-03-29 11:32 | disposition home or self-care (01) | DRG 287 ==
LOC: ER 18:10 → ICU 18:21 → CSU 03-28 17:08
PROVIDERS: Internal Medicine; Nurse Practitioner Family; Admitting Provider Internal Medicine; Emergency Provider Family Medicine; PCP Internal Medicine; Visit Provider Internal Medicine
PROC: 4A023N7 Measurement of Cardiac Sampling and Pressure, Left Heart, Percutaneous Approach (ICD-10-PCS; principal; 2025-03-28 09:30)
DX: I25.110 Atherosclerotic heart disease of native coronary artery with unstable angina pectoris (principal); N17.9 Acute kidney failure, unspecified; I10 Essential (primary) hypertension; E11.9 Type 2 diabetes mellitus without complications; E78.5 Hyperlipidemia, unspecified; Z95.5 Presence of coronary angioplasty implant and graft; Z87.891 Personal history of nicotine dependence; Z79.02 Long term (current) use of antithrombotics/antiplatelets; Z79.82 Long term (current) use of aspirin; Z79.85 Long-term (current) use of injectable non-insulin antidiabetic drugs; Z79.84 Long term (current) use of oral hypoglycemic drugs; Z79.4 Long term (current) use of insulin
CPT/HCPCS: 36415; 36416; 71045; 80048; 80053; 82962; 83735; 84443; 84484; 85025; 85347; 85730; 93005; 93306; 93458; 96365; 96366; 96372; 96375; 99152; 99153; 99285; C1760; C1769; C1887; C1894; G0269; J1200; J1644; J1815; J2250; J2270; J3010; J3490; J7030; J9999; Q9967

== ENCOUNTER 2025-05-23 07:03 | Outpatient (CLI) | payer BC, SELFPAY ==
--- NOTE | 2025-05-23 07:17 | MR_ITS ---
WS: [id number] MRI CERVICAL SPINE NONCONTRAST HISTORY: NECK PAIN COMPARISON: None available. Technique: Multiplanar, multisequence noncontrast imaging of the cervical spine. Normal cervical alignment with no compression fracture or significant disc space narrowing. Mild narrowing of the cervical cord at C3-4 with very mild increased signal. Craniocervical junction, C1 and C2 relationship, odontoid process and soft tissues are normal. There is a small remote lacunar infarct in the dorsal elias. C2-C3: Mild facet arthritis. No stenosis. C3-C4: Moderate size central disc protrusion effacing CSF and deforming the cord. Increased fluid in the LEFT facet joint. Bilateral facet joint arthropathy. Foraminal narrowing due to disc osteophyte disease. Severe central and bilateral foraminal stenosis. There is marrow edema in the articular facets on the LEFT at C3-4. C4-C5: Diffuse annular disc bulging with facet joint arthritis. Moderate central and mild foraminal stenosis. C5-C6: Small central disc protrusion with osteophytic ridging and mild facet arthritis. Bilateral disc osteophyte complexes. Moderate to severe central with bilateral foraminal stenosis, RIGHT greater than LEFT. C6-C7: Diffuse annular disc bulging with osteophytic ridging. Large LEFT paracentral and foraminal disc osteophyte contacting and deforming the LEFT lateral thecal sac. Smaller disc osteophyte complex RIGHT foramen. Severe central and bilateral foraminal stenosis with facet arthritis. C7-T1: 2 mm anterolisthesis of C7. LEFT paracentral disc osteophyte with effacement of CSF. Mild central with moderate bilateral foraminal stenosis. Paraspinal soft tissue are normal. MR/MR cervical spin wo con* [id number] IMPRESSION: 1. Multilevel areas of central and foraminal stenosis due to disc and disc ost eophyte complexes. 2. Severe central and bilateral foraminal stenosis at C3-4. Moderate size cent ral disc protrusion with foraminal disc osteophyte complexes. There is a very s ubtle area of edema in the cervical cord at C3-4 at the level of stenosis. 3. Moderate to severe central with bilateral foraminal stenosis, RIGHT greater than LEFT at C5-6. 4. Severe central and bilateral foraminal stenosis at C6-7. 5. Moderate central and mild foraminal stenosis at C4-5. 6. Mild central with moderate bilateral foraminal stenosis at C7-T1. 7. LEFT facet joint synovitis at C3-4. There is fluid in the facet joint with marrow edema in the articular facets.
== END 2025-05-23 07:04 | disposition home or self-care (01) ==
LOC: RAD 07:05
PROVIDERS: PCP Internal Medicine; Visit Provider Internal Medicine
DX: M54.12 Radiculopathy, cervical region (principal)
CPT/HCPCS: 72141

== ENCOUNTER 2025-08-08 10:40 | Observation (INO) | payer BC, SELFPAY ==
[2025-08-08] VITALS (9 sets, daily range): BP systolic 117–153; BP diastolic 57–76; PULSE 57–64; RESP 14–18; TEMP 36.2–36.8; O2SAT 98–100; BMI 36.0
--- NOTE | 2025-08-08 10:43 | XR_ITS ---
WS: [id number] XR chest 1V portable [id number] REASON FOR EXAM: SOB FINDINGS: Chest is unchanged compared to 03/27/2025. Moderate tortuosity and ectasia of the thoracic aorta. Mild cardiomegaly. Calcified granulomatous disease bilaterally. No acute pulmonary parenchymal or pleural abnormality. Moderate degenerative spondylosis thoracic spine. XR/XR chest 1V portable [id number] IMPRESSION: Stable chest without acute abnormality.
--- NOTE | 2025-08-08 10:48 | ECG_ITS ---
[facility] Test Date: 2025-08-08 Pat Name: Maurice Rizo Department: Room: Gender: Male Private Equity Analyst: : 1960 Requested By: Gloria Raygoza Order Number: [id number] Rory MD: YULY WEEMS Measurements Intervals [place] Rate: 61 P: -32 IN: 142 QRS: -66 QRSD: 118 T: 30 QT: 376 QTc: 381 Interpretive Statements SINUS RHYTHM WITH SINUS ARRHYTHMIA PATTERN CONSISTENT WITH PULMONARY DISEASE LEFT ANTERIOR FASCICULAR BLOCK [QRS AXIS <= -45, QR IN I, RS IN II] Compared to ECG 03/27/2025 20:25:53 Sinus bradycardia no longer present Electronically Signed On 08-08-2025 18:29:50 FINGERPRINT CLERK by YULY WEEMS [email or web address]
--- NOTE | 2025-08-08 10:58 | W.ED.SOB ---
HPI - SOB/Dyspnea General: Chief Complaint: Shortness of Breath/Dyspnea Stated Complaint: SOB / fluttering HB Time Seen by Provider: 08/08/25 10:49 History of Present Illness: HPI Narrative: 65-year-old man with a history of coronary artery disease status post stents who follows with Dr. Herrera in cardiology, obesity, hyperlipidemia, hypertension and diabetes who presents to the emergency room with shortness of breath and a fluttering in his chest with some mild discomfort. No cough. No swelling. No altered mental status. This is been off and on for a day or so. This is intermittent episodes that last a few minutes at a time. Related Data Home Medications ?Medication ?Instructions ?Recorded ?Confirmed multivitamin 1 tab PO DAILY 10/09/19 08/08/25 pregabalin 75 mg capsule 75 mg PO DAILY 06/17/24 08/08/25 duloxetine 20 mg capsule,delayed 40 mg PO DAILY 03/13/25 08/08/25 release lisinopril 40 mg tablet 40 mg PO DAILY 03/13/25 08/08/25 cetirizine 10 mg tablet 10 mg PO BID PRN allergies 03/18/25 08/08/25 metformin 500 mg tablet 1,000 mg PO BID 03/28/25 08/08/25 tirzepatide 2.5 mg/0.5 mL 2.5 mg SUBCUT Q7D 03/28/25 08/08/25 subcutaneous pen injector (Jonathon) Held on 03/29/25. Instructions: see pcp metoprolol succinate 25 mg 25 mg PO DAILY 08/08/25 08/08/25 tablet,extended release 24 hr nitroglycerin 0.4 mg sublingual See Rx Instructions .Route .COMPLEX 08/08/25 08/08/25 tablet Previous Rx's ?Medication ?Instructions ?Recorded syringe with needle 3 mL 20 gauge #100 ea 04/17/24 x 1 1/2 (BD Luer-Bin Syringe) testosterone cypionate 200 mg/mL 200 mg SUBCUT .every other week #1 04/30/24 intramuscular oil mL (Depo-Testosterone) Held on 03/29/25. Instructions: see pcp dapagliflozin propanediol 10 mg 10 mg PO DAILY #30 tabs 05/08/24 tablet (Farxiga) tamsulosin 0.4 mg capsule 0.4 mg PO DAILY #30 caps 05/08/24 aspirin 81 mg tablet,delayed 81 mg PO QAM 30 days #30 tabs 03/16/25 release (Adult Low Dose Aspirin) atorvastatin 80 mg tablet 80 mg PO QPM 30 days #30 tabs 03/16/25 citalopram 40 mg tablet 40 mg PO QAM 30 days #30 tabs 03/16/25 insulin degludec 200 unit/mL (3 10 unit (0.05 mL) SUBCUT DAILY 30 03/16/25 mL) subcutaneous pen (Tresiba days #0 mL FlexTouch U-200 insulin) insulin lispro 100 unit/mL See Rx Instructions .Route 03/16/25 subcutaneous pen (Humalog KwikPen .COMPLEX 30 days #0 mL (U-100) Insulin) clopidogrel 75 mg tablet 75 mg PO DAILY 30 days #90 tabs 03/18/25 isosorbide mononitrate 30 mg 30 mg PO DAILY #30 tabs 03/29/25 tablet,extended release 24 hr Allergies Allergy/AdvReac Type Severity Reaction Status Date / Time No Known Allergies Allergy Verified 03/18/25 11:09 Review of Systems Narrative: Constitutional symptoms: Negative except as documented in HPI. Skin symptoms: Negative except as documented in HPI. Eye symptoms: Negative except as documented in HPI. ENMT symptoms: Negative except as documented in HPI. Respiratory symptoms: Negative except as documented in HPI. Cardiovascular symptoms: Negative except as documented in HPI. Gastrointestinal symptoms: Negative except as documented in HPI. Genitourinary symptoms: Negative except as documented in HPI. Musculoskeletal symptoms: Negative except as documented in HPI. Neurologic symptoms: Negative except as documented in HPI. Psychiatric symptoms: Negative except as documented in HPI. Endocrine symptoms: Negative except as documented in HPI. PFSH ED PFSH: Medical History (Updated 08/08/25 @ 13:16 by Gloria Beal MD) Coronary artery disease Hypertension Hyperlipidemia Diabetes type 2, controlled Osteoarthritis of left shoulder Surgical History Hx of colonoscopy with polypectomy 3 yrs ago History of esophagogastroduodenoscopy (EGD) History of back surgery History of removal of cyst History of lumpectomy of left breast 02/13/23 subcutaneous mass left breast and lumpectomy- Dr. Rose No significant past surgical history Family History Other Hypertension Social History Smoking and tobacco/nicotine status: former use of tobacco/nicotine Second hand smoke exposure: No Alcohol intake: current Alcohol intake frequency: holidays/special occasions only Substance/Drug Use: unknown Adopted: No Caregiver/support person: No Lives independently: Yes Household members: significant other Housing: House Marital status: Life Partner Current occupational status: employed Do you think of yourself as: Straight/Heterosexual Current gender identity: Male Special lanre needs: No Physical Exam Narrative: EXAM NARRATIVE: General: Alert, no acute distress. Skin: Warm, dry. Head: Normocephalic, atraumatic. Neck: Supple, trachea midline. Eye: Extraocular movements are intact. Ears, nose, mouth and throat: mucosa moist. Cardiovascular: Regular, Normal peripheral perfusion. Respiratory: Lungs are clear to auscultation, respirations are non-labored, breath sounds are equal, Symmetrical chest wall expansion. Gastrointestinal: Soft, Nontender, Non distended Musculoskeletal: Normal ROM, no deformity. Neurological: Alert and oriented, No focal neurological deficit observed. Psychiatric: Cooperative, appropriate mood & affect. Course Vital Signs: Vital signs: Vital Signs Temperature 97.7 F 08/08/25 13:09 Pulse Rate 61 08/08/25 13:09 Respiratory Rate 14 08/08/25 13:09 Blood Pressure 129/65 08/08/25 13:09 Pulse Oximetry 99 08/08/25 13:09 Oxygen Delivery Me thod Room Air 08/08/25 13:09 MDM - SOB/Dyspnea Medical Decision Making Medical decision making Patient's reason for coming to the emergency room: Social determinants: Patient is . is present. I reviewed the patient's medical record. 65-year-old man with a history of coronary artery disease status post stents who follows with Dr. Herrera in cardiology, obesity, hyperlipidemia, hypertension and diabetes I reviewed the patient's current home meds Patient is not on any anticoagulation. Alternate historians: also provides history Differential diagnosis for patient with chest pain includes but is not limited to and based on the above HPI, review of systems and physical exam: Pneumonia. unstable angina. angina. Acute coronary syndrome / [place]. Pulmonary embolism. Costochondritis / musculoskeletal. Pleurisy. Pericarditis. Esophageal spasm. Pancreatitis. Cholecystitis. Orders placed to evaluate differential diagnosis based on the above differential, HPI and physical exam EKG: Time 10:48 AM. Rate 61. Normal sinus rhythm, No ST-T changes, no ectopy, left anterior fascicular block, This was reviewed and interpreted by myself the ER physician at 10:55 AM Repeat EKG: Time 1123. Rate 60. Normal sinus rhythm, No ST-T changes, no ectopy, left anterior fascicular block, This was reviewed and interpreted by myself the ER physician at 11:27 AM. No significant changes from EKG done previously today in the emergency room. Cardiac monitoring: This was ordered, reviewed and interpreted by myself. 1 patient started having more symptoms while he was here he did appear to have some PVCs on monitoring. Chest x-ray: No acute process. No infiltrate. No pneumothorax. This was reviewed and interpreted by myself the emergency room physician. I also reviewed the radiology report. Lab Review: Laboratory results were reviewed and interpreted by myself the emergency room physician. No leukocytosis. No anemia. Some acute on chronic renal insufficiency with a BUN and creatinine of 36 and 1.5. He usually ranges between 1 and 1.5. Troponin is elevated but unchanged. This is likely his baseline due to his renal insufficiency. Assessment of risk: Level of risk: High risk patient. Multiple comorbidities. Hospitalization considerations: Patient is being admitted to rule out acute coronary syndrome Reexamination: Patient remained stable. No increased work of breathing. No altered mental status. No focal motor deficits. Been back to see the patient a couple of times. He was having some worsening shortness of breath and chest discomfort. During these times it appeared he was having some PVCs. Consultation: I spoke with Dr. Guerrier who is on-call for the hospitalist service who agrees to admission Consultation: I spoke with Dr. Thomas who is on-call for cardiology who will consult on the patient Assessment and plan: Chest pain Shortness of breath Coronary artery disease -I discussed the patient with the hospitalist on-call who is admitting the patient. - Discussed findings and plan with patient. Answered any questions. - All laboratory values were reviewed and interpreted personally by myself, the ER physician - All imaging was reviewed and interpreted personally by myself, the ER physician. - Evaluation and treatment of this problem were appropriate in the emergency setting Lab Data 08/08/25 10:52 08/08/25 10:52 Labs/Radiology: Radiology Impressions Chest X-Ray 08/08/25 10:43 IMPRESSION: Stable chest without acute abnormality. Laboratory Results WBC 6.71 10^3/uL (3.29-11.43) 08/08/25 10:52 RBC 4.45 10^6/uL (3.85-5.65) 08/08/25 10:52 Hgb 12.70 g/dL (11.27-16.99) 08/08/25 10:52 Hct 39.6 % (37-53) 08/08/25 10:52 MCV 89.0 fl (82-101) 08/08/25 10:52 MCH 28.5 pg (27-33) 08/08/25 10:52 MCHC 32.1 g/dL (30-55) 08/08/25 10:52 RDW 13.7 % (12.1-15.1) 08/08/25 10:52 Plt Count 161 10^3/cmm (157-399) 08/08/25 10:52 MPV 12.9 fL (7.4-10.4) H 08/08/25 10:52 Neut % (Auto) 64.0 % 08/08/25 10:52 Lymph % (Auto) 22.4 % 08/08/25 10:52 [place] % (Auto) 9.1 % 08/08/25 10:52 Eos % (Auto) 3.7 % 08/08/25 10:52 Baso % (Auto) 0.7 % 08/08/25 10:52 Neut # (Auto) 4.29 10^3/uL (1.8-7.7) 08/08/25 10:52 Lymph # (Auto) 1.5 10^3/uL (0.8-4.8) 08/08/25 10:52 [place] # (Auto) 0.6 10^3/uL (0.2-0.9) 08/08/25 10:52 Eos # (Auto) 0.3 10^3/uL (0.0-0.8) 08/08/25 10:52 Baso # (Auto) 0.1 10^3/uL (0.0-0.1) 08/08/25 10:52 Nucleated RBC % (auto) 0 % 08/08/25 10:52 Nucleated RBCs # 0.0 /100WBC 08/08/25 10:52 PT 12.60 SECONDS (12.1-14.9) 08/08/25 10:52 INR 0.88 (0.8-1.2) 08/08/25 10:52 APTT 25.6 SECONDS (23.9-36.7) 08/08/25 10:52 Sodium 137 mmol/L (136-145) 08/08/25 10:52 Potassium 4.9 mmol/L (3.5-5.1) 08/08/25 10:52 Chloride 102 mmol/L (98-107) 08/08/25 10:52 Carbon Dioxide 24 mmol/L (22-29) 08/08/25 10:52 Anion Gap 15.9 (5-19) 08/08/25 10:52 BUN 36 mg/dL (8-23) H 08/08/25 10:52 Creatinine 1.5 mg/dL (0.7-1.2) H 08/08/25 10:52 GFR Calculation 47.3 mL/min (90-130) L 08/08/25 10:52 Glucose 172 mg/dL (65-115) H 08/08/25 10:52 Estimat Average Glucose 200 08/08/25 10:52 Hemoglobin A1c 8.6 % (4.0-6.0) H 08/08/25 10:52 Calculated Osmolality 296 mOsm/kg (285-295) H 08/08/25 10:52 Calcium 9.1 mg/dL (8.5-10.5) 08/08/25 10:52 Magnesium 2.4 mg/dL (1.7-2.3) H 08/08/25 10:52 Total Bilirubin 0.4 mg/dL (0.15-1.2) 08/08/25 10:52 AST 14 U/L (0-40) 08/08/25 10:52 ALT 15 U/L (0-41) 08/08/25 10:52 Alkaline Phosphatase 64 U/L (40-130) 08/08/25 10:52 Troponin T Baseline 51 ng/L (0-15) H 08/08/25 10:52 Troponin T 60 Minute 50.73 ng/L (0-15) H 08/08/25 11:39 Delta Troponin T -0.27 ABS# (0-10) L 08/08/25 11:39 NT-Pro-B Natriuret Pep 59 pg/mL (0-125) 08/08/25 10:52 Total Protein 6.4 g/dL (6.6-8.7) L 08/08/25 10:52 Albumin 4.0 g/dL (3.5-5.2) 08/08/25 10:52 Globulin 2.4 g/dL (1.3-4.6) 08/08/25 10:52 Lipase 35 U/L (13-60) 08/08/25 10:52 TSH 1.66 uIU/mL (0.27-4.20) 08/08/25 10:52 All radiology interpretation(s) finalized by discharge Discharge Plan Discharge Patient Disposition: Admitted As Inpatient Admit Provider: Ace Guerrier Clinical Impression: Chest pain, Coronary artery disease Condition: Stable Coding Level of Care Code ED Etched Circuit Processor for Carlos Alberto Bangura
[2025-08-08 11:06] LABS: Hematocrit 39.6 % (37-53); Hemoglobin 12.70 g/dL (11.27-16.99); Mean Corpuscular HGB Conc 32.1 g/dL (30-55); Mean Corpuscular Hemoglobin 28.5 pg (27-33); Mean Corpuscular Volume 89.0 fl (82-101); Nucleated Red Blood Cells % 0 %; Platelet Count 161 10^3/cmm (157-399); Red Blood Count 4.45 10^6/uL (3.85-5.65); White Blood Count 6.71 10^3/uL (3.29-11.43)
--- NOTE | 2025-08-08 11:23 | ECG_ITS ---
[facility]25[facility]08 Pat Name: Maurice Rizo Department: Room: Gender: Male Hand Worker: : 1960 Requested By: Gloria Raygoza Order Number: [id number] Rory MD: YULY WEEMS Measurements Intervals [place] Rate: 60 P: 12 MA: 196 QRS: -71 QRSD: 128 T: 30 QT: 400 QTc: 402 Interpretive Statements SINUS RHYTHM LEFT ANTERIOR FASCICULAR BLOCK [QRS AXIS <= -45, QR IN I, RS IN II] Compared to ECG 08/08/2025 10:48:05 Sinus arrhythmia no longer present Electronically Signed On 08-08-2025 18:35:26 JOB SETTER HONING by YULY WEEMS [email or web address]
[2025-08-08 11:26] LABS: INR 0.88 (0.8-1.2); Prothrombin Time 12.60 SECONDS (12.1-14.9)
[2025-08-08 11:27] LABS: Partial Thromboplastin Time 25.6 SECONDS (23.9-36.7)
[2025-08-08 11:35] LABS: Troponin(5th) Baseline 51 ng/L (0-15)
[2025-08-08 11:42] LABS: Alanine Aminotransferase 15 U/L (0-41); Albumin Level 4.0 g/dL (3.5-5.2); Alkaline Phosphatase 64 U/L (40-130); Anion Gap 15.9 (5-19); Aspartate Amino Transferase 14 U/L (0-40); Blood Urea Nitrogen 36 mg/dL (8-23); Calcium 9.1 mg/dL (8.5-10.5); Carbon Dioxide 24 mmol/L (22-29); Chloride 102 mmol/L (98-107); Globulin 2.4 g/dL (1.3-4.6); Glucose 172 mg/dL (65-115); Lipase 35 U/L (13-60); Magnesium 2.4 mg/dL (1.7-2.3); NT Pro B Type Natriuretic Pept 59 pg/mL (0-125); Osmolality Calculated 296 mOsm/kg (285-295); Potassium 4.9 mmol/L (3.5-5.1); Sodium 137 mmol/L (136-145); Thyroid Stimulating Hormone 1.66 uIU/mL (0.27-4.20); Total Protein 6.4 g/dL (6.6-8.7)
--- NOTE | 2025-08-08 11:59 | PHA.FALL ---
A Pharmacy Consult Was Conducted For Maurice Rizo Due To: Davies Fall Scale Risk Level: No Fall Risk On 08/08/25 10:51 And A Medication Fall Risk Score Greater Than 10. The Recommendations Are As Follows:
--- NOTE | 2025-08-08 12:00 | PC.PHAR ---
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 Informed the pt.
--- NOTE | 2025-08-08 12:27 | P.HP_ITS ---
Providers/Chief Complaint 2 Admitting Physician: Ace Guerrier MD Primary Care Provider: Donnie Rene MD Chief Complaint: SOB / fluttering HB History of Present Illness Maurice Rizo is a 65 year old male w/ pmhx of CAD s/p stent placement, HTN, HLD, and DM 2 presents to ED today with c/o increased shortness of breath, and intermittent fluttering in his chest mild discomfort x 2 days. Patient denies headache, fever, N/V/D/C, chest pain, abd pain, changes in bowel and bladder habits, and recent medication changes. Patient denies any alleviating/exacerbating factors. Patient to be admitted to hospitalist services with cardiology consultation services for further medical management and care. While in ED a CBC, CMP, troponin series, PT, APTT, INR, TSH, lipase was obtained and resulted as follows: WBC 6.71, RBC 4.45, Hbg 12.70, Hct 39.8. MPV 12.9. Na 137, K 4.9, Mag 2.4, Paint Line Operator 1.5, BUN 36, Aretha phos 64, glucose 174. Trop baseline 51, Trop 2hr 50.73, Delta Trop -1.27, BNP 59. PT 12.60, INR 0.88, APTT 25.6. TSH 1.66, Lipase 35. Review of Systems 2 General: Reports: 10 or more systems reviewed and unremarkable except in HPI and below Medications/Allergies Home Medications ?Medication ?Instructions ?Recorded ?Confirmed ?Last Taken ?Type multivitamin 1 tab PO DAILY 10/09/1907/2808/08/25 History syringe with needle 3 mL 20 gauge #100 ea 04/17/2408/21 Unknown Rx x 1 08/29 (BD Luer-Bin Syringe) testosterone cypionate 200 mg/mL 200 mg SUBCUT .every other week #1 04/30/24 08/08/25 08/01/25 Rx intramuscular oil mL (Depo-Testosterone) Held on 03/29/25. Instructions: see pcp dapagliflozin propanediol 10 mg 10 mg PO DAILY #30 tab s 05/08/24 08/08/25 08/08/25 Rx tablet (Farxiga) tamsulosin 0.4 mg capsule 0.4 mg PO DAILY #30 caps 07/2108/08/2508/07/25 Rx pregabalin 75 mg capsule 75 mg PO DAILY 06/17/2407/2808/08/25 History duloxetine 20 mg capsule,delayed 40 mg PO DAILY 08/08/25 08/08/25 History release lisinopril 40 mg tablet 40 mg PO DAILY 03/13/2507/2808/08/25 History aspirin 81 mg tablet,delayed 81 mg PO QAM 30 days #30 tabs 03/16/25 08/08/25 08/08/25 Rx release (Adult Low Dose Aspirin) atorvastatin 80 mg tablet 80 mg PO QPM 30 days #30 tab s 03/16/25 08/08/25 08/07/25 Rx citalopram 40 mg tablet 40 mg PO QAM 30 days #30 tab s 03/16/25 08/08/25 08/08/25 Rx insulin degludec 200 unit/mL (3 10 unit (0.05 mL) SUBC UT DAILY 30 03/16/25 08/08/25 08/08/25 Rx mL) subcutaneous pen (Tresiba days #0 mL FlexTouch U-200 insulin) insulin lispro 100 unit/mL See Rx Instructions .Route 03/16/25 08/08/25 08/07/25 Rx subcutaneous pen (Humalog KwikPen .COMPLEX 30 days #0 mL (U-100) Insulin) cetirizine 10 mg tablet 10 mg PO BID PRN allergies 0 03/18/25 08/08/25 Unknown History clopidogrel 75 mg tablet 75 mg PO DAILY 30 days #90 t abs 03/18/25 08/08/25 08/08/25 Rx metformin 500 mg tablet 1,000 mg PO BID 03/28/2508/2103/27/25 History tirzepatide 2.5 mg/0.5 mL 2.5 mg SUBCUT Q7D 03/28/25 1 10/09/24 08/01/25 History subcutaneous pen injector (Jonathon) Held on 03/29/25. Instructions: see pcp isosorbide mononitrate 30 mg 30 mg PO DAILY #30 tabs 0 03/29/25 08/08/25 08/07/25 Rx tablet,extended release 24 hr metoprolol succinate 25 mg 25 mg PO DAILY 08/08/2508/2108/08/25 History tablet,extended release 24 hr nitroglycerin 0.4 mg sublingual See Rx Instructions .R smoothe .COMPLEX 08/08/25 08/08/25 Unknown History tablet Allergies Allergy/AdvReac Type Severity Reaction Status Date / Time No Known Allergies Allergy Verified 03/18/25 11:09 PFSH Acute 2 PFSH: Medical History (Updated 08/08/25 @ 18:23 by Jes Dawkins NP) Coronary artery disease Hypertension Hyperlipidemia Diabetes type 2, controlled Osteoarthritis of left shoulder Surgical History Hx of colonoscopy with polypectomy 3 yrs ago History of esophagogastroduodenoscopy (EGD) History of back surgery History of removal of cyst History of lumpectomy of left breast 02/13/23 subcutaneous mass left breast and lumpectomy- Dr. Rose No significant past surgical history Family History Other Hypertension Social History Smoking and tobacco/nicotine status: former use of tobacco/nicotine Second hand smoke exposure: No Alcohol intake: current Alcohol intake frequency: holidays/special occasions only Substance/Drug Use: unknown Adopted: No Caregiver/support person: No Lives independently: Yes Household members: significant other Housing: House Marital status: Life Partner Current occupational status: employed Do you think of yourself as: Straight/Heterosexual Current gender identity: Male Special lanre needs: No Vitals/I&O/Wt Last Vital Signs Temp 98.1 F 08/08/25 10:51 Pulse 59 L 08/08/25 12:22 Resp 18 08/08/25 12:22 BP 148/61 08/08/25 11:01 Pulse Ox 99 08/08/25 12:22 O2 Del Method Room Air 08/08/25 11:01 Weight last 48 hrs Weight 104.326 kg Physical Exam 2 Narrative: General: A&Ox4, resting in bed on RA, no apparent distress. Denies Chest discomfort at this time. HEENT: Normo-cephalic, atraumatic, grossly unremarkable exam Cardio: NSR, normal S1-S2 w/o any murmurs, rubs, or gallops and JVD normal Respiratory: Clear to bilateral upper and lower lobes on auscultation w/o any wheezes, stridor, rhonchi GI: Abd soft, non-tender, non-distended, normo-active bowel sounds present Neuro: Moves all extremities, no sensory deficits, Normal speech Behavior: Appropriate and cooperative Extremities: Adequate palpable pulses. No clubbing, cyanosis or edema, Full ROM Data 08/08/25 10:52 08/08/25 10:52 Other Labs: 08/08: 1123 EKG: Reviewed and results as follows: NSR, No ST changes, QRS 128 , QTc 402 , HR 60 08/08: 1048 EKG: Reviewed and results as follows: NSR, No ST changes, QRS 118 , QTc 381 , HR 61 08/08: CXR: Reviewed and results as follows: Stable chest without acute abnormality. A&P Assessment and plan 1. Chest pain, unspecified type: 2. Coronary artery disease of [place] artery of [place] heart with stable angina pectoris: 3. Mixed hyperlipidemia: 4. HTN (hypertension) with goal to be determined: 5. Diabetes type 2, controlled: 6. Diabetic polyneuropathy associated with type 2 diabetes mellitus: 7. Primary hypertension: 8. Benign prostatic hyperplasia without lower urinary tract symptoms: 9. Anxiety: Plan: Chest pain, R/O ACS Patient presents with intermittent chest discomfort described as fluttering Cardiology consulted, expertise and recommendations appreciated. Echo ordered per cardiology, pending. IVF NS at 100mL/hr Continuous cardiac monitoring Cardiac diet Continue home medications as listed below HTN V/S q4hr Continue home medication of isosorbide mononitrate 30mg PO dly, metoprolol 25mg dly Cardiology consulted-amlodipine 5 mg p.o. twice daily ordered Hold home medication, lisinopril 40mg PO dly CAD HLD s/p stent placement to LAD and RCA with complications due to calcified vessels leading to a dissection- 04/21 Lipid panel ordered for am, pending. Continue home medications of atorvastatin 80mg PO dly, aspirin 81mg PO dly, and clopidogrel 75mg PO dly. DM2 Diabetic neuropathy A1c ordered, Hold home medication metformin Blood glucose monitoring, ACHS Low regimen sliding scale Hypoglycemic protocol Carb consistent diet Continue home medication pregablin 75mg PO dly BPH Continue home medication tamsulosin 0.4mg PO dly Depression Anxiety Continue home medication citalopram 40mg PO dly, duloxetine 20mg PO dly CODE STATUS: Full Code VTE prophylaxis: Lovenox 40 mg subq PDMP PDMP Reviewed: Not Reviewed Attestations 2 Medical Necessity Statement*: Admitted under observation status. Given complexity of patient's presentation, co-morbid conditions, and required intensity of treatment, a hospitalization under two midnights is anticipated. and High Time for a total of 77 minutes, includes reviewing past or interval history, examining/interviewing patient, placing orders, counseling patient/family/other support, updating patient/family/other support, discussing plan of care with staff, communicating with other healthcare providers, documenting encounter and coordinating care Diagnoses Chest pain, unspecified type R07.9 Chest pain type: unspecified Coronary artery disease of [place] artery of [place] heart with stable angina pectoris I25.118 Coronary Disease-Associated Artery/Lesion type: [place] artery [place] vs. transplanted heart: [place] heart Associated angina: with stable angina Mixed hyperlipidemia E78.2 Hyperlipidemia type: mixed hyperlipidemia HTN (hypertension) with goal to be determined I10 Diabetes type 2, controlled E11.9 Diabetic polyneuropathy associated with type 2 diabetes mellitus E11.42 Diabetes mellitus type: type 2 Diabetes mellitus complication detail: diabetic polyneuropathy Primary hypertension I10 Hypertension type: primary hypertension Benign prostatic hyperplasia without lower urinary tract symptoms N40.0 Lower urinary tract symptom presence: symptoms absent Anxiety F41.9
--- NOTE | 2025-08-08 12:28 | PC.SOCIAL ---
IMM UPDATED IMM dated and initialed, copy given to patient and copy placed in chart.
--- NOTE | 2025-08-08 12:40 | PC.NURSE ---
Patient transferred from ED to [facility] via a wheelchair at 1240.
[2025-08-08 12:56] LABS: Estmated Average Glucose 200; Hemoglobin A1C 8.6 % (4.0-6.0)
--- NOTE | 2025-08-08 13:25 | USCV_ITS ---
Maurice Rizo Age: 65 Gender: M : 1960 Exam Date: 08/08/2025 14:51 Ordering Phys: Xin Valle NP Technologist: LAURA [place]am [place] [facility] [place]: SoB BP: 129 / 65 HR: 58 Rhythm: Sinus Technical Quality: Adequate MEASUREMENTS (Male / Female) Normal Values 2D ECHO LV Diastolic Diameter PLAX 6.4 cm 4.2 - 5.9 / 3.9 - 5.3 cm IVS Diastolic Thickness 0.8 cm 0.6 - 1.0 / 0.6 - 0.9 cm IVS Systolic Thickness 1.2 cm LVPW Diastolic Thickness 1.0 cm 0.6 - 1.0 / 0.6 - 0.9 cm LVPW Systolic Thickness 1.2 cm LVOT Diameter 2.1 cm LV Ejection Fraction 2D Teich 24.6 % LV Ejection Fraction MOD 4C 59.0 % LA Diameter 3.3 cm RA Systolic Volume 4C AL 30.4 ml RA Systolic Volume 4C MOD 29.6 ml LA Sys Volume AL 59.3 cm cubed LA Sys Volume Index AL 26.2 cm cubed/m squared Aorta at Sinotubular Diameter 3.0 cm M-MODE LA Ao Ratio MM 1.4 AV Cusp Separation MM 1.1 cm DOPPLER AV Peak Velocity 155.0 cm/s LVOT Peak Velocity 144.0 cm/s AV Area Cont Eq vti 3.8 cm squared AV Area Cont Eq pk 3.1 cm squared MV Peak Velocity 101.0 cm/s MV Area PHT 2.7 cm squared Mitral E to A Ratio 1.2 TR Peak Velocity 101.0 cm/s TR Peak Gradient 4.1 mmHg TV Peak E Velocity 79.0 cm/s PV Peak Velocity 111.0 cm/s FINDINGS Left Ventricle Normal left ventricular size, systolic function and wall thickness with no regional wall motion abnormality. Left ventricular ejection fraction is 59%. Normal left ventricular diastolic function. Right Ventricle Normal right ventricular size and systolic function. RVSP could not be calculated due to incomplete tricuspid regurgitation velocity profile. Right Atrium Normal right atrial size. Left Atrium Normal left atrial size. IA Septum Normal appearance of the interatrial septum. Mitral Valve Moderate mitral annular calcification. No mitral valve stenosis. No mitral valve regurgitation Aortic Valve Aortic valve was not well-visualized. There is mild aortic valve sclerosis without stenosis. No aortic valve regurgitation Tricuspid Valve Normal tricuspid valve structure. No tricuspid valve stenosis or regurgitation. Pulmonic Valve Normal pulmonic valve structure. No pulmonic valve stenosis or regurgitation. Pericardium No pericardial effusion. Aorta Normal diameter of the aortic root and ascending thoracic aorta. IVC Normal IVC diameter. CONCLUSIONS Normal left ventricular size, systolic function and wall thickness with ejection fraction of 59%. Normal right ventricular size and systolic function. No significant valvular abnormalities. Ganesh Thomas MD, FACC (Electronically Signed) Final Date: 08 August 2025 17:38 S
--- NOTE | 2025-08-08 16:43 | ECG_ITS ---
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: : 1960 Requested By: Gloria Raygoza Order Number: [id number] Rory MD: YULY WEEMS Measurements Intervals [place] Rate: 57 P: 40 AR: 185 QRS: -67 QRSD: 137 T: 28 QT: 427 QTc: 419 Interpretive Statements SINUS BRADYCARDIA INTRAVENTRICULAR CONDUCTION DELAY [130+ ms QRS DURATION] Compared to ECG 08/08/2025 11:23:01 Intraventricular conduction delay now present Sinus rhythm no longer present Left anterior fascicular block no longer present Electronically Signed On 08-08-2025 18:34:05 [employer]AT[employer] SUPERVISOR by YULY WEEMS [email or web address]
--- NOTE | 2025-08-08 18:37 | P.CONIM_ITS ---
<Statement entered by Miguel A Herrera MD - 08/09/25 14:55> Patient was evaluated and cared for in conjunction with an advanced practice practitioner. I personally examined the patient and reviewed the chart and all pertinent data including imaging, telemetry, and laboratory results. I discussed the patient in detail with the advanced practice practitioner. Please see their note for complete H&P testing result and agreed upon plan of care for the patient. 65-year-old male past medical history significant for anxiety coronary artery disease prior PCI came in with some shortness of breath. Denies categorically chest pain. He is also noted to have acute kidney injury, appears to be dehydrated. No significant ST-T ST changes, troponin is mildly elevated but it is at his baseline. Twelve-lead EKG no significant ST changes suggestive of ischemia GENERAL: Patient is alert, awake and oriented x3. HEART: Regular S1 and S2. No murmur, rub or gallop. LUNGS: Clear to auscultate bilaterally. CENTRAL NERVOUS SYSTEM: Grossly nonfocal. EXTREMITIES: Lower extremities with out edema bilaterally. Assessment and plan Shortness of breath I have examined the patient lungs are clear, he says occasionally he feels short of breath he appeared to be more nervous, He denies categorically any chest pain. He had recently undergone left heart cath which did not show significant obstructive coronary artery disease patent previously placed stent. RCA was flowing good as well where in the past dissection was observed. At the moment less likely patient has acute coronary syndrome. I would recommend echocardiogram to assess LV function or any wall motion abnormality. Further plan will be advised as per progress the patient Acute kidney injury: Hold MARIEL inhibitor, IV fluid will be given reassess BMP in the morning possible dehydration Providers/Reason For Consult 2 Consulting Physician/Specialty*: Dr. Herrera Reason for Consult*: Chest pain Requesting Physician: Jes Dawkins APRN Attending Physician: Jes Dawkins NP Primary Care Provider: Donnie Rene MD History of Present Illness History of Present Illness Maurice Rizo is a 65 year old male hx of CAD, htn, hyperlipidemia, type 2 diabetes, who came into the ER with primary complaint of chest discomfort. He recently underwent LHC by Dr. Finney for chest pain on 03/28/2025 that showed patent LAD stent left main is patent left circumflex is patent RCA has flow with visible dissection. Medical therapy was recommended for RCA dissection as vessel had good flow in it. Reported fluttering in his chest with mild chest discomfort. Chest x-ray showed stable chest with no acute abnormality. No signs of CHF. Creatinine increased to 1.5. Troponin elevated at baseline. Trops elevated at 51-50. Delta negative. Probnp normal. Echo showed normal EF at 59%. No valvular abnormalities, no wall motion abnormalities. EKG showed sinus bradycardia without acute ST or T wave abnormalities. Review of Systems 2 Narrative: Consitutional: denies fever, chills, body aches Card: Reports hx of mild chest discomfort, palpitations, denies irregular heart rhythm, edema, syncope, shortness of breath, orthopnea, leg pain with exertion Resp: Denies shortness of breath, denies hemoptysis, denies cough Musc: Denies extremity pain, denies limited range of motion or recent injury Skin: Denies rash, lesions, or wounds, denies changes to skin color Neuro: Denies nubmness in extremities, h/a, s/s of stroke Medications/Allergies Home Medications ?Medication ?Instructions ?Recorded ?Confirmed ?Last Taken ?Type multivitamin 1 tab PO DAILY 10/09/1907/2808/08/25 History syringe with needle 3 mL 20 gauge #100 ea 04/17/2408/21 Unknown Rx x 1 08/29 (BD Luer-Bin Syringe) testosterone cypionate 200 mg/mL 200 mg SUBCUT .every other week #1 04/30/24 08/08/25 08/01/25 Rx intramuscular oil mL (Depo-Testosterone) Held on 03/29/25. Instructions: see pcp dapagliflozin propanediol 10 mg 10 mg PO DAILY #30 tab s 05/08/24 08/08/25 08/08/25 Rx tablet (Farxiga) tamsulosin 0.4 mg capsule 0.4 mg PO DAILY #30 caps 07/2108/08/25 08/07/25 Rx pregabalin 75 mg capsule 75 mg PO DAILY 06/17/2407/2808/08/25 History duloxetine 20 mg capsule,delayed 40 mg PO DAILY 08/08/25 08/08/25 History release lisinopril 40 mg tablet 40 mg PO DAILY 03/13/2507/2825 History aspirin 81 mg tablet,delayed 81 mg PO QAM 30 days #30 tabs 03/16/25 08/08/25 08/08/25 Rx release (Adult Low Dose Aspirin) atorvastatin 80 mg tablet 80 mg PO QPM 30 days #30 tab s 03/16/25 08/08/25 08/07/25 Rx citalopram 40 mg tablet 40 mg PO QAM 30 days #30 tab s 03/16/25 08/08/25 08/08/25 Rx insulin degludec 200 unit/mL (3 10 unit (0.05 mL) SUBC UT DAILY 30 03/16/25 08/08/25 08/08/25 Rx mL) subcutaneous pen (Tresi days #0 mL FlexTouch U-200 insulin) insulin lispro 100 unit/mL See Rx Instructions .Route 03/16/25 08/08/25 08/07/25 Rx subcutaneous pen (Humalog KwikPen .COMPLEX 30 days #0 mL (U-100) Insulin) cetirizine 10 mg tablet 10 mg PO BID PRN allergies 0 03/18/25 08/08/25 Unknown History clopidogrel 75 mg tablet 75 mg PO DAILY 30 days #90 t abs 03/18/25 08/08/25 08/08/25 Rx metformin 500 mg tablet 1,000 mg PO BID 03/28/2508/2103/27/25 History tirzepatide 2.5 mg/0.5 mL 2.5 mg SUBCUT Q7D 03/28/25 1 10/09/24 08/01/25 History subcutaneous pen injector (Jonathon) Held on 03/29/25. Instructions: see pcp isosorbide mononitrate 30 mg 30 mg PO DAILY #30 tabs 0 03/29/25 08/08/25 08/07/25 Rx tablet,extended release 24 hr metoprolol succinate 25 mg 25 mg PO DAILY 08/08/2508/2108/08/25 History tablet,extended release 24 hr nitroglycerin 0.4 mg sublingual See Rx Instructions .R oute .COMPLEX 08/08/25 08/08/25 Unknown History tablet Allergies Allergy/AdvReac Type Severity Reaction Status Date / Time No Known Allergies Allergy Verified 03/18/25 11:09 Current Medications Generic Name Dose Route Start Last Admin Trade Name Vidya PRN Reason Stop Dose Admin Amlodipine Besylate 5 mg 08/08/25 17:00 08/08/25 16:33 Amlodipine 5 Mg Tablet PO 5 mg BID KALEB Administration Docusate Sodium 100 mg 08/08/25 17:00 08/08/25 16:33 Docusate Sodium 100 Mg Capsule PO 100 mg BID KALEB Administration Sodium Chloride 1,000 mls @ 100 mls/hr 08/08/25 13:30 08/08/25 13:48 Sodium Chloride 0.9% IV 100 mls/hr .Q10H KALEB Administration PFSH Acute 2 PFSH: Medical History (Updated 08/08/25 @ 19:55 by Xin Valle NP) Coronary artery disease Hypertension Hyperlipidemia Diabetes type 2, controlled Osteoarthritis of left shoulder Surgical History Hx of colonoscopy with polypectomy 3 yrs ago History of esophagogastroduodenoscopy (EGD) History of back surgery History of removal of cyst History of lumpectomy of left breast 02/13/23 subcutaneous mass left breast and lumpectomy- Dr. Rose No significant past surgical history Family History Other Hypertension Social History Smoking and tobacco/nicotine status: former use of tobacco/nicotine Second hand smoke exposure: No Alcohol intake: current Alcohol intake frequency: holidays/special occasions only Substance/Drug Use: unknown Adopted: No Caregiver/support person: No Lives independently: Yes Household members: significant other Housing: House Marital status: Life Partner Current occupational status: employed Do you think of yourself as: Straight/Heterosexual Current gender identity: Male Special lanre needs: No Vitals/I&O/Wt Last Vital Signs Temp 97.6 F 08/08/25 16:00 Pulse 60 08/08/25 16:00 Resp 15 08/08/25 16:00 BP 122/60 08/08/25 16:00 Pulse Ox 99 08/08/25 16:00 O2 Del Method Room Air 08/08/25 16:00 08/08/25 08/08/25 08/08/25 06:59 14:59 22:59 Intake Total 240 / 240 Balance 240 / 240 Weight last 48 hrs Weight 229 lb 4.492 oz Weight 230 lb Physical Exam 2 Narrative: General: No apparent distress, healthy appearing, well nourished Muskuloskeletal: Full ROM Respiratory: Normal respiratory effort, clear to auscultation bilaterally throughout all lung peres, no use of accessory muscles Cardio: No JVD, regular rate, regular rhythm, S1 S2 normal, no murmurs, peripheral pulses 2+ radial palpated bilaterally Extremities: Full ROM, normal, normal capillary refill, no cyanosis or edema Neuro: Alert and oriented x4, no focal motor deficits Psych: Affect normal, mental status grossly normal Skin: No rashes or lesions noted, no wounds Data 08/08/25 10:52 08/08/25 10:52 A&P Assessment and plan 1. Chest pain, unspecified type: 2. Essential hypertension: Plan: Chest pain is atypical. Recent negative heart cath. Due to this would recommend stress test to be performed. Will do Monday. Continue to monitor for worsening symptoms/ekg changes. Continue to monitor for arrhythmias on tele. Continue aspirin, plavix, statin, home metoprolol. Will hold lisinipril due to DENITA, rehydrate with fluids. Start amlodipine 5 mg BID. Echo showed normal EF without wall motion abnormalities/valvular abnormalities. Further recommendations to follow stress test. Thank you, Jes, for allowing us to care for this very pleasant 65 year old gentleman. PDMP PDMP Reviewed: Not Reviewed Consult Attestations 2 Medical Necessity Statement: Deferred to primary Coding Level of Care Code Acute Code for [facility] Fwd Diagnoses Chest pain, unspecified type R07.9 Chest pain type: unspecified Essential hypertension I10
[2025-08-09 02:52] LABS: Hematocrit 39.6 % (37-53); Hemoglobin 13.00 g/dL (11.27-16.99); Mean Corpuscular HGB Conc 32.8 g/dL (30-55); Mean Corpuscular Hemoglobin 28.5 pg (27-33); Mean Corpuscular Volume 86.8 fl (82-101); Nucleated Red Blood Cells % 0 %; Platelet Count 151 10^3/cmm (157-399); Red Blood Count 4.56 10^6/uL (3.85-5.65); White Blood Count 7.29 10^3/uL (3.29-11.43)
[2025-08-09 03:07] VITALS: BP 131/65; PULSE 57; RESP 18; O2SAT 99
[2025-08-09 03:35] LABS: Alanine Aminotransferase 13 U/L (0-41); Albumin Level 3.9 g/dL (3.5-5.2); Alkaline Phosphatase 58 U/L (40-130); Anion Gap 12.1 (5-19); Aspartate Amino Transferase 14 U/L (0-40); Blood Urea Nitrogen 28 mg/dL (8-23); Calcium 9.0 mg/dL (8.5-10.5); Carbon Dioxide 27 mmol/L (22-29); Chloride 105 mmol/L (98-107); Cholesterol 155 mg/dL (0-200); Globulin 2.4 g/dL (1.3-4.6); Glucose 83 mg/dL (65-115); HDL Cholesterol 29 mg/dL (60-100); Magnesium 2.3 mg/dL (1.7-2.3); Osmolality Calculated 295 mOsm/kg (285-295); Potassium 4.1 mmol/L (3.5-5.1); Sodium 140 mmol/L (136-145); Total Protein 6.3 g/dL (6.6-8.7); Triglycerides 489 mg/dL (0-150)
[2025-08-09] MEDS: CITALOPRAM 40 MG TABLET PO (04:38)
[2025-08-09] MEDS: metoprolol succinate ER (24 HR) 25 mg Tablet PO (04:39)
[2025-08-09] MEDS: DAPAGLIFLOZIN 10 MG TABLET PO (04:39)
[2025-08-09 05:08] VITALS: BMI 36.3
[2025-08-09 08:00] VITALS: BP 137/70; PULSE 66; RESP 16; TEMP 36.6
--- NOTE | 2025-08-09 08:05 | P.PN_ITS ---
Subjective 2 Subjective: Patient resting in bed this morning on room air. No family noted to be at bedside during time of my evaluation. Patient denies chest pain, palpitations, nausea/vomiting this morning. Reports intermittent mild shortness of breath and pain to right hand. Patient reports he hurt his right hand from a fall that occurred 2 weeks ago, since fall patient has experienced moderate persistent pain to right hand with tingling that radiates up right forearm. Plan of care discussions including x-ray to right hand, and consulting with cardiology Dr. Washington for further medical management and possible scheduled stress test on Monday. Vital signs and labs reviewed. All questions and concerns answered at bedside. Medications: Reviewed: Yes Vitals/I&O/Wt Last Vital Signs Temp 97.1 F L 08/08/25 23:25 Pulse 57 L 08/09/25 03:07 Resp 18 08/09/25 03:07 BP 131/65 08/09/25 03:07 Pulse Ox 99 08/09/25 03:07 O2 Del Method Room Air 08/08/25 16:00 08/08/25 08/09/25 08/09/25 22:59 06:59 14:59 Intake Total 240 / 240 1000 / 1240 Balance 240 / 240 1000 / 1240 Weight last 48 hrs Weight 105.1 kg Weight 104 kg Weight 104.326 kg Physical Exam 2 Narrative: General: A&Ox4, resting in bed on RA, no apparent distress. HEENT: Normo-cephalic, atraumatic, grossly unremarkable exam Cardio: NSR, normal S1-S2 w/o any murmurs, rubs, or gallops and JVD normal Respiratory: Clear to bilateral upper and lower lobes on auscultation w/o any wheezes, stridor, rhonchi GI: Abd soft, non-tender, non-distended, normo-active bowel sounds present Neuro: Moves all extremities, no sensory deficits, Normal speech Behavior: Appropriate and cooperative Extremities: Adequate palpable pulses. No clubbing, cyanosis or edema, Full ROM Data 08/09/25 02:29 08/09/25 02:29 A&P Assessment and plan 1. Chest pain, unspecified type: 2. Coronary artery disease of [place] artery of [place] heart with stable angina pectoris: 3. Mixed hyperlipidemia: 4. HTN (hypertension) with goal to be determined: 5. Diabetes type 2, controlled: 6. Diabetic polyneuropathy associated with type 2 diabetes mellitus: 7. Primary hypertension: 8. Benign prostatic hyperplasia without lower urinary tract symptoms: 9. Anxiety: Plan: Chest pain, R/O ACS - Patient presents with intermittent chest discomfort described as fluttering - Cardiology consulted, expertise and recommendations appreciated. - 08/09: Echo reviewed and resulted: Normal left ventricular size, systolic function and wall thickness with ejection fraction of 59%. Normal right ventricular size and systolic function. No significant valvular abnormalities. - IVF NS at 100mL/hr - Continuous cardiac monitoring - Continue home medications as listed below HTN - V/S q4hr - Continue home medication of isosorbide mononitrate 30mg PO dly, metoprolol 25mg dly - Cardiology consulted-amlodipine 5 mg p.o. twice daily ordered - Hold home medication, lisinopril 40mg PO dly CAD HLD - s/p stent placement to LAD and RCA with complications due to calcified vessels leading to a dissection- 04/[address] Herrera - 08/09: Lipid panel resulted: Triglycerides 489, HDL 29, Cholesterol/HDL ratio 5.34 - Continue home medications of atorvastatin 80mg PO dly, aspirin 81mg PO dly, and clopidogrel 75mg PO dly. - Follow-up outpatient for additional triglyceride control DM2 Diabetic neuropathy - A1c ordered, 8.6% - Hold home medication metformin - Blood glucose monitoring, ACHS - Low regimen sliding scale - Hypoglycemic protocol - Cardiac Carb consistent diet - Continue home medication pregablin 75mg PO dly BPH - Continue home medication tamsulosin 0.4mg PO dly Depression Anxiety - Continue home medication citalopram 40mg PO dly, duloxetine 20mg PO dly CODE STATUS: Full Code VTE prophylaxis: Lovenox 40 mg subq PDMP PDMP Reviewed: Not Reviewed Attestations 2 Medical Necessity Statement*: Admitted under observation status. Given complexity of patient's presentation, co-morbid conditions, and required intensity of treatment, a hospitalization under two midnights is anticipated. Coding Level of Care Code Acute Code for [facility] Fwd Diagnoses Chest pain, unspecified type R07.9 Chest pain type: unspecified Coronary artery disease of [place] artery of [place] heart with stable angina pectoris I25.118 Associated angina: with stable angina Coronary Disease-Associated Artery/Lesion type: [place] artery [place] vs. transplanted heart: [place] heart Mixed hyperlipidemia E78.2 Hyperlipidemia type: mixed hyperlipidemia HTN (hypertension) with goal to be determined I10 Diabetes type 2, controlled E11.9 Diabetic polyneuropathy associated with type 2 diabetes mellitus E11.42 Diabetes mellitus complication detail: diabetic polyneuropathy Diabetes mellitus type: type 2 Primary hypertension I10 Hypertension type: primary hypertension Benign prostatic hyperplasia without lower urinary tract symptoms N40.0 Lower urinary tract symptom presence: symptoms absent Anxiety F41.9
--- NOTE | 2025-08-09 08:32 | PC.NURSE ---
Provider is updated that Maurice Rizo is complaining of right hand and forearm pain this morning. He said that he landed on the side when he fell at home a few days ago. Provider ordered an x-ray.
--- NOTE | 2025-08-09 09:11 | XRR_ITS ---
PROCEDURE INFORMATION: Exam: XR LEFT Hand Exam date and time: 08/09/2025 9:40 AM Age: 65 years old Clinical indication: Injury or trauma; Fall; Blunt trauma (contusions or hematomas); Hand; Additional info: Recent fall, persistent pain, please include wrist TECHNIQUE: Imaging protocol: Radiologic exam of the LEFT hand. Views: 1 or 2 views. COMPARISON: No relevant prior studies available. FINDINGS: Bones/joints: No acute fracture or subluxation. No periosteal reaction or callus formation. Degenerative changes throughout the hand. Vascular calcifications. Well-circumscribed osseous density lateral to the ulnar styloid process. Soft tissues: Normal. XR/XR hand RT 2V [id number] IMPRESSION: No acute fracture or subluxation of the LEFT hand.
--- NOTE | 2025-08-09 11:45 | PC.NURSE ---
Patients dexcom read 199.
[2025-08-09 11:49] VITALS: BP 114/61; PULSE 63; RESP 16; TEMP 36.5
--- NOTE | 2025-08-09 15:18 | P.DS_ITS ---
Discharge Providers Date of Admission: 08/08/25 12:25 Date of Discharge: August 09, 2025 Attending Provider at Admission: Ace Guerrier MD Attending Provider at Discharge: Jes Dawkins NP Primary Care Provider: Donnie Rene MD Diagnoses at Discharge Discharge Diagnosis 1. Chest pain, unspecified type: 2. Coronary artery disease of [place] artery of [place] heart with stable angina pectoris: 3. Mixed hyperlipidemia: 4. HTN (hypertension) with goal to be determined: 5. Diabetes type 2, controlled: 6. Diabetic polyneuropathy associated with type 2 diabetes mellitus: 7. Primary hypertension: 8. Benign prostatic hyperplasia without lower urinary tract symptoms: 9. Anxiety: Reason for Visit Reason for Visit: SOB / fluttering HB Brief History: Admission: Maurice Rizo is a 65 year old male w/ pmhx of CAD s/p stent placement, HTN, HLD, and DM 2 presents to ED today with c/o increased shortness of breath, and intermittent fluttering in his chest mild discomfort x 2 days. Patient denies headache, fever, N/V/D/C, chest pain, abd pain, changes in bowel and bladder habits, and recent medication changes. Patient denies any alleviating/exacerbating factors. Patient to be admitted to hospitalist services with cardiology consultation services for further medical management and care. While in ED a CBC, CMP, troponin series, PT, APTT, INR, TSH, lipase was obtained and resulted as follows: WBC 6.71, RBC 4.45, Hbg 12.70, Hct 39.8. MPV 12.9. Na 137, K 4.9, Mag 2.4, Sour Bleaching Pleater 1.5, BUN 36, Aretha phos 64, glucose 174. Trop baseline 51, Trop 2hr 50.73, Delta Trop -1.27, BNP 59. PT 12.60, INR 0.88, APTT 25.6. TSH 1.66, Lipase 35. Hospital Course Hospital Course Plan: Chest pain, R/O ACS - Patient presents with intermittent chest discomfort described as fluttering - Cardiology consulted, expertise and recommendations appreciated. - 08/09: Echo reviewed and resulted: Normal left ventricular size, systolic function and wall thickness with ejection fraction of 59%. Normal right ventricular size and systolic function. No significant valvular abnormalities. - IVF NS at 100mL/hr - Continuous cardiac monitoring - Continue home medications as listed below HTN - V/S q4hr - Continue home medication of isosorbide mononitrate 30mg PO dly, metoprolol 25mg dly - Cardiology consulted-amlodipine 5 mg p.o. twice daily ordered - Hold home medication, lisinopril 40mg PO dly CAD HLD - s/p stent placement to LAD and RCA with complications due to calcified vessels leading to a dissection- 04/[address] Herrera - 08/09: Lipid panel resulted: Triglycerides 489, HDL 29, Cholesterol/HDL ratio 5.34 - Continue home medications of atorvastatin 80mg PO dly, aspirin 81mg PO dly, and clopidogrel 75mg PO dly. - Follow-up outpatient for additional triglyceride control DM2 Diabetic neuropathy - A1c ordered, 8.6% - Hold home medication metformin - Blood glucose monitoring, ACHS - Low regimen sliding scale - Hypoglycemic protocol - Cardiac Carb consistent diet - Continue home medication pregablin 75mg PO dly BPH - Continue home medication tamsulosin 0.4mg PO dly Depression Anxiety - Continue home medication citalopram 40mg PO dly, duloxetine 20mg PO dly Discharge: Patient to discharge in stable condition in care of spouse. To follow up with cardiology outpatient for scheduled stress test. ACS ruled out per Dr. Thomas. May discharge home, to continue home medications as previously prescribed. Follow-up with primary care in 1 to 3 days of discharge. Prescribed amlodipine, sent to patient preferred pharmacy. Hold home medication lisinopril, keep blood pressure log and review with PCP prior to resuming medication. All questions and concerns addressed with patient prior to discharge. Physical Exam Narrative: General: A&Ox4, resting in bed on RA, no apparent distress. HEENT: Normo-cephalic, atraumatic, grossly unremarkable exam Cardio: NSR, normal S1-S2 w/o any murmurs, rubs, or gallops and JVD normal Respiratory: Clear to bilateral upper and lower lobes on auscultation w/o any wheezes, stridor, rhonchi GI: Abd soft, non-tender, non-distended, normo-active bowel sounds present Neuro: Moves all extremities, no sensory deficits, Normal speech Behavior: Appropriate and cooperative Extremities: Adequate palpable pulses. No clubbing, cyanosis or edema, Full ROM Discharge Data Studies Completed and Pending Completed Studies During Hospitalization Category Date Time Status XR chest 1V portable [id number] Stat Exams 08/08/25 10:43 Completed XR hand RT 2V [id number] Routine Exams 08/09/25 09:11 Completed CV. echo complete* [id number] Routine Ultrasound 08/08/25 13:25 Completed Pending at discharge Category Date Time Status Complete Blood Count w/Auto AM LABS Lab 08/10/25 04:00 Ordered Complete Blood Count w/Auto AM LABS Lab 08/11/25 04:00 Ordered Comprehensive Metabolic Panel AM LABS Lab 08/10/25 04:00 Ordered Comprehensive Metabolic Panel AM LABS Lab 08/11/25 04:00 Ordered Magnesium AM LABS Lab 08/10/25 04:00 Ordered Magnesium AM LABS Lab 08/11/25 04:00 Ordered Radiology Impressions Chest X-Ray 08/08/25 10:43 IMPRESSION: Stable chest without acute abnormality. Hand X-Ray 08/09/25 09:11 IMPRESSION: No acute fracture or subluxation of the LEFT hand. Laboratory Results WBC 7.29 10^3/uL (3.29-11.43) 08/09/25 02:29 RBC 4.56 10^6/uL (3.85-5.65) 08/09/25 02:29 Hgb 13.00 g/dL (11.27-16.99) 08/09/25 02:29 Hct 39.6 % (37-53) 08/09/25 02:29 MCV 86.8 fl (82-101) 08/09/25 02:29 MCH 28.5 pg (27-33) 08/09/25 02:29 MCHC 32.8 g/dL (30-55) 08/09/25 02:29 RDW 13.9 % (12.1-15.1) 08/09/25 02:29 Plt Count 151 10^3/cmm (157-399) L 08/09/25 02:29 MPV 12.6 fL (7.4-10.4) H 08/09/25 02:29 Neut % (Auto) 60.8 % 08/09/25 02:29 Lymph % (Auto) 28.1 % 08/09/25 02:29 [place] % (Auto) 7.8 % 08/09/25 02:29 Eos % (Auto) 2.7 % 08/09/25 02: Baso % (Auto) 0.5 % 08/09/25 02:29 Neut # (Auto) 4.42 10^3/uL (1.8-7.7) 08/09/25 02: Lymph # (Auto) 2.1 10^3/uL (0.8-4.8) 08/09/25 02:29 [place] # (Auto) 0.6 10^3/uL (0.2-0.9) 08/09/25 02:29 Eos # (Auto) 0.2 10^3/uL (0.0-0.8) 08/09/25 02: Baso # (Auto) 0.0 10^3/uL (0.0-0.1) 08/09/25 02: Nucleated RBC % (auto) 0 % 08/09/25 02: Nucleated RBCs # 0.0 /100WBC 08/09/25 02: PT 12.60 SECONDS (12.1-14.9) 08/08/25 10:52 INR 0.88 (0.8-1.2) 08/08/25 10:52 APTT 25.6 SECONDS (23.9-36.7) 08/08/25 10:52 D-Dimer 0.52 ug/mLFEU (0-0.59) 08/08/25 21:16 Sodium 140 mmol/L (136-145) 08/09/25 02:29 Potassium 4.1 mmol/L (3.5-5.1) 08/09/25 02:29 Chloride 105 mmol/L (98-107) 08/09/25 02:29 Carbon Dioxide 27 mmol/L (22-29) 08/09/25 02:29 Anion Gap 12.1 (5-19) 08/09/25 02:29 BUN 28 mg/dL (8-23) H 08/09/25 02:29 Creatinine 1.2 mg/dL (0.7-1.2) 08/09/25 02:29 GFR Calculation 61.1 mL/min (90-130) L 08/09/25 02:29 Glucose 83 mg/dL (65-115) 08/09/25 02:29 POC Glucose 113 mg/dL (70-110) H 08/08/25 17:02 Estimat Average Glucose 200 08/08/25 10:52 Hemoglobin A1c 8.6 % (4.0-6.0) H 08/08/25 10:52 Calculated Osmolality 295 mOsm/kg (285-295) 08/09/25 02:29 Calcium 9.0 mg/dL (8.5-10.5) 08/09/25 02:29 Magnesium 2.3 mg/dL (1.7-2.3) 08/09/25 02:29 Total Bilirubin 0.3 mg/dL (0.15-1.2) 08/09/25 02:29 AST 14 U/L (0-40) 08/09/25 02:29 ALT 13 U/L (0-41) 08/09/25 02:29 Alkaline Phosphatase 58 U/L (40-130) 08/09/25 02:29 Troponin T Baseline 51 ng/L (0-15) H 08/08/25 10:52 Troponin T 60 Minute 50.73 ng/L (0-15) H 08/08/25 11:39 Delta Troponin T -0.27 ABS# (0-10) L 08/08/25 11:39 NT-Pro-B Natriuret Pep 59 pg/mL (0-125) 08/08/25 10:52 Total Protein 6.3 g/dL (6.6-8.7) L 08/09/25 02:29 Albumin 3.9 g/dL (3.5-5.2) 08/09/25 02:29 Globulin 2.4 g/dL (1.3-4.6) 08/09/25 02:29 Triglycerides 489 mg/dL (0-150) H 08/09/25 02:29 Cholesterol 155 mg/dL (0-200) 08/09/25 02:29 LDL Cholesterol Direct 58 mg/dL (0-100) 08/09/25 02:29 LDL Cholesterol, Calc Not Reportable 08/09/25 02:29 HDL Cholesterol 29 mg/dL (60-100) L 08/09/25 02:29 LDL/HDL Ratio Not Reportable 08/09/25 02:29 Cholesterol/HDL Ratio 5.34 mg/dL (1.0-5.00) H 08/09/25 02:29 Lipase 35 U/L (13-60) 08/08/25 10:52 TSH 1.66 uIU/mL (0.27-4.20) 08/08/25 10:52 Vitals Last Vital Signs Temp 97.7 F 08/09/25 11:49 Pulse 63 08/09/25 11:49 Resp 16 08/09/25 11:49 BP 114/61 08/09/25 11:49 Pulse Ox 99 08/09/25 03:07 O2 Del Method Room Air 08/08/25 16:00 Discharge Plan Discharge Patient Disposition: Home Condition: Stable Prescriptions: New amlodipine 5 mg Tablet 5 mg PO BID 90 Days Qty: 180 0RF Continued multivitamin Tablet 1 tab PO DAILY cetirizine 10 mg tablet 10 mg PO BID PRN (Reason: allergies) clopidogrel 75 mg tablet 75 mg PO DAILY 30 Days Qty: 90 3RF testosterone cypionate [Depo-Testosterone] 200 mg/mL oil 200 mg SUBCUT .every other week Qty: 1 3RF Farxiga 10 mg tablet 10 mg PO DAILY Qty: 30 2RF tamsulosin 0.4 mg capsule 0.4 mg PO DAILY Qty: 30 4RF metformin 500 mg tablet 1,000 mg PO BID Mounjaro 2.5 mg/0.5 mL pen injector 2.5 mg SUBCUT Q7D Rx Instructions: Fridays isosorbide mononitrate 30 mg Tablet Extended Release 24 Hr 30 mg PO DAILY Qty: 30 0RF pregabalin 75 mg capsule 75 mg PO DAILY duloxetine 20 mg capsule,delayed release(DR/EC) 40 mg PO DAILY atorvastatin 80 mg tablet 80 mg PO QPM 30 Days Qty: 30 0RF citalopram 40 mg tablet 40 mg PO QAM 30 Days Qty: 30 0RF aspirin [Adult Low Dose Aspirin] 81 mg tablet,delayed release (DR/EC) 81 mg PO QAM 30 Days Qty: 30 0RF insulin lispro [Humalog KwikPen Insulin] 100 unit/mL insulin pen See Rx Instructions .ROUTE .COMPLEX 30 Days Qty: 0 0RF Rx Instructions: Inject, subcutaneously, 3 times daily, after meals as needed, based on low- dose insulin sliding scale insulin degludec [Tresiba FlexTouch U-200] 200 unit/mL (3 mL) insulin pen 10 unit SUBCUT DAILY 30 Days Qty: 0 0RF nitroglycerin 0.4 mg tablet, sublingual See Rx Instructions .ROUTE .COMPLEX Rx Instructions: DISSOLVE 1 TABLET UNDER THE TONGUE EVERY 5 MINUTES NEEDED FOR CHEST PAIN. DO NOT EXCEED A TOTAL OF 3 DOSES IN 15 MINUTES metoprolol succinate 25 mg tablet extended release 24 hr 25 mg PO DAILY Held lisinopril 40 mg tablet 40 mg PO DAILY Hold Instructions: Resume on 08/28/25. Please keep home blood pressure log and review with PCP before resuming medications No Action (DME) syringe with needle [BD Luer-Bin Syringe] 3 mL 20 gauge x 1 1/2 syringe See Rx Instructions .Route Qty: 100 0RF Rx Instructions: As directed Discharge Order = DC NOW: Discharge Order (Routine); Ordered 08/09/25 Ordered By: Jes Dawkins Referrals: Donnie Rene MD [Primary Care Provider, Internal Medicine] - 4-7 days Referral Note: Please call the office on Monday to arrange a hospital follow up appointment in the next 7-10 days Ganesh Thomas MD [Physician, Cardiology] - 2 weeks Discharge Diet: Cardiac and Diabetic Discharge Activity: Resume usual activity Patient Instructions: Generalized Anxiety Disorder, Coronary Artery Disease (DC), Chronic Hypertension (DC), Chest Pain Stoplight, Opioid Safety, Patient Portal & Alexandre Instructions Activity Restrictions/Additional Instructions: In case of new or worsening symptoms seek medical attention is a Discharge Attestations Time Spent in Discharge Care*: greater than 30 min Quality Metrics Clinical Quality Measures [ No reported AMI, CVA or VTE this stay] Coding Level of Care Code 59639 Total time (in minutes) for Discharge: 40 Diagnoses Chest pain, unspecified type R07.9 Chest pain type: unspecified Coronary artery disease of [place] artery of [place] heart with stable angina pectoris I25.118 Associated angina: with stable angina Coronary Disease-Associated Artery/Lesion type: [place] artery [place] vs. transplanted heart: [place] heart Mixed hyperlipidemia E78.2 Hyperlipidemia type: mixed hyperlipidemia HTN (hypertension) with goal to be determined I10 Diabetes type 2, controlled E11.9 Diabetic polyneuropathy associated with type 2 diabetes mellitus E11.42 Diabetes mellitus complication detail: diabetic polyneuropathy Diabetes mellitus type: type 2 Primary hypertension I10 Hypertension type: primary hypertension Benign prostatic hyperplasia without lower urinary tract symptoms N40.0 Lower urinary tract symptom presence: symptoms absent Anxiety F41.9
--- NOTE | 2025-08-09 16:16 | P.PN_ITS ---
Subjective 2 Subjective: Breathing well. No CP Vitals/I&O/Wt Last Vital Signs Temp 97.7 F 08/09/25 11:49 Pulse 63 08/09/25 11:49 Resp 16 08/09/25 11:49 BP 114/61 08/09/25 11:49 Pulse Ox 99 08/09/25 03:07 O2 Del Method Room Air 08/08/25 16:00 08/09/25 08/09/25 08/09/25 06:59 14:59 22:59 Intake Total 1000 / 1240 1480 / 1480 Balance 1000 / 1240 1480 / 1480 Weight last 48 hrs Weight 231 lb 11.293 oz Weight 229 lb 4.492 oz Weight 230 lb Physical Exam 2 Narrative: General: No apparent distress, healthy appearing, well nourished Muskuloskeletal: Full ROM Respiratory: Normal respiratory effort, clear to auscultation bilaterally throughout all lung peres, no use of accessory muscles Cardio: No JVD, regular rate, regular rhythm, S1 S2 normal, no murmurs Extremities: Full ROM, normal, normal capillary refill, no cyanosis or edema Neuro: Alert and oriented x4 Psych: Affect normal, mental status grossly normal Skin: No rashes or lesions noted, no wounds Data 08/09/25 02:29 08/09/25 02:29 A&P Assessment and plan 1. Chest pain, unspecified type: 2. Essential hypertension: 3. SOB (shortness of breath): 4. Elevated serum creatinine: Plan: Symptoms resolved Echo normal Cr improved after IVF Patient is cadiovascularly stable Can be discharged home on current medical regimen FU with Dr. Herrera as an outpatient PDMP PDMP Reviewed: Not Reviewed Attestations 2 Medical Necessity Statement*: being discharged Coding Level of Care Code 16081 Diagnoses Chest pain, unspecified type R07.9 Chest pain type: unspecified Essential hypertension I10 SOB (shortness of breath) R06.02 Elevated serum creatinine R79.89
== END 2025-08-09 16:19 | disposition home or self-care (01) ==
LOC: ER 10:58 → CSU 12:25
PROVIDERS: Internal Medicine; Admitting Provider Student in an Organized Health Care Education/Training Program; Emergency Provider Emergency Medicine; PCP Internal Medicine
DX: I25.118 Atherosclerotic heart disease of native coronary artery with other forms of angina pectoris (principal); E78.2 Mixed hyperlipidemia; I10 Essential (primary) hypertension; E11.9 Type 2 diabetes mellitus without complications; E11.42 Type 2 diabetes mellitus with diabetic polyneuropathy; N40.0 Benign prostatic hyperplasia without lower urinary tract symptoms; F41.9 Anxiety disorder, unspecified; R79.89 Other specified abnormal findings of blood chemistry; Z79.82 Long term (current) use of aspirin; Z79.4 Long term (current) use of insulin; Z79.02 Long term (current) use of antithrombotics/antiplatelets; Z79.84 Long term (current) use of oral hypoglycemic drugs; Z87.891 Personal history of nicotine dependence; Z95.5 Presence of coronary angioplasty implant and graft
CPT/HCPCS: 36415; 36416; 71045; 73120; 80053; 80061; 82962; 83036; 83690; 83721; 83735; 83880; 84443; 84484; 85025; 85378; 85610; 85730; 93005; 93306; 96360; 96361; 96372; 99285; G0378; J1650; J1815; J7030; J9999